=== PATIENT | female | born 1950 | race Caucasian/White ===

== ENCOUNTER → 2016-04-30 | Outpatient (CLI) | payer BC, OTHER ==
[~2016-04-30] MED LIST: AMBI5TAB PO; ASPI1TAB PO; ATOR40TA PO; FISH5CAP PO; K-TA1TAB PO; LISI20TA3 PO; MAGN1TAB25 PO; MULT1TAB9 PO; VITA-121 PO; VITA100072 PO; VOLT1GEL24 TD
[2016-04-30 13:10] LABS: BASO % 0.4 % (0.0-1.0); EOS # 0.2 K/mm3 (0.0-0.50); EOS % 3.1 % (0.0-3.0); LYMPH # 1.7 K/mm3 (1.5-4.5); LYMPH % 24.5 % (24.0-44.0); MEAN CORPUSCULAR HEMOGLOBIN 32.1 pg (27.0-33.0); MEAN CORPUSCULAR HGB CONC 33.6 g/dl (32.0-36.5); MEAN CORPUSCULAR VOLUME 95.7 fl (80.0-96.0); MONO # 0.4 K/mm3 (0.0-0.8); MONO % 5.8 % (0.0-5.0); NEUTROPHILS # 4.4 K/mm3 (1.8-7.7); RED CELL DISTRIBUTION WIDTH 12.4 % (11.5-14.5); WHITE BLOOD COUNT 6.8 K/mm3 (4.0-10.0)
[2016-04-30 13:27] LABS: ALBUMIN/GLOBULIN RATIO 1.43 (1.00-1.93); ALKALINE PHOSPHATASE 64 U/L (45-117); ALT/SGPT 23 U/L (12-78); ANION GAP 9 MEQ/L (8-16); AST/SGOT 22 U/L (15-37); BILIRUBIN,TOTAL 1.4 MG/DL (0.2-1.0); BLOOD UREA NITROGEN 10 MG/DL (7-18); CALCIUM LEVEL 8.9 MG/DL (8.8-10.2); CARBON DIOXIDE LEVEL 30 MEQ/L (21-32); CHLORIDE LEVEL 102 MEQ/L (98-107); CHOLESTEROL LEVEL 196 MG/DL (<200); CREATININE FOR GFR 0.57 MG/DL (0.55-1.02); FREE T4 0.97 NG/DL (0.76-1.46); GLOMERULAR FILTRATION RATE > 60.0 (>45); GLUCOSE, FASTING 111 MG/DL (80-110); POTASSIUM SERUM 4.1 MEQ/L (3.5-5.1); SODIUM LEVEL 141 MEQ/L (136-145); TOTAL PROTEIN 6.8 GM/DL (6.4-8.2); TRIGLYCERIDES LEVEL 183 MG/DL (<150)
[2016-04-30 14:05] LABS: HIV SCRN NEGATIVE (NEGATIVE); HIV SCRN1 NEGATIVE (NEGATIVE)
[2016-04-30 14:06] LABS: CONTROL LINE INT CTR LINE PRESENT
== END ==
LOC: M WUC 09:23
PROVIDERS: ATTEND Family Medicine
DX: Z00.00 Encounter for general adult medical examination without abnormal findings (principal); E78.5 Hyperlipidemia, unspecified; I10 Essential (primary) hypertension

== ENCOUNTER → 2017-05-29 | Outpatient (CLI) | payer OTHER, BC ==
[2017-05-29 13:28] LABS: APPEARANCE, URINE CLEAR (CLEAR); BACTERIA, URINE AUTO NEGATIVE (NEGATIVE); BILIRUBIN, URINE AUTO NEGATIVE (NEGATIVE); BLOOD, URINE BLOOD 1+ (NEGATIVE); COLOR, URINE YELLOW (YELLOW); GLUCOSE, URINE (UA) AUTO NEGATIVE (NEGATIVE); KETONE, URINE AUTO NEGATIVE (NEGATIVE); LEUKOCYTE ESTERASE, URINE AUTO NEGATIVE (NEGATIVE); MUCUS, URINE SMALL (NEGATIVE); NITRITE, URINE AUTO NEGATIVE (NEGATIVE); PROTEIN, URINE AUTO NEGATIVE (NEGATIVE); RBC, URINE AUTO 2 /HPF (0-3); SPECIFIC GRAVITY URINE AUTO 1.018 (1.002-1.035); SQUAMOUS EPITHELIAL CELL UR AU 0 /HPF (0-6); UROBILINOGEN, URINE AUTO 0.2 mg/dL (0.0-2.0); WBC, URINE AUTO 1 /HPF (0-3)
[2017-05-29 13:29] LABS: BASO % 0.6 % (0.0-1.0); EOS # 0.1 10^3/uL (0.0-0.50); EOS % 1.6 % (0.0-3.0); HEMATOCRIT 38.5 % (36.0-47.0); IMMATURE GRANULOCYTE % 0.3 % (0-3.0); LYMPH # 1.7 10^3/uL (1.5-4.5); LYMPH % 24.1 % (24.0-44.0); MEAN CORPUSCULAR HGB CONC 33.8 g/dl (32.0-36.5); MEAN CORPUSCULAR VOLUME 94.8 fl (80.0-96.0); MONO # 0.6 10^3/uL (0.0-0.8); MONO % 8.6 % (0.0-5.0); NEUTROPHILS # 4.5 10^3/uL (1.8-7.7); NEUTROPHILS % 64.8 % (36.0-66.0); PLATELET COUNT, AUTOMATED 226 10^3/uL (150-450); RED BLOOD COUNT 4.06 10^6/uL (4.00-5.40); RED CELL DISTRIBUTION WIDTH 13.2 % (11.5-14.5)
[2017-05-29 13:44] LABS: ALBUMIN/GLOBULIN RATIO 1.29 (1.00-1.93); ALKALINE PHOSPHATASE 73 U/L (45-117); ALT/SGPT 40 U/L (12-78); ANION GAP 6 MEQ/L (8-16); AST/SGOT 35 U/L (7-37); BILIRUBIN,TOTAL 1.3 MG/DL (0.2-1.0); BLOOD UREA NITROGEN 13 MG/DL (7-18); CALCIUM LEVEL 8.6 MG/DL (8.8-10.2); CARBON DIOXIDE LEVEL 33 MEQ/L (21-32); CHLORIDE LEVEL 101 MEQ/L (98-107); CHOLESTEROL LEVEL 174 MG/DL (<200); CHOLESTEROL RISK RATIO 2.175 (<5); CREATININE FOR GFR 0.49 MG/DL (0.55-1.30); GLOMERULAR FILTRATION RATE > 60.0 (>45); GLUCOSE, FASTING 93 MG/DL (70-100); HDL CHOLESTEROL 80 MG/DL (>40); LDL CHOLESTEROL 66.2 MG/DL (<100); NON-HDL-C 94 MG/DL; POTASSIUM SERUM 3.5 MEQ/L (3.5-5.1); SODIUM LEVEL 140 MEQ/L (136-145); TOTAL PROTEIN 7.1 GM/DL (6.4-8.2); TRIGLYCERIDES LEVEL 139 MG/DL (<150); URIC ACID 5.1 MG/DL (2.6-6.0)
[2017-05-29 14:16] LABS: TOTAL 25(OH) VITAMIN D 24.6 NG/ML (30.0-100.0)
[2017-05-29 14:17] LABS: ESTIMATED AVERAGE GLUCOSE 120 MG/DL (60-110); HEMOGLOBIN A1c 5.8 %
[2017-05-30 14:16] LABS: ANTINUCLEAR ANTIBODIES DIRECT Negative (Negative)
== END ==
LOC: M WUC 10:00
DX: I10 Essential (primary) hypertension (principal); M79.671 Pain in right foot; E78.5 Hyperlipidemia, unspecified; E55.9 Vitamin D deficiency, unspecified
CPT/HCPCS: 84550

== ENCOUNTER → 2017-11-25 | Outpatient (CLI) | payer MEDICARE, OTHER | LOC: M RAD 11:54 | DX: I73.9 Peripheral vascular disease, unspecified (principal); S13.160A Subluxation of C5/C6 cervical vertebrae, initial encounter; S13.150A Subluxation of C4/C5 cervical vertebrae, initial encounter; M50.322 Other cervical disc degeneration at C5-C6 level; M25.78 Osteophyte, vertebrae; X58.XXXA Exposure to other specified factors, initial encounter; Y92.9 Unspecified place or not applicable; R51 Headache | CPT/HCPCS: 70450 ==

== ENCOUNTER → 2017-11-25 | Outpatient (CLI) | payer MEDICARE, OTHER, BC ==
[2017-11-25 16:28] LABS: BASO # 0.1 10^3/uL (0.0-0.2); BASO % 0.8 % (0.0-1.0); EOS # 0.1 10^3/uL (0.0-0.50); HEMATOCRIT 40.3 % (36.0-47.0); HEMOGLOBIN 13.7 g/dl (12.0-15.5); IMMATURE GRANULOCYTE % 0.5 % (0-3.0); LYMPH # 2.1 10^3/uL (1.5-4.5); LYMPH % 31.5 % (24.0-44.0); MEAN CORPUSCULAR HEMOGLOBIN 32.9 pg (27.0-33.0); MEAN CORPUSCULAR VOLUME 96.9 fl (80.0-96.0); MONO # 0.6 10^3/uL (0.0-0.8); MONO % 8.9 % (0.0-5.0); NEUTROPHILS # 3.7 10^3/uL (1.8-7.7); NEUTROPHILS % 56.3 % (36.0-66.0); PLATELET COUNT, AUTOMATED 281 10^3/uL (150-450); RED BLOOD COUNT 4.16 10^6/uL (4.00-5.40); WHITE BLOOD COUNT 6.6 10^3/uL (4.0-10.0)
[2017-11-25 16:54] LABS: ERYTHROCYTE SEDIMENTATION RATE 4 mm/hr (0-30)
[2017-11-25 17:16] LABS: ALBUMIN 4.2 GM/DL (3.2-5.2); ALKALINE PHOSPHATASE 61 U/L (45-117); ALT/SGPT 28 U/L (12-78); ANION GAP 13 MEQ/L (8-16); AST/SGOT 40 U/L (7-37); BILIRUBIN,TOTAL 1.5 MG/DL (0.2-1.0); BLOOD UREA NITROGEN 14 MG/DL (7-18); CARBON DIOXIDE LEVEL 29 MEQ/L (21-32); CHLORIDE LEVEL 100 MEQ/L (98-107); CREATININE FOR GFR 0.58 MG/DL (0.55-1.30); GLOMERULAR FILTRATION RATE > 60.0 (>45); GLUCOSE, FASTING 106 MG/DL (70-100); POTASSIUM SERUM 4.2 MEQ/L (3.5-5.1); SODIUM LEVEL 142 MEQ/L (136-145); TOTAL PROTEIN 7.2 GM/DL (6.4-8.2)
== END ==
LOC: M WUC 10:37
DX: S13.160A Subluxation of C5/C6 cervical vertebrae, initial encounter (principal); S13.150A Subluxation of C4/C5 cervical vertebrae, initial encounter; M50.322 Other cervical disc degeneration at C5-C6 level; M25.78 Osteophyte, vertebrae; X58.XXXA Exposure to other specified factors, initial encounter; Y92.9 Unspecified place or not applicable; R51 Headache

== ENCOUNTER → 2017-12-02 | Outpatient (CLI) | payer MEDICARE, OTHER ==
[2017-12-02 12:23] LABS: APPEARANCE, URINE CLEAR (CLEAR); BACTERIA, URINE AUTO NEGATIVE (NEGATIVE); BILIRUBIN, URINE AUTO NEGATIVE (NEGATIVE); BLOOD, URINE BLOOD NEGATIVE (NEGATIVE); COLOR, URINE YELLOW (YELLOW); GLUCOSE, URINE (UA) AUTO NEGATIVE (NEGATIVE); KETONE, URINE AUTO NEGATIVE (NEGATIVE); LEUKOCYTE ESTERASE, URINE AUTO NEGATIVE (NEGATIVE); MUCUS, URINE SMALL (NEGATIVE); NITRITE, URINE AUTO NEGATIVE (NEGATIVE); PROTEIN, URINE AUTO NEGATIVE (NEGATIVE); RBC, URINE AUTO 5 /HPF (0-3); SPECIFIC GRAVITY URINE AUTO 1.015 (1.002-1.035); SQUAMOUS EPITHELIAL CELL UR AU 1 /HPF (0-6); UROBILINOGEN, URINE AUTO 0.2 mg/dL (0.0-2.0); WBC, URINE AUTO 2 /HPF (0-3)
[2017-12-02 12:34] LABS: BASO # 0.1 10^3/uL (0.0-0.2); EOS # 0.1 10^3/uL (0.0-0.50); EOS % 1.6 % (0.0-3.0); HEMATOCRIT 40.5 % (36.0-47.0); HEMOGLOBIN 13.7 g/dl (12.0-15.5); IMMATURE GRANULOCYTE % 0.6 % (0-3.0); LYMPH # 1.8 10^3/uL (1.5-4.5); LYMPH % 29.3 % (24.0-44.0); MEAN CORPUSCULAR HEMOGLOBIN 32.4 pg (27.0-33.0); MEAN CORPUSCULAR HGB CONC 33.8 g/dl (32.0-36.5); MEAN CORPUSCULAR VOLUME 95.7 fl (80.0-96.0); MONO # 0.6 10^3/uL (0.0-0.8); MONO % 9.4 % (0.0-5.0); NEUTROPHILS # 3.7 10^3/uL (1.8-7.7); NEUTROPHILS % 58.1 % (36.0-66.0); PLATELET COUNT, AUTOMATED 326 10^3/uL (150-450); RED BLOOD COUNT 4.23 10^6/uL (4.00-5.40); RED CELL DISTRIBUTION WIDTH 12.8 % (11.5-14.5); WHITE BLOOD COUNT 6.3 10^3/uL (4.0-10.0)
[2017-12-02 12:43] LABS: ALBUMIN/GLOBULIN RATIO 1.25 (1.00-1.93); ALKALINE PHOSPHATASE 73 U/L (45-117); ALT/SGPT 31 U/L (12-78); ANION GAP 8 MEQ/L (8-16); AST/SGOT 42 U/L (7-37); BLOOD UREA NITROGEN 11 MG/DL (7-18); CALCIUM LEVEL 8.6 MG/DL (8.8-10.2); CARBON DIOXIDE LEVEL 33 MEQ/L (21-32); CHLORIDE LEVEL 101 MEQ/L (98-107); CHOLESTEROL LEVEL 197 MG/DL (<200); CHOLESTEROL RISK RATIO 2.164 (<5); CREATININE FOR GFR 0.53 MG/DL (0.55-1.30); FREE T4 0.88 NG/DL (0.76-1.46); GLOMERULAR FILTRATION RATE > 60.0 (>45); GLUCOSE, FASTING 91 MG/DL (70-100); HDL CHOLESTEROL 91 MG/DL (>40); LDL CHOLESTEROL 67 MG/DL (<100); NON-HDL-C 106 MG/DL; POTASSIUM SERUM 3.5 MEQ/L (3.5-5.1); SODIUM LEVEL 142 MEQ/L (136-145); TOTAL PROTEIN 7.2 GM/DL (6.4-8.2); TRIGLYCERIDES LEVEL 197 MG/DL (<150); URIC ACID 6.3 MG/DL (2.6-6.0)
[2017-12-02 12:47] LABS: TOTAL 25(OH) VITAMIN D 40.6 NG/ML (30.0-100.0)
== END ==
LOC: M WUC 09:43
DX: I10 Essential (primary) hypertension (principal); M79.671 Pain in right foot; E78.5 Hyperlipidemia, unspecified
CPT/HCPCS: 84443

== ENCOUNTER → 2018-03-06 | Outpatient (REF) | payer MEDICARE, OTHER ==
[~2018-03-06] MED LIST changes: -ATOR40TA PO; +ATOR40TA75 PO; +VOLT1GEL15 TD; -VOLT1GEL24 TD
== END ==
LOC: M SFHCWAGY 09:07
PROVIDERS: ATTEND Nurse Practitioner Family
DX: Z12.4 Encounter for screening for malignant neoplasm of cervix (principal); R87.5 Abnormal microbiological findings in specimens from female genital organs

== ENCOUNTER → 2018-03-06 | Outpatient (CLI) | payer MEDICARE, BC ==
--- NOTE | 2018-03-06 09:49 | REPMRS ---
Patient History The patient states she had a clinical breast exam in 03/21 Family history of breast cancer under age 50 in maternal aunt. Took progesterone for 1 year. Digital Woman Screen Mammo: March 06, 2018 - Exam #: [id number] Bilateral CC and MLO view(s) were taken. Technologist: Kailyn Tian, Technologist Prior study comparison: March 15, 2016, bilateral digital woman screen mammo, performed at [facility]. July 28, 2015, digital woman screen mammo performed at [facility]. June 17, 2014, digital woman screen mammo performed at [facility]. FINDINGS: There are scattered fibroglandular densities. There has been no change in the appearance of the mammogram from the prior studies. There is a mild amount of scattered fibroglandular density which is fairly symmetric. There is no interval development of dominant mass, architectural distortion, or clustered microcalcification suggestive of malignancy. 3-D tomosynthesis shows no additional findings. Assessment: BI-RADS/ACR category 1 mammogram. Negative. Recommendation Routine screening mammogram of both breasts in 1 year (for women over age 40). This patient's Lifetime Breast Cancer RIsk is estimated at 4.7 %. This mammogram was interpreted with the aid of an FDA-approved computer-aided dectection system. Electronically Signed By: Yogi Stringer MD 03/06/18 0949
== END ==
LOC: M WHC 08:48
PROVIDERS: ATTEND Nurse Practitioner Family
DX: Z01.419 Encounter for gynecological examination (general) (routine) without abnormal findings (principal); Z12.31 Encounter for screening mammogram for malignant neoplasm of breast; Z92.29 Personal history of other drug therapy; Z12.12 Encounter for screening for malignant neoplasm of rectum
CPT/HCPCS: 77063; 77067; 82270; G0101; G0123

== ENCOUNTER → 2018-05-26 | Outpatient (CLI) | payer MEDICARE, OTHER ==
[2018-05-26 12:58] LABS: BASO # 0.1 10^3/uL (0.0-0.2); BASO % 0.6 % (0.0-1.0); EOS # 0.1 10^3/uL (0.0-0.50); EOS % 1.8 % (0.0-3.0); HEMATOCRIT 39.3 % (36.0-47.0); HEMOGLOBIN 13.4 g/dl (12.0-15.5); LYMPH % 25.9 % (24.0-44.0); MEAN CORPUSCULAR HEMOGLOBIN 31.9 pg (27.0-33.0); MEAN CORPUSCULAR HGB CONC 34.1 g/dl (32.0-36.5); MEAN CORPUSCULAR VOLUME 93.6 fl (80.0-96.0); MONO # 0.6 10^3/uL (0.0-0.8); MONO % 7.7 % (0.0-5.0); NEUTROPHILS % 63.6 % (36.0-66.0); PLATELET COUNT, AUTOMATED 252 10^3/uL (150-450); WHITE BLOOD COUNT 7.8 10^3/uL (4.0-10.0)
[2018-05-26 13:28] LABS: ALBUMIN 4.4 GM/DL (3.2-5.2); ALT/SGPT 31 U/L (12-78); BILIRUBIN,TOTAL 2.5 MG/DL (0.2-1.0); BLOOD UREA NITROGEN 15 MG/DL (7-18); CALCIUM LEVEL 8.9 MG/DL (8.8-10.2); CARBON DIOXIDE LEVEL 30 MEQ/L (21-32); CHLORIDE LEVEL 99 MEQ/L (98-107); CHOLESTEROL LEVEL 182 MG/DL (<200); CHOLESTEROL RISK RATIO 2.459 (<5); CREATININE FOR GFR 0.59 MG/DL (0.55-1.30); FREE T4 0.96 NG/DL (0.76-1.46); GLOMERULAR FILTRATION RATE > 60.0 (>45); GLUCOSE, FASTING 103 MG/DL (70-100); HDL CHOLESTEROL 74 MG/DL (>40); LDL CHOLESTEROL 72 MG/DL (<100); NON-HDL-C 108 MG/DL; POTASSIUM SERUM 3.7 MEQ/L (3.5-5.1); SODIUM LEVEL 137 MEQ/L (136-145); TOTAL 25(OH) VITAMIN D 79.6 NG/ML (30.0-100.0); TOTAL PROTEIN 7.3 GM/DL (6.4-8.2); TRIGLYCERIDES LEVEL 180 MG/DL (<150); URIC ACID 4.6 MG/DL (2.6-6.0)
[2018-05-26 13:50] LABS: ERYTHROCYTE SEDIMENTATION RATE 6 mm/hr (0-30)
[2018-05-26 19:44] LABS: APPEARANCE, URINE HAZY (CLEAR); BACTERIA, URINE AUTO NEGATIVE (NEGATIVE); BILIRUBIN, URINE AUTO NEGATIVE (NEGATIVE); BLOOD, URINE BLOOD NEGATIVE (NEGATIVE); CALCIUM OXALATE CRYSTALS SMALL; COLOR, URINE AMBER (YELLOW); GLUCOSE, URINE (UA) AUTO NEGATIVE (NEGATIVE); KETONE, URINE AUTO NEGATIVE (NEGATIVE); LEUKOCYTE ESTERASE, URINE AUTO NEGATIVE (NEGATIVE); MUCUS, URINE SMALL (NEGATIVE); NITRITE, URINE AUTO NEGATIVE (NEGATIVE); PROTEIN, URINE AUTO NEGATIVE (NEGATIVE); RBC, URINE AUTO 3 /HPF (0-3); SPECIFIC GRAVITY URINE AUTO 1.021 (1.002-1.035); SQUAMOUS EPITHELIAL CELL UR AU 2 /HPF (0-6); UROBILINOGEN, URINE AUTO 0.2 mg/dL (0.0-2.0); WBC, URINE AUTO 2 /HPF (0-3)
== END ==
LOC: M WUC 10:56
PROVIDERS: ATTEND Family Medicine
DX: I10 Essential (primary) hypertension (principal); M79.671 Pain in right foot; E78.5 Hyperlipidemia, unspecified; E55.9 Vitamin D deficiency, unspecified; G47.33 Obstructive sleep apnea (adult) (pediatric); M10.9 Gout, unspecified; Z79.82 Long term (current) use of aspirin

== ENCOUNTER → 2018-06-26 | Outpatient (CLI) | payer MEDICARE, OTHER ==
[~2018-06-26] MED LIST changes: -ASPI1TAB PO; +ASPI81TA26 PO; -MAGN1TAB25 PO; +MAGN1TAB26 PO; +VITA100018 PO; -VITA100072 PO
[2018-06-26 13:04] LABS: BASO % 0.6 % (0.0-1.0); EOS # 0.2 10^3/uL (0.0-0.50); EOS % 2.9 % (0.0-3.0); HEMATOCRIT 37.3 % (36.0-47.0); HEMOGLOBIN 12.2 g/dl (12.0-15.5); LYMPH # 1.6 10^3/uL (1.5-4.5); LYMPH % 23.6 % (24.0-44.0); MEAN CORPUSCULAR HEMOGLOBIN 31.1 pg (27.0-33.0); MEAN CORPUSCULAR HGB CONC 32.7 g/dl (32.0-36.5); MEAN CORPUSCULAR VOLUME 95.2 fl (80.0-96.0); MONO # 0.7 10^3/uL (0.0-0.8); MONO % 10.6 % (0.0-5.0); NEUTROPHILS # 4.2 10^3/uL (1.8-7.7); NEUTROPHILS % 61.9 % (36.0-66.0); PLATELET COUNT, AUTOMATED 230 10^3/uL (150-450); RED BLOOD COUNT 3.92 10^6/uL (4.00-5.40); WHITE BLOOD COUNT 6.9 10^3/uL (4.0-10.0)
[2018-06-26 13:28] LABS: ERYTHROCYTE SEDIMENTATION RATE 9 mm/hr (0-30)
[2018-06-26 13:39] LABS: ALBUMIN 3.9 GM/DL (3.2-5.2); ALT/SGPT 23 U/L (12-78); BILIRUBIN,TOTAL 1.6 MG/DL (0.2-1.0); BLOOD UREA NITROGEN 12 MG/DL (7-18); CALCIUM LEVEL 8.6 MG/DL (8.8-10.2); CARBON DIOXIDE LEVEL 30 MEQ/L (21-32); CHLORIDE LEVEL 101 MEQ/L (98-107); CHOLESTEROL LEVEL 175 MG/DL (<200); CHOLESTEROL RISK RATIO 2.464 (<5); CREATININE FOR GFR 0.49 MG/DL (0.55-1.30); FREE T4 0.89 NG/DL (0.76-1.46); GLOMERULAR FILTRATION RATE > 60.0 (>45); GLUCOSE, FASTING 89 MG/DL (70-100); HDL CHOLESTEROL 71 MG/DL (>40); LDL CHOLESTEROL 76.8 MG/DL (<100); NON-HDL-C 104 MG/DL; POTASSIUM SERUM 3.9 MEQ/L (3.5-5.1); SODIUM LEVEL 138 MEQ/L (136-145); TOTAL PROTEIN 6.8 GM/DL (6.4-8.2); TRIGLYCERIDES LEVEL 136 MG/DL (<150); URIC ACID 4.5 MG/DL (2.6-6.0)
[2018-06-26 13:41] LABS: TOTAL 25(OH) VITAMIN D 88.3 NG/ML (30.0-100.0)
[2018-06-26 13:56] LABS: APPEARANCE, URINE CLEAR (CLEAR); BACTERIA, URINE AUTO NEGATIVE (NEGATIVE); BILIRUBIN, URINE AUTO NEGATIVE (NEGATIVE); BLOOD, URINE BLOOD NEGATIVE (NEGATIVE); COLOR, URINE YELLOW (YELLOW); GLUCOSE, URINE (UA) AUTO NEGATIVE (NEGATIVE); KETONE, URINE AUTO NEGATIVE (NEGATIVE); LEUKOCYTE ESTERASE, URINE AUTO NEGATIVE (NEGATIVE); MUCUS, URINE SMALL (NEGATIVE); NITRITE, URINE AUTO NEGATIVE (NEGATIVE); PROTEIN, URINE AUTO NEGATIVE (NEGATIVE); RBC, URINE AUTO 1 /HPF (0-3); SPECIFIC GRAVITY URINE AUTO 1.019 (1.002-1.035); SQUAMOUS EPITHELIAL CELL UR AU 0 /HPF (0-6); UROBILINOGEN, URINE AUTO 0.2 mg/dL (0.0-2.0); WBC, URINE AUTO 1 /HPF (0-3)
== END ==
LOC: M WUC 10:37
PROVIDERS: ATTEND Family Medicine
DX: I10 Essential (primary) hypertension (principal); M79.671 Pain in right foot; E78.5 Hyperlipidemia, unspecified; E55.9 Vitamin D deficiency, unspecified; G47.33 Obstructive sleep apnea (adult) (pediatric); M10.9 Gout, unspecified

== ENCOUNTER → 2019-02-07 | Outpatient (CLI) | payer MEDICARE, OTHER ==
[~2019-02-07] MED LIST changes: +LISI20TA20 PO; -LISI20TA3 PO
[2019-02-07 19:38] LABS: BASO # 0.1 10^3/uL (0.0-0.2); BASO % 1.1 % (0.0-1.0); EOS # 0.1 10^3/uL (0.0-0.5); HEMATOCRIT 39.2 % (36.0-47.0); HEMOGLOBIN 12.9 g/dl (12.0-15.5); LYMPH # 1.8 10^3/uL (1.5-5.0); LYMPH % 31.8 % (24.0-44.0); MEAN CORPUSCULAR HEMOGLOBIN 33.1 pg (27.0-33.0); MEAN CORPUSCULAR HGB CONC 32.9 g/dl (32.0-36.5); MEAN CORPUSCULAR VOLUME 100.5 fl (80.0-96.0); MONO # 0.6 10^3/uL (0.0-0.8); MONO % 10.5 % (0.0-5.0); NEUTROPHILS # 3.1 10^3/uL (1.5-8.5); NEUTROPHILS % 54.4 % (36.0-66.0); PLATELET COUNT, AUTOMATED 286 10^3/uL (150-450); WHITE BLOOD COUNT 5.6 10^3/uL (4.0-10.0)
[2019-02-07 19:45] LABS: APPEARANCE, URINE CLEAR (CLEAR); BACTERIA, URINE AUTO NEGATIVE (NEGATIVE); BILIRUBIN, URINE AUTO NEGATIVE (NEGATIVE); BLOOD, URINE BLOOD NEGATIVE (NEGATIVE); COLOR, URINE YELLOW (YELLOW); GLUCOSE, URINE (UA) AUTO NEGATIVE (NEGATIVE); KETONE, URINE AUTO NEGATIVE (NEGATIVE); LEUKOCYTE ESTERASE, URINE AUTO NEGATIVE (NEGATIVE); MUCUS, URINE SMALL (NEGATIVE); NITRITE, URINE AUTO NEGATIVE (NEGATIVE); PROTEIN, URINE AUTO NEGATIVE (NEGATIVE); RBC, URINE AUTO 1 /HPF (0-3); SPECIFIC GRAVITY URINE AUTO 1.024 (1.002-1.035); SQUAMOUS EPITHELIAL CELL UR AU 1 /HPF (0-6); UROBILINOGEN, URINE AUTO 0.2 mg/dL (0.0-2.0); WBC, URINE AUTO 1 /HPF (0-3)
[2019-02-07 20:02] LABS: ERYTHROCYTE SEDIMENTATION RATE 5 mm/hr (0-30)
[2019-02-07 20:15] LABS: ALBUMIN 4.1 GM/DL (3.2-5.2); ALT/SGPT 27 U/L (12-78); BILIRUBIN,TOTAL 0.7 MG/DL (0.2-1.0); BLOOD UREA NITROGEN 15 MG/DL (7-18); CALCIUM LEVEL 8.9 MG/DL (8.8-10.2); CARBON DIOXIDE LEVEL 33 MEQ/L (21-32); CHLORIDE LEVEL 100 MEQ/L (98-107); CHOLESTEROL LEVEL 184 MG/DL (<200); CREATININE FOR GFR 0.59 MG/DL (0.55-1.30); FREE T4 0.86 NG/DL (0.76-1.46); GLOMERULAR FILTRATION RATE > 60.0 (>45); GLUCOSE, FASTING 86 MG/DL (70-100); HDL CHOLESTEROL 73 MG/DL (>40); LDL CHOLESTEROL 69 MG/DL (<100); NON-HDL-C 111 MG/DL; SODIUM LEVEL 139 MEQ/L (136-145); TOTAL PROTEIN 6.9 GM/DL (6.4-8.2); TRIGLYCERIDES LEVEL 210 MG/DL (<150); URIC ACID 4.8 MG/DL (2.6-6.0)
[2019-02-08 12:58] LABS: TOTAL 25(OH) VITAMIN D 71.4 NG/ML (30.0-100.0)
== END ==
LOC: M WUC 10:23
PROVIDERS: ATTEND Family Medicine
DX: G47.33 Obstructive sleep apnea (adult) (pediatric) (principal); M10.9 Gout, unspecified; I10 Essential (primary) hypertension; E55.9 Vitamin D deficiency, unspecified; E78.5 Hyperlipidemia, unspecified; M79.671 Pain in right foot

== ENCOUNTER → 2019-04-08 | Outpatient (CLI) | payer MEDICARE, BC ==
--- NOTE | 2019-04-08 13:47 | REP ---
FOCUSED LEFT BREAST SONOGRAPHY: HISTORY: Left breast lump at 2-o'clock position, 7 cm from the nipple with associated tenderness in this region on clinician breast exam. Comparison mammography is from March 06, 2018 SONOGRAPHIC FINDINGS: Scanning in the area of the palpable lump at 2-o'clock position in the left breast demonstrates a hypoechoic area measuring 10 x 10 x 3 mm. This has its long axis parallel to the skin. Its anterior margin is somewhat angular and irregular. There is some acoustic shadowing. Apparently, there is tenderness to scanning over this lesion. IMPRESSION: BIRADS category 0, incomplete breast imaging. Recommend diagnostic mammography on the left and screening mammography on the right. The lesion however is sonographically suspicious. Ultrasound-guided needle biopsy and marker clip placement may be warranted.
== END ==
LOC: M WHC 10:44
PROVIDERS: ATTEND Surgery
DX: R92.2 Inconclusive mammogram (principal)

== ENCOUNTER → 2019-04-14 | Outpatient (CLI) | payer MEDICARE, BC ==
--- NOTE | 2019-04-14 10:26 | ROOPDOC ---
[facility] Report Of Operation Report of Operation DATE OF PROCEDURE: 04/14/19 PREPROCEDURE DIAGNOSES: right breast palpable mass and left breast mass with sonographic suspicious correlate POSTPROCEDURE DIAGNOSES: Right breast palpable mass, unable to find left breast sonographic correlate PROCEDURE: Right breast ultrasound guided biopsy with clip placement SURGEON: King Aguero SAP PPM CONSULTANT: ANESTHESIA: local, 8 cc ESTIMATED BLOOD LOSS: Approximately 1 mL. COMPLICATIONS: none REMARKS: right breast post bx clip was found posteriorly on MLO view. We were unable to find clear sonographic target lesion today in the left breast DESCRIPTION OF PROCEDURE: Lidocaine 1% LOT [id number] Expiration July 2022 Sodium Bicarbonate 8.4% LOT [id number] Expiration November 2020 Hydromark clip LOT [id number] Expiration August 2021 REF [id number] titanium shaped 4 (close coil) Bx device: BARD [id number] x10 cm LOT HUD [id number] Expiration December 2021 REF [id number] Informed consent was obtained in the preop area. The most common risk and possible complications including bleeding, hematoma, bruising, infection, injury to surrounding structures were explained to the patient and she expressed understanding. Patient was taken to the procedure room and placed on the bed in the supine position Our attention was turned first to the right which is the site of palpable right breast mass. Patients right upper extremity placed above the head. Appropriate time out was done stating patients name, date of , and the procedure to be performed. Patient confirmed location of the palpable right breast mass before the procedure and the area was marked appropriately. The right breast was prepped and draped in the usual fashion. The ultrasound was used to monitor the area of the palpable mass. No sonographic correlate was seen. Palpation was used to identify the mass and ultrasound probe was placed on top of it. Plain Lidocaine 1% and 8.4% sodium bicarbonate 10:1 mix was used to numb the s kin, the biopsy site and tissues along the anticipated biopsy tract. Small skin incision was made with blade number 11. BARD Marquee 14G cannula with introducer ([id number]) was inserted through the incision and advanced under the ultrasound guidance to position immediately adjacent to the lesion. Next, the introducer was removed and BARD Marquee 14G biopsy device was places in the c annula. Pre-biopsy imaging, and post-biopsy imaging were captured. Five good core biopsies were taken at various levels of the lesion. Next, the biopsy device was withdrawn and a clip introducer was inserted into the biopsy site via the cannula. The Hydromark clip was deployed under direct vision. Post-clip placement image was captured. Manual pressure over the biopsy cavity and tract was held after the clip introducer was withdrawn. No bleeding was noted upon removal of the pressure. Next, our attention was turned toward the left side where are of breast tenderness with sonographic correlate was previously identified at 2:00 7CFN. Despite thorough and tedious scanning we could not clearly re-identify the lesion seen on formal ultrasound. The left breast biopsy was aborted at this time since no clear target lesion was identified today. I explained to the patient that I will ask our radiology team to do the left breast biopsy once they hopefully identify the sonographic correlate. Patient expressed understa nding. Post-biopsy mammogram of the right breast only was obtained and showed clip in expected position. Postprocedural dressing was placed. Patient tolerated procedure well and was taken to the recovery unit in stable condition. Discharge instructions were discussed with the patient and she expressed understanding. KING AGUERO DO Apr 14, 2019 10:26
--- NOTE | 2019-04-14 10:41 | REP ---
DIGITAL DIAGNOSTIC UNILATERAL RIGHT BREAST MAMMOGRAPHY WITH CAD: Two views. HISTORY: Post biopsy marker clip views. The patient status post ultrasound-guided needle biopsy right breast. Comparison mammography March 06, 2018 and, more recently from [facility] dated March 17, 2019 . FINDINGS: The MLO view demonstrates a needle biopsy marker clip at the biopsy site near the axillary region of the right breast superiorly. There is no evidence of hematoma. There was no mammographic abnormality. IMPRESSION: Marker clip visible near the axilla.
--- NOTE | 2019-04-15 08:16 | REP ---
ULTRASOUND GUIDANCE: HISTORY: Breast ultrasound guidance for needle biopsy procedure. FINDINGS: Sonographic guidance is provided Dr. Currie who performed ultrasound-guided breast biopsy procedure.
== END ==
LOC: M WHCPRO 07:29
PROVIDERS: ATTEND Surgery
DX: N63.11 Unspecified lump in the right breast, upper outer quadrant (principal); N64.1 Fat necrosis of breast; N64.59 Other signs and symptoms in breast

== ENCOUNTER → 2019-06-07 | Outpatient (CLI) | payer MEDICARE, BC, OTHER ==
[~2019-06-07] MED LIST changes: +LIDOCAINE 1% MDV 20ML VIAL As Ordered ONE; +SODIUM BICARBONATE 8.4% INJ 50MEQ 50 ML VIAL As Ordered ONE
--- NOTE | 2019-06-07 12:13 | REP ---
ULTRASOUND LEFT BREAST: Real-time sonographic evaluation of the left breast performed and compared to prior studies. The ultrasound of 04/08/2019 showed a hypoechoic area at 2-o'clock position 10 x 10 x 3 mm for which biopsy was recommended. Ultrasound of the left breast between 1-o'clock and 3-o'clock position failed to reveal the previously noted hypoechoic area. No discrete cystic or solid nodule is seen in this region. IMPRESSION: ACR 2 benign. Previously noted nodular hypoechoic area at the 2 -o'clock position in the left breast on the 04/08/2019 exam is not seen on today's study. Also, it could not be seen on the exam of 04/14/2019. Therefore, the scheduled biopsy is cancelled. Electronically Signed by Steven Ramesh MD 06/07/2019 03:12 P
== END ==
LOC: M IRPRO 10:18
PROVIDERS: ATTEND Surgery
DX: N63.21 Unspecified lump in the left breast, upper outer quadrant (principal)

== ENCOUNTER → 2019-11-16 | Outpatient (CLI) | payer MEDICARE, BC, OTHER ==
[~2019-11-16] MED LIST changes: +ALLO100T PO; +AMLO1TAB24 PO; +BUSP10TA PO; +CLIN300C5 PO; +D31000TA2 PO; +DICL1GEL3; +ESCI20TA; +HYDR50TAB; -LIDOCAINE 1% MDV 20ML VIAL As Ordered ONE; +METO1TAB87 PO; +NAPR-885; +NIAC500T93 PO; +OXYC-517 PO; -SODIUM BICARBONATE 8.4% INJ 50MEQ 50 ML VIAL As Ordered ONE; +VALA1TAB5; +VITA50005
[2019-11-16 17:07] LABS: APPEARANCE, URINE CLEAR (CLEAR); BACTERIA, URINE AUTO NEGATIVE (NEGATIVE); BASO # 0.1 10^3/uL (0.0-0.2); BASO % 0.9 % (0.0-1.0); BILIRUBIN, URINE AUTO NEGATIVE (NEGATIVE); BLOOD, URINE BLOOD NEGATIVE (NEGATIVE); COLOR, URINE YELLOW (YELLOW); EOS # 0.1 10^3/uL (0.0-0.5); EOS % 0.7 % (0.0-3.0); GLUCOSE, URINE (UA) AUTO NEGATIVE (NEGATIVE); HEMATOCRIT 40.9 % (36.0-47.0); HEMOGLOBIN 13.7 g/dl (12.0-15.5); KETONE, URINE AUTO NEGATIVE (NEGATIVE); LEUKOCYTE ESTERASE, URINE AUTO NEGATIVE (NEGATIVE); LYMPH # 1.7 10^3/uL (1.5-5.0); LYMPH % 20.8 % (24.0-44.0); MEAN CORPUSCULAR HEMOGLOBIN 33.7 pg (27.0-33.0); MEAN CORPUSCULAR HGB CONC 33.5 g/dl (32.0-36.5); MEAN CORPUSCULAR VOLUME 100.5 fl (80.0-96.0); MONO # 0.5 10^3/uL (0.0-0.8); MONO % 6.4 % (0.0-5.0); MUCUS, URINE SMALL (NEGATIVE); NEUTROPHILS # 5.8 10^3/uL (1.5-8.5); NEUTROPHILS % 70.8 % (36.0-66.0); NITRITE, URINE AUTO NEGATIVE (NEGATIVE); PLATELET COUNT, AUTOMATED 355 10^3/uL (150-450); PROTEIN, URINE AUTO NEGATIVE (NEGATIVE); RBC, URINE AUTO 4 /HPF (0-3); RED BLOOD COUNT 4.07 10^6/uL (4.00-5.40); SPECIFIC GRAVITY URINE AUTO 1.017 (1.002-1.035); SQUAMOUS EPITHELIAL CELL UR AU 1 /HPF (0-6); UROBILINOGEN, URINE AUTO 0.2 mg/dL (0.0-2.0); WBC, URINE AUTO 2 /HPF (0-3); WHITE BLOOD COUNT 8.1 10^3/uL (4.0-10.0)
[2019-11-16 17:18] LABS: ALBUMIN 4.1 GM/DL (3.2-5.2); ALT/SGPT 49 U/L (12-78); BILIRUBIN,TOTAL 0.8 MG/DL (0.2-1.0); BLOOD UREA NITROGEN 10 MG/DL (7-18); CALCIUM LEVEL 8.8 MG/DL (8.8-10.2); CARBON DIOXIDE LEVEL 32 MEQ/L (21-32); CHLORIDE LEVEL 100 MEQ/L (98-107); CHOLESTEROL LEVEL 191 MG/DL (<200); CHOLESTEROL RISK RATIO 2.301 (<5); CREATININE FOR GFR 0.66 MG/DL (0.55-1.30); FREE T4 0.76 NG/DL (0.76-1.46); GLOMERULAR FILTRATION RATE > 60.0 (>45); GLUCOSE, FASTING 102 MG/DL (70-100); HDL CHOLESTEROL 83 MG/DL (>40); LDL CHOLESTEROL 62 MG/DL (<100); NON-HDL-C 108 MG/DL; POTASSIUM SERUM 3.3 MEQ/L (3.5-5.1); SODIUM LEVEL 140 MEQ/L (136-145); TOTAL PROTEIN 7.3 GM/DL (6.4-8.2); TRIGLYCERIDES LEVEL 228 MG/DL (<150); URIC ACID 4.9 MG/DL (2.6-6.0)
[2019-11-17 09:12] LABS: TOTAL 25(OH) VITAMIN D 56.5 NG/ML (30.0-100.0); VITAMIN B12 LEVEL 348 PG/ML (247-911)
== END ==
LOC: M WUC 10:55
PROVIDERS: ATTEND Family Medicine
DX: M79.671 Pain in right foot (principal); E78.5 Hyperlipidemia, unspecified; E55.9 Vitamin D deficiency, unspecified; G47.33 Obstructive sleep apnea (adult) (pediatric); I10 Essential (primary) hypertension; Z79.899 Other long term (current) drug therapy

== ENCOUNTER → 2019-12-02 | Outpatient (CLI) | payer MEDICARE, BC ==
--- NOTE | 2019-12-07 12:55 | REP ---
ULTRASOUND RIGHT BREAST HISTORY: Negative ultrasound-guided biopsy right breast 11 o'clock 04/14/2019. Follow-up exam. TECHNIQUE: Real-time sonographic evaluation of the right breast is performed in the region of 11 o'clock at the site of the prior negative ultrasound-guided biopsy. FINDINGS: The biopsy clip is visualized at the site of the biopsy surrounded by a tiny amount of fluid. No cystic or solid nodule is seen. IMPRESSION: BI-RADS 2 benign ultrasound right breast at 11 o'clock. At the site of the prior benign biopsy a biopsy clip is present surrounded by a tiny amount of fluid. No cystic or solid nodule is seen sonographically. MTDD
== END ==
LOC: M WHC 10:01
PROVIDERS: ATTEND Surgery
DX: Z85.3 Personal history of malignant neoplasm of breast (principal)

== ENCOUNTER → 2019-12-11 | Outpatient (CLI) | payer MEDICARE | LOC: M LABSMTC 09:50 | PROVIDERS: ATTEND Anesthesiology | DX: Z01.812 Encounter for preprocedural laboratory examination (principal); Z20.828 Contact with and (suspected) exposure to other viral communicable diseases | CPT/HCPCS: C9803; U0003 ==

== ENCOUNTER 2019-12-16 13:04 | Day surgery (SDC) | payer BC, MEDICARE, OTHER ==
[~2019-12-16] VITALS: Ht 165.1 cm; Wt 73.5 kg
[~2019-12-16 13:04] MED LIST changes: -CLIN300C5 PO; +CLINDAMYCIN 900 MG in IV 1 EA IV ONE; +LR 1,000 ML IV ONE; -OXYC-517 PO
[2019-12-16] MEDS ORDERED: MIDAZOLAM INJ 2MG/2ML VIAL (J2250 PER 1MG) As Ordered ONE ×2 (14:37→15:00)
[2019-12-16] MEDS ORDERED: fentaNYL 100 MCG/2 ML INJECTION (J3010) As Ordered ONE ×3 (14:37→17:11)
[2019-12-16] MEDS ORDERED: ONDANSETRON 4MG/2ML VIAL As Ordered ONE (14:37)
[2019-12-16] MEDS ORDERED: propofoL 200 MG/20 ML VIAL As Ordered ONE (14:38)
[2019-12-16] MEDS ORDERED: dexameTHASONE 4 MG/ML 1ML VIAL (J1100 PER 1MG) As Ordered ONE (14:38)
[2019-12-16] MEDS ORDERED: LIDOCAINE 2% 100MG/5ML SDV (FOR ANES.) As Ordered ONE (14:38)
[2019-12-16] MEDS: MIDAZOLAM INJ 2MG/2ML VIAL (J2250 PER 1MG) IV PRN ×2 (15:19→15:23)
[2019-12-16] MEDS: fentaNYL 100 MCG/2 ML INJECTION (J3010) IV PRN ×2 (15:19→15:23)
[2019-12-16] MEDS ORDERED: ROCURONIUM BROMIDE 50 MG/5 ML VIAL As Ordered ONE ×2 (15:44→19:17)
[2019-12-16] MEDS ORDERED: ACETAMINOPHEN 1000MG 100ML IV BTL (OFIRMEV) (J0131 PER 10MG) As Ordered ONE (17:05)
[2019-12-16] MEDS ORDERED: SUGAMMADEX SODIUM 500 MG/5 ML VIAL (BRIDION) As Ordered ONE (17:06)
[2019-12-16] MEDS ORDERED: ONDANSETRON 4MG/2ML VIAL IV PRN ×2 (20:15)
[2019-12-16] MEDS ORDERED: LR 1,000 ML IV SCH ×2 (20:15)
[2019-12-16] MEDS ORDERED: fentaNYL 100 MCG/2 ML INJECTION (J3010) IV PRN (20:15)
[2019-12-16] MEDS ORDERED: oxyCODONE 5MG TAB PO PRN ×2 (20:15→20:30)
[2019-12-16 20:30] VITALS: BP 109/69
[2019-12-16] MEDS ORDERED: MORPHINE 2 MG/ML 1ML VIAL (J2270) IV PRN (20:30)
[2019-12-16 21:00] VITALS: BP 110/68
[2019-12-16 21:30] VITALS: BP 111/84
[2019-12-16 22:30] VITALS: BP 113/83
[2019-12-16 23:30] VITALS: BP 122/71
[2019-12-16] MEDS: ACETAMINOPHEN 500 MG TAB PO SCH (23:31)
[2019-12-17] MEDS: CLINDAMYCIN 900 MG in IV 1 EA IV SCH ×2 (00:10→09:00)
[2019-12-17 00:30] VITALS: BP 116/69
[2019-12-17 02:00] VITALS: BP 115/70
[2019-12-17 06:00] VITALS: BP 118/71
[2019-12-17] MEDS: ACETAMINOPHEN 500 MG TAB PO SCH (06:00)
[2019-12-17] MEDS: oxyCODONE 5MG TAB PO PRN ×2 (06:14→10:56)
[2019-12-17] MEDS ORDERED: OXYC-517 PO (06:28)
--- NOTE | 2019-12-17 08:14 | REP ---
INDICATION: RIGHT TIBIALIS ANTERIOR TENDON RUPTURE COMPARISON: None. TECHNIQUE: Intraoperative fluoroscopic imaging using portable C-arm technique FINDINGS: Two images of the right midfoot demonstrate linear metallic hardware overlying the base of the 2nd metatarsal bone and adjacent tarsal bone. Total fluoroscopic time 60 seconds. IMPRESSION: Status post fixation. <Electronically signed by Munir Hsieh > 12/17/19 2031
[2019-12-17] MEDS ORDERED: ASPIRIN 81 MG CHEW TABLET PO SCH (09:00)
--- NOTE | 2019-12-17 10:33 | RO ---
DATE OF OPERATION: 12/16/2019 PREOPERATIVE DIAGNOSIS: Right tibialis anterior tendon rupture in the setting of tendinosis. POSTOPERATIVE DIAGNOSIS: Right tibialis anterior tendon rupture in the setting of tendinosis. PROCEDURES: 1. Right anterior tibial tendon excision of torn tendinotic segment with debridement. 2. Posterior tibial tendon transfer to the middle cuneiform. SURGEON: Patricia Scott MD VICE PRESIDENT FINANCIAL: IMANI Escalante PA-C ANESTHESIA: ESTIMATED BLOOD LOSS: 25 mL. COMPLICATIONS: None. CONDITION: Stable to the recovery room. INDICATIONS: Rosemarie Baird is a 69-year-old female who has pain and limited function due to a tibialis anterior tendon rupture. She has elected for a posterior tibial tendon transfer. Risks and benefits of surgery were discussed with the patient in detail and include, but were not limited to, infection, damage to nerves and blood vessels, continued pain and stiffness, need for further surgical procedures. Informed consent was obtained. DESCRIPTION OF PROCEDURE: The patient was met in the preoperative holding area, where the right lower extremity was marked as the correct operative site. She was taken to the operating room where the right lower extremity was prepped and draped in the normal sterile fashion. An official timeout was held where the correct patient, operative site and operative procedure were verified. Leg was exsanguinated and tourniquet was inflated to 250 mmHg. Incision was made medially over the posterior tibial tendon. It was identified and excised off the navicular and medial cuneiform taking a cuff of periosteum with it. There was moderate tendinosis at the insertion and this was debrided. The tendon was tubularized and measured 7 mm. An incision was then made proximal to the medial malleolus and the posterior tibial tendon was brought to this incision. Next, an incision was made just off the tibial crest laterally. The anterior tibial tendon remnant and the rest of the bundle were retracted laterally. The posterior tibial tendon was passed from posterior through anterior through the inner osseous membrane using a Nupur. Next, the cuneiforms were identified on C-arm. Incision was made over the middle and lateral cuneiform. The middle cuneiform was isolated. A tendon length was inserted in the middle cuneiform instead of the lateral cuneiform. K-wire was used to find the center of the bone and confirmed on a mini C-arm. I then switched this with a Beath pin and reamed with a 7 mm reamer. Clinically, it did not violate any cortex. The screw was then inserted. There was satisfactory bite but great bite into the middle cuneiform. The tendon was tensioned at neutral and held without any issue. Finally, copious irrigation was performed. All wounds were closed with 3-0 Vicryl and 3-0 nylon. A well-padded dressing was applied. Patient was placed into a well-padded splint. YUKO
[2019-12-17] MEDS ORDERED: CLIN300C5 PO (10:38)
[2019-12-17] MEDS ORDERED: CLINDAMYCIN 150MG CAPSULE PO ONE (11:00)
--- NOTE | 2019-12-20 06:52 | HPE ---
DATE OF ADMISSION: 12/16/2019 CHIEF COMPLAINT: Tibialis anterior tendon rupture. HISTORY OF PRESENT ILLNESS: Rosemarie Baird is a 68-year-old female who presents for elective tibialis anterior tendon rupture. She has failed conservative measures. MEDICAL HISTORY: 1. Hypertension. 2. Hyperlipidemia. 3. Conjunctivitis. 4. Anxiety. 5. Headache. 6. Insomnia. 7. Obstructive sleep apnea (TRENT). HOME MEDICATIONS: Buspirone, escitalopram, vitamin D, allopurinol, amlodipine, diclofenac, hydrochlorothiazide, fish oil, niacin, magnesium, Lipitor, metoprolol, potassium, naproxen, and valacyclovir. PHYSICAL EXAMINATION: GENERAL: Well appearing, alert and oriented in no acute distress. CARDIOVASCULAR: Regular rate and rhythm. ABDOMEN: Soft and nontender. MUSCULOSKELETAL: There is a lack of dorsiflexion and lump over the tibialis anterior tendon. She is otherwise neurovascularly intact. 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 PLAN: Patient has been medically cleared. We will proceed with tibialis anterior tendon debridement and likely posterior tibial tendon transfer. She will be nonweightbearing afterward and will be admitted to the hospital for postoperative care. YUKO
== END 2019-12-17 13:35 | disposition home or self-care (01) ==
LOC: M SDC 13:04 → M MS5PR 20:45 → M SDC 12-17 13:35
PROVIDERS: ATTEND Orthopaedic Surgery
DX: M76.811 Anterior tibial syndrome, right leg (principal); M66.271 Spontaneous rupture of extensor tendons, right ankle and foot; I10 Essential (primary) hypertension; E78.5 Hyperlipidemia, unspecified; G47.33 Obstructive sleep apnea (adult) (pediatric); F41.9 Anxiety disorder, unspecified; R51.9 Headache, unspecified; Z79.899 Other long term (current) drug therapy; Z88.0 Allergy status to penicillin; M10.9 Gout, unspecified; F32.9 Major depressive disorder, single episode, unspecified
CPT/HCPCS: 27664; 27691; 76000; 88304; 97161; 97530; C1713; J0131; J1100; J2250; J2405; J3010

== ENCOUNTER 2020-04-06 22:13 | Observation (INO) | payer MEDICARE, BC, OTHER ==
[~2020-04-06] VITALS: Ht 165.1 cm; Wt 73.2 kg
[~2020-04-06 22:13] MED LIST changes: +CLIN300C6 PO; -CLINDAMYCIN 900 MG in IV 1 EA IV ONE; -ESCI20TA; +ESCI20TA16 PO; -HYDR50TAB; +HYDR50TAB PO; -LR 1,000 ML IV ONE; -NAPR-885; +NAPR-885 PO; +OXYC-517 PO
--- OUTSIDE RECORDS SUMMARY | 2020-04-06 22:19 | CCD | Continuity of Care Document ---
Author Author Rosemarie SANTOS PA-C Organization Unknown Address [address] [place] [id number] Phone [phone] Care Team Providers Care Dermatology Sales Representative Name Role Phone Ranjan Estes MD AUTM [phone] Problems Active Problems Provider Date Obstructive sleep apnea syndrome Ranjan Estes MD Onset: 12/12/2016 Pain in limb Ranjan Estes MD Onset: 12/12/2016 Chronic allergic conjunctivitis Ranjan Estes MD Onset: 0 06/25/2016 Insomnia Ranjan Estes MD Onset: 06/20/2016 Headache Ranjan Estes MD Onset: 06/13/2016 Anxiety state Ranjan Estes MD Onset: 05/07/2016 Conjunctivitis Ranjan Estes MD Onset: 04/23/2016 Hyperlipidemia Ranjan Estes MD Onset: 04/23/2016 Essential hypertension Ranjan Estes MD Onset: 04/23/2016 Pure hypercholesterolemia Patricia Scott MD Onset: 04/2019 Social History Type Date Description Comments Sex Unknown ETOH Use Occasionally consumes alcohol Tobacco Use Start: Unknown Patient has never smoked Allergies, Adverse Reactions, Alerts Active Allergies Reaction Severity Comments Date Penicillin 12/20/2015 Medications Active Medications SIG Qnty Indications Ordering Provide r Date Tramadol HCL 50mg Tablets 1 every 4-6 hours as needed pain,surg date 2019,mdd 4 20tabs Z47.89 Anthony Gonzalez MD 01/03/2020 Oxycodone HCL 5mg Tablets 1 tablet by mouth every 8 hours as needed / post surgical pain 20tabs Z47.89 Patricia Scott MD 12/30/2019 Naproxen 500mg Tablets 1 by mouth twice a day with food or milk 60tabs Manas Blevins MD 2017 Metoprolol Succinate ER 25mg Tablets ER 24HR 1 tab by mouth every day 90tabs I10 Ranjan Estes M D 11/14/2016 Lexapro 10mg Tablets 1 by mouth every day 90tabs F41.9 Ranjan Estes MD 04/23/2016 Niacin ER 1000mg Tablets ER 1 tab po daily E78.5 Unknown 09/08/2015 Fluzone Quadrivalent 0.5ml Nancy Pharmacist Administered Immunization Administered AT Time Of Dispensing Unknown Amlodipine Besylate 5mg Tablets Ranjan Estes MD Escitalopram Oxalate 20mg Tablets Take 1 Tablet By Mouth Once Daily Unknown Allopurinol 100mg Tablets Take 1 Tablet By Mouth Once Daily Unknown Diclofenac Sodium 1% Gel Ranjan Estes MD Potassium Chloride ER 10Meq Tablets ER Ranjan Estes MD Metoprolol Tartrate 25mg Tablets Take 1 Tablet By Mouth Twice Daily Unknown Magnesium Oxide 400mg Tablets Take 1 Tablet By Mouth Once Daily Unknown Vitamin D (Ergocalciferol) 1.25mg (45620 Ut) Capsules Take 1 Capsule By Mouth Every Other Week Unknown Valacyclovir HCL 1gm Tablets Ranjan Estes MD Atorvastatin Calcium 40mg Tablets Take 1 Tablet By Mouth AT Bedtime Unknown Hydrochlorothiazide 50mg Tablets Take 1 Tablet By Mouth Once Daily Unknown Buspirone HCL 10mg Tablets Ranjan Estes MD Hydrochlorothiazide 12.5mg Capsules Unknown Vitamin B Complex Tablets 1 by mouth every day Unknown History Medications Oxycodone-Acetaminophen 5-325mg Ta blets Take 1-2 Tablets Every 8 Hours as Needed For Pain, MDD 4,Surg Date 2019 16tabs Z47.89 Patricia Scott MD 12/24/2019 - 01/01 Oxycodone HCL 5mg Tablets 1-2 tabs by mouth every 4 hours as needed / post surgical pain, surg date 2019 30tabs Anthony Gonzalez MD 2019 - 12/23/2019 Oxycodone HCL 5mg Tablets 1-2 tabs po q4- 6h prn / post surgical pain 30tabs Patricia Scott MD 12/06/2019 - 12/22/2019 Immunizations Description No Information Available Vital Signs Date Vital Result Comment 01/20/2020 8:40am Body Temperature 96.7 F 08/02/2019 2:59pm Body Temperature 99.0 F Height 64.5 inches 5'4.50" Weight 163.31 lb BMI (Body Mass Index) 27.6 kg/m2 Results Test Acquired Date Facility Test Result H/L Range Note Laboratory test finding 2019 [facility] [address] [place] [address] [phone] Pathology Request For Service (SEE NOTE) 1 1 FINAL DIAGNOSIS Tendon, right anterior tibialis, repair: Fibrous tissue with chronic inflammation and calcifications, consistent with tendon. 12/21/2019 - 18 CLINICAL DIAGNOSIS Right tibialis anterior tendon rupture 12/17/2019 - 1413 GROSS DIAGNOSIS Received in formalin labeled "right tibialis anterior tendon" and consists of one piece of fibrous tissue measuring 5.5 x 1.5 x 1.3 cm. Sectioning of the specimen reveals fibrous connective tissue with hemorrhagic areas. Magazine Journalist section in one block. -SV 12/17/2019 - 141 Signed MARCUS FRANKLIN MD 12/21/2019 0847 Procedures Date Code Description Status 01/20/2020 88352 Apply Cast Short Leg Completed 01/06/2020 15158 Apply Cast Short Leg Completed 12/30/2019 58297 Apply Cast Short Leg Completed 12/23/2019 42856 Apply Cast Short Leg Completed 2019 88149 Transfer Tendon Ant/Post Tibial Deep Completed 2019 50359 Transfer Tendon Ant/Post Tibial Deep Completed Medical Devices Description No Information Available Encounters Type Date Location Provider Dx Diagnosis Office Visit 03/24/2020 11:00a Bella Santos PA-C Z47.89 Encounter for other orthopedic aftercare Office Visit 12/30/2019 8:15a Bella Scott MD Z47. 89 Encounter for other orthopedic aftercare Assessments Date Code Description Provider 03/27/2020 Z47.89 Encounter for other orthopedic a ftercare Patricia Scott MD 03/24/2020 Z47.89 Encounter for other orthopedic a ftercare Юлия Lynn JENNY SantosC 02/01/2020 Z47.89 Encounter for other orthopedic a ftercare Юлия SohanJENNY ShankarC 02/01/2020 Z47.89 Encounter for other orthopedic a ftercare JENNY AvalosC 01/20/2020 Z47.89 Encounter for other orthopedic a ftrodneyare Patricia Scott MD 01/13/2020 Z47.89 Encounter for other orthopedic a ftrodneyare Patricia Scott MD 01/06/2020 Z47.89 Encounter for other orthopedic a ftrodneyare Patricia Scott MD 12/30/2019 Z47.89 Encounter for other orthopedic a ftrodneyare Patricia Scott MD 12/23/2019 Z47.89 Encounter for other orthopedic a ftjennifer Scott MD 2019 M66.271 Spontaneous rupture of extensor tendons, right ankle and foot Sherin Still PA-C 2019 M66.271 Spontaneous rupture of extensor tendons, right ankle and foot Patricia Scott MD 2019 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, right leg Sherin Still PA-C 2019 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, right leg Patricia Scott MD 11/16/2019 S86.211D Strain of muscle(s) and tendon(s) of anterior muscle group at lower leg level, right leg, subsequent encounter Patricia Scott MD 11/12/2019 S86.211D Strain of muscle(s) and tendon(s) of anterior muscle group at lower leg level, right leg, subsequent encounter Patricia Scott MD 10/12/2019 S86.211D Strain of muscle(s) and tendon(s) of anterior muscle group at lower leg level, right leg, subsequent encounter Patricia Scott MD Plan of Treatment No Information Available Functional Status Description No Information Available Mental Status Description No Information Available Referrals Refer to Dr Reason for Referral Status Appt Date Patricia Scott MD SURGERY NO AUTH REQUIRED FOR RT TENDON REPAIR ([id number], [id number], AND [id number]) TO SURGERY NT Created [address] [facility] [id number] [place] [id number] [phone]
--- OUTSIDE RECORDS SUMMARY | 2020-04-06 22:19 | CCD | Continuity of Care Document ---
Author Author Rosemarie ESTES M.D. Organization Unknown Address [address] [place], [place] [address] Phone [phone] Care Team Providers Care Mobile Heavy Equipment Operator Name Role Phone Ranjan Estes M.D. AUTM [phone] Neil Hernandez Unavailable Problems Active Problems Provider Date Essential hypertension Ranjan Estes MD Onset: 04/23/2016 Hyperlipidemia Ranjan Estes MD Onset: 04/23/2016 Conjunctivitis Ranjan Estes MD Onset: 04/23/2016 Anxiety state Ranjan Estes MD Onset: 05/07/2016 Headache Ranjan Estes MD Onset: 06/13/2016 Insomnia Ranjan Estes MD Onset: 06/20/2016 Chronic allergic conjunctivitis Ranjan Estes MD Onset: 0 06/25/2016 Pain in limb Ranjan Estes MD Onset: 12/12/2016 Obstructive sleep apnea syndrome Ranjan Estes MD Onset: 12/12/2016 Repeat prescription monitoring Ranjan Estes MD Onset: Social History Type Date Description Comments Sex Unknown ETOH Use Occasionally consumes alcohol G IN OCCASIONAL ON WEEKEND Tobacco Use Start: Unknown Patient has never smoked Allergies, Adverse Reactions, Alerts Active Allergies Reaction Severity Comments Date Penicillin 12/20/2015 NKFA 12/20/2015 Hay fever 12/20/2015 Medications Active Medications SIG Qnty Indications Ordering Provide r Date Atorvastatin Calcium 40mg Tablets Take 1 Tablet By Mouth AT Bedtime 90tabs E78.5 Ranjan Estes MD 1 03/31/2019 Buspirone HCL 10mg Tablets 1 tab by mouth two times a day 60tabs F41.9 Ranjan Estes MD 11/11/2019 Escitalopram Oxalate 20mg Tablets Take 1 tablet by mouth once daily 90tabs F41.9 Ranjan Estes MD 0 05/29/2019 Vitamin D (Ergocalciferol) 1.25mg (37452 Ut) Capsules Take 1 Capsule By Mouth every other Week 6caps E55.9 Ranjan Estes MD 02/09/2019 Allopurinol 100mg Tablets Take 1 tablet by mouth once daily 90tabs M10.9 Ranjan Estes MD 2017 Amlodipine Besylate 5mg Tablets take 1 tablet by mouth once daily 90tabs Ranjan Estes MD 0 09/11/2017 Diclofenac Sodium 1% Gel apply a thin layer to leg at bedtime as needed (max dose of 4 grams) 300units Ranjan Estes MD 11/20/2016 Hydrochlorothiazide 50mg Tablets Take 1 tablet by mouth once daily 90tabs I10 Ranjan Estes MD 0 07/24/2016 Niacin ER 1000mg Tablets ER 1 tab po daily E78.5 Unknown 09/08/2015 Magnesium Oxide 400mg Tablets Take 1 tablet by mouth once daily 90tabs Ranjan Estes MD 0 08/08/2015 Metoprolol Tartrate 25mg Tablets take 1 tablet by mouth twice daily 180tabs Ranjan Estes MD Potassium Chloride ER 10Meq Tablet s ER take 1 tablet by mouth twice a day 180tabs Ranjan mccabe MD Naproxen 500mg Tablets 2 tabs by mouth daily 180tabs Ranjan Estes MD Valacyclovir HCL 1gm Tablets Take 1 tablet by mouth twice daily as needed 60tabs Ranjan Estes MD Align Prebiotic-Probiotic 5-1.25mg-GM Chewtabs Unknown History Medications Cipro 250mg Tablets 1 tab by mouth twice a day 6tabs Ranjan Estes MD 02/16/2020 - 03/15/2020 Medications Administered in Office Medication SIG Qnty Indications Ordering Provider Date Ketorolac (Toradol) Inj 30MG/ML Injection Ranjan Estes MD 06/14/19 17 Immunizations CPT Code Status Date Vaccine Lot # [id number] Given 02/09/2019 [id number] (Pneumovax 23 ) Vaccine [id number] Given 2017 Influenza (>= 6 Months) P.F. Vaccine [id number] Given 01/22/2017 Influenza (>35 months) P.F. Vaccine [id number] Vital Signs Date Vital Result Comment 03/15/2020 10:41am BP Systolic 102 mmHg BP Diastolic 58 mmHg Heart Rate 71 /min Body Temperature 97.7 F Respiratory Rate 20 /min O2 % BldC Oximetry 98 % Weight 166.00 lb Weight 75.298 kg Height 65 inches 5'5" BMI (Body Mass Index) 27.6 kg/m2 BSA (Body Surface Area) 1.83 m2 12/09/2019 2:20pm BP Systolic 122 mmHg BP Diastolic 70 mmHg Heart Rate 66 /min Body Temperature 97.4 F Respiratory Rate 16 /min O2 % BldC Oximetry 97 % Weight 164.25 lb Weight 74.504 kg Height 65 inches 5'5" BMI (Body Mass Index) 27.3 kg/m2 BSA (Body Surface Area) 1.82 m2 Results Test Acquired Date Facility Test Result H/L Range Note Urinalysis 04/04/2020 [facility] Urinalysis (SEE NOTE) 1, 2 Source R Color comfort Normal: Yellow Clarity hazy Normal: Clear Spec [place] 1.020 1.001 - 1.030 pH 5 5 - 9 Glucose NORM Normal: Negative Bilirubin 1 Normal: Negative Ketone 5 Abnormal Normal: Negative Protein 30 Normal: Negative Nitrite NEG Normal: Negative Blood 25 Abnormal Normal: Negative Leuk Est 25 Normal: Negative Urobilinogen 1 less than 1.0 mg/dL Microscopic See Below WBC 1 - 3 Normal: None Seen RBC 1 - 3 Normal: None Seen Epithelial MANY Abnormal Normal: None Seen Bacteria Trace Normal: None Seen Casts See Below Hyaline Cast 1-3 Abnormal Normal: None Seen Coarse Gran 1-3 Abnormal Normal: None Seen WBC Cast 1-3 Abnormal Normal: None Seen Drug Screen Urine 04/04/2020 [facility] Drug Screen Urine (SEE NOTE) 3 Amphetamines NEGATIVE Normal: Negative Barbiturates NEGATIVE Normal: Negative Benzo NEGATIVE Normal: Negative Cocaine NEGATIVE Normal: Negative THC NEGATIVE Normal: Negative Opiates NEGATIVE Normal: Negative PCP NEGATIVE Normal: Negative 4 CBC W/Automated Diff 04/04/2020 [facility] CBC W/Automated Diff (SEE NOTE) 5 WBC 7.0 10^3/uL 4.2 - 11.0 RBC 4.33 10^6/uL 4.20 - 5.40 Hemoglobin 13.6 g/dL 12.0 - 16.0 Hematocrit 38.9 % 37.0 - 47.0 MCV 89.8 fL 81.0 - 101 MCH 31.4 pg 27.0 - 34.0 MCHC 35.0 g/dL 31.0 - 36.0 RDW 13.9 % 11.5 - 14.5 Platelets 246 10^3/uL 150 - 450 MPV 10.1 fL 7.4 - 10.4 Neut 68.8 % 37.0 - 80.0 Lymph 22.0 % Low 25.0 - 40.0 [place] 7.8 % 3.0 - 8.0 Eos 0.7 % 0.0 - 7.0 Baso 0.4 % 0.0 - 2.5 %Ig 0.3 % High 0.0 - 0.0 %NRBC 0.0 % 0.0 - 0.0 #Neut 4.82 10^3/uL 2.00 - 6.90 #Lymph 1.54 10^3/uL 0.60 - 3.40 #Larimer 0.55 10^3/uL 0.00 - 0.90 #Eos 0.05 10^3/uL 0.00 - 0.70 #Baso 0.03 10^3/uL 0.00 - 0.20 #Ig 0.02 10^3/uL 0.00 - 0.10 #NRBC 0.00 10^3/uL 0.00 - 0.00 Manual Diff NOT INDICATED RBC Morph NOT INDICATED Laboratory test finding 04/04/2020 [facility] l CRP (High Sensitivity) 0.85 mg/L Low 1.00 - 3.00 6 Comprehensive Metabolic Panel 04/04/2020 [facility] ospital Comprehensive Metabo (SEE NOTE) 7 Sodium 137 mEq/L 134 - 153 Potassium 3.1 mEq/L Low 3.6 - 5.0 Chloride 96 mEq/L Low 98 - 107 Co2 25 mEq/L 22 - 30 Glucose 111 mg/dL High 70 - 99 BUN 10 mg/dL 7 - 21 Creatinine 0.5 mg/dL Low 0.7 - 1.5 BUN/Creat 20 8 - 27 Total Protein 6.7 g/dL 6.3 - 8.2 Albumin 4.5 g/dL 3.9 - 5.0 Globulin 2.2 GM/DL Low 2.4 - 3.2 A/G Ratio 2.0 0.8 - 2.0 Calcium 9.4 mg/dL 8.4 - 10.2 Total Bili 2.4 mg/dL High 0.2 - 1.3 Alkaline Phos 76 U/L 38 - 126 Sgot/Ast 40 U/L 5 - 40 SGPT/Alt 32 U/L 7 - 56 Anion Gap 16.0 mmol/L 8.0 - 16.0 Age 69 yrs Non-Aa GFR >60 mL/min Afr Amer GFR >60 8 Sedimentation Rate 04/04/2020 [facility] Sed Rate 2 mm/hr 0 - 30 Sed Rate Reenter 2 Laboratory test finding 04/04/2020 [facility] l Lactic Acid (Lactate) 1.6 mmol/L 0.2 - 2.2 Alcohol Ethyl Blood 04/04/2020 [facility] Alcohol <10.0 mg/dL Alcohol % 0.01 % 0.00 - 0.01 9 Laboratory test finding 04/04/2020 [facility] l LDH 264 U/L High 135 - 214 Troponin T <0.01 NG/ML 0.00 - 0.10 10 Cuture Urine 03/15/2020 [facility] Culture Urine (SEE NOTE) 11, 12 Urinalysis 03/15/2020 [facility] Urinalysis (SEE NOTE) 13 Source Random Void Color comfort Normal: Yellow Clarity clear Normal: Clear Spec [place] 1.015 1.001 - 1.030 pH 6 5 - 9 Glucose NORM Normal: Negative Bilirubin NEG Normal: Negative Ketone 5 Abnormal Normal: Negative Protein 15 Normal: Negative Nitrite NEG Normal: Negative Blood NEG Normal: Negative Leuk Est 25 Normal: Negative Urobilinogen 1 less than 1.0 mg/dL Microscopic See Below WBC 1 - 3 Normal: None Seen RBC 0 - 1 Normal: None Seen Epithelial FEW Normal: None Seen Bacteria Trace Normal: None Seen Culture Urine 03/15/2020 In Office Culture Urine Routine <pending> Inhouse Ua 03/15/2020 In Office Ua Color dark comfort Ua Appearance clear Spec [place] 1.020 Ua PH Test Strip 5 Leukocytes tr Ua Nitrate neg Ua Protein tr Inhouse Glucose neg Ua Ketones +1 Urobilinogen +1 Ua Bilirubin +1 Blood neg Laboratory test finding 02/15/2020 [facility] Vitamin D (25-Hydroxy) 42 NG/ML 14, 1 5 T4 - Free 0.93 ng/dL 0.93 - 1.70 TSH Highly Sensitive 1.87 uIU/mL 0.47 - 5.01 Comprehensive Metabolic Panel 02/15/2020 [facility] ospital Comprehensive Metabo (SEE NOTE) 16 Sodium 141 mEq/L 134 - 153 Potassium 3.9 mEq/L 3.6 - 5.0 Chloride 102 mEq/L 98 - 107 Co2 30 mEq/L 22 - 30 Glucose 106 mg/dL 65 - 110 BUN 12 mg/dL 7 - 21 Creatinine 0.6 mg/dL Low 0.7 - 1.5 BUN/Creat 20 8 - 27 Total Protein 7.3 g/dL 6.3 - 8.2 Albumin 4.8 g/dL 3.9 - 5.0 Globulin 2.5 GM/DL 2.4 - 3.2 A/G Ratio 1.9 0.8 - 2.0 Calcium 9.5 mg/dL 8.4 - 10.2 Total Bili 1.0 mg/dL 0.2 - 1.3 Alkaline Phos 72 U/L 38 - 126 Sgot/Ast 22 U/L 5 - 40 SGPT/Alt 16 U/L 7 - 56 Anion Gap 9.0 mmol/L 8.0 - 16.0 Age 69 yrs Non-Aa GFR >60 mL/min Afr Amer GFR >60 17 Laboratory test finding 02/15/2020 [facility] Uric Acid 6.6 mg/dL 2.5 - 8.5 Cve Panel 02/15/2020 [facility] Cve Panel (SEE NOTE) 18 Cholesterol 203 mg/dL High 131 - 200 Triglycerides 137 mg/dL 35 - 160 HDL 75 mg/dL 29 - 86 LDL 113 mg/dL 65 - 175 Risk Factor 2.7 Low 3.2 - 4.4 LDL/HDL 1.51 1.47 - 3.22 19 Sedimentation Rate 02/15/2020 [facility] Sed Rate 4 mm/hr 0 - 30 Sed Rate Reenter 4 CBC W/Automated Diff 02/15/2020 [facility] CBC W/Automated Diff (SEE NOTE) 20 WBC 9.1 10^3/uL 4.2 - 11.0 RBC 4.43 10^6/uL 4.20 - 5.40 Hemoglobin 13.9 g/dL 12.0 - 16.0 Hematocrit 41.8 % 37.0 - 47.0 MCV 94.4 fL 81.0 - 101 MCH 31.4 pg 27.0 - 34.0 MCHC 33.3 g/dL 31.0 - 36.0 RDW 12.7 % 11.5 - 14.5 Platelets 365 10^3/uL 150 - 450 MPV 10.6 fL High 7.4 - 10.4 Neut 60.3 % 37.0 - 80.0 Lymph 29.9 % 25.0 - 40.0 [place] 6.8 % 3.0 - 8.0 Eos 2.1 % 0.0 - 7.0 Baso 0.7 % 0.0 - 2.5 %Ig 0.2 % High 0.0 - 0.0 %NRBC 0.0 % 0.0 - 0.0 #Neut 5.46 10^3/uL 2.00 - 6.90 #Lymph 2.71 10^3/uL 0.60 - 3.40 #Larimer 0.62 10^3/uL 0.00 - 0.90 #Eos 0.19 10^3/uL 0.00 - 0.70 #Baso 0.06 10^3/uL 0.00 - 0.20 #Ig 0.02 10^3/uL 0.00 - 0.10 #NRBC 0.00 10^3/uL 0.00 - 0.00 Manual Diff NOT INDICATED RBC Morph NOT INDICATED Culture Urine 02/15/2020 [facility] Culture Urine (SEE NOTE) 21 Ua 02/15/2020 [facility] Urinalysis (SEE NOTE) 22 Source R Color comfort Normal: Yellow Clarity cloudy Normal: Clear Spec [place] 1.025 1.001 - 1.030 pH 5 5 - 9 Glucose NORM Normal: Negative Bilirubin 1 Normal: Negative Ketone 15 Abnormal Normal: Negative Protein 30 Normal: Negative Nitrite POS Normal: Negative Blood 10 Abnormal Normal: Negative Leuk Est 25 Normal: Negative Urobilinogen 1 less than 1.0 mg/dL Microscopic See Below Epithelial FEW Normal: None Seen Bacteria 3+ LARGE Abnormal Normal: None Seen Amorph Sed 3+ Normal: None Seen Laboratory test finding 02/15/2020 [facility] Vitamin D (25-Hydroxy) <pending> Erythrocyte Sedimentation Rate <pending> T4 - Free <pending> TSH Highly Sensitive <pending> Laboratory test finding 02/15/2020 [facility] Uric Acid <pending> Laboratory test finding 12/27/2019 [facility] Potassium 3.7 mEq/L 3.6 - 5.0 Laboratory test finding 12/14/2019 [facility] Potassium 3.6 mEq/L 3.6 - 5.0 Order 12/09/2019 In Office Inhouse EKG results to pcp Protime 12/09/2019 [facility] Protime 13.4 seconds 11.0 - 15.5 23 Inr 1.01 0.93 - 1.23 24 Comprehensive Metabolic Panel 12/09/2019 [facility] ospital Comprehensive Metabo (SEE NOTE) 25 Sodium 139 mEq/L 134 - 153 Potassium 3.1 mEq/L Low 3.6 - 5.0 Chloride 98 mEq/L 98 - 107 Co2 29 mEq/L 22 - 30 Glucose 101 mg/dL 65 - 110 BUN 12 mg/dL 7 - 21 Creatinine 0.5 mg/dL Low 0.7 - 1.5 BUN/Creat 24 8 - 27 Total Protein 7.0 g/dL 6.3 - 8.2 Albumin 4.5 g/dL 3.9 - 5.0 Globulin 2.5 GM/DL 2.4 - 3.2 A/G Ratio 1.8 0.8 - 2.0 Calcium 9.3 mg/dL 8.4 - 10.2 Total Bili 1.7 mg/dL High 0.2 - 1.3 Alkaline Phos 78 U/L 38 - 126 Sgot/Ast 28 U/L 5 - 40 SGPT/Alt 18 U/L 7 - 56 Anion Gap 12.0 mmol/L 8.0 - 16.0 Age 68 yrs Non-Aa GFR >60 mL/min Afr Amer GFR >60 26 CBC W/Automated Diff 11/16/2019 [facility] White Blood Count 8.1 10 Normal 4.0-10.0 Red Blood Count 4.07 10 Normal 4.00-5.40 Hemoglobin 13.7 g/dL Normal 12.0-15.5 Hematocrit 40.9 % Normal 36.0-47.0 Mean Corpuscular Volume 100.5 fl High 80.0-96.0 Mean Corpuscular Hemoglobin 33.7 pg High 27.0-33.0 Mean Corpuscular HGB Conc 33.5 g/dL Normal 32.0-36.5 Red Cell Distribution Width 13.2 % Normal 11.5-14.5 Platelet Count, Automated 355 10 Normal 150-450 Neutrophils % 70.8 % High 36.0-66.0 Lymph % 20.8 % Low 24.0-44.0 [place] % 6.4 % High 0.0-5.0 Eos % 0.7 % Normal 0.0-3.0 Baso % 0.9 % Normal 0.0-1.0 Immature Granulocyte % 0.4 % Normal 0-3.0 Nucleated Red Blood Cell % 0.0 % Normal 0-0 Neutrophils # 5.8 10 Normal 1.5-8.5 Lymph # 1.7 10 Normal 1.5-5.0 [place]imer # 0.5 10 Normal 0.0-0.8 Eos # 0.1 10 Normal 0.0-0.5 Baso # 0.1 10 Normal 0.0-0.2 Laboratory test finding 11/16/2019 [facility] Uric Acid 4.9 mg/dL Normal 2.6-6.0 Cve Panel 11/16/2019 [facility] Triglycerides Level 228 mg/dL High <150 Cholesterol Level 191 mg/dL Normal <200 HDL Cholesterol 83 mg/dL Normal >40 LDL Cholesterol 62 mg/dL Normal <100 Non-HDL-C 108 mg/dL Normal Cholesterol Risk Ratio 2.301 Normal <5 Laboratory test finding 11/16/2019 [facility] Total 25(Oh) Vitamin D 56.5 NG/ML Normal 30.0-100.0 Urinalysis 11/16/2019 [facility] Appearance, Urine CLEAR Normal Clear Color, Urine YELLOW Normal Yellow PH,Urine 6.0 units Normal 5.0-9.0 Specific [place] Urine Auto 1.017 Normal 1.002-1.035 Protein, Urine Auto NEGATIVE mg/dL Normal Negative Glucose, Urine (Ua) Auto NEGATIVE mg/dL Normal Negative Ketone, Urine Auto NEGATIVE mg/dL Normal Negative Urobilinogen, Urine Auto 0.2 mg/dL Normal 0.0-2.0 Bilirubin, Urine Auto NEGATIVE Normal Negative Nitrite, Urine Auto NEGATIVE Normal Negative Leukocyte Esterase, Urine Auto NEGATIVE Normal Negative Blood, Urine Blood NEGATIVE Normal Negative WBC, Urine Auto 2 /HPF Normal 0-3 RBC, Urine Auto 4 /HPF High 0-3 Bacteria, Urine Auto NEGATIVE Normal Negative Squamous Epithelial Cell Ur AU 1 /HPF Normal 0-6 Mucus, Urine SMALL Normal Negative Hyaline Cast, Urine Auto 11 /LPF Normal 0-1 Laboratory test finding 11/16/2019 [facility] Free T4 0.76 ng/dL Normal 0.76-1.46 Laboratory test finding 11/16/2019 [facility] Thyroid Stimulating Hormone 1.530 uIU/ML Normal 0.358-3.740 Vitamin B12 Level 348 pg/mL Normal 247-911 27 Comprehensive Metabolic Profil 11/16/2019 [facility] Glucose, Fasting 102 mg/dL High 70-100 Blood Urea Nitrogen 10 mg/dL Normal 7-18 Creatinine For GFR 0.66 mg/dL Normal 0.55-1.30 Glomerular Filtration Rate > 60.0 Normal >45 2 8 Sodium Level 140 mEq/L Normal 136-145 Potassium Serum 3.3 mEq/L Low 3.5-5.1 Chloride Level 100 mEq/L Normal 98-107 Carbon Dioxide Level 32 mEq/L Normal 21-32 Anion Gap 8 mEq/L Normal 8-16 Calcium Level 8.8 mg/dL Normal 8.8-10.2 Ast/Sgot 79 U/L High 7-37 Alt/SGPT 49 U/L Normal 12-78 Alkaline Phosphatase 75 U/L Normal 45-117 Bilirubin,Total 0.8 mg/dL Normal 0.2-1.0 Total Protein 7.3 GM/DL Normal 6.4-8.2 Albumin 4.1 GM/DL Normal 3.2-5.2 Albumin/Globulin Ratio 1.3 Normal 1.2-2.2 1 SOURCE: Clean Catch 2 URINALYSIS 3 URINE DRUG SCREEN 4 \\BLDo\\URINE DRUG SCREEN INTE RPRETATION\\BLDx\\ THE CUTOFFF LEVELS FOR DETECTION ARE FOLLOWS: AMPHETAMINES 1000 ng/ml BARBITUARATES 200 ng/ml BENZODIAZEPINES 100 ng/ml THC 50 ng/ml PHENCYCLIDINE 25 ng/ml OPIATES 300 ng/ml COCAINE 300 ng/ml ALL POSITIVES ARE CONSIDERED PRESUMPTIVE POSITIVE CONFIRMATION WILL BE PERFORMED AT PHYSICIAN REQUEST. 5 COMPLETE BLOOD COUNT 6 [facility] [place] HS-CRP CUT-OFF: RELATIVE RISK: <1.0 mg/L Low 1.0 - 3.0 mg/L A verage >3.0 mg/L High Optimally, the average of HS-CRP results repeated two weeks apart should be used for risk assessment. 7 COMPREHENSIVE METABOLIC PANE L 8 Male GFR Interprentation 20-49 yrs >60 mL/min Normal 50-59 yrs >56 mL/min Normal 60-69 yrs >49 mL/min Normal 70-79yrs >42 mL/min Normal 80 and above >35 mL/min Normal Female GFR Interpretation 20-39 yrs >60 mL/min Normal 40-49 yrs >58 mL/min Normal 50-59 yrs >51 mL/min Normal 60-69 yrs >45 mL/min Normal 70-79 yrs >39 mL/min Normal 80 and above >32 mL/min Normal 9 *FOR MEDICAL PURPOSES ONLY* 10 TROPONIN T 0.1 ng/ml Recommended as the clinical th reshold value for Troponin T. 11 {SOURCE: Random Void~NURSE COLLECTED? N 12 _CULTURE URINE_ ^$[id number] ^^[id number] $$619913 ^^228485 $$573594 $$490687 $$476253 $$706526 $$712730 $$077608 $$227232 $$354594 $$409154 $$048511 $$328155 $$484172 $$958926 $$757288 $$371495 $$343713 $$135752 $$444341 $$619344 $$077655 $$699258 $$115455 $$604684 ^^881115 $$988361 $$351038 $$216463 -- Continued on next page -- Patient: DAKOTAH Schmidt Order: [id number] Page 2 Culture: CULTURE URINE Status: Final -- Continued on next page -- Patient: DAKOTAH Schmidt Order: [id number] Page 2 Culture: CULTURE URINE Status: Prelim $$[id number] $$[id number] REPORTED DATE/TIME: 03/19/2020 11:05 Culture: CULTURE URINE Status: Final Urine Culture,Comprehensive: P1 Mixed urogenital simeon 10,000-25,000 colony forming units per m L Previous result entered on 03/18/2020 02:54 ET Specimen has been received and testing has been initiated. P1 Test performed by: [facility] #: [id number] [address] [place] [phone] [facility] [address] Mass Spectrometry Specialist : Maykel Marquez MD NPI #: Internal Communications Manager : 03/18/20.1633.XMT.SENT REF 03/20/20.0759.XMT.SENT REF 13 URINALYSIS 14 {SOURCE: Random Void~NURSE COLLECTED? N {SPECIMEN TYPE: RANDOM 15 VITAMIN-D(25HYDROXY) Deficiency: <=20 ng/ml Insufficiency: 21-29 ng/ml Preferred level: => 30 ng/ml 16 COMPREHENSIVE METABOLIC PANE L 17 Male GFR Interprentation 20-49 yrs >60 mL/min Normal 50-59 yrs >56 mL/min Normal 60-69 yrs >49 mL/min Normal 70-79yrs >42 mL/min Normal 80 and above >35 mL/min Normal Female GFR Interpretation 20-39 yrs >60 mL/min Normal 40-49 yrs >58 mL/min Normal 50-59 yrs >51 mL/min Normal 60-69 yrs >45 mL/min Normal 70-79 yrs >39 mL/min Normal 80 and above >32 mL/min Normal 18 LIPID PANEL 19 CVE RISK CHOL/HDL LDL/HDL MEN: 1/2 AVERAGE 3.43 1.00 AVERAGE 4.97 3.55 2X AVERAGE 9.55 6.25 3X AVERAGE 23.99 7.99 WOMEN: 1/2 AVERAGE 3.27 1.47 AVERAGE 4.44 3.22 2X AVERAGE 7.05 5.03 3X AVERAGE 11.04 6.14 20 COMPLETE BLOOD COUNT 21 _CULTURE URINE_ ^$681798 ^^336852 $$767554 ^^174005 $$814909 $$576476 $$802030 $$776215 $$714627 $$912753 $$048689 $$019411 $$288803 $$815127 $$563919 $$141953 $$616356 $$246315 $$407582 $$335144 $$224745 $$994506 $$027253 $$298842 $$751754 $$988712 $$028749 ^^956165 $$816765 $$453194 $$048947 -- Continued on next page -- Patient: DAKOTAH Schmidt Order: [id number] Page 2 Culture: CULTURE URINE Status: Final -- Continued on next page -- Patient: DAKOTAH Schmidt Order: [id number] Page 2 Culture: CULTURE URINE Status: Prelim $$[id number] $$[id number] REPORTED DATE/TIME: 02/20/2020 13:05 Culture: CULTURE URINE Status: Final Isolate 1 Enterococcus faecalis Flag: A . . . . . . .7 10,000-25,000 colony forming units per m L Previous result entered on 02/19/2020 05:44 ET Microbiological testing to rule out the presence of possible pathogens is in progress. Urine Culture,Comprehensive: P1 Enterococcus faecalis Flag: A Isolate 2 Lactobacillus species Flag: . . . . . . .4 25,000-50,000 colony forming units per m L Susceptibility not normally performed on this organism. Lactobacillus species Patient: DAKOTAH Schmidt Order: [id number] Page 3 Culture: CULTURE URINE Status: Final ISOLATE 1 Enterococcus faecalis Isolate 1 Antibiotic [place] Int Units ug/mL Ciprofloxacin S S . . . . . .185-9 Levofloxacin S S . . . . . .15457-8 Nitrofurantoin S S . . . . . .363-2 Penicillin S S . . . . . .6932-8 Tetracycline S S . . . . . .496-0 Vancomycin S S . . . . . .524-9 P1 Test performed by: [facility] #: [id number] [address] [place] [id number] [facility] [address] Mass Spectrometry Specialist : Maykel Marquez MD NPI #: Internal Communications Manager : 02/19/20.0837.XMT.SENT REF 02/20/20.1411.XMT.SENT REF 22 URINALYSIS 23 Is patient fasting? N 24 \\BLDo\\INR INTERPRETATION\\BLD x\\ Therapeutic range for Coumadin and related oral anticoagulants. -International Normalized Ratio (INR): 2 .0 - 3.0 for Venous Thrombosis, Pulmonary Embolus, Tissue heart valves, Acute ND, Atrial Fibrillation, Valvular heart disease and recurrent Systemic Embolism. -International Normalized Ratio (INR): 2 .5 - 3.5 for Mechanical Prosthetic valve. 25 COMPREHENSIVE METABOLIC PANE L 26 Male GFR Interprentation 20-49 yrs >60 mL/min Normal 50-59 yrs >56 mL/min Normal 60-69 yrs >49 mL/min Normal 70-79yrs >42 mL/min Normal 80 and above >35 mL/min Normal Female GFR Interpretation 20-39 yrs >60 mL/min Normal 40-49 yrs >58 mL/min Normal 50-59 yrs >51 mL/min Normal 60-69 yrs >45 mL/min Normal 70-79 yrs >39 mL/min Normal 80 and above >32 mL/min Normal 27 VITAMIN B12 NORMAL RANGE NORMAL 247 - 911 PG/ML INDETERMINATE 211 - 246 PG/ML DEFICIENT LESS THAN 211 PG/ML 28 Units are mL/min/1.73 m2 Chronic Kidney Disease Staging per NKF: Stage I & II GFR >=60 Normal to Mildly Decreased Stage III GFR 30-59 Moderately Decreased Stage IV GFR 15-29 Severely Decreased Stage V GFR <15 Very Little GFR Left ESRD GFR <15 on [employer] Procedures Date Code Description Status 12/09/2019 69015 Electrocardiogram Complete Compl eted 11/11/2019 99908 Admin Patient Focused Health Ris k Assessment Instrument Completed 11/11/2019 84905 Brief Emotional/Beha v Assessment W/ Scoring Doc Per Standard Inst Completed Medical Devices Description No Information Available Encounters Description No Information Available Assessments Date Code Description Provider 03/15/2020 I10 Essential (primary) hypertension Ranjan Estes MD 03/15/2020 E78.5 Hyperlipidemia, unspecified Cornelius Estes MD 03/15/2020 E55.9 Vitamin D deficiency, unspecifie d Ranjan Estes MD 03/15/2020 M10.9 Gout, unspecified Ranjan schmidt MD 03/15/2020 G47.33 Obstructive sleep apnea (adult) (pediatric) Ranjan Estes MD 03/15/2020 F41.9 Anxiety disorder, unspecified [place] juma Estes MD 03/15/2020 Z76.0 Encounter for issue of repeat pr escription Ranjan Estes MD 03/15/2020 N39.0 Urinary tract infection, site no t specified Ranjan Estes MD 02/15/2020 I10 Essential (primary) hypertension [facility] 02/15/2020 M79.671 Pain in right foot [facility] 02/15/2020 E78.5 Hyperlipidemia, unspecified [facility] 02/15/2020 E55.9 Vitamin D deficiency, unspecifie d [facility] 02/15/2020 M10.9 Gout, unspecified [facility] 02/15/2020 G47.33 Obstructive sleep apnea (adult) (pediatric) [facility] 12/14/2019 E87.6 Hypokalemia VIANCA Pena 12/09/2019 Z01.818 Encounter for other preprocedura l examination Gemma Lamas PA-C 12/09/2019 G47.33 Obstructive sleep apnea (adult) (pediatric) Gemma Lamas PA-C 12/09/2019 I10 Essential (primary) hypertension Gemma Lamas PA-C 11/11/2019 I10 Essential (primary) hypertension Ranjan Estes MD 11/11/2019 F41.9 Anxiety disorder, unspecified [place] juma Estes MD Plan of Treatment Future Appointment(s):* 09/12/2020 9:00 am - Ranjan Estes MD at [facility] 03/15/2020 - Ranjan Estes MD* I10 Essential (primary) hypertension* Comments:* Blood pressure today is 102/58 mmHg. She was advised to continue with her current line of therapies. Advised her to regularly monitor her blood pressure. She will benefit from maintaining a low-sodium diet. We will continue to monitor. * E78.5 Hyperlipidemia, unspecified* Comments:* Labs reviewed with the patient in detail. She will continue with her current regimen. She was encouraged to maintain a low-cholesterol diet. Include more whole grains, fruits and vegetables in diet. Avoid red meat and include lean meat in diet. Advised the patient about the importance of regular exercise regimen to help control her cholesterol. She is aware of the cardiac risks associated with elevated cholesterol. We will continue to monitor. * Follow up:* 6 months. * E55.9 Vitamin D deficiency, unspecified* Comments:* She is on vitamin D 50,000 units once weekly. Continue to monitor with periodic blood work. * M10.9 Gout, unspecified* Comments:* Stable. No changes today. * G47.33 Obstructive sleep apnea (adult) (pediatric)* Comments:* Patient was advised to continue to wear his CPAP mask at night and uses CPAP machine at night. Cardiovascular risks if not being compliant with obstructive sleep apnea discussed in detail. * F41.9 Anxiety disorder, unspecified* Comments:* Continue current medications. She is advised to go to the nearest ER or to seek help if she has any increase in symptoms, she verbalized her understanding. * Z76.0 Encounter for issue of repeat prescription* Comments:* Patient and I had long discussions regarding possible side effects, adverse effects and all the risks that are associated with all the medications that are being prescribed through this office. We had a long discussion regarding the drug-drug interactions. An alternative therapies were discussed in detail as well. Af ter reviewing all of potential benefits and risks of her prescribed medications from this office, pt has chosen to continue with current therapy. * N39.0 Urinary tract infection, site not specified* Comments:* Urine sample obtained and sent for culture. We will call her with the result. Functional Status Description No Information Available Mental Status Description No Information Available Referrals Description No Information Available
--- OUTSIDE RECORDS SUMMARY | 2020-04-06 22:19 | CCD | Continuity of Care Document ---
Author Author Rosemarie ESTES M.D. Organization Unknown Address [address] [place], [place] [address] Phone [phone] Care Team Providers Care Laundry Helper Name Role Phone Ranjan Estes M.D. AUTM [phone] Neil Hernandez Unavailable Problems Active Problems Provider [...] MD 0 05/29/2019 Vitamin D (Ergocalciferol) 1.25mg (69233 Ut) Capsules Take 1 Capsule By Mouth [...] CPT Code Status Date Vaccine Lot # [id number] Given 02/09/2019 [id number] (Pneumovax 23 ) Vaccine [id number] Given 2017 Influenza (>= 6 Months) P.F. Vaccine [id number] Given 01/22/2017 Influenza (>35 months) P.F. Vaccine [...] Test Result H/L Range Note Urinalysis 04/04/2020 [facility] Urinalysis (SEE NOTE) 1, 2 Source R Color comfort Normal: Yellow Clarity hazy Normal: Clear Spec [place] 1.020 1.001 - 1.030 pH 5 5 [...] Normal: None Seen Drug Screen Urine 04/04/2020 [facility] Drug Screen Urine (SEE NOTE) 3 Amphetamines NEGATIVE Normal: Negative Barbiturates NEGATIVE Normal: Negative Benzo NEGATIVE Normal: Negative Cocaine NEGATIVE Normal: Negative THC NEGATIVE Normal: Negative Opiates NEGATIVE Normal: Negative PCP NEGATIVE Normal: Negative 4 CBC W/Automated Diff 04/04/2020 [facility] CBC W/Automated Diff (SEE NOTE) 5 [...] Lymph 22.0 % Low 25.0 - 40.0 Saline 7.8 % 3.0 - 8.0 Eos 0.7 % 0.0 - 7.0 Baso 0.4 % 0.0 - 2.5 %Ig 0.3 % High 0.0 - 0.0 %NRBC 0.0 % 0.0 - 0.0 #Neut 4.82 10^3/uL 2.00 - 6.90 #Lymph 1.54 10^3/uL 0.60 - 3.40 #Saline 0.55 10^3/uL 0.00 - 0.90 #Eos 0.05 10^3/uL 0.00 - 0.70 #Baso 0.03 10^3/uL 0.00 - 0.20 #Ig 0.02 10^3/uL 0.00 - 0.10 #NRBC 0.00 10^3/uL 0.00 - 0.00 Manual Diff NOT INDICATED RBC Morph NOT INDICATED Laboratory test finding 04/04/2020 [facility] l CRP (High Sensitivity) 0.85 mg/L Low 1.00 - 3.00 6 Comprehensive Metabolic Panel 04/04/2020 [facility] Comprehensive Metabo (SEE NOTE) 7 Sodium [...] Amer GFR >60 8 Sedimentation Rate 04/04/2020 [facility] Sed Rate 2 mm/hr 0 - 30 Sed Rate Reenter 2 Laboratory test finding 04/04/2020 [facility] l Lactic Acid (Lactate) 1.6 mmol/L 0.2 - 2.2 Alcohol Ethyl Blood 04/04/2020 [facility] Alcohol <10.0 mg/dL Alcohol % 0.01 % 0.00 - 0.01 9 Laboratory test finding 04/04/2020 [facility] l LDH 264 U/L High 135 - 214 Troponin T <0.01 NG/ML 0.00 - 0.10 10 Cuture Urine 03/15/2020 [facility] Culture Urine (SEE NOTE) 11, 12 Urinalysis 03/15/2020 [facility] Urinalysis (SEE NOTE) 13 Source Random Void Color comfort Normal: Yellow Clarity clear Normal: Clear Spec [place] 1.015 1.001 - 1.030 pH 6 5 [...] Color dark comfort Ua Appearance clear Spec [place] 1.020 Ua PH Test Strip 5 Leukocytes tr Ua Nitrate neg Ua Protein tr Inhouse Glucose neg Ua Ketones +1 Urobilinogen +1 Ua Bilirubin +1 Blood neg Laboratory test finding 02/15/2020 [facility] Vitamin D (25-Hydroxy) 42 NG/ML 14, 1 5 T4 - Free 0.93 ng/dL 0.93 - 1.70 TSH Highly Sensitive 1.87 uIU/mL 0.47 - 5.01 Comprehensive Metabolic Panel 02/15/2020 [facility] Comprehensive Metabo (SEE NOTE) 16 Sodium [...] GFR >60 17 Laboratory test finding 02/15/2020 [facility] Uric Acid 6.6 mg/dL 2.5 - 8.5 Cve Panel 02/15/2020 [facility] Cve Panel (SEE NOTE) 18 Cholesterol 203 mg/dL High 131 - 200 Triglycerides 137 mg/dL 35 - 160 HDL 75 mg/dL 29 - 86 LDL 113 mg/dL 65 - 175 Risk Factor 2.7 Low 3.2 - 4.4 LDL/HDL 1.51 1.47 - 3.22 19 Sedimentation Rate 02/15/2020 [facility] Sed Rate 4 mm/hr 0 - 30 Sed Rate Reenter 4 CBC W/Automated Diff 02/15/2020 [facility] CBC W/Automated Diff (SEE NOTE) 20 [...] 80.0 Lymph 29.9 % 25.0 - 40.0 Saline 6.8 % 3.0 - 8.0 Eos 2.1 % 0.0 - 7.0 Baso 0.7 % 0.0 - 2.5 %Ig 0.2 % High 0.0 - 0.0 %NRBC 0.0 % 0.0 - 0.0 #Neut 5.46 10^3/uL 2.00 - 6.90 #Lymph 2.71 10^3/uL 0.60 - 3.40 #Saline 0.62 10^3/uL 0.00 - 0.90 #Eos 0.19 10^3/uL 0.00 - 0.70 #Baso 0.06 10^3/uL 0.00 - 0.20 #Ig 0.02 10^3/uL 0.00 - 0.10 #NRBC 0.00 10^3/uL 0.00 - 0.00 Manual Diff NOT INDICATED RBC Morph NOT INDICATED Culture Urine 02/15/2020 [facility] Culture Urine (SEE NOTE) 21 Ua 02/15/2020 [facility] Urinalysis (SEE NOTE) 22 Source R Color comfort Normal: Yellow Clarity cloudy Normal: Clear Spec [place] 1.025 1.001 - 1.030 pH 5 5 [...] Normal: None Seen Laboratory test finding 02/15/2020 [facility] Vitamin D (25-Hydroxy) <pending> Erythrocyte Sedimentation Rate <pending> T4 - Free <pending> TSH Highly Sensitive <pending> Laboratory test finding 02/15/2020 [facility] Uric Acid <pending> Laboratory test finding 12/27/2019 [facility] Potassium 3.7 mEq/L 3.6 - 5.0 Laboratory test finding 12/14/2019 [facility] Potassium 3.6 mEq/L 3.6 - 5.0 Order 12/09/2019 In Office Inhouse EKG results to pcp Protime 12/09/2019 [facility] Protime 13.4 seconds 11.0 - 15.5 23 Inr 1.01 0.93 - 1.23 24 Comprehensive Metabolic Panel 12/09/2019 [facility] Comprehensive Metabo (SEE NOTE) 25 Sodium [...] GFR >60 26 CBC W/Automated Diff 11/16/2019 [facility] White Blood Count 8.1 10 Normal [...] 36.0-66.0 Lymph % 20.8 % Low 24.0-44.0 Saline % 6.4 % High 0.0-5.0 Eos % 0.7 % Normal 0.0-3.0 Baso % 0.9 % Normal 0.0-1.0 Immature Granulocyte % 0.4 % Normal 0-3.0 Nucleated Red Blood Cell % 0.0 % Normal 0-0 Neutrophils # 5.8 10 Normal 1.5-8.5 Lymph # 1.7 10 Normal 1.5-5.0 Saline # 0.5 10 Normal 0.0-0.8 Eos # 0.1 10 Normal 0.0-0.5 Baso # 0.1 10 Normal 0.0-0.2 Laboratory test finding 11/16/2019 [facility] Uric Acid 4.9 mg/dL Normal 2.6-6.0 Cve Panel 11/16/2019 [facility] Triglycerides Level 228 mg/dL High <150 Cholesterol Level 191 mg/dL Normal <200 HDL Cholesterol 83 mg/dL Normal >40 LDL Cholesterol 62 mg/dL Normal <100 Non-HDL-C 108 mg/dL Normal Cholesterol Risk Ratio 2.301 Normal <5 Laboratory test finding 11/16/2019 [facility] Total 25(Oh) Vitamin D 56.5 NG/ML Normal 30.0-100.0 Urinalysis 11/16/2019 [facility] Appearance, Urine CLEAR Normal Clear Color, Urine YELLOW Normal Yellow PH,Urine 6.0 units Normal 5.0-9.0 Specific [place] Urine Auto 1.017 Normal 1.002-1.035 Protein, Urine [...] /LPF Normal 0-1 Laboratory test finding 11/16/2019 [facility] Free T4 0.76 ng/dL Normal 0.76-1.46 Laboratory test finding 11/16/2019 [facility] Thyroid Stimulating Hormone 1.530 uIU/ML Normal 0.358-3.740 Vitamin B12 Level 348 pg/mL Normal 247-911 27 Comprehensive Metabolic Profil 11/16/2019 [facility] Glucose, Fasting 102 mg/dL High 70-100 [...] PHYSICIAN REQUEST. 5 COMPLETE BLOOD COUNT [address] [facility] HS-CRP CUT-OFF: RELATIVE RISK: <1.0 mg/L Low [...] Random Void~NURSE COLLECTED? N 12 _CULTURE URINE_ ^$203764 ^^[id number] $$432335 ^^787633 $$353960 $$339779 $$694594 $$727329 $$714546 $$933088 $$825253 $$390208 $$379797 $$103828 $$082238 $$336798 $$138228 $$486693 $$326514 $$509818 $$900494 $$269004 $$711356 $$722489 $$090510 $$296587 $$982436 ^^009639 $$382100 $$659473 $$117186 -- Continued on next page -- Patient: DAKOTAH Schmidt Order: [id number] Page 2 Culture: CULTURE URINE Status: Final -- Continued on next page -- Patient: DAKOTAH Schmidt Order: [id number] Page 2 Culture: CULTURE URINE Status: Prelim $$[id number] $$[id number] REPORTED DATE/TIME: 03/19/2020 11:05 Culture: CULTURE URINE Status: Final Urine Culture,Comprehensive: P1 Mixed urogenital simeon 10,000-25,000 colony forming units per m L Previous result entered on 03/18/2020 02:54 ET Specimen has been received and testing has been initiated. P1 Test performed by: [facility] #: [id number] [address] [place] [address] [id number] [facility] [id number] Weighbridge Operator : Maykel Marquez MD NPI #: Orthotist/Prosthetist : 03/18/20.1633.XMT.SENT REF 03/20/20.0759.XMT.SENT REF 13 URINALYSIS [...] 20 COMPLETE BLOOD COUNT 21 _CULTURE URINE_ ^$153391 ^^288758 $$843114 ^^788510 $$109963 $$120209 $$178079 $$435843 $$719241 $$165072 $$415883 $$710205 $$386245 $$197237 $$461865 $$466315 $$417870 $$161467 $$740058 $$842122 $$216874 $$233538 $$535725 $$482513 $$682930 $$443993 $$236443 ^^698774 $$861578 $$987330 $$080483 -- Continued on next page -- Patient: DAKOTAH Schmidt Order: [id number] Page 2 Culture: CULTURE URINE Status: Final -- Continued on next page -- Patient: DAKOTAH Schmidt Order: [id number] Page 2 Culture: CULTURE URINE Status: Prelim $$[id number] $$[id number] REPORTED DATE/TIME: 02/20/2020 13:05 Culture: CULTURE URINE [...] organism. Lactobacillus species Patient: DAKOTAH Schmidt Order: [id number] Page 3 Culture: CULTURE URINE Status: Final ISOLATE 1 Enterococcus faecalis Isolate 1 Antibiotic [place] Int Units ug/mL Ciprofloxacin S S . . . . . .185-9 Levofloxacin S S . . . . . .10605-3 Nitrofurantoin S S . . . . . .363-2 Penicillin S S . . . . . .6932-8 Tetracycline S S . . . . . .496-0 Vancomycin S S . . . . . .524-9 P1 Test performed by: [facility] #: [id number] [address] [place] [address] [id number] [facility] [address] Weighbridge Operator : Maykel Marquez MD NPI #: Orthotist/Prosthetist : 02/19/20.0837.XMT.SENT REF 02/20/20.1411.XMT.SENT REF 22 URINALYSIS 23 Is patient fasting? N 24 \\BLDo\\INR INTERPRETATION\\BLD x\\ Therapeutic range for Coumadin and related oral anticoagulants. -International Normalized Ratio (INR): 2 .0 - 3.0 for Venous Thrombosis, Pulmonary Embolus, Tissue heart valves, Acute [place], Atrial Fibrillation, Valvular heart disease and recurrent [...] Little GFR Left ESRD GFR <15 on FRENCH LECTURER Procedures Date Code Description Status 12/09/2019 47750 Electrocardiogram Complete Compl eted 11/11/2019 18679 Admin Patient Focused Health Ris k Assessment Instrument Completed 11/11/2019 84273 Brief Emotional/Beha v Assessment W/ Scoring Doc [...] Estes MD 03/15/2020 F41.9 Anxiety disorder, unspecified [place] juma Estes MD 03/15/2020 Z76.0 Encounter for issue of repeat pr escription Ranjan Estes MD 03/15/2020 N39.0 Urinary tract infection, site no t specified Ranjan Estes MD 02/15/2020 I10 Essential (primary) hypertension [facility] 02/15/2020 M79.671 Pain in right foot [facility] 02/15/2020 E78.5 Hyperlipidemia, unspecified [facility] 02/15/2020 E55.9 Vitamin D deficiency, unspecifie d [facility] 02/15/2020 M10.9 Gout, unspecified [facility] 02/15/2020 G47.33 Obstructive sleep apnea (adult) (pediatric) [facility] 12/14/2019 E87.6 Hypokalemia VIANCA Pena 12/09/2019 Z01.818 [...] 9:00 am - Ranjan Estes MD at [facility] 03/15/2020 - Ranjan Estes MD* I10 [...]
--- OUTSIDE RECORDS SUMMARY | 2020-04-06 22:20 | CCD | Continuity of Care Document ---
Author Author Rosemarie ESTES M.D. Organization Unknown Address [address] [place], [place] [address] Phone [phone] Care Team Providers Care Plate Furnace Operator Name Role Phone Ranjan Estes M.D. AUTM [phone] Neil Hernandez Unavailable Problems Active Problems Provider [...] MD 0 05/29/2019 Vitamin D (Ergocalciferol) 1.25mg (45611 Ut) Capsules Take 1 Capsule By Mouth [...] 1 tablet by mouth twice daily 180tabs Rajnan Estes MD Potassium Chloride ER 10Meq Tablet [...] CPT Code Status Date Vaccine Lot # [id number] Given 02/09/2019 [id number] (Pneumovax 23 ) Vaccine [id number] Given 2017 Influenza (>= 6 Months) P.F. Vaccine [id number] Given 01/22/2017 Influenza (>35 months) P.F. Vaccine [...] Date Facility Test Result H/L Range Note Inhouse Ua 03/15/2020 In Office Ua Color dark comfort Ua Appearance clear Spec [place] 1.020 Ua PH Test Strip 5 Leukocytes tr Ua Nitrate neg Ua Protein tr Inhouse Glucose neg Ua Ketones +1 Urobilinogen +1 Ua Bilirubin +1 Blood neg Culture Urine 03/15/2020 In Office Culture Urine Routine <pending> Laboratory test finding 02/15/2020 [facility] Vitamin D (25-Hydroxy) 42 NG/ML 1, 2 T4 - Free 0.93 ng/dL 0.93 - 1.70 TSH Highly Sensitive 1.87 uIU/mL 0.47 - 5.01 Comprehensive Metabolic Panel 02/15/2020 [facility] Comprehensive Metabo (SEE NOTE) 3 Sodium 141 mEq/L 134 - 153 Potassium [...] GFR >60 mL/min Afr Amer GFR >60 4 Laboratory test finding 02/15/2020 [facility] l Uric Acid 6.6 mg/dL 2.5 - 8.5 Cve Panel 02/15/2020 [facility] Cve Panel (SEE NOTE) 5 Cholesterol 203 mg/dL High 131 - 200 Triglycerides 137 mg/dL 35 - 160 HDL 75 mg/dL 29 - 86 LDL 113 mg/dL 65 - 175 Risk Factor 2.7 Low 3.2 - 4.4 LDL/HDL 1.51 1.47 - 3.22 6 Sedimentation Rate 02/15/2020 [facility] Sed Rate 4 mm/hr 0 - 30 Sed Rate Reenter 4 CBC W/Automated Diff 02/15/2020 [facility] CBC W/Automated Diff (SEE NOTE) 7 WBC 9.1 10^3/uL 4.2 - 11.0 RBC [...] 80.0 Lymph 29.9 % 25.0 - 40.0 [place] 6.8 % 3.0 - 8.0 Eos 2.1 % 0.0 - 7.0 Baso 0.7 % 0.0 - 2.5 %Ig 0.2 % High 0.0 - 0.0 %NRBC 0.0 % 0.0 - 0.0 #Neut 5.46 10^3/uL 2.00 - 6.90 #Lymph 2.71 10^3/uL 0.60 - 3.40 #[place] 0.62 10^3/uL 0.00 - 0.90 #Eos 0.19 10^3/uL 0.00 - 0.70 #Baso 0.06 10^3/uL 0.00 - 0.20 #Ig 0.02 10^3/uL 0.00 - 0.10 #NRBC 0.00 10^3/uL 0.00 - 0.00 Manual Diff NOT INDICATED RBC Morph NOT INDICATED Culture Urine 02/15/2020 [facility] Culture Urine (SEE NOTE) 8 Ua 02/15/2020 [facility] Urinalysis (SEE NOTE) 9 Source R Color comfort Normal: Yellow Clarity cloudy Normal: Clear Spec [place] 1.025 1.001 - 1.030 pH 5 5 [...] Normal: None Seen Laboratory test finding 02/15/2020 [facility] Vitamin D (25-Hydroxy) <pending> Erythrocyte Sedimentation Rate <pending> T4 - Free <pending> TSH Highly Sensitive <pending> Laboratory test finding 02/15/2020 [facility] l Uric Acid <pending> Laboratory test finding 12/27/2019 [facility] l Potassium 3.7 mEq/L 3.6 - 5.0 Laboratory test finding 12/14/2019 [facility] l Potassium 3.6 mEq/L 3.6 - 5.0 Order 12/09/2019 In Office Inhouse EKG results to pcp Protime 12/09/2019 [facility] Protime 13.4 seconds 11.0 - 15.5 10 Inr 1.01 0.93 - 1.23 11 Comprehensive Metabolic Panel 12/09/2019 [facility] Comprehensive Metabo (SEE NOTE) 12 Sodium 139 mEq/L 134 - 153 Potassium [...] GFR >60 mL/min Afr Amer GFR >60 13 CBC W/Automated Diff 11/16/2019 [facility] White Blood Count 8.1 10 Normal [...] 36.0-66.0 Lymph % 20.8 % Low 24.0-44.0 [place] % 6.4 % High 0.0-5.0 Eos % 0.7 % Normal 0.0-3.0 Baso % 0.9 % Normal 0.0-1.0 Immature Granulocyte % 0.4 % Normal 0-3.0 Nucleated Red Blood Cell % 0.0 % Normal 0-0 Neutrophils # 5.8 10 Normal 1.5-8.5 Lymph # 1.7 10 Normal 1.5-5.0 [place] # 0.5 10 Normal 0.0-0.8 Eos # 0.1 10 Normal 0.0-0.5 Baso # 0.1 10 Normal 0.0-0.2 Laboratory test finding 11/16/2019 [facility] Uric Acid 4.9 mg/dL Normal 2.6-6.0 Cve Panel 11/16/2019 [facility] Triglycerides Level 228 mg/dL High <150 Cholesterol Level 191 mg/dL Normal <200 HDL Cholesterol 83 mg/dL Normal >40 LDL Cholesterol 62 mg/dL Normal <100 Non-HDL-C 108 mg/dL Normal Cholesterol Risk Ratio 2.301 Normal <5 Laboratory test finding 11/16/2019 [facility] Total 25(Oh) Vitamin D 56.5 NG/ML Normal 30.0-100.0 Urinalysis 11/16/2019 [facility] Appearance, Urine CLEAR Normal Clear Color, Urine YELLOW Normal Yellow PH,Urine 6.0 units Normal 5.0-9.0 Specific [place] Urine Auto 1.017 Normal 1.002-1.035 Protein, Urine [...] /LPF Normal 0-1 Laboratory test finding 11/16/2019 [facility] Free T4 0.76 ng/dL Normal 0.76-1.46 Laboratory test finding 11/16/2019 [facility] Thyroid Stimulating Hormone 1.530 uIU/ML Normal 0.358-3.740 Vitamin B12 Level 348 pg/mL Normal 247-911 14 Comprehensive Metabolic Profil 11/16/2019 [facility] Glucose, Fasting 102 mg/dL High 70-100 Blood Urea Nitrogen 10 mg/dL Normal 7-18 Creatinine For GFR 0.66 mg/dL Normal 0.55-1.30 Glomerular Filtration Rate > 60.0 Normal >45 1 5 Sodium Level 140 mEq/L Normal 136-145 Potassium [...] 3.2-5.2 Albumin/Globulin Ratio 1.3 Normal 1.2-2.2 1 {SOURCE: Random Void~NURSE COLLECTED? N {SPECIMEN TYPE: RANDOM 2 VITAMIN-D(25HYDROXY) Deficiency: <=20 ng/ml Insufficiency: 21-29 ng/ml Preferred level: => 30 ng/ml 3 COMPREHENSIVE METABOLIC PANE L 4 Male GFR Interprentation 20-49 yrs >60 mL/min Normal 50-59 yrs >56 mL/min Normal 60-69 yrs >49 mL/min Normal 70-79yrs >42 mL/min Normal 80 and above >35 mL/min Normal Female GFR Interpretation 20-39 yrs >60 mL/min Normal 40-49 yrs >58 mL/min Normal 50-59 yrs >51 mL/min Normal 60-69 yrs >45 mL/min Normal 70-79 yrs >39 mL/min Normal 80 and above >32 mL/min Normal 5 LIPID PANEL 6 CVE RISK CHOL/HDL LDL/HDL MEN: 1/2 AVERAGE 3.43 1.00 AVERAGE 4.97 3.55 2X AVERAGE 9.55 6.25 3X AVERAGE 23.99 7.99 WOMEN: 1/2 AVERAGE 3.27 1.47 AVERAGE 4.44 3.22 2X AVERAGE 7.05 5.03 3X AVERAGE 11.04 6.14 7 COMPLETE BLOOD COUNT 8 _CULTURE URINE_ ^$175368 ^^743419 $$576364 ^^921808 $$057597 $$596574 $$296768 $$055098 $$256074 $$057198 $$986855 $$902196 $$412786 $$750371 $$925345 $$187227 $$394262 $$932644 $$550598 $$707532 $$191673 $$805142 $$464812 $$379315 $$828983 $$286899 $$439815 ^^287210 $$496634 $$460946 $$429471 -- Continued on next page -- Patient: DAKOTAH Schmidt Order: [id number] Page 2 Culture: CULTURE URINE Status: Final -- Continued on next page -- Patient: DAKOTAH Schmidt Order: [id number] Page 2 Culture: CULTURE URINE Status: Prelim $$[id number] $$[id number] REPORTED DATE/TIME: 02/20/2020 13:05 Culture: CULTURE URINE [...] organism. Lactobacillus species Patient: DAKOTAH Schmidt Order: [id number] Page 3 Culture: CULTURE URINE Status: Final ISOLATE 1 Enterococcus faecalis Isolate 1 Antibiotic [place] Int Units ug/mL Ciprofloxacin S S . . . . . .185-9 Levofloxacin S S . . . . . .13132-7 Nitrofurantoin S S . . . . . .363-2 Penicillin S S . . . . . .6932-8 Tetracycline S S . . . . . .496-0 Vancomycin S S . . . . . .524-9 P1 Test performed by: [facility] #: [id number] [address] [place] [address] [id number] [facility] [address] Clinical Applications Specialist : Maykel Marquez MD NPI #: Plastic Panel Installer : 02/19/20.0837.XMT.SENT REF 02/20/20.1411.XMT.SENT REF 9 URINALYSIS 10 Is patient fasting? N 11 \\BLDo\\INR INTERPRETATION\\BLD x\\ Therapeutic range for Coumadin and related oral anticoagulants. -International Normalized Ratio (INR): 2 .0 - 3.0 for Venous Thrombosis, Pulmonary Embolus, Tissue heart valves, Acute [place], Atrial Fibrillation, Valvular heart disease and recurrent Systemic Embolism. -International Normalized Ratio (INR): 2 .5 - 3.5 for Mechanical Prosthetic valve. 12 COMPREHENSIVE METABOLIC PANE L 13 Male GFR Interprentation 20-49 yrs >60 mL/min Normal 50-59 yrs >56 mL/min Normal 60-69 yrs >49 mL/min Normal 70-79yrs >42 mL/min Normal 80 and above >35 mL/min Normal Female GFR Interpretation 20-39 yrs >60 mL/min Normal 40-49 yrs >58 mL/min Normal 50-59 yrs >51 mL/min Normal 60-69 yrs >45 mL/min Normal 70-79 yrs >39 mL/min Normal 80 and above >32 mL/min Normal 14 VITAMIN B12 NORMAL RANGE NORMAL 247 - 911 PG/ML INDETERMINATE 211 - 246 PG/ML DEFICIENT LESS THAN 211 PG/ML 15 Units are mL/min/1.73 m2 Chronic Kidney Disease Staging per NKF: Stage I & II GFR >=60 Normal to Mildly Decreased Stage III GFR 30-59 Moderately Decreased Stage IV GFR 15-29 Severely Decreased Stage V GFR <15 Very Little GFR Left ESRD GFR <15 on DESIGN QUALITY ENGINEER Procedures Date Code Description Status 12/09/2019 48335 Electrocardiogram Complete Compl eted 11/11/2019 53711 Admin Patient Focused Health Ris k Assessment Instrument Completed 11/11/2019 32347 Brief Emotional/Beha v Assessment W/ Scoring Doc [...] Estes MD 02/15/2020 I10 Essential (primary) hypertension [facility] 02/15/2020 M79.671 Pain in right foot [facility] 02/15/2020 E78.5 Hyperlipidemia, unspecified [facility] 02/15/2020 E55.9 Vitamin D deficiency, unspecifie d [facility] 02/15/2020 M10.9 Gout, unspecified [facility] 02/15/2020 G47.33 Obstructive sleep apnea (adult) (pediatric) [facility] 12/14/2019 E87.6 Hypokalemia VIANCA Pena 12/09/2019 Z01.818 [...] 9:00 am - Ranjan Estes MD at [facility] 03/15/2020 - Ranjan Estes MD* I10 Essential (primary) hypertension * E78.5 Hyperlipidemia, unspecified* Follow up:* 6 months. * E55.9 Vitamin D deficiency, unspecified * M10.9 Gout, unspecified * G47.33 Obstructive sleep apnea (adult) (pediatric) * F41.9 Anxiety disorder, unspecified * Z76.0 Encounter for issue of repeat prescription * N39.0 Urinary tract infection, site not specified Functional Status Description No Information Available Mental Status Description No Information Available Referrals Description No Information Available
--- OUTSIDE RECORDS SUMMARY | 2020-04-06 22:20 | CCD ---
Continuity of Care Document (CCD) Created on: 03/27/2020 Rosemarie Baird External Reference #: [id number] : [id number] Sex: Female Author Author Rosemarie BURTON MD Organization Unknown Address [address] [place] [address] Phone [phone] Care Team Providers Care Index Editor Name Role Phone Ranjan Estes MD AUTM [phone] Problems Active Problems Provider Date Obstructive sleep [...] Estes MD Onset: 04/23/2016 Pure hypercholesterolemia Patricia Burton MD Onset: 04/2019 Social History Type Date [...] / post surgical pain 20tabs Z47.89 Patricia Burton MD 12/30/2019 Naproxen 500mg Tablets 1 by [...] Once Daily Unknown Vitamin D (Ergocalciferol) 1.25mg (76104 Ut) Capsules Take 1 Capsule By Mouth [...] MDD 4,Surg Date 2019 16tabs Z47.89 Patricia Burton MD 12/24/2019 - 01/01 Oxycodone HCL 5mg Tablets 1-2 tabs by mouth every 4 hours as needed / post surgical pain, surg date 2019 30tabs Anthony Gonzalez MD 2019 - 12/23/2019 Oxycodone HCL 5mg Tablets 1-2 tabs po q4- 6h prn / post surgical pain 30tabs Patricia Burton MD 12/06/2019 - 12/22/2019 Immunizations Description No Information Available Vital Signs Date Vital Result Comment 01/20/2020 8:40am Body Temperature 96.7 F 08/02/2019 2:59pm Body Temperature 99.0 F Height 64.5 inches 5'4.50" Weight 163.31 lb BMI (Body Mass Index) 27.6 kg/m2 Results Test Acquired Date Facility Test Result H/L Range Note [facility] [address] [place] [address] [phone] Pathology Request For Service (SEE [...] reveals fibrous connective tissue with hemorrhagic areas. Mechanical Manager section in one block. -SV 12/17/2019 - 1413 Signed MARCUS FRANKLIN MD 12/21/2019 0847 Procedures Date Code Description Status 01/20/2020 95304 Apply Cast Short Leg Completed 01/06/2020 34891 Apply Cast Short Leg Completed 12/30/2019 21711 Apply Cast Short Leg Completed 12/23/2019 15263 Apply Cast Short Leg Completed 2019 47691 Transfer Tendon Ant/Post Tibial Deep Completed 2019 42727 Transfer Tendon Ant/Post Tibial Deep Completed Medical Devices Description No Information Available Encounters Type Date Location Provider Dx Diagnosis Office Visit 03/24/2020 11:00a Bella Montoya PA-C Z47.89 Encounter for other orthopedic aftercare Assessments Date Code Description Provider 03/27/2020 Z47.89 Encounter for other orthopedic a ftercare Patricia Burton MD 03/24/2020 Z47.89 Encounter for other orthopedic a ftercare Юлия L. Fish, PA-C 02/01/2020 Z47.89 Encounter for other orthopedic a reny Montoya PA-C 02/01/2020 Z47.89 Encounter for other orthopedic a reny Montoya PA-C 01/20/2020 Z47.89 Encounter for other orthopedic a reny Burton MD 01/13/2020 Z47.89 Encounter for other orthopedic a ftjennifer Burton MD 01/06/2020 Z47.89 Encounter for other orthopedic a ftjennifer Burton MD 12/30/2019 Z47.89 Encounter for other orthopedic a reny Burton MD 12/23/2019 Z47.89 Encounter for other orthopedic a reny Burton MD 2019 M66.271 Spontaneous rupture of extensor tendons, right ankle and foot Sherin Still PA-C 2019 M66.271 Spontaneous rupture of extensor tendons, right ankle and foot Patricia Burton MD 2019 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, right leg Sherin Still PA-C 2019 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, right leg Patricia Butron MD 11/16/2019 S86.211D Strain of muscle(s) and tendon(s) of anterior muscle group at lower leg level, right leg, subsequent encounter Patricia Burton MD 11/12/2019 S86.211D Strain of muscle(s) and tendon(s) of anterior muscle group at lower leg level, right leg, subsequent encounter Patricia Burton MD 10/12/2019 S86.211D Strain of muscle(s) and tendon(s) of anterior muscle group at lower leg level, right leg, subsequent encounter Patricia Burton MD Plan of Treatment 03/24/2020 - Юлия Monotya PA-C* Z47.89 Encounter for other orthopedic aftercare* Follow up:* sched appt with NMN next week per NMN. Wants to see patient before she leaves. Functional Status Description No Information Available Mental Status Description No Information Available Referrals Refer to Reason for Referral Status Appt Date Patricia Burton MD SURGERY NO AUTH REQUIRED FOR RT TENDON REPAIR ([id number], [id number], AND [id number]) TO SURGERY NT Created [facility] [address] [place] [address] [phone]
--- OUTSIDE RECORDS SUMMARY | 2020-04-06 22:20 | CCD | Continuity of Care Document ---
Author Author Rosemarie ESTES M.D. Organization Unknown Address [address] [place], [place] [address] Phone [phone] Care Team Providers Care Roll Builder Name Role Phone Ranjan Estes M.D. AUTM [phone] Neil Hernandez Unavailable Problems Active Problems Provider [...] MD 0 05/29/2019 Vitamin D (Ergocalciferol) 1.25mg (88131 Ut) Capsules Take 1 Capsule By Mouth [...] CPT Code Status Date Vaccine Lot # [id number] Given 02/09/2019 [id number] (Pneumovax 23 ) Vaccine [id number] 92545 Given 2017 Influenza (>= 6 Months) P.F. Vaccine [id number] Given 01/22/2017 Influenza (>35 months) P.F. Vaccine [...] Color dark comfort Ua Appearance clear Spec [place] 1.020 Ua PH Test Strip 5 Leukocytes tr Ua Nitrate neg Ua Protein tr Inhouse Glucose neg Ua Ketones +1 Urobilinogen +1 Ua Bilirubin +1 Blood neg Culture Urine 03/15/2020 In Office Culture Urine Routine <pending> Urinalysis 03/15/2020 [facility] Urinalysis (SEE NOTE) 1, 2 Source Random Void Color comfort Normal: Yellow Clarity clear Normal: Clear Spec [place] 1.015 1.001 - 1.030 pH 6 5 [...] None Seen Bacteria Trace Normal: None Seen Cuture Urine 03/15/2020 [facility] Culture Urine (SEE NOTE) 3 Laboratory test finding 02/15/2020 [facility] Vitamin D (25-Hydroxy) 42 NG/ML 4, 5 T4 - Free 0.93 ng/dL 0.93 - 1.70 TSH Highly Sensitive 1.87 uIU/mL 0.47 - 5.01 Comprehensive Metabolic Panel 02/15/2020 [facility] Metabo (SEE NOTE) 6 Sodium 141 mEq/L 134 - 153 Potassium [...] GFR >60 mL/min Afr Amer GFR >60 7 Laboratory test finding 02/15/2020 [facility] Uric Acid 6.6 mg/dL 2.5 - 8.5 Cve Panel 02/15/2020 [facility] Cve Panel (SEE NOTE) 8 Cholesterol 203 mg/dL High 131 - 200 Triglycerides 137 mg/dL 35 - 160 HDL 75 mg/dL 29 - 86 LDL 113 mg/dL 65 - 175 Risk Factor 2.7 Low 3.2 - 4.4 LDL/HDL 1.51 1.47 - 3.22 9 Sedimentation Rate 02/15/2020 [facility] Sed Rate 4 mm/hr 0 - 30 Sed Rate Reenter 4 CBC W/Automated Diff 02/15/2020 [facility] CBC W/Automated Diff (SEE NOTE) 10 WBC 9.1 10^3/uL 4.2 - 11.0 RBC [...] 80.0 Lymph 29.9 % 25.0 - 40.0 Elk 6.8 % 3.0 - 8.0 Eos 2.1 % 0.0 - 7.0 Baso 0.7 % 0.0 - 2.5 %Ig 0.2 % High 0.0 - 0.0 %NRBC 0.0 % 0.0 - 0.0 #Neut 5.46 10^3/uL 2.00 - 6.90 #Lymph 2.71 10^3/uL 0.60 - 3.40 #Elk 0.62 10^3/uL 0.00 - 0.90 #Eos 0.19 10^3/uL 0.00 - 0.70 #Baso 0.06 10^3/uL 0.00 - 0.20 #Ig 0.02 10^3/uL 0.00 - 0.10 #NRBC 0.00 10^3/uL 0.00 - 0.00 Manual Diff NOT INDICATED RBC Morph NOT INDICATED Culture Urine 02/15/2020 [facility] Culture Urine (SEE NOTE) 11 Ua 02/15/2020 [facility] Urinalysis (SEE NOTE) 12 Source R Color comfort Normal: Yellow Clarity cloudy Normal: Clear Spec [place] 1.025 1.001 - 1.030 pH 5 5 [...] Normal: None Seen Laboratory test finding 02/15/2020 [facility] Vitamin D (25-Hydroxy) <pending> Erythrocyte Sedimentation Rate <pending> T4 - Free <pending> TSH Highly Sensitive <pending> Laboratory test finding 02/15/2020 [facility] Uric Acid <pending> Laboratory test finding 12/27/2019 [facility] Potassium 3.7 mEq/L 3.6 - 5.0 Laboratory test finding 12/14/2019 [facility] Potassium 3.6 mEq/L 3.6 - 5.0 Order 12/09/2019 In Office Inhouse EKG results to pcp Protime 12/09/2019 [facility] Protime 13.4 seconds 11.0 - 15.5 13 Inr 1.01 0.93 - 1.23 14 Comprehensive Metabolic Panel 12/09/2019 [facility] Comprehensive Metabo (SEE NOTE) 15 Sodium 139 mEq/L 134 - 153 Potassium [...] GFR >60 mL/min Afr Amer GFR >60 16 CBC W/Automated Diff 11/16/2019 [facility] White Blood Count 8.1 10 Normal 4.0-10.0 [...] 36.0-66.0 Lymph % 20.8 % Low 24.0-44.0 Elk % 6.4 % High 0.0-5.0 Eos % 0.7 % Normal 0.0-3.0 Baso % 0.9 % Normal 0.0-1.0 Immature Granulocyte % 0.4 % Normal 0-3.0 Nucleated Red Blood Cell % 0.0 % Normal 0-0 Neutrophils # 5.8 10 Normal 1.5-8.5 Lymph # 1.7 10 Normal 1.5-5.0 Elk # 0.5 10 Normal 0.0-0.8 Eos # 0.1 10 Normal 0.0-0.5 Baso # 0.1 10 Normal 0.0-0.2 Laboratory test finding 11/16/2019 [facility] Uric Acid 4.9 mg/dL Normal 2.6-6.0 Cve Panel 11/16/2019 [facility] Triglycerides Level 228 mg/dL High <150 Cholesterol Level 191 mg/dL Normal <200 HDL Cholesterol 83 mg/dL Normal >40 LDL Cholesterol 62 mg/dL Normal <100 Non-HDL-C 108 mg/dL Normal Cholesterol Risk Ratio 2.301 Normal <5 Laboratory test finding 11/16/2019 [facility] Total 25(Oh) Vitamin D 56.5 NG/ML Normal 30.0-100.0 Urinalysis 11/16/2019 [facility] Appearance, Urine CLEAR Normal Clear Color, Urine YELLOW Normal Yellow PH,Urine 6.0 units Normal 5.0-9.0 Specific [place] Urine Auto 1.017 Normal 1.002-1.035 Protein, Urine [...] /LPF Normal 0-1 Laboratory test finding 11/16/2019 [facility] Free T4 0.76 ng/dL Normal 0.76-1.46 Laboratory test finding 11/16/2019 [facility] Thyroid Stimulating Hormone 1.530 uIU/ML Normal 0.358-3.740 Vitamin B12 Level 348 pg/mL Normal 247-911 17 Comprehensive Metabolic Profil 11/16/2019 [facility] Glucose, Fasting 102 mg/dL High 70-100 Blood Urea Nitrogen 10 mg/dL Normal 7-18 Creatinine For GFR 0.66 mg/dL Normal 0.55-1.30 Glomerular Filtration Rate > 60.0 Normal >45 1 8 Sodium Level 140 mEq/L Normal 136-145 [...] 1.2-2.2 1 {SOURCE: Random Void~NURSE COLLECTED? N 2 URINALYSIS 3 _CULTURE URINE_ ^$291980 ^^907932 $$165541 ^^474098 $$967579 $$883863 $$545007 $$303168 $$445309 $$528991 $$472467 $$987295 $$150351 $$990864 $$822030 $$866251 $$068580 $$816007 $$529365 $$453863 $$685541 $$081451 $$275356 $$938641 $$271820 $$086163 $$854251 ^^356819 $$136927 $$644622 $$920303 -- Continued on next page -- Patient: DAKOTAH Schmidt Order: Page 2 Culture: CULTURE URINE Status: Final -- Continued on next page -- Patient: DAKOTAH Schmidt Order: [id number] Page 2 Culture: CULTURE URINE Status: Prelim $$[id number] $$[id number] REPORTED DATE/TIME: 03/19/2020 11:05 Culture: CULTURE URINE Status: Final Urine Culture,Comprehensive: P1 Mixed urogenital simeon 10,000-25,000 colony forming units per m L Previous result entered on 03/18/2020 02:54 ET Specimen has been received and testing has been initiated. P1 Test performed by: [facility] #: [id number] [address] [place] [id number] [facility] [id number] Corporate Travel Coordinator : Maykel Marquez MD NPI #: Label Tacker : 03/18/[id number].XMT.SENT REF 03/20/20.0759.XMT.SENT REF 4 {SOURCE: Random Void~NURSE COLLECTED? N {SPECIMEN TYPE: RANDOM 5 VITAMIN-D(25HYDROXY) Deficiency: <=20 ng/ml Insufficiency: 21-29 ng/ml Preferred level: => 30 ng/ml 6 COMPREHENSIVE METABOLIC PANE L 7 Male GFR Interprentation 20-49 yrs >60 mL/min Normal 50-59 yrs >56 mL/min Normal 60-69 yrs >49 mL/min Normal 70-79yrs >42 mL/min Normal 80 and above >35 mL/min Normal Female GFR Interpretation 20-39 yrs >60 mL/min Normal 40-49 yrs >58 mL/min Normal 50-59 yrs >51 mL/min Normal 60-69 yrs >45 mL/min Normal 70-79 yrs >39 mL/min Normal 80 and above >32 mL/min Normal 8 LIPID PANEL 9 CVE RISK CHOL/HDL LDL/HDL MEN: 1/2 AVERAGE 3.43 1.00 AVERAGE 4.97 3.55 2X AVERAGE 9.55 6.25 3X AVERAGE 23.99 7.99 WOMEN: 1/2 AVERAGE 3.27 1.47 AVERAGE 4.44 3.22 2X AVERAGE 7.05 5.03 3X AVERAGE 11.04 6.14 10 COMPLETE BLOOD COUNT 11 _CULTURE URINE_ ^$395722 ^^396055 $$662163 ^^429475 $$201845 $$792131 $$277095 $$439934 $$887036 $$426568 $$018743 $$875482 $$002683 $$843124 $$469225 $$566973 $$468389 $$278986 $$062185 $$738431 $$401157 $$975587 $$632866 $$693573 $$981971 $$714966 $$289388 ^^082009 $$517991 $$424333 $$703700 -- Continued on next page -- Patient: DAKOTAH HELM L Order: [id number] Page 2 Culture: CULTURE URINE Status: Final -- Continued on next page -- Patient: DAKOTAH HELM L Order: [id number] Page 2 Culture: CULTURE URINE Status: Prelim $$[id number] $$[id number] REPORTED DATE/TIME: 02/20/2020 13:05 Culture: CULTURE URINE [...] organism. Lactobacillus species Patient: DAKOTAH Schmidt Order: [id number] Page 3 Culture: CULTURE URINE Status: Final ISOLATE 1 Enterococcus faecalis Isolate 1 Antibiotic MILTON Int Units ug/mL Ciprofloxacin S S . . . . . .185-9 Levofloxacin S S . . . . . .26463-4 Nitrofurantoin S S . . . . . .363-2 Penicillin S S . . . . . .6932-8 Tetracycline S S . . . . . .496-0 Vancomycin S S . . . . . .524-9 P1 [facility] #: [id number] [address] [place] [phone] [facility] [id number] Corporate Travel Coordinator : Maykel Marquez MD NPI #: Label Tacker : 02/19/20.0837.XMT.SENT REF 02/20/20.1411.XMT.SENT REF 12 URINALYSIS 13 Is patient fasting? N 14 \\BLDo\\INR INTERPRETATION\\BLD x\\ Therapeutic range for Coumadin and related oral anticoagulants. -International Normalized Ratio (INR): 2 .0 - 3.0 for Venous Thrombosis, Pulmonary Embolus, Tissue heart valves, Acute WI, Atrial Fibrillation, Valvular heart disease and recurrent Systemic Embolism. -International Normalized Ratio (INR): 2 .5 - 3.5 for Mechanical Prosthetic valve. 15 COMPREHENSIVE METABOLIC PANE L 16 Male GFR Interprentation 20-49 yrs >60 mL/min Normal 50-59 yrs >56 mL/min Normal 60-69 yrs >49 mL/min Normal 70-79yrs >42 mL/min Normal 80 and above >35 mL/min Normal Female GFR Interpretation 20-39 yrs >60 mL/min Normal 40-49 yrs >58 mL/min Normal 50-59 yrs >51 mL/min Normal 60-69 yrs >45 mL/min Normal 70-79 yrs >39 mL/min Normal 80 and above >32 mL/min Normal 17 VITAMIN B12 NORMAL RANGE NORMAL 247 - 911 PG/ML INDETERMINATE 211 - 246 PG/ML DEFICIENT LESS THAN 211 PG/ML 18 Units are mL/min/1.73 m2 Chronic Kidney Disease Staging per NKF: Stage I & II GFR >=60 Normal to Mildly Decreased Stage III GFR 30-59 Moderately Decreased Stage IV GFR 15-29 Severely Decreased Stage V GFR <15 Very Little GFR Left ESRD GFR <15 on RETAIL PERFORMANCE SPECIALIST Procedures Date Code Description Status 12/09/2019 71182 Electrocardiogram Complete Compl eted 11/11/2019 40347 Admin Patient Focused Health Ris k Assessment Instrument Completed 11/11/2019 01031 Brief Emotional/Beha v Assessment W/ Scoring Doc [...] for issue of repeat pr escription Ranjan sEtes MD 03/15/2020 N39.0 Urinary tract infection, site no t specified Ranjan Estes MD 02/15/2020 I10 Essential (primary) hypertension [facility] 02/15/2020 M79.671 Pain in right foot [facility] 02/15/2020 E78.5 Hyperlipidemia, unspecified [facility] 02/15/2020 E55.9 Vitamin D deficiency, unspecifie d [facility] 02/15/2020 M10.9 Gout, unspecified [facility] 02/15/2020 G47.33 Obstructive sleep apnea (adult) (pediatric) [facility] 12/14/2019 E87.6 Hypokalemia VIANCA Pena 12/09/2019 [...] 9:00 am - Ranjan Estes MD at [facility] 03/15/2020 - Ranjan Estes MD* I10 [...]
--- OUTSIDE RECORDS SUMMARY | 2020-04-06 22:20 | CCD | Continuity of Care Document ---
Author Author Rosemarie SANTOS PA-C Organization Unknown Address [address] [place] [address] Phone [phone] Care Team Providers Care Traffic Manager Name Role Phone Ranjan Estes MD AUTM [phone] Problems Active Problems Provider Date Obstructive sleep [...] Once Daily Unknown Vitamin D (Ergocalciferol) 1.25mg (26012 Ut) Capsules Take 1 Capsule By Mouth [...] H/L Range Note [facility] [address] [place] [address] [phone] Pathology Request For Service (SEE NOTE) 1 1 FINAL DIAGNOSIS Tendon, right anterior tibialis, repair: Fibrous tissue with chronic inflammation and calcifications, consistent with tendon. 12/21/2019 - 0718 CLINICAL DIAGNOSIS Right tibialis anterior tendon rupture 12/17/2019 - 1413 GROSS DIAGNOSIS Received in formalin labeled "right tibialis anterior tendon" and consists of one piece of fibrous tissue measuring 5.5 x 1.5 x 1.3 cm. Sectioning of the specimen reveals fibrous connective tissue with hemorrhagic areas. Guest Services Officer section in one block. -SV 12/17/2019 - 141 Signed MARCUS FRANKLIN MD 12/21/2019 0847 Procedures Date Code Description Status 01/20/2020 44438 Apply Cast Short Leg Completed 01/06/2020 85112 Apply Cast Short Leg Completed 12/30/2019 34405 Apply Cast Short Leg Completed 12/23/2019 42575 Apply Cast Short Leg Completed 2019 81075 Transfer Tendon Ant/Post Tibial Deep Completed 2019 72592 Transfer Tendon Ant/Post Tibial Deep Completed Medical Devices Description No Information Available Encounters Type Date Location Provider Dx Diagnosis Office Visit 12/30/2019 8:15a Bella Scott MD Z47. 89 Encounter for other orthopedic aftercare Assessments Date Code Description Provider 03/24/2020 Z47.89 Encounter for other orthopedic a reny Santos PA-C 02/01/2020 Z47.89 Encounter for other orthopedic a ftrodneyare Юлия Santos PA-C 02/01/2020 Z47.89 Encounter for other orthopedic a reny Santos PA-C 01/20/2020 Z47.89 Encounter for other orthopedic a reny Scott MD 01/13/2020 Z47.89 Encounter for other orthopedic a reny Scott MD 01/06/2020 Z47.89 Encounter for other orthopedic a ftrodneyare Patricia Scott MD 12/30/2019 Z47.89 Encounter for other orthopedic a ftjennifer Scott MD 12/23/2019 Z47.89 Encounter for other orthopedic a reny Scott MD 2019 M66.271 Spontaneous rupture of [...] encounter Patricia Scott MD Plan of Treatment 03/24/2020 - Юлия Santos PA-C* Z47.89 Encounter for other orthopedic aftercare* Follow up:* sched appt with NMN next week per NMN. Wants to see patient before she leaves. Functional Status Description No Information Available Mental Status Description No Information Available Referrals Refer to Dr Reason for Referral Status Appt Date Patricia Scott MD SURGERY NO AUTH REQUIRED FOR RT TENDON REPAIR (19910, [id number], AND 33543) TO SURGERY NT Created [address] [facility] [address] [place] [address] [phone]
--- OUTSIDE RECORDS SUMMARY | 2020-04-06 22:21 | CCD | Continuity of Care Document ---
Author Author Rosemarie SANTOS PAJoannaC Organization Unknown Address [address] [place] [address] Phone [phone] Care Team Providers Care Fountain Vending Mechanic Name Role Phone Ranjan Estes MD AUTM [phone] Problems Active Problems Provider Date Obstructive sleep [...] Of Dispensing Unknown Amlodipine Besylate 5mg Tablets Ranjna Estes MD Escitalopram Oxalate 20mg Tablets Take [...] Once Daily Unknown Vitamin D (Ergocalciferol) 1.25mg (54714 Ut) Capsules Take 1 Capsule By Mouth [...] H/L Range Note [facility] [address] [place] [address] [phone] Pathology Request For Service (SEE [...] reveals fibrous connective tissue with hemorrhagic areas. Vault Service Mechanic section in one block. -SV 12/17/2019 - 141 Signed MARCUS FRANKLIN MD 12/21/2019 0847 Procedures Date Code Description Status 01/20/2020 81799 Apply Cast Short Leg Completed 01/06/2020 53561 Apply Cast Short Leg Completed 12/30/2019 76504 Apply Cast Short Leg Completed 12/23/2019 30724 Apply Cast Short Leg Completed 2019 84407 Transfer Tendon Ant/Post Tibial Deep Completed 2019 82207 Transfer Tendon Ant/Post Tibial Deep Completed Medical Devices Description No Information Available Encounters Type Date Location Provider Dx Diagnosis Office Visit 12/30/2019 8:15a Bella Scott MD Z47. 89 Encounter for other orthopedic aftercare Office Visit 08/30/2019 8:30a Bella Scott MD S86. 211A Strain musc/tend ant grp at low leg level, right leg, init Assessments Date Code Description Provider 02/01/2020 Z47.89 Encounter for other orthopedic a ftjennifer Santos PA-C 02/01/2020 Z47.89 Encounter for other orthopedic a reny Santos PA-C 01/20/2020 Z47.89 Encounter for other orthopedic a ftjennifer Scott MD 01/13/2020 Z47.89 Encounter for other orthopedic a reny Scott MD 01/06/2020 Z47.89 Encounter for other orthopedic a ftjennifer Scott MD 12/30/2019 Z47.89 Encounter for other orthopedic a reny Scott MD 12/23/2019 Z47.89 Encounter for other [...] right leg, subsequent encounter Patricia Scott MD 09/17/2019 S86.211D Strain of muscle(s) and tendon(s) of anterior muscle group at lower leg level, right leg, subsequent encounter Patricia Scott MD 08/30/2019 S86.211A Strain of muscle(s) and tendon(s) of anterior muscle group at lower leg level, right leg, initial encounter Patricia Scott MD 08/30/2019 S86.211A Strain of muscle(s) and tendon(s) of anterior muscle group at lower leg level, right leg, initial encounter Patricia Scott MD Plan of Treatment Future Appointment(s):* 02/28/2020 9:15 am - Юлия Santos PA-C at [facility] 12/30/2019 - Patricia Scott MD* Z47.89 Encounter for other orthopedic aftercare* New Medication:* Oxycodone HCL 5 mg - 1 tablet by mouth every 8 hours as needed / post surgical pain * Follow up:* f/u in 1 week right ankle cast off Functional Status Description No Information Available Mental Status Description No Information Available Referrals Refer to Dr Reason for Referral Status Appt Date Patricia Scott MD SURGERY NO AUTH REQUIRED FOR RT TENDON REPAIR (21173, 57674, AND 62481) TO SURGERY NT Created [facility] [address] [place] [id number] [phone]
--- OUTSIDE RECORDS SUMMARY | 2020-04-06 22:21 | CCD ---
Continuity of Care Document (CCD) Created on: 02/22/2020 DakotahRosemarie Sohan External Reference #: [id number] : [id number] Sex: Female Author Author Rosemarie ESTES M.D. Organization Unknown Address [address] [place], [place] [address] Phone [phone] Care Team Providers Care Sap Technical Architect Name Role Phone Ranjan Estes M.D. AUTM [phone] Neil Hernandez Unavailable Problems Active Problems Provider [...] SIG Qnty Indications Ordering Provide r Date Cipro 250mg Tablets 1 tab by mouth twice a day 6tabs Ranjan Estes MD 02/16/2020 Atorvastatin Calcium 40mg Tablets Take 1 Tablet By Mouth AT Bedtime 90tabs E78.5 Ranjan Estes MD 1 03/31/2019 Buspirone HCL 10mg Tablets 1 tab by mouth two times a day 60tabs F41.9 Ranjan Estes MD 11/11/2019 Escitalopram Oxalate 20mg Tablets Take 1 tablet by mouth once daily 90tabs F41.9 Ranjan Estes MD 0 05/29/2019 Vitamin D (Ergocalciferol) 1.25mg (14349 Ut) Capsules Take 1 Capsule By Mouth [...] 90tabs I10 Ranjan Estes MD 0 07/24/2016 [facility]-3 1000mg Capsules 3 tab po once a day. E78.5 Ranjan Estes MD 05/23/2016 Niacin ER 1000mg Tablets ER 1 tab [...] daily as needed 60tabs Ranjan Estes MD Medications Administered in Office Medication SIG Qnty Indications Ordering Provider Date Ketorolac (Toradol) Inj 30MG/ML Injection Ranjan Estes MD 06/14/19 17 Immunizations CPT Code Status Date Vaccine Lot # [id number] Given 02/09/2019 [id number] (Pneumovax 23 ) Vaccine [id number] Given 2017 Influenza (>= 6 Months) P.F. Vaccine [id number] Given 01/22/2017 Influenza (>35 months) P.F. Vaccine [id number] Vital Signs Date Vital Result Comment 12/09/2019 2:20pm BP Systolic 122 mmHg BP Diastolic 70 mmHg Heart Rate 66 /min Body Temperature 97.4 F Respiratory Rate 16 /min O2 % BldC Oximetry 97 % Weight 164.25 lb Weight 74.504 kg Height 65 inches 5'5" BMI (Body Mass Index) 27.3 kg/m2 BSA (Body Surface Area) 1.82 m2 11/11/2019 1:35pm BP Systolic 138 mmHg BP Diastolic 74 mmHg Heart Rate 82 /min Body Temperature 97.5 F Respiratory Rate 16 /min O2 % BldC Oximetry 97 % Weight 162.00 lb Weight 73.483 kg Height 65 inches 5'5" BMI (Body Mass Index) 27.0 kg/m2 BSA (Body Surface Area) 1.81 m2 Results Test Acquired Date Facility Test Result H/L Range Note Laboratory test finding 02/15/2020 [facility] l Uric Acid <pending> Laboratory test finding 02/15/2020 [facility] l Vitamin D (25-Hydroxy) <pending> Erythrocyte Sedimentation Rate <pending> T4 - Free <pending> TSH Highly Sensitive <pending> Ua 02/15/2020 [facility] Urinalysis (SEE NOTE) 1, 2 Source R Color comfort Normal: Yellow Clarity cloudy Normal: Clear Spec [place] 1.025 1.001 - 1.030 pH 5 5 [...] Seen Amorph Sed 3+ Normal: None Seen Culture Urine 02/15/2020 [facility] Culture Urine (SEE NOTE) 3 CBC W/Automated Diff 02/15/2020 [facility] CBC W/Automated Diff (SEE NOTE) 4 WBC 9.1 10^3/uL 4.2 - 11.0 RBC [...] 80.0 Lymph 29.9 % 25.0 - 40.0 Wilson 6.8 % 3.0 - 8.0 Eos 2.1 % 0.0 - 7.0 Baso 0.7 % 0.0 - 2.5 %Ig 0.2 % High 0.0 - 0.0 %NRBC 0.0 % 0.0 - 0.0 #Neut 5.46 10^3/uL 2.00 - 6.90 #Lymph 2.71 10^3/uL 0.60 - 3.40 #Wilson 0.62 10^3/uL 0.00 - 0.90 #Eos 0.19 10^3/uL 0.00 - 0.70 #Baso 0.06 10^3/uL 0.00 - 0.20 #Ig 0.02 10^3/uL 0.00 - 0.10 #NRBC 0.00 10^3/uL 0.00 - 0.00 Manual Diff NOT INDICATED RBC Morph NOT INDICATED Sedimentation Rate 02/15/2020 [facility] Sed Rate 4 mm/hr 0 - 30 Sed Rate Reenter 4 Cve Panel 02/15/2020 [facility] Cve Panel (SEE NOTE) 5 Cholesterol 203 mg/dL High 131 - 200 Triglycerides 137 mg/dL 35 - 160 HDL 75 mg/dL 29 - 86 LDL 113 mg/dL 65 - 175 Risk Factor 2.7 Low 3.2 - 4.4 LDL/HDL 1.51 1.47 - 3.22 6 Laboratory test finding 02/15/2020 [facility] Uric Acid 6.6 mg/dL 2.5 - 8.5 Comprehensive Metabolic Panel 02/15/2020 [facility] Comprehensive Metabo (SEE NOTE) 7 Sodium 141 mEq/L 134 - 153 Potassium [...] >60 mL/min Afr Amer GFR >60 8 Laboratory test finding 02/15/2020 [facility] l Vitamin D (25-Hydroxy) 42 NG/ML 9 T4 - Free 0.93 ng/dL 0.93 - 1.70 TSH Highly Sensitive 1.87 uIU/mL 0.47 - 5.01 Laboratory test finding 12/27/2019 [facility] Potassium 3.7 mEq/L 3.6 - 5.0 Laboratory test finding 12/14/2019 [facility] Potassium 3.6 mEq/L 3.6 - 5.0 Comprehensive Metabolic Panel 12/09/2019 [facility] Comprehensive Metabo (SEE NOTE) 10, 11 Sodium 139 mEq/L 134 - 153 Potassium [...] GFR >60 mL/min Afr Amer GFR >60 12 Protime 12/09/2019 [facility] Protime 13.4 seconds 11.0 - 15.5 Inr 1.01 0.93 - 1.23 13 Order 12/09/2019 In Office Inhouse EKG results to pcp CBC W/Automated Diff 11/16/2019 [facility] White Blood Count 8.1 10 [...] 36.0-66.0 Lymph % 20.8 % Low 24.0-44.0 Wilson % 6.4 % High 0.0-5.0 Eos % 0.7 % Normal 0.0-3.0 Baso % 0.9 % Normal 0.0-1.0 Immature Granulocyte % 0.4 % Normal 0-3.0 Nucleated Red Blood Cell % 0.0 % Normal 0-0 Neutrophils # 5.8 10 Normal 1.5-8.5 Lymph # 1.7 10 Normal 1.5-5.0 Wilson # 0.5 10 Normal 0.0-0.8 Eos # 0.1 10 Normal 0.0-0.5 Baso # 0.1 10 Normal 0.0-0.2 Laboratory test finding 11/16/2019 [facility] Uric Acid 4.9 mg/dL Normal 2.6-6.0 Cve Panel 11/16/2019 [facility] Triglycerides Level 228 mg/dL High <150 Cholesterol Level 191 mg/dL Normal <200 HDL Cholesterol 83 mg/dL Normal >40 LDL Cholesterol 62 mg/dL Normal <100 Non-HDL-C 108 mg/dL Normal Cholesterol Risk Ratio 2.301 Normal <5 Laboratory test finding 11/16/2019 [facility] Total 25(Oh) Vitamin D 56.5 NG/ML Normal 30.0-100.0 Urinalysis 11/16/2019 [facility] Appearance, Urine CLEAR Normal Clear Color, Urine YELLOW Normal Yellow PH,Urine 6.0 units Normal 5.0-9.0 Specific [place] Urine Auto 1.017 Normal 1.002-1.035 Protein, Urine [...] /LPF Normal 0-1 Laboratory test finding 11/16/2019 [facility] Free T4 0.76 ng/dL Normal 0.76-1.46 Laboratory test finding 11/16/2019 [facility] Thyroid Stimulating Hormone 1.530 uIU/ML Normal 0.358-3.740 Vitamin B12 Level 348 pg/mL Normal 247-911 14 Comprehensive Metabolic Profil 11/16/2019 [facility] Glucose, Fasting 102 mg/dL High [...] Void~NURSE COLLECTED? N {SPECIMEN TYPE: RANDOM 2 URINALYSIS 3 _CULTURE URINE_ ^$[id number] ^^089323 $$328755 ^^[id number] $$906382 $$084841 $$663220 $$139414 $$938755 $$472935 $$135922 $$378692 $$117484 $$952343 $$048251 $$328265 $$124983 $$209715 $$461165 $$328000 $$524595 $$823238 $$195247 $$436586 $$145448 $$778928 $$771290 ^^999320 $$865802 $$487579 $$502205 -- Continued on next page -- Patient: DAKOTAH Parry Order: [id number] Page 2 Culture: CULTURE URINE Status: Final -- Continued on next page -- Patient: DAKOTAH HELM L Order: [id number] Page 2 Culture: CULTURE URINE Status: Prelim $$[id number] $$[id number] REPORTED DATE/TIME: 02/20/2020 13:05 Culture: CULTURE URINE [...] on this organism. Lactobacillus species Patient: DAKOTAH Parry Order: [id number] Page 3 Culture: CULTURE URINE Status: Final ISOLATE 1 Enterococcus faecalis Isolate 1 Antibiotic MILTON Int Units ug/mL Ciprofloxacin S S . . . . . .185-9 Levofloxacin S S . . . . . .34881-8 Nitrofurantoin S S . . . . . .363-2 Penicillin S S . . . . . .6932-8 Tetracycline S S . . . . . .496-0 Vancomycin S S . . . . . .524-9 P1 [facility] JAYLA #: [id number] [address] [place] [address] [id number] [facility] [address] Merchandise Associate : Maykel Marquez MD NPI #: Interviewing Clerk : 02/19/20.0837.XMT.SENT REF 02/20/20.1411.XMT.SENT REF 4 COMPLETE BLOOD COUNT 5 LIPID PANEL 6 CVE RISK CHOL/HDL LDL/HDL MEN: 1/2 AVERAGE 3.43 1.00 AVERAGE 4.97 3.55 2X AVERAGE 9.55 6.25 3X AVERAGE 23.99 7.99 WOMEN: 1/2 AVERAGE 3.27 1.47 AVERAGE 4.44 3.22 2X AVERAGE 7.05 5.03 3X AVERAGE 11.04 6.14 7 COMPREHENSIVE METABOLIC PANE L 8 Male [...] 80 and above >32 mL/min Normal 9 VITAMIN-D(25HYDROXY) Deficiency: <=20 ng/ml Insufficiency: 21-29 ng/ml Preferred level: => 30 ng/ml 10 Is patient fasting? N 11 COMPREHENSIVE METABOLIC PANE L 12 Male GFR Interprentation 20-49 yrs >60 mL/min Normal 50-59 yrs >56 mL/min Normal 60-69 yrs >49 mL/min Normal 70-79yrs >42 mL/min Normal 80 and above >35 mL/min Normal Female GFR Interpretation 20-39 yrs >60 mL/min Normal 40-49 yrs >58 mL/min Normal 50-59 yrs >51 mL/min Normal 60-69 yrs >45 mL/min Normal 70-79 yrs >39 mL/min Normal 80 and above >32 mL/min Normal 13 \\BLDo\\INR INTERPRETATION\\BLD x\\ Therapeutic range for Coumadin and related oral anticoagulants. -International Normalized Ratio (INR): 2 .0 - 3.0 for Venous Thrombosis, Pulmonary Embolus, Tissue heart valves, Acute ND, Atrial Fibrillation, Valvular heart disease and recurrent Systemic Embolism. -International Normalized Ratio (INR): 2 .5 - 3.5 for Mechanical Prosthetic valve. 14 VITAMIN B12 NORMAL RANGE NORMAL 247 [...] Little GFR Left ESRD GFR <15 on MOTOR MECHANIC Procedures Date Code Description Status 12/09/2019 45915 Electrocardiogram Complete Compl eted 11/11/2019 83771 Admin Patient Focused Health Ris k Assessment Instrument Completed 11/11/2019 25413 Brief Emotional/Beha v Assessment W/ Scoring Doc Per Standard Inst Completed Medical Devices Description No Information Available Encounters Description No Information Available Assessments Date Code Description Provider 02/15/2020 I10 Essential (primary) hypertension [facility] 02/15/2020 M79.671 Pain in right foot [facility] 02/15/2020 E78.5 Hyperlipidemia, unspecified [facility]/2020 E55.9 Vitamin D deficiency, unspecifie d [facility] 02/15/2020 M10.9 Gout, unspecified [facility] 02/15/2020 G47.33 Obstructive sleep apnea (adult) (pediatric) [facility] 12/14/2019 E87.6 Hypokalemia VIANCA Pena 12/09/2019 Z01.818 Encounter for other preprocedura l examination Gemma Lamas PA-C 12/09/2019 G47.33 Obstructive sleep apnea (adult) (pediatric) Gemma Lamas PA-C 12/09/2019 I10 Essential (primary) hypertension Gemma Lamas PA-C 11/11/2019 I10 Essential (primary) hypertension Ranjan Estes MD 11/11/2019 F41.9 Anxiety disorder, unspecified [place] juma Estes MD Plan of Treatment Future Appointment(s):* 03/15/2020 10:20 am - Ranjan Estes MD at [facility] 12/09/2019 - Gemma Lamas PA-C* Z01.818 Encounter for other preprocedural examination* Comments:* VSS and nontoxic appearing. EKG was performed today that showed normal sinus rhythm, 58 BPM, no ST elevation or T-wave change. She had blood work in November and her potassium was slightly low. Will recheck it and also added PT/INR. CBC done in November without abnormalities. Patient is medically optimized for upcoming right tibialis anterior tendon debridement surgery on 2019. Informed to stop all OTC NSAID and fish oil medications 1 week prior to procedure. She can take Tylenol for pain. * G47.33 Obstructive sleep apnea (adult) (pediatric)* Comments:* Continue with dental appliances. If she has any issues, she should let us know. * I10 Essential (primary) hypertension* Comments:* Today, her BP is 122/70. She brought BP log and I reviewed it. Readings are in 114-130/60-80. Continue with current medication. Will continue to monitor. Functional Status Description No Information Available Mental Status Description No Information Available Referrals Description No Information Available
--- OUTSIDE RECORDS SUMMARY | 2020-04-06 22:21 | CCD | Continuity of Care Document ---
Author Author Rosemarie ESTES M.D. Organization Unknown Address [address] [place], [place] [address] Phone [phone] Care Team Providers Care Film Masker Name Role Phone Ranjan Estes M.D. AUTM [phone] Neil Hernandez Unavailable Problems Active Problems Provider [...] MD 0 05/29/2019 Vitamin D (Ergocalciferol) 1.25mg (10878 Ut) Capsules Take 1 Capsule By Mouth [...] Ranjan Estes MD 0 07/24/2016 Fish Oil [place]-3 1000mg Capsules 3 tab po once a [...] CPT Code Status Date Vaccine Lot # [id number] Given 02/09/2019 [id number] (Pneumovax 23 ) Vaccine [id number] 50038 Given 2017 Influenza (>= 6 Months) P.F. Vaccine [id number] Given 01/22/2017 Influenza (>35 months) P.F. Vaccine [...] H/L Range Note Laboratory test finding 02/15/2020 [facility] l Uric Acid <pending> Laboratory test finding 02/15/2020 [facility] l Vitamin D (25-Hydroxy) <pending> Erythrocyte Sedimentation Rate <pending> T4 - Free <pending> TSH Highly Sensitive <pending> Ua 02/15/2020 [facility] Urinalysis (SEE NOTE) 1, 2 Source R Color comfort Normal: Yellow Clarity cloudy Normal: Clear Spec [place] 1.025 1.001 - 1.030 pH 5 5 [...] Seen Amorph Sed 3+ Normal: None Seen CBC W/Automated Diff 02/15/2020 [facility] CBC W/Automated Diff (SEE NOTE) 3 WBC 9.1 10^3/uL 4.2 - 11.0 RBC [...] 80.0 Lymph 29.9 % 25.0 - 40.0 [place] 6.8 % 3.0 - 8.0 Eos 2.1 % 0.0 - 7.0 Baso 0.7 % 0.0 - 2.5 %Ig 0.2 % High 0.0 - 0.0 %NRBC 0.0 % 0.0 - 0.0 #Neut 5.46 10^3/uL 2.00 - 6.90 #Lymph 2.71 10^3/uL 0.60 - 3.40 #[place] 0.62 10^3/uL 0.00 - 0.90 #Eos 0.19 10^3/uL 0.00 - 0.70 #Baso 0.06 10^3/uL 0.00 - 0.20 #Ig 0.02 10^3/uL 0.00 - 0.10 #NRBC 0.00 10^3/uL 0.00 - 0.00 Manual Diff NOT INDICATED RBC Morph NOT INDICATED Sedimentation Rate 02/15/2020 [facility] Sed Rate 4 mm/hr 0 - 30 Sed Rate Reenter 4 Cve Panel 02/15/2020 [facility] Cve Panel (SEE NOTE) 4 Cholesterol 203 mg/dL High 131 - 200 Triglycerides 137 mg/dL 35 - 160 HDL 75 mg/dL 29 - 86 LDL 113 mg/dL 65 - 175 Risk Factor 2.7 Low 3.2 - 4.4 LDL/HDL 1.51 1.47 - 3.22 5 Laboratory test finding 02/15/2020 [facility] l Uric Acid 6.6 mg/dL 2.5 - 8.5 Comprehensive Metabolic Panel 02/15/2020 [facility] Comprehensive Metabo (SEE NOTE) 6 Sodium 141 [...] GFR >60 7 Laboratory test finding 02/15/2020 [facility] Vitamin D (25-Hydroxy) 42 NG/ML 8 T4 - Free 0.93 ng/dL 0.93 - 1.70 TSH Highly Sensitive 1.87 uIU/mL 0.47 - 5.01 Laboratory test finding 12/27/2019 [facility] Potassium 3.7 mEq/L 3.6 - 5.0 Laboratory test finding 12/14/2019 [facility] Potassium 3.6 mEq/L 3.6 - 5.0 Comprehensive Metabolic Panel 12/09/2019 [facility] Comprehensive Metabo (SEE NOTE) 9, 10 Sodium 139 mEq/L 134 - 153 Potassium [...] GFR >60 mL/min Afr Amer GFR >60 11 Protime 12/09/2019 [facility] Protime 13.4 seconds 11.0 - 15.5 Inr 1.01 0.93 - 1.23 12 Order 12/09/2019 In Office Inhouse EKG results to pcp CBC W/Automated Diff 11/16/2019 [facility] White Blood Count 8.1 10 Normal [...] 36.0-66.0 Lymph % 20.8 % Low 24.0-44.0 [place] % 6.4 % High 0.0-5.0 Eos % 0.7 % Normal 0.0-3.0 Baso % 0.9 % Normal 0.0-1.0 Immature Granulocyte % 0.4 % Normal 0-3.0 Nucleated Red Blood Cell % 0.0 % Normal 0-0 Neutrophils # 5.8 10 Normal 1.5-8.5 Lymph # 1.7 10 Normal 1.5-5.0 [place] # 0.5 10 Normal 0.0-0.8 Eos # 0.1 10 Normal 0.0-0.5 Baso # 0.1 10 Normal 0.0-0.2 Laboratory test finding 11/16/2019 [facility] Uric Acid 4.9 mg/dL Normal 2.6-6.0 Cve Panel 11/16/2019 [facility] Triglycerides Level 228 mg/dL High <150 Cholesterol Level 191 mg/dL Normal <200 HDL Cholesterol 83 mg/dL Normal >40 LDL Cholesterol 62 mg/dL Normal <100 Non-HDL-C 108 mg/dL Normal Cholesterol Risk Ratio 2.301 Normal <5 Laboratory test finding 11/16/2019 [facility] Total 25(Oh) Vitamin D 56.5 NG/ML Normal 30.0-100.0 Urinalysis 11/16/2019 [facility] Appearance, Urine CLEAR Normal Clear Color, Urine YELLOW Normal Yellow PH,Urine 6.0 units Normal 5.0-9.0 Specific [place] Urine Auto 1.017 Normal 1.002-1.035 Protein, Urine [...] /LPF Normal 0-1 Laboratory test finding 11/16/2019 [facility] Free T4 0.76 ng/dL Normal 0.76-1.46 Laboratory test finding 11/16/2019 [facility] Thyroid Stimulating Hormone 1.530 uIU/ML Normal 0.358-3.740 Vitamin B12 Level 348 pg/mL Normal 247-911 13 Comprehensive Metabolic Profil 11/16/2019 [facility] Glucose, Fasting 102 mg/dL High 70-100 Blood Urea Nitrogen 10 mg/dL Normal 7-18 Creatinine For GFR 0.66 mg/dL Normal 0.55-1.30 Glomerular Filtration Rate > 60.0 Normal >45 1 4 Sodium Level 140 mEq/L Normal 136-145 Potassium [...] Random Void~NURSE COLLECTED? N 2 URINALYSIS 3 COMPLETE BLOOD COUNT 4 LIPID PANEL 5 CVE RISK CHOL/HDL LDL/HDL MEN: 1/2 AVERAGE 3.43 1.00 AVERAGE 4.97 3.55 2X AVERAGE 9.55 6.25 3X AVERAGE 23.99 7.99 WOMEN: 1/2 AVERAGE 3.27 1.47 AVERAGE 4.44 3.22 2X AVERAGE 7.05 5.03 3X AVERAGE 11.04 6.14 6 COMPREHENSIVE METABOLIC PANE L 7 Male [...] 80 and above >32 mL/min Normal 8 VITAMIN-D(25HYDROXY) Deficiency: <=20 ng/ml Insufficiency: 21-29 ng/ml Preferred level: => 30 ng/ml 9 Is patient fasting? N 10 COMPREHENSIVE METABOLIC PANE L 11 Male GFR Interprentation 20-49 yrs >60 mL/min Normal 50-59 yrs >56 mL/min Normal 60-69 yrs >49 mL/min Normal 70-79yrs >42 mL/min Normal 80 and above >35 mL/min Normal Female GFR Interpretation 20-39 yrs >60 mL/min Normal 40-49 yrs >58 mL/min Normal 50-59 yrs >51 mL/min Normal 60-69 yrs >45 mL/min Normal 70-79 yrs >39 mL/min Normal 80 and above >32 mL/min Normal 12 \\BLDo\\INR INTERPRETATION\\BLD x\\ Therapeutic range for Coumadin and related oral anticoagulants. -International Normalized Ratio (INR): 2 .0 - 3.0 for Venous Thrombosis, Pulmonary Embolus, Tissue heart valves, Acute [place], Atrial Fibrillation, Valvular heart disease and recurrent Systemic Embolism. -International Normalized Ratio (INR): 2 .5 - 3.5 for Mechanical Prosthetic valve. 13 VITAMIN B12 NORMAL RANGE NORMAL 247 - 911 PG/ML INDETERMINATE 211 - 246 PG/ML DEFICIENT LESS THAN 211 PG/ML 14 Units are mL/min/1.73 m2 Chronic Kidney Disease Staging per NKF: Stage I & II GFR >=60 Normal to Mildly Decreased Stage III GFR 30-59 Moderately Decreased Stage IV GFR 15-29 Severely Decreased Stage V GFR <15 Very Little GFR Left ESRD GFR <15 on RECORD PRESS SUPERVISOR Procedures Date Code Description Status 12/09/2019 67398 Electrocardiogram Complete Compl eted 11/11/2019 62030 Admin Patient Focused Health Ris k Assessment Instrument Completed 11/11/2019 56424 Brief Emotional/Beha v Assessment W/ Scoring Doc Per Standard Inst Completed Medical Devices Description No Information Available Encounters Description No Information Available Assessments Date Code Description Provider 02/15/2020 I10 Essential (primary) hypertension [facility] 02/15/2020 M79.671 Pain in right foot [facility] 02/15/2020 E78.5 Hyperlipidemia, unspecified [facility] 02/15/2020 E55.9 Vitamin D deficiency, unspecifie d [facility] 02/15/2020 M10.9 Gout, unspecified [facility] 02/15/2020 G47.33 Obstructive sleep apnea (adult) (pediatric) [facility] 12/14/2019 E87.6 Hypokalemia VIANCA Pena 12/09/2019 Z01.818 Encounter for other preprocedura l examination Gemma Lamas PA-C 12/09/2019 G47.33 Obstructive sleep apnea (adult) (pediatric) Gemma Lamas PA-C 12/09/2019 I10 Essential (primary) hypertension Gemma Lamas PA-C 11/11/2019 I10 Essential (primary) hypertension Ranjan Estes MD 11/11/2019 F41.9 Anxiety disorder, unspecified [place] juma Estes MD Plan of Treatment Future Appointment(s):* 02/22/2020 10:00 am - Ranjan Estes MD at [facility] 12/09/2019 - Gemma Lamas PA-C* Z01.818 Encounter [...]
--- OUTSIDE RECORDS SUMMARY | 2020-04-06 22:21 | CCD ---
Continuity of Care Document (CCD) Created on: 02/01/2020 Oli Rosemarie L External Reference #: [id number] : [id number] Sex: Female Author Author Rosemarie SANTOS PAJoannaC Organization Unknown Address [address] [place] [address] Phone [phone] Care Team Providers Care Application Tester Name Role Phone Ranjan Estes MD AUTM [phone] Problems Active Problems Provider Date Obstructive sleep [...] Once Daily Unknown Vitamin D (Ergocalciferol) 1.25mg (09212 Ut) Capsules Take 1 Capsule By Mouth [...] prn / post surgical pain 30tabs Patricia Sctot MD 12/06/2019 - 12/22/2019 Immunizations Description No Information Available Vital Signs Date Vital Result Comment 01/20/2020 8:40am Body Temperature 96.7 F 08/02/2019 2:59pm Body Temperature 99.0 F Height 64.5 inches 5'4.50" Weight 163.31 lb BMI (Body Mass Index) 27.6 kg/m2 Results Test Acquired Date Facility Test Result H/L Range Note [facility] [address] [place] [address] [phone] Pathology Request For Service (SEE [...] reveals fibrous connective tissue with hemorrhagic areas. 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 -SV 12/17/2019 - 141 Signed MARCUS FRANKLIN MD 12/21/2019 0847 Procedures Date Code Description Status 01/20/2020 77368 Apply Cast Short Leg Completed 01/06/2020 24927 Apply Cast Short Leg Completed 12/30/2019 92783 Apply Cast Short Leg Completed 12/23/2019 23921 Apply Cast Short Leg Completed 2019 32188 Transfer Tendon Ant/Post Tibial Deep Completed 2019 32752 Transfer Tendon Ant/Post Tibial Deep Completed Medical Devices Description No Information Available Encounters Type Date Location Provider Dx Diagnosis Office Visit 12/30/2019 8:15a Belal Scott MD Z47. 89 Encounter for other orthopedic aftercare Office Visit 08/30/2019 8:30a Bella Scott MD S86. 211A Strain musc/tend ant grp at low leg level, right leg, init Assessments Date Code Description Provider 02/01/2020 Z47.89 Encounter for other orthopedic a ftercare Юлия Santos PA-C 01/20/2020 Z47.89 Encounter for other [...] 9:15 am - Юлия Santos PA-C at [facility] 02/01/2020 - Юлия Santos PA-C* Z47.89 Encounter for other orthopedic aftercare* Follow up:* in 4 weeks with NMN for rt foot recheck Functional Status Description No Information Available Mental Status Description No Information Available Referrals Refer to Dr Reason for Referral Status Appt Date Patricia Scott MD SURGERY NO AUTH REQUIRED FOR RT TENDON REPAIR ([id number], [id number], AND [id number]) TO SURGERY NT Created [address] [facility] [address] [place] [address] [phone]
--- OUTSIDE RECORDS SUMMARY | 2020-04-06 22:21 | CCD | Continuity of Care Document ---
Author Author [facility], [facility] Organization Unknown Address [address] [place] [address] Phone [phone] Care Team Providers Care Tax Manager Public Name Role Phone Ranjan Estes M.D. AUTM [phone] Neil Hernandez Unavailable Problems Active Problems Provider [...] MD 0 05/29/2019 Vitamin D (Ergocalciferol) 1.25mg (52668 Ut) Capsules Take 1 Capsule By Mouth [...] Ranjan Estes MD 0 07/24/2016 Fish Oil [place]-3 1000mg Capsules 3 tab po once a [...] CPT Code Status Date Vaccine Lot # [id number] Given 02/09/2019 [id number] (Pneumovax 23 ) Vaccine [id number] Given 2017 Influenza (>= 6 Months) P.F. Vaccine [id number] Given 01/22/2017 Influenza (>35 months) P.F. Vaccine [...] H/L Range Note Laboratory test finding 02/15/2020 [facility] Uric Acid <pending> Laboratory test finding 02/15/2020 [facility] l Vitamin D (25-Hydroxy) <pending> Erythrocyte Sedimentation Rate <pending> T4 - Free <pending> TSH Highly Sensitive <pending> Ua 02/15/2020 [facility] Urine Specific [place] <pending> Ua PH Test Strip <pending> Ua Color <pending> Ua Appearance <pending> Ua WBC <pending> Ua Protein <pending> Urine Glucose QL <pending> Ua Ketones <pending> Ua Bilirubin <pending> Urine Urobilinogen QN TS <pending> Urine Nitrite QL TS <pending> Ua Occult Blood <pending> Laboratory test finding 12/27/2019 [facility] Potassium 3.7 mEq/L 3.6 - 5.0 Laboratory test finding [facility] Potassium 3.6 mEq/L 3.6 - 5.0 Order 12/09/2019 In Office Inhouse EKG results to pcp Protime 12/09/2019 [facility] Protime 13.4 seconds 11.0 - 15.5 1 Inr 1.01 0.93 - 1.23 2 Comprehensive Metabolic Panel 12/09/2019 [facility] Comprehensive Metabo (SEE NOTE) 3 Sodium 139 mEq/L 134 - 153 Potassium [...] >60 mL/min Afr Amer GFR >60 4 CBC W/Automated Diff 11/16/2019 [facility] White Blood Count 8.1 10 [...] 36.0-66.0 Lymph % 20.8 % Low 24.0-44.0 Callaway % 6.4 % High 0.0-5.0 Eos % 0.7 % Normal 0.0-3.0 Baso % 0.9 % Normal 0.0-1.0 Immature Granulocyte % 0.4 % Normal 0-3.0 Nucleated Red Blood Cell % 0.0 % Normal 0-0 Neutrophils # 5.8 10 Normal 1.5-8.5 Lymph # 1.7 10 Normal 1.5-5.0 Callaway # 0.5 10 Normal 0.0-0.8 Eos # 0.1 10 Normal 0.0-0.5 Baso # 0.1 10 Normal 0.0-0.2 Laboratory test finding 11/16/2019 [facility] Uric Acid 4.9 mg/dL Normal 2.6-6.0 Cve Panel 11/16/2019 [facility] Triglycerides Level 228 mg/dL High <150 Cholesterol Level 191 mg/dL Normal <200 HDL Cholesterol 83 mg/dL Normal >40 LDL Cholesterol 62 mg/dL Normal <100 Non-HDL-C 108 mg/dL Normal Cholesterol Risk Ratio 2.301 Normal <5 Laboratory test finding 11/16/2019 [facility] Total 25(Oh) Vitamin D 56.5 NG/ML Normal 30.0-100.0 Urinalysis 11/16/2019 [facility] Appearance, Urine CLEAR Normal Clear Color, Urine YELLOW Normal Yellow PH,Urine 6.0 units Normal 5.0-9.0 Specific [place] Urine Auto 1.017 Normal 1.002-1.035 Protein, Urine [...] Normal 0-1 Laboratory test finding 11/16/2019 [facility] Free T4 0.76 ng/dL Normal 0.76-1.46 Laboratory test finding 11/16/2019 [facility] Thyroid Stimulating Hormone 1.530 uIU/ML Normal 0.358-3.740 Vitamin B12 Level 348 pg/mL Normal 247-911 5 Comprehensive Metabolic Profil 11/16/2019 [facility] Glucose, Fasting 102 mg/dL High 70-100 Blood Urea Nitrogen 10 mg/dL Normal 7-18 Creatinine For GFR 0.66 mg/dL Normal 0.55-1.30 Glomerular Filtration Rate > 60.0 Normal >45 6 Sodium Level 140 mEq/L Normal 136-145 Potassium [...] 3.2-5.2 Albumin/Globulin Ratio 1.3 Normal 1.2-2.2 1 Is patient fasting? N 2 \\BLDo\\INR INTERPRETATION\\BLD x\\ Therapeutic range for Coumadin and related oral anticoagulants. -International Normalized Ratio (INR): 2 .0 - 3.0 for Venous Thrombosis, Pulmonary Embolus, Tissue heart valves, Acute CA, Atrial Fibrillation, Valvular heart disease and recurrent Systemic Embolism. -International Normalized Ratio (INR): 2 .5 - 3.5 for Mechanical Prosthetic valve. 3 COMPREHENSIVE METABOLIC PANE L 4 Male [...] 80 and above >32 mL/min Normal 5 VITAMIN B12 NORMAL RANGE NORMAL 247 - 911 PG/ML INDETERMINATE 211 - 246 PG/ML DEFICIENT LESS THAN 211 PG/ML 6 Units are mL/min/1.73 m2 Chronic Kidney Disease Staging per NKF: Stage I & II GFR >=60 Normal to Mildly Decreased Stage III GFR 30-59 Moderately Decreased Stage IV GFR 15-29 Severely Decreased Stage V GFR <15 Very Little GFR Left ESRD GFR <15 on ARC AND G[employer] WELDER Procedures Date Code Description Status 12/09/2019 85451 Electrocardiogram Complete Compl eted 11/11/2019 18095 Admin Patient Focused Health Ris k Assessment Instrument Completed 11/11/2019 75175 Brief Emotional/Beha v Assessment W/ Scoring Doc Per Standard Inst Completed Medical Devices Description No Information Available Encounters Description No Information Available Assessments Date Code Description Provider 02/15/2020 I10 Essential (primary) hypertension [facility] 02/15/2020 M79.671 Pain in right foot [facility] 02/15/2020 E78.5 Hyperlipidemia, unspecified [facility] 02/15/2020 E55.9 Vitamin D deficiency, unspecifie d [facility] 02/15/2020 M10.9 Gout, unspecified [facility] 02/15/2020 G47.33 Obstructive sleep apnea (adult) (pediatric) [facility] 12/14/2019 E87.6 Hypokalemia VIANCA Pena 12/09/2019 Z01.818 [...] 10:00 am - Ranjan Estes MD at [facility] 12/09/2019 - Gemma Lamas PA-C* Z01.818 Encounter [...]
--- OUTSIDE RECORDS SUMMARY | 2020-04-06 22:21 | CCD ---
Author Author [facility] Organization [facility] Address Unknown Phone Unavailable Care Team Providers Care [employer] Professional Name Role Phone Naima Currie Unavailable PROBLEMS Type Condition ICD9-CM Code [id number] Code Onset Dates Condition S tatus SNOMED Code Notes Problem Dyspareunia in female N94.1 Active 10744105 Problem Frequency of micturition R35.0 Active 7220414 03 Problem Hematuria, microscopic R31.2 Active 813999671 Problem Urgency of micturition R39.15 Active 97995991 Problem Urinary frequency R35.0 Active 107233483 Problem Perimenopausal atrophic vaginitis N95.2 Active 640675170 ALLERGIES Allergen (clinical drug ingredient) Drug/Non Drug Allergy do cumented on EMR Reaction Allergy Type Onset Date Status Penicillin (For Allergies Use Only) facial swelling Drug A llergy Active ENCOUNTERS from 1950 to 2020-01-25 Encounter Location Date Provider Diagnosis [facility] [address] [place] [address] 08 Dec, 2019 Naima Currie Breast mass, right N63.10 ; History of h ormone replacement therapy Z92.29 and Unspecified lump in the right breast, upper outer quadrant N63.11 IMMUNIZATIONS No Information SOCIAL HISTORY Tobacco Use: Social History Observation Description Date Details (start date - stop date) Never Smoker Sex Assigned At : Social History Observation Description Sex Assigned At Unknown Education: Question Answer Notes Level of Education: High School Rastafari: Question Answer Notes Rastafari 13 Muslim Sexual Hx: Question Answer Notes Had sex in the last 12 months (vaginal, oral, or anal)? Yes LMP: post menopause Have you ever had an STD? No with Men only Alcohol Screening: Question Answer Notes Did you have a drink containing alcohol in the past year? Ye s Points 1 Interpretation Negative How often did you have six or more drinks on one occas ion in the past year? Never (0 points) How many drinks did you have on a typica l day when you were drinking in the past year? 1 or 2 (0 points) How often did you have a drink containing alcohol in t he past year? Monthly or less (1 point) BMI Care Goal Follow-Up Question Answer Notes Above Normal BMI Follow-Up Giving encouragement to exercise Tobacco Use: Question Answer Notes Are you a: never smoker never smoker REASON FOR REFERRAL No Information VITAL SIGNS Weight 164.2 lbs Dec, Height 64.25 in Dec, BMI 27.96 kg/m2 Dec, Heart Rate 72 /min Dec, Respiratory Rate 18 /min Dec, Temperature 97.6 degrees Fahrenheit Dec, Oximetry 94 Dec, Blood pressure systolic 132 mm Hg Dec, Blood pressure diastolic 70 mm Hg Dec, MEDICATIONS Medication SIG (Take, Route, Frequency, Duration) Notes Start Da te End Date Status Lipitor 40 MG 1 tablet Orally Once a day Active Drisdol 1.25 MG (53923 UT) 1 capsule Orally every other week Active Allopurinol 100 MG 1 tablet Orally Once a day Active Fish Oil 1000 MG 1 capsule Orally Once a day for 30 day(s) Not-Taking Atenolol 25 MG 1 tablet Orally Once a day Not-Taking Hydrochlorothiazide 50 MG as directed Orally Daily Active Metoprolol Tartrate 25 MG 1 tablet with food Orally Twice a day Active Niacin 500 MG 1 tablet Orally Once a day for 30 day(s) Active Aspir-81 81 MG 1 tablet Orally Once a day for 30 day(s) Not-Taking Vitamin B-12 1000 MCG 1 tablet Orally Once a day for 30 day(s) Active Lexapro 20 MG 1 tablet Orally Once a day Active Lexapro 5 5 mg oral Not-Taking Osphena 60MG 1 orally daily for 30 N ot-Taking Magnesium 400 MG 1 tablet Orally Once a day Active AmLODIPine Besylate 5 MG 1 tablet Orally Once a day Active Klor-Con 10 10 MEQ 1 tablet with food Orally Twice a day Active Calcium 600 + D 600-400 MG-UNIT 1 tablet Orally twice a day for 30 da y(s) Active PROCEDURES No Information RESULTS No Results REASON FOR VISIT f/u 6 month - kylee lumps MEDICAL (GENERAL) HISTORY Type Description Date Medical History hyperlipidemia Medical History hypertension Medical History headache Medical History stress urinary incontinence Surgical History D&C 1978,80 Surgical History tubal ligation/ tubal reversed 1988 1980 Surgical History C section 1980,89 Surgical History tubal 1987 Surgical History colonoscopy 2013 Surgical History eye surgery kylee.(lids lifted) 04/14 Surgical History left foot surgery 02/12 Goals Section No Information Health Concerns No Information MEDICAL EQUIPMENT No Information MENTAL STATUS No Information FUNCTIONAL STATUS No Information ASSESSMENTS Encounter Date Diagnosis Assessment Notes Treatment Notes Treatm ent Clinical Notes Dec, Breast mass, right (ICD-10 - N63.10) I discussed with the patient results of her right breast ultrasounds which was done 6 months after right breast biopsy. Hydromark is visible at the site of biopsy. There is no suspicious lesion in the area. No intervention is warranted at this time. I encourage patient to continue her annual screening mammography which can be ordered by her primary care team or her supervisor tubing. She is due for mammogram in March 2020. I also encouraged her to continue self breast examination. I asked her to let me know if there are any changes in her breast. She may follow up with me on an as-needed basis from now on. All questions were answered. Patient agrees with the plan. Dec, History of hormone replacement therapy (ICD-10 - Z92.29) Patient was on hormone replacement therapy for about 25 years starting her late 30s Dec, Unspecified lump in the righ t breast, upper outer quadrant (ICD-10 - N63.11) Dec, Other Patient particip ated in cancer IQ previously and she is not a candidate for genetic testing or for high-risk screening for breast cancer with annual MRIs. PLAN OF TREATMENT Treatment Notes Assessment Notes Clinical Notes Breast mass, right I discussed with the patient results of her right breast ultrasounds which was done 6 months after right breast biopsy. Hydromark is visible at the site of biopsy. There is no suspicious lesion in the area. No intervention is warranted at this time.I encourage patient to continue her annual screening mammography which can be ordered by her primary care team or her supervisor tubing. She is due for mammogram in March 2020. I also encouraged her to continue self breast examination.I asked her to let me know if there are any changes in her breast.She may follow up with me on an as-needed basis from now on.All questions were answered. Patient agrees with the plan. History of hormone replacement therapy Patient was on hormone replacement therapy for about 25 years starting her late 30s Insurance Providers Payer Name Payer Address Payer Phone Insured Name Patient Relati onship to Insured Coverage Start Date Coverage End Date [facility] [address] [facility] [id number] VOLODY[employer]YR CLAIRE MEDICARE Part A and B [address] [facility] [address] [phone] VOLODYMYR CLAIRE self
--- OUTSIDE RECORDS SUMMARY | 2020-04-06 22:21 | CCD | Continuity of Care Document ---
Author Author Rosemarie SANTOS PAJoannaC Organization Unknown Address [address] [place] [address] Phone [phone] Care Team Providers Care Histologic Technician Name Role Phone Ranjan Estes MD AUTM [phone] Problems Active Problems Provider Date Obstructive sleep [...] Ranjan Estes MD Onset: 04/23/2016 Essential hypertension Ranjna Estes MD Onset: 04/23/2016 Pure hypercholesterolemia Patricia [...] Once Daily Unknown Vitamin D (Ergocalciferol) 1.25mg (38345 Ut) Capsules Take 1 Capsule By Mouth [...] test finding [facility] [address] [place] [address] [phone] Pathology Request For Service (SEE [...] reveals fibrous connective tissue with hemorrhagic areas. Radio Installer Automobile section in one block. -SV 12/17/2019 - 141 Signed MARCUS FRANKLIN MD 12/21/2019 0847 Procedures Date Code Description Status 01/20/2020 59530 Apply Cast Short Leg Completed 01/06/2020 48045 Apply Cast Short Leg Completed 12/30/2019 61448 Apply Cast Short Leg Completed 12/23/2019 30382 Apply Cast Short Leg Completed 2019 09602 Transfer Tendon Ant/Post Tibial Deep Completed 2019 26921 Transfer Tendon Ant/Post Tibial Deep Completed Medical [...] 9:15 am - Юлия Santos PA-C at [place] 12/30/2019 - Patricia Scott MD* Z47.89 Encounter [...] NO AUTH REQUIRED FOR RT TENDON REPAIR ([id number], [id number], AND [id number]) TO SURGERY NT Created [facility] [address] [place] [id number] [phone]
--- OUTSIDE RECORDS SUMMARY | 2020-04-06 22:21 | CCD | Continuity of Care Document ---
Author Author Rosemarie BURTON MD Organization Unknown Address [address] [place] [address] Phone [phone] Care Team Providers Care Exercise Instructor Name Role Phone Ranjan Estes MD AUTM [phone] Problems Active Problems Provider Date Obstructive sleep [...] Once Daily Unknown Vitamin D (Ergocalciferol) 1.25mg (57555 Ut) Capsules Take 1 Capsule By Mouth [...] 30tabs Patricia Burton MD 12/06/2019 - 12/22/2019 Meloxicam 15mg Tablets 1 by mouth every day with food or milk. Do not combine with other NSAIDs. 30tabs M25 .571 Patricia Burton MD 08/02/2019 - 08/03/2019 Immunizations Description No Information Available Vital Signs Date Vital Result Comment 01/20/2020 8:40am Body Temperature 96.7 F 08/02/2019 2:59pm Body Temperature 99.0 F Height 64.5 inches 5'4.50" Weight 163.31 lb BMI (Body Mass Index) 27.6 kg/m2 Results Test Acquired Date Facility Test Result H/L Range Note Laboratory test finding [address] [facility] [address] [place] [address] [phone] Pathology Request For Service (SEE [...] reveals fibrous connective tissue with hemorrhagic areas. 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 -SV 12/17/2019 - 1413 Signed MARCUS FRANKLIN MD 12/21/2019 0847 Procedures Date Code Description Status 01/20/2020 66579 Apply Cast Short Leg Completed 01/06/2020 41485 Apply Cast Short Leg Completed 12/30/2019 88003 Apply Cast Short Leg Completed 12/23/2019 49456 Apply Cast Short Leg Completed 2019 18398 Transfer Tendon Ant/Post Tibial Deep Completed 2019 56629 Transfer Tendon Ant/Post Tibial Deep Completed 08/02/2019 32956 X-Ray Foot Complete Completed Medical Devices Description No Information Available Encounters Type Date Location Provider Dx Diagnosis Office Visit 12/30/2019 8:15a Bella Burton MD Z47. 89 Encounter for other orthopedic aftercare Office Visit 08/30/2019 8:30a Bella Burton MD S86. 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, right leg Patricia Burton MD 11/16/2019 S86.211D Strain of muscle(s) and [...] right leg, subsequent encounter Patricia Burton MD 09/17/2019 S86.211D Strain of muscle(s) and tendon(s) of anterior muscle group at lower leg level, right leg, subsequent encounter Patricia Burton MD 08/30/2019 S86.211A Strain of muscle(s) and tendon(s) of anterior muscle group at lower leg level, right leg, initial encounter Patricia Burton MD 08/30/2019 S86.211A Strain of muscle(s) and tendon(s) of anterior muscle group at lower leg level, right leg, initial encounter Patricia Burton MD 08/02/2019 M25.571 Pain in right ankle and joints o f right foot Patricia Burton MD 08/02/2019 M25.571 Pain in right ankle and joints o f right foot Patricia Burton MD 08/02/2019 M19.071 Primary osteoarthritis, right an kle and foot Patricia Burton MD 08/02/2019 M19.071 Primary osteoarthritis, right an kle and foot Patricia Burton MD Plan of Treatment Future Appointment(s):* 02/01/2020 1:45 pm - Юлия Montoya PA-C at [place] 12/30/2019 - Patricia Burton MD* Z47.89 Encounter for other orthopedic aftercare* [...] NO AUTH REQUIRED FOR RT TENDON REPAIR ([id number], [id number], AND 91136) TO SURGERY NT Created [address] [facility] [address] [place] [address] [phone]
--- OUTSIDE RECORDS SUMMARY | 2020-04-06 22:22 | CCD | Continuity of Care Document ---
Author Author Rosemarie BURTON MD Organization Unknown Address [address] [place] [address] Phone [phone] Care Team Providers Care Manufacturing Engineer Chief Name Role Phone Ranjan Estes MD AUTM [phone] Problems Active Problems Provider Date Obstructive sleep [...] Tablets 1 every 4-6 hours as needed pain,Surg Date 2019,MDD 4 20tabs Z47.89 Alex Montoya MD 01/03/2020 Oxycodone HCL 5mg Tablets 1-2 tabs by mouth every 8 hours as needed / post surgical pain 20tabs Z47.89 Patricia Burton MD 12/30/2019 Oxycodone-Acetaminophen 5-325mg Ta blets Take 1-2 Tablets Every 8 Hours as Needed For Pain, MDD 4,Surg Date 2019 16tabs Z47.89 Patricia Burton MD 12/24/2019 Naproxen 500mg Tablets 1 by mouth twice [...] Once Daily Unknown Vitamin D (Ergocalciferol) 1.25mg (31438 Ut) Capsules Take 1 Capsule By Mouth [...] by mouth every day Unknown History Medications Oxycodone HCL 5mg Tablets 1-2 tabs by [...] Available Vital Signs Date Vital Result Comment 08/02/2019 2:59pm Body Temperature 99.0 F Height 64.5 inches 5'4.50" Weight 163.31 lb BMI (Body Mass Index) 27.6 kg/m2 12/11/2017 10:59am Body Temperature 98.0 F Height 65 inches 5'5" Weight 171.12 lb BMI (Body Mass Index) 28.5 kg/m2 Results Test Acquired Date Facility Test Result H/L Range Note Laboratory test finding 2019 [facility] [address] [place] [address] [phone] - Pathology Request For Service (SEE NOTE) 1 1 FINAL DIAGNOSIS Tendon, right anterior tibialis, repair: Fibrous tissue with chronic inflammation and calcifications, consistent with tendon. 12/21/2019 - 717 CLINICAL DIAGNOSIS Right tibialis anterior tendon rupture 12/17/2019 - 1413 GROSS DIAGNOSIS Received in formalin labeled "right tibialis anterior tendon" and consists of one piece of fibrous tissue measuring 5.5 x 1.5 x 1.3 cm. Sectioning of the specimen reveals fibrous connective tissue with hemorrhagic areas. Manufacturing Specialist section in one block. -SV 12/17/2019 - 141 Signed MARCUS FRANKLIN MD 12/21/2019 0847 Procedures Date Code Description Status 01/06/2020 69541 Apply Cast Short Leg Completed 12/30/2019 15619 Apply Cast Short Leg Completed 12/23/2019 20497 Apply Cast Short Leg Completed 2019 67519 Transfer Tendon Ant/Post Tibial Deep Completed 2019 76164 Transfer Tendon Ant/Post Tibial Deep Completed 08/02/2019 47489 X-Ray Foot Complete Completed Medical Devices Description No Information Available Encounters Type Date Location Provider Dx Diagnosis Office Visit 12/30/2019 8:15a Bella Burton MD Z47. 89 Encounter for other orthopedic aftercare Office Visit 08/30/2019 8:30a Bella Burton MD S86. 211A Strain musc/tend ant grp at low leg level, right leg, init Assessments Date Code Description Provider 01/06/2020 Z47.89 Encounter for other orthopedic a ftjennifer Burton MD 12/30/2019 Z47.89 Encounter for other orthopedic a ftjennifer Burton MD 12/23/2019 Z47.89 Encounter for other orthopedic a reny Burton MD 2019 M66.271 Spontaneous rupture of extensor tendons, right ankle and foot Sherni Still PA-C 2019 M66.271 Spontaneous rupture of [...] Burton MD Plan of Treatment Future Appointment(s):* 01/13/2020 9:45 am - Patricia Burton MD at [place] 01/06/2020 - Patricia Burton MD* Z47.89 Encounter for other orthopedic aftercare* Follow up:* 1 week right ankle keyshawn with nmn oop Functional Status Description No Information Available Mental Status Description No Information Available Referrals Refer to Dr Reason for Referral Status Appt Date Patricia Burton MD SURGERY NO AUTH REQUIRED FOR RT TENDON REPAIR ([id number], 69927, AND 24614) TO SURGERY NT Created [address] [facility] [address] [place] [address] [phone]
--- OUTSIDE RECORDS SUMMARY | 2020-04-06 22:22 | CCD | Continuity of Care Document ---
Author Author Rosemarie BURTON MD Organization Unknown Address [address] [place] [address] Phone [phone] Care Team Providers Care Nuclear Process Engineer Name Role Phone Ranjan Estes MD AUTM [phone] Problems Active Problems Provider Date Obstructive sleep [...] Montoya MD 01/03/2020 Oxycodone HCL 5mg Tablets 1 tablet by mouth every 8 hours as needed / post surgical pain 15tabs Z47.89 Patricia Burton MD 12/30/2019 Naproxen 500mg [...] Once Daily Unknown Vitamin D (Ergocalciferol) 1.25mg (52601 Ut) Capsules Take 1 Capsule By Mouth [...] H/L Range Note Laboratory test finding 2019 [facility] [address] [place] [address] [phone] Pathology Request For Service (SEE [...] reveals fibrous connective tissue with hemorrhagic areas. Parts Counter Sales Person section in one block. -SV 12/17/2019 - 1414 Signed MARCUS FRANKLIN MD 12/21/2019 0847 Procedures Date Code Description Status 01/06/2020 16862 Apply Cast Short Leg Completed 12/30/2019 00198 Apply Cast Short Leg Completed 12/23/2019 56701 Apply Cast Short Leg Completed 2019 64909 Transfer Tendon Ant/Post Tibial Deep Completed 2019 68876 Transfer Tendon Ant/Post Tibial Deep Completed 08/02/2019 99217 X-Ray Foot Complete Completed Medical Devices Description No Information Available Encounters Type Date Location Provider Dx Diagnosis Office Visit 12/30/2019 8:15a Bella Burton MD Z47. 89 Encounter for other orthopedic aftercare Office Visit 08/30/2019 8:30a Bella Burton MD S86. 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 Functional Status Description No Information Available Mental Status Description No Information Available Referrals Refer to Dr Reason for Referral Status Appt Date Patricia Burton MD SURGERY NO AUTH REQUIRED FOR RT TENDON REPAIR ([id number], [id number], AND [id number]) TO SURGERY NT Created [facility] [id number] [place] [id number] [phone]
--- OUTSIDE RECORDS SUMMARY | 2020-04-06 22:22 | CCD | Continuity of Care Document ---
Author Author Rosemarie BURTON MD Organization Unknown Address [address] [place] [address] Phone [phone] Care Team Providers Care Chemical Manager Name Role Phone Ranjan Estes MD AUTM [phone] Problems Active Problems Provider Date Obstructive sleep [...] by mouth every day 90tabs I10 Ranjan Etses M D 11/14/2016 Lexapro 10mg Tablets 1 [...] Once Daily Unknown Vitamin D (Ergocalciferol) 1.25mg (34664 Ut) Capsules Take 1 Capsule By Mouth [...] H/L Range Note Laboratory test finding 2019 [facility] [address] [place] [address] [phone] Pathology Request For Service (SEE [...] reveals fibrous connective tissue with hemorrhagic areas. Can Intake Worker section in one block. -SV 12/17/2019 - 1413 Signed MARCUS FRANKLIN MD 12/21/2019 0847 Procedures Date Code Description Status 01/06/2020 40800 Apply Cast Short Leg Completed 12/30/2019 07410 Apply Cast Short Leg Completed 12/23/2019 72209 Apply Cast Short Leg Completed 2019 31234 Transfer Tendon Ant/Post Tibial Deep Completed 2019 47872 Transfer Tendon Ant/Post Tibial Deep Completed 08/02/2019 40776 X-Ray Foot Complete Completed Medical Devices Description No Information Available Encounters Type Date Location Provider Dx Diagnosis Office Visit 12/30/2019 8:15a [place] Patricia Burton MD Z47. 89 Encounter for other orthopedic aftercare Office Visit 08/30/2019 8:30a [place] Patricia Burton MD S86. 211A Strain musc/tend ant [...] 1:45 pm - Patricia Burton MD at [place] 01/20/2020 - Patricia Burton MD* Z47.89 Encounter for other orthopedic aftercare* Follow up:* 02/01/20 per nmn rt ankle keyshawn with p.a per nmn cancel 02/07/20 appt per nmn Functional Status Description No Information Available Mental Status Description No Information Available Referrals Refer to Dr Reason for Referral Status Appt Date Patricia Burton MD SURGERY NO AUTH REQUIRED FOR RT TENDON REPAIR ([id number], [id number], AND [id number]) TO SURGERY NT Created [address] [facility] [address] [place], [place] [id number] [phone]
--- OUTSIDE RECORDS SUMMARY | 2020-04-06 22:24 | CCD ---
Author Author [facility] Organization [facility] Address Unknown Phone Unavailable Care Team Providers Care Exerciser Horse Name Role Phone Jorge LOMAX Unavailable Unavailable Froilan, Chapis CLAY STRUCTURE BUILDER AND SERVICER Unavailable Unavailable Froilan, Chapis CLAY STRUCTURE BUILDER AND SERVICER Unavailable Unavailable Froilan, Chapis CLAY STRUCTURE BUILDER AND SERVICER Unavailable Unavailable Froilan, Chapis CLAY STRUCTURE BUILDER AND SERVICER Unavailable Unavailable Froilan, Chapis CLAY STRUCTURE BUILDER AND SERVICER Unavailable Unavailable Froilan, Chapis CLAY STRUCTURE BUILDER AND SERVICER Unavailable Unavailable Froilan, Chapis CLAY STRUCTURE BUILDER AND SERVICER Unavailable Unavailable Froilan, Chapis CLAY STRUCTURE BUILDER AND SERVICER Unavailable Unavailable Froilan, Chapis CLAY STRUCTURE BUILDER AND SERVICER Unavailable Unavailable Froilan, Chapis CLAY STRUCTURE BUILDER AND SERVICER Unavailable Unavailable Froilan, Chapis CLAY STRUCTURE BUILDER AND SERVICER Unavailable Unavailable Froilan, Chapis CLAY STRUCTURE BUILDER AND SERVICER Unavailable Unavailable Froilan, Chapis CLAY STRUCTURE BUILDER AND SERVICER Unavailable Unavailable Froilan, Chapis CLAY STRUCTURE BUILDER AND SERVICER Unavailable Unavailable Froilan, Chapis CLAY STRUCTURE BUILDER AND SERVICER Unavailable Unavailable Froilan, Chapis CLAY STRUCTURE BUILDER AND SERVICER Unavailable Unavailable Froilan, Chapis CLAY STRUCTURE BUILDER AND SERVICER Unavailable Unavailable Froilan, Chapis CLAY STRUCTURE BUILDER AND SERVICER Unavailable Unavailable Froilan, Chapis CLAY STRUCTURE BUILDER AND SERVICER Unavailable Unavailable Froilan, Chapis CLAY STRUCTURE BUILDER AND SERVICER Unavailable Unavailable Froilan, Chapis CLAY STRUCTURE BUILDER AND SERVICER Unavailable Unavailable Froilan, Chapis CLAY STRUCTURE BUILDER AND SERVICER Unavailable Unavailable Froilan, Chapis CLAY STRUCTURE BUILDER AND SERVICER Unavailable Unavailable Froilan, Chapis CLAY STRUCTURE BUILDER AND SERVICER Unavailable Unavailable Froilan, Chapis CLAY STRUCTURE BUILDER AND SERVICER Unavailable Unavailable Froilan, Chapis CLAY STRUCTURE BUILDER AND SERVICER Unavailable Unavailable Froilan, Chapis CLAY STRUCTURE BUILDER AND SERVICER Unavailable Unavailable Froilan, Chapis CLAY STRUCTURE BUILDER AND SERVICER Unavailable Unavailable Froilan, Chapis CLAY STRUCTURE BUILDER AND SERVICER Unavailable Unavailable Froilan, Chapis CLAY STRUCTURE BUILDER AND SERVICER Unavailable Unavailable Froilan, Chapis CLAY STRUCTURE BUILDER AND SERVICER Unavailable Unavailable Froilan, Chapis CLAY STRUCTURE BUILDER AND SERVICER Unavailable Unavailable Froilan, Chapis CLAY STRUCTURE BUILDER AND SERVICER Unavailable Unavailable Froilan, Chapis CLAY STRUCTURE BUILDER AND SERVICER Unavailable Unavailable Froilan, Chapis CLAY STRUCTURE BUILDER AND SERVICER Unavailable Unavailable Froilan, Chapis CLAY STRUCTURE BUILDER AND SERVICER Unavailable Unavailable Froilan, Chapis CLAY STRUCTURE BUILDER AND SERVICER Unavailable Unavailable Froilan, Chapis CLAY STRUCTURE BUILDER AND SERVICER Unavailable Unavailable Froilan, Chapis CLAY STRUCTURE BUILDER AND SERVICER Unavailable Unavailable Froilan, Chapis CLAY STRUCTURE BUILDER AND SERVICER Unavailable Unavailable Gavin Falanga, A Janneth COLLECTION OFFICER Unavailable Unavailable [place] Falanga, A Janneth COLLECTION OFFICER Unavailable Unavailable [place] Falanga, A Janneth COLLECTION OFFICER Unavailable Unavailable Gavin Falanga, A Janneth COLLECTION OFFICER Unavailable Unavailable Gavin Falanga, A Janneth COLLECTION OFFICER Unavailable Unavailable Gavin Falanga, A Janneth COLLECTION OFFICER Unavailable Unavailable [place] Falanga, A Janneth COLLECTION OFFICER Unavailable Unavailable Gavin Falanga, A Janneth COLLECTION OFFICER Unavailable Unavailable Gavin Falanga, A Janneth COLLECTION OFFICER Unavailable Unavailable Gavin Falanga, A Janneth COLLECTION OFFICER Unavailable Unavailable [place] Falanga, A Janneth COLLECTION OFFICER Unavailable Unavailable Gavin Falanga, A Janneth COLLECTION OFFICER Unavailable Unavailable Gavin Falanga, A Janneth COLLECTION OFFICER Unavailable Unavailable [place] Falanga, A Janneth COLLECTION OFFICER Unavailable Unavailable Gavin Falanga, A Janneth COLLECTION OFFICER Unavailable Unavailable Gavin Falanga, A Janneth COLLECTION OFFICER Unavailable Unavailable Gavin Falanga, A Janneth COLLECTION OFFICER Unavailable Unavailable [place] Falanga, A Janneth COLLECTION OFFICER Unavailable Unavailable Gavin Falanga, A Janneth COLLECTION OFFICER Unavailable Unavailable [place] Falanga, A Janneth COLLECTION OFFICER Unavailable Unavailable [place] Falanga, A Janneth COLLECTION OFFICER Unavailable Unavailable Gavin Falanga, A Janneth COLLECTION OFFICER Unavailable Unavailable [place] Falanga, A Janneth COLLECTION OFFICER Unavailable Unavailable [place] Falanga, A Janneth COLLECTION OFFICER Unavailable Unavailable Gavin Falanga, A Janneth COLLECTION OFFICER Unavailable Unavailable [place] Falanga, A Janneth COLLECTION OFFICER Unavailable Unavailable [place] Falanga, A Janneth COLLECTION OFFICER Unavailable Unavailable Gavin Falanga, A Janneth COLLECTION OFFICER Unavailable Unavailable [place] Falanga, A Janneth COLLECTION OFFICER Unavailable Unavailable [place] Falanga, A Janneth COLLECTION OFFICER Unavailable Unavailable Joyce Arevalo ANP-BC Unavailable Unavailable Mickey, Joyce Tammy ANP-BC Unavailable Unavailable Mickey, Joyce Tammy ANP-BC Unavailable Unavailable Mickey, Joyce Tammy ANP-BC Unavailable Unavailable Mickey, Joyce Tammy ANP-BC Unavailable Unavailable Mickey, Joyce Tammy ANP-BC Unavailable Unavailable Mickey, Joyce Tammy ANP-BC Unavailable Unavailable Mickey, Joyce Tammy ANP-BC Unavailable Unavailable Mickey, Joyce Tammy ANP-BC Unavailable Unavailable Mickey, Joyce Tammy ANP-BC Unavailable Unavailable Mickey, Joyce Tammy ANP-BC Unavailable Unavailable Mickey, Joyce Tammy ANP-BC Unavailable Unavailable Mickey, Joyce Tammy ANP-BC Unavailable Unavailable Mickey, Joyce Tammy ANP-BC Unavailable Unavailable Mickey, Joyce Tammy ANP-BC Unavailable Unavailable Mickey, Joyce Tammy ANP-BC Unavailable Unavailable Mickey, Joyce Tammy ANP-BC Unavailable Unavailable Mickey, Joyce Tammy ANP-BC Unavailable Unavailable Mickey, Joyce Tammy ANP-BC Unavailable Unavailable Mickey, Joyce Tammy ANP-BC Unavailable Unavailable Mickey, Joyce Tammy ANP-BC Unavailable Unavailable Mickey, Joyce Tammy ANP-BC Unavailable Unavailable Mickey, Joyce Tammy ANP-BC Unavailable Unavailable Mickey, Joyce Tammy ANP-BC Unavailable Unavailable Mickey, Joyce Tammy ANP-BC Unavailable Unavailable Mickey, Joyce Tammy ANP-BC Unavailable Unavailable Mickey, Joyce Tammy ANP-BC Unavailable Unavailable Mickey, Joyce Tammy ANP-BC Unavailable Unavailable Mickey, Joyce Tammy ANP-BC Unavailable Unavailable Mickey, Joyce Tammy ANP-BC Unavailable Unavailable Mickey, Joyce Tammy ANP-BC Unavailable Unavailable Mickey, Joyce Tammy ANP-BC Unavailable Unavailable Mickye, Joyce Tammy ANP-BC Unavailable Unavailable Mickey, Joyce Tammy ANP-BC Unavailable Unavailable Mickey, Joyce Tammy ANP-BC Unavailable Unavailable Mickey, Joyce Tammy ANP-BC Unavailable Unavailable Mickey, Joyce Tammy ANP-BC Unavailable Unavailable Mickey, Joyce Tammy ANP-BC Unavailable Unavailable Mickey, Joyce Tammy ANP-BC Unavailable Unavailable Mickey, Joyce Tammy ANP-BC Unavailable Unavailable Mickey, Joyce Tammy ANP-BC Unavailable Unavailable Mickey, Joyce Tammy ANP-BC Unavailable Unavailable Mickey, Joyce Tammy ANP-BC Unavailable Unavailable Mickey, Joyce Tammy ANP-BC Unavailable Unavailable Mickey, Joyce Tammy ANP-BC Unavailable Unavailable Mickey, Joyce Tammy ANP-BC Unavailable Unavailable Mickey, Joyce Tammy ANP-BC Unavailable Unavailable Mickey, Joyce Tammy ANP-BC Unavailable Unavailable Mickey, Joyce Tammy ANP-BC Unavailable Unavailable Mickey, Joyce Tammy ANP-BC Unavailable Unavailable Mickey, Joyce Tammy ANP-BC Unavailable Unavailable Mickey, Joyce Tammy ANP-BC Unavailable Unavailable Mickey, Joyce Tammy ANP-BC Unavailable Unavailable Mickey, Joyce Tammy ANP-BC Unavailable Unavailable Mickey, Joyce Tammy ANP-BC Unavailable Unavailable Mickey, Joyce Tammy ANP-BC Unavailable Unavailable Mickey, Joyce Tammy ANP-BC Unavailable Unavailable Mickey, Joyce Tammy ANP-BC Unavailable Unavailable Mickey, Joyce Tammy ANP-BC Unavailable Unavailable Mickey, Joyce Tammy ANP-BC Unavailable Unavailable Mickey, Joyce Tammy ANP-BC Unavailable Unavailable Mickey, Joyce Tammy ANP-BC Unavailable Unavailable Mickey, Joyce Tammy ANP-BC Unavailable Unavailable Mickey, Joyce Tammy ANP-BC Unavailable Unavailable Medina Ryan, Jacquie Smith MD, FACS Unavailable Unavailable Medina Ryan, Jacquie Smith MD, FACS Unavailable Unavailable Medina Ryan, Jacquie Smith MD, FACS Unavailable Unavailable Medina Ryan, Jacquie Smith MD, FACS Unavailable Unavailable Medina Ryan, Jacquie Smith MD, FACS Unavailable Unavailable Medina Ryan, Jacquie Smith MD, FACS Unavailable Unavailable Medina Ryan, Jacquie Smith MD, FACS Unavailable Unavailable Medina Ryan, Jacquie Smith MD, FACS Unavailable Unavailable Medina Ryan, Jacquie Smith MD, FACS Unavailable Unavailable Medina Ryan, Jacquie Smith MD, FACS Unavailable Unavailable Medina Ryan, Jacquie Smith MD, FACS Unavailable Unavailable Medina Ryan, Jacquie Smith MD, FACS Unavailable Unavailable Medina Ryan, Jacquie Smith MD, FACS Unavailable Unavailable Medina Ryan, Jacquie Smith MD, FACS Unavailable Unavailable Medina Ryan, Jacquie Smith MD, FACS Unavailable Unavailable Medina Ryan, Jacquie Smith MD, FACS Unavailable Unavailable Medina Ryan, Jacquie Smith MD, FACS Unavailable Unavailable Medina Ryan, Jacquie Smith MD, FACS Unavailable Unavailable Medina Ryan, Jacquie Smith MD, FACS Unavailable Unavailable Medina Ryan, Jacquie Smith MD, FACS Unavailable Unavailable Medina Ryan, Jacquie Smith MD, FACS Unavailable Unavailable Medina Ryan, Jacquie Smith MD, FACS Unavailable Unavailable Medina Ryan, Jacquie Smith MD, FACS Unavailable Unavailable Medina Ryan, Jacquie Smith MD, FACS Unavailable Unavailable Medina Ryan, Jacquie Simth MD, FACS Unavailable Unavailable Medina Ryan, Jacquie Smith MD, FACS Unavailable Unavailable Adam Ryan, Jacquie Smith MD, FACS Unavailable Unavailable Adam Ryan, Jacquie Smith MD, FACS Unavailable Unavailable Adam Ryan, Jacquie Smith MD, FACS Unavailable Unavailable Adam Ryan, Jacquie Smith MD, FACS Unavailable Unavailable Adam Ryan, Jacquie Smith MD, FACS Unavailable Unavailable Adam Ryan, Jacquie Smith MD, FACS Unavailable Unavailable Adam Ryan, Jacquie Smith MD, FACS Unavailable Unavailable Adam Ryan, Jacquie Smith MD, FACS Unavailable Unavailable BURTONNELLI JOHNSTON MD Unavailable Unavailable BURTON, NELLI MCBRIDE Unavailable Unavailable BURTONNELLI MD Unavailable Unavailable BURTON, NELLI MD Unavailable Unavailable BURTON, NELLI MD Unavailable Unavailable BURTON, NELLI MD Unavailable Unavailable BURTON, NELLI MD Unavailable Unavailable BURTON, ENLLI MD Unavailable Unavailable BURTON, NELLI MD Unavailable Unavailable BURTON, NELLI MD Unavailable Unavailable BURTON, NELLI MD Unavailable Unavailable BURTON, NELLI MD Unavailable Unavailable BURTONNELLI MD Unavailable Unavailable BURTONNELLI MD Unavailable Unavailable BURTONNELLI MD Unavailable Unavailable BURTONNELLI MD Unavailable Unavailable BURTONNELLI MD Unavailable Unavailable BURTONNELLI MD Unavailable Unavailable BURTONNELLI MD Unavailable Unavailable BURTONNELLI MD Unavailable Unavailable BURTONNELLI MD Unavailable Unavailable BURTON, NELLI MD Unavailable Unavailable BURTON, NELLI MD Unavailable Unavailable BURTON, NELLI MD Unavailable Unavailable BURTON, NELLI MD Unavailable Unavailable BURTON, NELLI MD Unavailable Unavailable BURTON, NELLI MD Unavailable Unavailable BURTONNELLI MD Unavailable Unavailable BURTONNELLI MD Unavailable Unavailable BURTONNELLI MD Unavailable Unavailable Jumalon, M Leslye COLLECTION OFFICER Unavailable Unavailable Jumalon, M Leslye COLLECTION OFFICER Unavailable Unavailable Jumalon, M Leslye COLLECTION OFFICER Unavailable Unavailable Jumalon, M Leslye COLLECTION OFFICER Unavailable Unavailable Jumalon, M Leslye COLLECTION OFFICER Unavailable Unavailable Jumalon, M Leslye COLLECTION OFFICER Unavailable Unavailable Jumalon, M Leslye COLLECTION OFFICER Unavailable Unavailable Jumalon, M Leslye COLLECTION OFFICER Unavailable Unavailable Jumalon, M Leslye COLLECTION OFFICER Unavailable Unavailable Jumalon, M Leslye COLLECTION OFFICER Unavailable Unavailable Jumalon, M Leslye COLLECTION OFFICER Unavailable Unavailable Jumalon, M Leslye COLLECTION OFFICER Unavailable Unavailable Jumalon, M Leslye COLLECTION OFFICER Unavailable Unavailable Jumalon, M Leslye COLLECTION OFFICER Unavailable Unavailable Jumalon, M Leslye COLLECTION OFFICER Unavailable Unavailable Tania, M Leslye COLLECTION OFFICER Unavailable Unavailable Jumalon, M Leslye COLLECTION OFFICER Unavailable Unavailable Jumalon, M Leslye COLLECTION OFFICER Unavailable Unavailable Claudettemalon, M Leslye COLLECTION OFFICER Unavailable Unavailable Jumalxin, M Leslye COLLECTION OFFICER Unavailable Unavailable Claudettemalxin, M Leslye COLLECTION OFFICER Unavailable Unavailable Claudettemalxin, M Leslye COLLECTION OFFICER Unavailable Unavailable Jumalon, M Leslye COLLECTION OFFICER Unavailable Unavailable Claudettemalon, M Leslye COLLECTION OFFICER Unavailable Unavailable Jumalon, M Leslye COLLECTION OFFICER Unavailable Unavailable Tania, M Leslye COLLECTION OFFICER Unavailable Unavailable Tania, M Leslye COLLECTION OFFICER Unavailable Unavailable Tania, M Leslye COLLECTION OFFICER Unavailable Unavailable Fish, [facility], PA-C Unavailable Unavailabl e Fish, [facility], PA-C Unavailable Unavailabl e Fish, [facility], PA-C Unavailable Unavailabl e Fish, [facility], PA-C Unavailable Unavailabl e Fish, [facility], PA-C Unavailable Unavailabl e Fish, [facility], PA-C Unavailable Unavailabl e Fish, [facility], PA-C Unavailable Unavailabl e Fish, [facility], PA-C Unavailable Unavailabl e Fish, [facility], PA-C Unavailable Unavailabl e Fish, [facility], PA-C Unavailable Unavailabl e Fish, [facility], PA-C Unavailable Unavailabl e Fish, [facility], PA-C Unavailable Unavailabl e Fish, [facility], PA-C Unavailable Unavailabl e Fish, [facility], PA-C Unavailable Unavailabl e Fish, [facility], PA-C Unavailable Unavailabl e Fish, [facility], PA-C Unavailable Unavailabl e Fish, [facility], PA-C Unavailable Unavailabl e Fish, [facility], PA-C Unavailable Unavailabl e Fish, [facility], PA-C Unavailable Unavailabl e Fish, [facility], PA-C Unavailable Unavailabl e Fish, Rupal Юлия [facility]AS, PA-C Unavailable Unavailabl e Fish, Rupal Redman [facility], PA-C Unavailable Unavailabl e Fish, [facility] Unavailable Unavailabl e Fish, [facility], PA-C Unavailable Unavailabl e Fish, [facility], PA-C Unavailable Unavailabl e Fish, [facility]upal [facility], PA-C Unavailable Unavailabl e Fish, [facility], PA-C Unavailable Unavailabl e Fish, [facility]upal [facility], PA-C Unavailable Unavailabl e Fish, [facility], PA-C Unavailable Unavailabl e Fish, Rupal Redman [facility], PA-C Unavailable Unavailabl e Fish, Rupal Redman [facility], PA-C Unavailable Unavailabl e Fish, Rupal Redman [facility], PA-C Unavailable Unavailabl e Fish, Rupal Redman [facility], PA-C Unavailable Unavailabl NELLI Still MD Unavailable Unavailable NELLI BURTON MD Unavailable Unavailable NELLI BURTON MD Unavailable Unavailable NELLI BURTON MD Unavailable Unavailable NELLI BURTON MD Unavailable Unavailable NELLI BURTON MD Unavailable Unavailable NELLI BURTON MD Unavailable Unavailable NELLI BURTON MD Unavailable Unavailable NELLI BURTON MD Unavailable Unavailable NELLI BURTON MD Unavailable Unavailable NELLI BURTON MD Unavailable Unavailable NELLI BURTON MD Unavailable Unavailable NELLI BURTON MD Unavailable Unavailable NELLI BURTON MD Unavailable Unavailable NELLI BURTON MD Unavailable Unavailable NELLI BURTON MD Unavailable Unavailable NELLI BURTON MD Unavailable Unavailable NELLI BURTON MD Unavailable Unavailable NELLI BURTON MD Unavailable Unavailable NELLI BURTON MD Unavailable Unavailable NELLI BURTON MD Unavailable Unavailable NELLI BURTON MD Unavailable Unavailable NELLI BURTON MD Unavailable Unavailable NELLI BURTON MD Unavailable Unavailable NELLI BURTON MD Unavailable Unavailable NELLI BURTON MD Unavailable Unavailable NELLI BURTON MD Unavailable Unavailable NELLI BURTON MD Unavailable Unavailable NELLI BURTON MD Unavailable Unavailable NELLI BURTON MD Unavailable Unavailable Jazzmine Lamas PA-C Unavailable Unavailable Jazzmine Lamas PA-C Unavailable Unavailable Jazzmine Lamas PA-C Unavailable Unavailable Jazzmine Lamas PA-C Unavailable Unavailable Jazzmine Lamas PA-C Unavailable Unavailable Lamas, M Gemma PA-C Unavailable Unavailable Lamas, M Gemma PA-C Unavailable Unavailable Lamas, M Gemma PA-C Unavailable Unavailable Lamas, M Gemma PA-C Unavailable Unavailable Lamas, M Gemma PA-C Unavailable Unavailable Lamas, M Gemma PA-C Unavailable Unavailable Lamas, M Gemma PA-C Unavailable Unavailable Lamas, M Gemma PA-C Unavailable Unavailable Lamas, M Gemma PA-C Unavailable Unavailable Lamas, M Gemma PA-C Unavailable Unavailable Lamas, M Gemma PA-C Unavailable Unavailable Lamas, M Gemma PA-C Unavailable Unavailable Lamas, M Gemma PA-C Unavailable Unavailable Lamas, M Gemma PA-C Unavailable Unavailable Lamas, M Gemma PA-C Unavailable Unavailable Lamas, M Gemma PA-C Unavailable Unavailable Lamas, M Gemma PA-C Unavailable Unavailable Lamas, M Gemma PA-C Unavailable Unavailable Lamas, M Gemma PA-C Unavailable Unavailable Lamsa, M Gemma PA-C Unavailable Unavailable Lamas, M Gemma PA-C Unavailable Unavailable Lamas, M Gemma PA-C Unavailable Unavailable Lamas, M Gemma PA-C Unavailable Unavailable Lamas, M Gemma PA-C Unavailable Unavailable Lamas, M Gemma PA-C Unavailable Unavailable Lamas, M Gemma PA-C Unavailable Unavailable Lamas, M Gemma PA-C Unavailable Unavailable Jumalon, M Leslye COLLECTION OFFICER Unavailable Unavailable Jumalon, M Leslye COLLECTION OFFICER Unavailable Unavailable Jumalon, M Leslye COLLECTION OFFICER Unavailable Unavailable Jumalon, M Leslye COLLECTION OFFICER Unavailable Unavailable Jumalon, M Leslye COLLECTION OFFICER Unavailable Unavailable Jumalon, M Leslye COLLECTION OFFICER Unavailable Unavailable Jumalon, M Leslye COLLECTION OFFICER Unavailable Unavailable Jumalon, M Leslye COLLECTION OFFICER Unavailable Unavailable Jumalon, M Leslye COLLECTION OFFICER Unavailable Unavailable Jumalon, M Leslye COLLECTION OFFICER Unavailable Unavailable Jumalon, M Leslye COLLECTION OFFICER Unavailable Unavailable Jumalon, M Leslye COLLECTION OFFICER Unavailable Unavailable Jumalon, M Leslye COLLECTION OFFICER Unavailable Unavailable Jumalon, M Leslye COLLECTION OFFICER Unavailable Unavailable Jumalon, M Leslye COLLECTION OFFICER Unavailable Unavailable Jumalon, M Leslye COLLECTION OFFICER Unavailable Unavailable Jumalon, M Leslye COLLECTION OFFICER Unavailable Unavailable Jumalon, M Leslye COLLECTION OFFICER Unavailable Unavailable Jumalon, M Leslye COLLECTION OFFICER Unavailable Unavailable Jumalon, M Leslye COLLECTION OFFICER Unavailable Unavailable Jumalon, M Leslye COLLECTION OFFICER Unavailable Unavailable Jumalon, M Leslye COLLECTION OFFICER Unavailable Unavailable Jumalon, M Leslye COLLECTION OFFICER Unavailable Unavailable Jumalon, M Leslye COLLECTION OFFICER Unavailable Unavailable Jumalon, M Leslye COLLECTION OFFICER Unavailable Unavailable Jumalon, M Leslye COLLECTION OFFICER Unavailable Unavailable Jumalon, M Leslye COLLECTION OFFICER Unavailable Unavailable VENTURA, MORRO MD Unavailable Unavailable VENTURA, MORRO MD Unavailable Unavailable VENTURA, MORRO MD Unavailable Unavailable VENTURA, MORRO MD Unavailable Unavailable VENTURA, MORRO MD Unavailable Unavailable VENTURA MORRO MD Unavailable Unavailable VENTURAMORRO MD Unavailable Unavailable VENTURAMORRO MD Unavailable Unavailable VENTURAMORRO MD Unavailable Unavailable VENTURAMORRO MD Unavailable Unavailable VENTURAMORRO MD Unavailable Unavailable VENTURAMORRO MD Unavailable Unavailable VENTURAMORRO MD Unavailable Unavailable VENTURAMORRO MD Unavailable Unavailable VENTURA MORRO MD Unavailable Unavailable VENTURAMORRO MD Unavailable Unavailable VENTURA MORRO MD Unavailable Unavailable VENTURA MORRO MD Unavailable Unavailable VENTURA MORRO MD Unavailable Unavailable VENTURA MORRO MD Unavailable Unavailable VENTURA MORRO MD Unavailable Unavailable VENTURA MORRO MD Unavailable Unavailable VENTURA MORRO MD Unavailable Unavailable VENTURAMORRO MD Unavailable Unavailable VENTURA MORRO MD Unavailable Unavailable VENTURA MORRO MD Unavailable Unavailable VENTURA MORRO MD Unavailable Unavailable VENTURA MORRO MD Unavailable Unavailable VENTURA MORRO MD Unavailable Unavailable VENTURA MORRO MD Unavailable Unavailable VENTURA MORRO MD Unavailable Unavailable VENTURA MORRO MD Unavailable Unavailable VENTURA, MORRO MD Unavailable Unavailable VENTURA MORRO MD Unavailable Unavailable VENTURA MORRO MD Unavailable Unavailable VENTURA MORRO MD Unavailable Unavailable VENTURA MORRO MD Unavailable Unavailable VENTURA MORRO MD Unavailable Unavailable VENTURA, MORRO MD Unavailable Unavailable VENTURA, MORRO MD Unavailable Unavailable VENTURA, MORRO MD Unavailable Unavailable VENTURA, MORRO MD Unavailable Unavailable VENTURA, MORRO MD Unavailable Unavailable VENTURA, MORRO MD Unavailable Unavailable VENTURA, MORRO MD Unavailable Unavailable VENTURA, MORRO MD Unavailable Unavailable VENTURA, MORRO MD Unavailable Unavailable VENTURA, MORRO MD Unavailable Unavailable VENTURA, MORRO MD Unavailable Unavailable VENTURA, MORRO MD Unavailable Unavailable VENTURA, MORRO MD Unavailable Unavailable VENTURA, MORRO MD Unavailable Unavailable VENTURA, MORRO MD Unavailable Unavailable VENTURA, MORRO MD Unavailable Unavailable VENTURA, MORRO MD Unavailable Unavailable VENTURA, MORRO MD Unavailable Unavailable VENTURA, MORRO MD Unavailable Unavailable VENTURA, MORRO MD Unavailable Unavailable VENTURA, MORRO MD Unavailable Unavailable VENTURA, MORRO MD Unavailable Unavailable VENTURA, MORRO MD Unavailable Unavailable VENTURA, MORRO MD Unavailable Unavailable VENTURA, MORRO MD Unavailable Unavailable VENTURA, MORRO MD Unavailable Unavailable VENTURA, MORRO MD Unavailable Unavailable VENTURA, MORRO MD Unavailable Unavailable VENTURA, MORRO MD Unavailable Unavailable VENTURA, MORRO MD Unavailable Unavailable VENTURA, MORRO MD Unavailable Unavailable Lamas, M Gemma PA-C Unavailable Unavailable Lamas, M Gemma PA-C Unavailable Unavailable Lamas, M Gemma PA-C Unavailable Unavailable Lamas, M Gemma PA-C Unavailable Unavailable Lamas, M Gemma PA-C Unavailable Unavailable Lamas, M Gemma PA-C Unavailable Unavailable Lamas, M Gemma PA-C Unavailable Unavailable Lamas, M Gemma PA-C Unavailable Unavailable Lamas, M Gemma PA-C Unavailable Unavailable Lamas, M Gemma PA-C Unavailable Unavailable Lamas, M Gemma PA-C Unavailable Unavailable Lamas, M Gemma PA-C Unavailable Unavailable Lamas, M Gemma PA-C Unavailable Unavailable Lamas, M Gemma PA-C Unavailable Unavailable Lamas, M Gemma PA-C Unavailable Unavailable Lamas, M Gemma PA-C Unavailable Unavailable Lamas, M Gemma PA-C Unavailable Unavailable Lamas, M Gemma PA-C Unavailable Unavailable Lamas, M Gemma PA-C Unavailable Unavailable Lamas, M Gemma PA-C Unavailable Unavailable Lamas, M Gemma PA-C Unavailable Unavailable Lamas, M Gemma PA-C Unavailable Unavailable Lamas, M Gemma PA-C Unavailable Unavailable Lamas, M Gemma PA-C Unavailable Unavailable Lamas, M Gemma PA-C Unavailable Unavailable Lamas, M Gemma PA-C Unavailable Unavailable Lamas, M Gemma PA-C Unavailable Unavailable Lamas, M Gemma PA-C Unavailable Unavailable Lamas, M Gemma PA-C Unavailable Unavailable Lamas, M Gemma PA-C Unavailable Unavailable Lamas, M Gemma PA-C Unavailable Unavailable Jazzmine Lamas PA-C Unavailable Unavailable SYSTEM IN, NOT IN PROVIDER Unavailable Unavailable BURTON, NELLI MD Unavailable Unavailable BURTON, NELLI MD Unavailable Unavailable BURTON, NELLI MD Unavailable Unavailable BURTON, NELLI MD Unavailable Unavailable BURTON, NELLI MD Unavailable Unavailable BURTON, NELLI MD Unavailable Unavailable BURTON, NELLI MD Unavailable Unavailable BURTON, NELLI MD Unavailable Unavailable BURTON, NELLI MD Unavailable Unavailable BURTON, NELLI MD Unavailable Unavailable BURTON, NELLI MD Unavailable Unavailable BURTON, NELLI MD Unavailable Unavailable BURTON, NELLI MD Unavailable Unavailable BURTON, NELLI MD Unavailable Unavailable BURTON, NELLI MD Unavailable Unavailable BURTON, NELLI MD Unavailable Unavailable BURTON, NELLI MD Unavailable Unavailable BURTON, NELLI MD Unavailable Unavailable BURTON, NELLI MD Unavailable Unavailable BURTON, NELLI MD Unavailable Unavailable BURTON, NELLI MD Unavailable Unavailable BURTON, NELLI MD Unavailable Unavailable BURTON, NELLI MD Unavailable Unavailable BURTON, NELLI MD Unavailable Unavailable BURTON, NELLI MD Unavailable Unavailable BURTON, NELLI MD Unavailable Unavailable BURTON, NELLI MD Unavailable Unavailable BURTON, NELLI MD Unavailable Unavailable BURTON, NELLI MD Unavailable Unavailable BURTON, NELLI MD Unavailable Unavailable Re-disclosure Warning The records that you are about to access may contain information from federally-assisted alcohol or drug abuse programs. If such information is present, then the following federally mandated warning applies: This information has been disclosed to you from records protected by federal confidentiality rules (42 CFR part 2). The federal rules prohibit you from making any further disclosure of this information unless further disclosure is expressly permitted by the written consent of the person to whom it pertains or as otherwise permitted by 42 CFR part 2. A general authorization for the release of medical or other information is NOT sufficient for this purpose. The Federal rules restrict any use of the information to criminally investigate or prosecute any alcohol or drug abuse patient.The records that you are about to access may contain highly sensitive health information, the redisclosure of which is protected by Article 27-F of the [facility] Public Health law. If you continue you may have access to information: Regarding HIV / AIDS; Provided by facilities licensed or operated by the [facility] Office of Mental Health; or Provided by the [facility] Office for People With Developmental Disabilities. If such information is present, then the following [facility] mandated warning applies: This information has been disclosed to you from confidential records which are protected by state law. State law prohibits you from making any further disclosure of this information without the specific written consent of the person to whom it pertains, or as otherwise permitted by law. Any unauthorized further disclosure in violation of state law may result in a fine or chcf sentence or both. A general authorization for the release of medical or other information is NOT sufficient authorization for further disc losure. Allergies and Adverse Reactions Type Description Substance Reaction Status Data Source(s ) CLASS PENICILLINS (CLASS) PENICILLINS (CLASS) SWELLING [facility] Drug allergy Penicillin (For Allergies Use Only) Drug allergy facia l swelling Active eCW1 ([facility]) Family History Family Member Name Family Member Gender Family Member Status Date o f Status Description Data Source(s) Unknown Male Problem MEDENT ([facility]) Unknown Female Problem MEDENT ([facility]) Unknown Female Problem MEDENT ([facility]) Unknown Female Problem MEDENT ([facility]) Unknown Female Problem MEDENT ([facility]) Unknown Female Problem MEDENT ([facility]) Encounters Encounter Providers Location Date Indications Data Source(s ) Outpatient Referrer: PROVIDER SYSTEM [place] 04/05/2020 1 0:18:00 AM EST visual and auditory hallucinations, r/o dementia [facility] visual and auditory hallucinations, r/o dementia Inpatient Attender: Janneth amos FNPAttender: SOSA RIOSCOConsultant: MORRO VENTURA MD 04/04/2020 11:00 :00 AM EST - 04/06/2020 09:40:00 PM EST [facility] Patient discharged. OFFICE OUTPATIENT VISIT 15 MINUTES Attender: Юлия DIALLO PA-C Physical Therapy 03/24/2020 10:00:00 AM EST MEDENT ([facility]) Outpatient Attender: MORRO VENTURA MD 2020 10:16:00 AM EST - 03/15/2020 10:16:00 AM [facility] Outpatient Att[facility]: [facility] Tammy Arevalo ANP-BCConsultant: MORRO VENTURA MD 02/15/2020 10:35:00 AM EST - 02/15/2020 10:35:00 AM [facility] Outpatient Attender: NELLI BURTON MDConsultant: MORRO SANTIAGO MD 02/14/2020 11:13:39 AM [facility] Office Visit Attender: NELLI BURTON MD Physical Therapy 08:15:00 AM EDT MEDENT ([facility] ) Outpatient Attender: Gemma OLVERA eferrer: Gemma ALVARADOCConsultant: MORRO VENTURA MD 12/27/2019 01:17:00 PM EDT - 12/27/2019 01:27:00 PM EDT [facility] Outpatient Attender: Gemma FERRAROonsultant: MORRO NUNN MD 12/14/2019 09:00:00 AM EDT - 12/14/2019 09:00:00 AM EDT [facility] Outpatient Attender: Gemma Lamas PA-C Family Practice 10/2019 02:20:00 PM EDT [facility] ([facility]) Outpatient Attender: Gemma FERRAROonsultant: MORRO NUNN MD 12/09/2019 02:08:00 PM EDT - 12/09/2019 02:08:00 PM EDT [facility] Outpatient [address] [facility] [address] 12/09/2019 12:00:00 AM EDT eCW1 ([facility]) Outpatient Attender: MORRO VENTURA MD Family Practice 11/11/2019 0 1:20:00 PM EDT MEDENT ([facility]) Outpatient Attender: MORRO VENTURA MDConsultant: MORRO Parry MD 11/11/2019 01:19:00 PM EDT - 11/11/2019 01:19:00 PM EDT [facility] Outpatient Attender: NELLI BURTON MDConsultant: MORRO SANTIAGO MD 09/23/2019 09:50:00 AM EDT [facility] Outpatient Attender: NELLI BURTON MD Physical Therapy 08:30:00 AM EDT MEDENT ([facility]) Outpatient Referrer: NELLI BURTON MD 08/25/2019 12:08:0 0 PM EDT [facility] Outpatient Referrer: NELLI BURTON MD 08/19/2019 08:27:0 0 AM EDT [facility] Outpatient Referrer: NELLI BURTON MD 08/16/2019 08:35:0 0 AM EDT [facility] Outpatient Referrer: NELLI BURTON MD 08/10/2019 04:53:0 0 PM EDT [facility] Outpatient Referrer: Chapis Mcgovern NP 08/10/2019 04:51:00 PM EDT [facility] Outpatient Referrer: Chapis Mcgovern NP 08/10/2019 02:18:00 PM EDT [facility] Outpatient Attender: MORRO VENTURA MDConsultant: MORRO Parry MD 07/19/2019 10:36:00 AM EDT - 07/19/2019 10:36:00 AM EDT [facility] Outpatient Attender: MORRO VENTURA MDConsultant: MORRO Parry MD 07/14/2019 11:00:00 AM EDT - 07/14/2019 11:00:00 AM EDT [facility] Outpatient Attender: MORRO VENTURA MDConsultant: MORRO Parry MD 07/06/2019 10:31:00 AM EDT - 07/06/2019 10:31:00 AM T [facility] Outpatient Attender: MORRO VENTURA MD 2019 03:22:00 PM EDT - 06/16/2019 03:22:00 PM EDT [facility] [address] [place] [phone] 06/10/2019 12:00:00 AM EDT eCW1 ([facility]) Outpatient Referrer: Chapis Mcgovern NP 04/27/2019 07:34:00 AM EST [facility] Breast Care [address] [place] [phone] 04/16/2019 12:00:00 AM EST eCW1 ([facility]) Outpatient Referrer: Chapis Mcgovern NP 04/15/2019 12:35:00 PM EST [facility] Breast Care [address] [place] [address] 04/14/2019 12:00:00 AM EST eCW1 ([facility]) [facility] Breast Care [address] [place] [phone] 04/13/2019 12:00:00 AM EST eCW1 ([facility]) [facility] Breast Care [address] [place] [phone] 04/08/2019 12:00:00 AM EST eCW1 ([facility]) [facility] Breast Care [address] [place] [phone] 03/26/2019 12:00:00 AM EST eCW1 ([facility]) Outpatient Referrer: Chapis Mcgovern NP 03/17/2019 10:06:00 AM EST [facility] Outpatient Referrer: Chapis Mcgovern NP 03/17/2019 09:56:00 AM EST [facility] Outpatient Referrer: Chapis Mcgovern NP 03/17/2019 09:50:00 AM EST [facility] Outpatient Referrer: Chapis Mcgovern NP 03/16/2019 10:21:00 AM EST [facility] Outpatient Referrer: Leslye Marin COLLECTION OFFICER 03/16/2019 10:17:0 0 AM EST [facility] Outpatient Referrer: Leslye Marin COLLECTION OFFICER 03/16/2019 10:16:0 0 AM EST [facility] Radiology Imaging [facility] [address] [place] [address] 03/16/2019 12:00:00 AM EST eCW1 ([facility]) [facility] Breast Care [address] [place] [phone] 03/16/2019 12:00:00 AM EST eCW1 ([facility]) Leslye Marin, CLAY STRUCTURE BUILDER AND SERVICER: [address], [place] [address], Ph. Attender: Leslye Marin [facility] - Main Office 03/16/2019 12:00:00 AM EST ATHE NA ([facility]) Outpatient<td ID="encounterTypeDescripti onID0">1 Year Follow-Up</td><td>Luis Menezes MD, FACS</td><td>Luis Menezes MD [facility]</td><td>03/08/2019</td><td> <content ID="encounterDiagnosisID0-0">Cataract Senile Nuclear</content>, <content ID="encounterDiagnosisID0-1">Conjunctivitis Chronic Allergic</content>, <content ID="encounterDiagnosisID0-2">Dry Eye Syndrome Both Eyes</content>, <content ID="encounterDiagnosisID0-3">Refractive Error - Hypermetropia</content></td> Attender: Luis Ryan MD, FACS Luis Ryan MD [facility] 03/08/2019 08:55:00 AM EST - 03/08/2019 09:36:00 AM ES T Refractive Error - HypermetropiaCataract Senile NuclearDry Eye Syndrome Both EyesConjunctivitis Chronic Allergic NICOLE (Luis Ryan MD [facility]) 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 Dry Eye Syndrome Both Eyes Conjunctivitis Chronic Allergic Outpatient Attender: MORRO VENTURA MDConsultant: MORRO Parry MD 02/09/2019 12:50:00 PM EST - 02/09/2019 12:50:00 PM EST [facility] Outpatient Attender: MORRO VENTURA MD Family Practice 02/09/2019 1 2:00:00 PM EST MEDENT ([facility]) Immunizations Vaccine Date Status Description Data Source(s) pneumococcal polysaccharide PPV23 02/09/2019 12:47:00 PM EST comple yan MEDENT ([facility]) Medications Medication Brand Name Start Date Product Form Dose Route Admi nistrative Instructions Pharmacy Instructions Status Indications Reaction Description Data Source(s) Ciprofloxacin 250 MG Oral Tablet [Cipro] Cipro 02/16/2020 12:00: 00 AM EST ORAL completed MEDENT ([facility]) atorvastatin 40 MG Oral Tablet Atorvastatin Calcium 01/30/2020 1 2:00:00 AM EST active MEDENT ( [facility]) tramadol hydrochloride 50 MG Oral Tablet Tramadol HCL 01/03/2020 12:00:00 AM EST active [facility] ([facility]) Oxycodone Hydrochloride 5 MG Oral Tablet Oxycodone HCL 12/30/2019 12:00:00 AM EDT ORAL active MEDENT ([facility]) Acetaminophen 325 MG / Oxycodone Hydrochloride 5 MG Or al Tablet Oxycodone-Acetaminophen 12/24/2019 12:00:00 AM EDT completed MEDENT ([facility]) Oxycodone Hydrochloride 5 MG Oral Tablet Oxycodone HCL 2019 12:00:00 AM EDT ORAL completed MEDENT ([facility]) Oxycodone Hydrochloride 5 MG Oral Tablet Oxycodone HCL 12/06/2019 12:00:00 AM EDT ORAL completed MEDENT ([facility]) buspirone hydrochloride 10 MG Oral Tablet Buspirone HCL 11/11/2019 12:00:00 AM EDT ORAL active MEDENT ([facility]) meloxicam 15 MG Oral Tablet Meloxicam 08/02/2019 12:00:00 AM EDT ORAL completed MEDENT ([facility]) Zithromax Z-Fady Zithromax Z-Fady 06/16/2019 12:00:00 AM EDT ORAL completed MEDENT ([facility]) Escitalopram 20 MG Oral Tablet Escitalopram Oxalate 05/29/2019 1 2:00:00 AM EDT ORAL active MEDENT ( [facility]) Ergocalciferol 56879 UNT Oral Capsule Vitamin D (Ergocalcife rol) 02/09/2019 12:00:00 AM EST active M EDENT ([facility]) Escitalopram 10 MG Oral Tablet Escitalopram Oxalate 12/31/2018 1 2:00:00 AM EDT completed MEDENT ([facility]) Escitalopram 10 MG Oral Tablet escitalopram 10 mg tabl et escitalopram 10 mg tablet completed Escitalopram 10 MG Oral Tablet MAKAYLA ([facility]) Insurance Providers Payer name Policy type / Coverage type Policy ID Covered green party ID Covered green party's relationship to dias Policy Dias Plan Information [facility] [id number] SP [id number] MEDICARE [id number] SP [id number] [facility] [id number] SP [id number] MEDICARE PART A -I/P [id number] 18 [id number] EMPIRE BLUE CROSS BLUE SHIELD -I/P [id number] 18 [id number] MEDICARE PART A -O/P [id number] 18 [id number] EMPIRE BLUE CROSS BLUE SHIELD -O/P [id number] 18 [id number] [facility] U [id number] Self [id number] MEDICARE PART A [facility] [id number] 18 [id number] [facility] EMPIRE PLAN [id number] 18 [id number] MANAGED PHYSICAL NETWORK -R [id number] 18 [id number] BLUE CROSS BLUE SHIELD -RECURRING [id number] 18 [id number] MEDICARE PART A -RECURRING [id number] 18 [id number] EMPIRE BLUE CROSS BLUE SHIELD -RECURRING [id number] 18 [id number] MEDICARE -RECURRING [id number] 18 [id number] MANAGED PHYSICAL NETWORK -RCR [id number] 18 [id number] BCBS EMPIRE JEY DIV [id number] MEDICARE C [id number] S [id number] EMPIRE (STATE EMP) O [id number] S [id number] EMPIRE BLUE CROSS BLUE SHIELD -RECURRING [id number] 18 [id number] MEDICARE -RECURRING [id number] 18 [id number] UNITED HEALTHCARE O [id number] S [id number] EMPIRE BLUE CROSS BLUE SHIELD -O/P [id number] 18 [id number] BCBS EMPIRE JEY DIV [id number] SP [id number] MEDICARE [id number] SP [id number] [facility] [id number] SP [id number] UNITED HEALTHCARE O [id number] S [id number] EMPIRE ([facility]) O [id number] S [id number] [facility] Employees (Parks) - [facility] Other 0 Self 0 Medicare Part B [facility] Other 0 Se lf 0 MEDICARE PART A -O/P [id number] 18 [id number] [facility] Parks Plan Medigap Part B [id number] Self [id number] Medicare Part [place] Primary [id number] Self [id number] BS EMPIRE JEY DIV [id number] SP [id number] MEDICARE [id number] SP [id number] ANSI-Medicare Part B [id number] ANSI-Commercial [id number] BS EMPIRE JEY DIV [id number] SP [id number] Parks United Healthcare Medigap Part B [id number] Self [id number] Medicare Dme Supplies Medigap Part B [id number] Self [id number] [place] [id number] Self [id number] Parks United Healthcare Medigap Part B [id number] Self [id number] Medicare Dme Supplies Medigap Part B [id number] Self [id number] [place] Primary [id number] Self [id number] MEDICARE [id number] SP [id number] MEDICARE PART A [facility] [id number] 18 [id number] [facility] Parks Plan Medigap Part B [id number] Self [id number] Medicare Part [place] Primary [id number] Self [id number] MEDICARE [id number] SP [id number] United [employer] Parks Commercial [id number] Self [id number] [facility](MCAID) O [id number] S [id number] MEDICARE C [id number] S [id number] MEDICARE [id number] SP [id number] A [facility] Parks Plan Medigap Part B [id number] Self [id number] Medicare Part A [place] Primary [id number] Self [id number] UNHC COMMUNITY PLAN XIX [id number] 18 [id number] Uhc Parks Plan Medigap Part B [id number] Self [id number] Medicare Part A [place] Primary [id number] Self [id number] [facility] Parks Plan Medigap Part B [id number] Self [id number] Medicare Part A [place] Primary [id number] Self [id number] [facility] Parks Plan Medigap Part B [id number] Self [id number] Medicare Part A [place] Primary [id number] Self [id number] [facility] Parks Plan Medigap Part B [id number] Self [id number] Medicare Part A [place] Medicare Primary [id number] Self [id number] Parks United [employer] Medigap Part B [id number] Self [id number] Medicare Dme Supplies Medigap Part B [id number] Self [id number] Medicare [facility] Medicare Primary [id number] Self [id number] Parks United Healthcare Medigap Part B [id number] Self [id number] Medicare Dme Supplies Medigap Part B [id number] Self [id number] Medicare [facility] Medicare Primary [id number] Self [id number] UNITED HEALTHCARE O [id number] S [id number] MEDICARE C [id number] S [id number] [facility] Parks Plan Medigap Part B [id number] Self [id number] Medicare Part A [place] Medicare Primary [id number] Self [id number] Parks United Healthcare Medigap Part B [id number] Self [id number] Medicare Dme Supplies Medigap Part B [id number] Self [id number] Medicare [facility] Medicare Primary [id number] Self [id number] Parks United Healthcare Medigap Part B [id number] Self [id number] Medicare Dme Supplies Medigap Part B [id number] Self [id number] [place] Primary [id number] Self [id number] [facility] [id number] 18 [id number] [facility] Parks Plan Medigap Part B [id number] Self [id number] Medicare Part A [place] Medicare Primary [id number] Self [id number] Parks [employer] Healthcare Medigap Part B [id number] Self [id number] Medicare Dme Supplies Medigap Part B [id number] Self [id number] [place] Primary [id number] Self [id number] [facility] Medigap Part B [id number] Self [id number] Medicare Part A [place] Primary [id number] Self [id number] [facility] Medigap Part B [id number] Self [id number] Medicare Part [place] Primary [id number] Self [id number] [facility] Health Maintenance Organization (HMO) [id number] Self [id number] [facility] Health Maintenance Organization (HMO) [id number] Self [id number] [facility] Health Maintenance Organization (HMO) [id number] Self [id number] [facility] Medicaid [id number] Self [id number] [facility] COMMUNITY PLAN [id number] 18 [id number] [facility] Medicaid [id number] Self [id number] [facility] Medicaid [id number] Self [id number] [facility] Medicaid [id number] Self [id number] [facility] Medicaid [id number] Self [id number] [facility] AMERICHOICE HMO [id number] 18 [id number] [facility] Medicaid [id number] Self [id number] [facility] Medicaid [id number] Self [id number] [facility] Commercial Self BCBS EMPIRE BC [id number] S [id number] [facility] Medicaid Self [facility] [id number] 18 [id number] EMPIRE UNITEDHEALTHCARE-O/P [id number] 18 [id number] UNITED HEALTHCARE-O/P [id number] 18 [id number] Problems, Conditions, and Diagnoses Code Display Name Description Problem Type Effective Dates Data Source(s) 989546266 Pure hypercholesterolemia Pure hypercholesterolemia Pr oblem 08/03/2019 12:00:00 AM EDT MEDENT ([facility]) 367.0 Refractive Error - Hypermetropia Refractive Error - Hy permetropia Problem 03/08/2019 12:00:00 AM EST [place] (Luis Ryan MD [facility]) visual and auditory hallucinations, r/o dementia visual and auditory hallucinations, r/o dementia Diagnosis 04/05/2020 10:18:00 AM [facility] N390 Urinary tract infection, site not specif ied Urinary tract infection, site not specified Diagnosis 03/15/2020 10:16:00 AM [facility] F419 Anxiety disorder, unspecified Anxiety disorder, unspec ified Diagnosis 03/15/2020 10:16:00 AM [facility] G4733 Obstructive sleep apnea (adult) (pediatr ic) Obstructive sleep apnea (adult) (pediatric) Diagnosis 03/15/2020 10:16:00 AM [facility] M109 Gout, unspecified Gout, unspecified Diagnosis 03/15/2020 10:16:00 AM [facility] E559 Vitamin D deficiency, unspecified Vitamin D defi ciency, unspecified Diagnosis 03/15/2020 10:16:00 AM [facility] E785 Hyperlipidemia, unspecified Hyperlipidemia, unspecifie d Diagnosis 03/15/2020 10:16:00 AM [facility] I10 Essential (primary) hypertension Essential (primary) h ypertension Diagnosis 03/15/2020 10:16:00 AM [facility] E782 Mixed hyperlipidemia Mixed hyperlipidemia Diagnosis 02/15/2020 10:35:00 AM [facility] Z4789 Encounter for other orthopedic aftercare Encounter for other orthopedic aftercare Diagnosis 02/15/2020 09:41:00 AM [facility] E876 Hypokalemia Hypokalemia Diagnosis 12/27/2019 01:17:00 PM T [facility] [id number] Encounter for other preprocedural examin ation Encounter for other preprocedural examination Diagnosis 12/09/2019 02:08:00 PM [facility] [id number] Strain of muscle(s) and tend on(s) of anterior muscle group at lower leg level, right leg, subsequent encounter Strain of muscle(s) and tendon(s) of anterior muscle group at lower leg level, right leg, subsequent encounter Diagnosis 09/23/2019 09:50:00 AM [facility] V16664 Pain in right foot Pain in right foot Diagnosis 07/2019 10:31:00 AM EDT [facility] J029 Acute pharyngitis, unspecified Acute pharyngitis, unsp ecified Diagnosis 06/16/2019 03:22:00 PM EDT [facility] Surgeries/Procedures Procedure Description Date Indications Data Source(s) APPLICATION SHORT LEG CAST BELOW KNEE-TOE 01/20/2020 1 2:00:00 AM EST MEDENT ([facility] ) APPLICATION SHORT LEG CAST BELOW KNEE-TOE 01/06/2020 1 2:00:00 AM EST MEDENT ([facility] ) APPLICATION SHORT LEG CAST BELOW KNEE-TOE 12/30/2019 1 2:00:00 AM EDT MEDENT ([facility] ) APPLICATION SHORT LEG CAST BELOW KNEE-TOE 12/23/2019 1 2:00:00 AM EDT MEDENT ([facility] ) Transfer Tendon Ant/Post Tibial Deep 2019 12:00: 00 AM EDT MEDENT ([facility] ) Transfer Tendon Ant/Post Tibial Deep 2019 12:00: 00 AM EDT MEDENT ([facility] ) Electrocardiogram Complete 12/09/2019 12:00:00 AM EDT MEDENT ([facility]) Brief Emotional/Behav Assessment W/ Scoring Doc Per Standard Inst 11/11/2019 12:00:00 AM EDT MEDENT ([facility]) Admin Patient Focused Health Risk Assessment Instrument 11/11/2019 12:00:00 AM EDT MEDENT ([facility]) RADEX FOOT COMPLETE MINIMUM 3 VIEWS 08/02/2019 12:00:0 0 AM EDT MEDENT ([facility] ) NO CHARGE VISIT 06/10/2019 12:00:00 AM EDT eCW1 ([facility]) Cervical or vaginal cancer screening; pelvic and clinical br east examination 03/16/2019 12:00:00 AM EST [email or web address] ([facility]) Comprehensive eye exam established patient (25) Compre hensive eye exam established patient (25) 03/08/2019 12:00:00 AM EST NICOLE (Luis Ryan MD [facility]) Refraction (GA) Refraction (GA) 03/08/2019 12:00:00 AM EST NICOLE (Luis Ryan MD [facility]) Results ID Date Data Source [id number] 04/06/2020 11:45:00 AM [facility] NOT DETECTEDNOT DETECTED{ PROC EDURAL CONTROL VALID KIT LOT # _[id number] 04/06/20.1145.CM . KIT EXP DATE _05/19/20 04/06/20.1145.CM . NORMAL RANGE IS NOT DETECTEDNEGATIVE RESULTS SHOULD BE TREATED PRESUMPTIVE AND, IF INCONSISTENT WITHCLINICAL SIGNS AND SYMPTOMS OR NECESSARY FOR PATIENT MANAGEMENT, SHOULD BETESTED WITH DIFFERENT AUTHORIZED OR CLEARED MOLECULAR TESTS. NEGATIVE RESULTSDO NOT PRECLUDE SARS-CoV-2 INFECTION AND SHOULD NOT BE USED THE SOLE BASISFOR PATIENT MANAGEMENT DECISIONS. Name Value Range Interpretation Code Description Data Cynthia rce(s) Supporting Document(s) ID Date Data Source [id number] 04/06/2020 07:32:00 AM [facility] Name Value Range Interpretation Code Description Data [facility] rce(s) Supporting Document(s) BASIC METABOLIC PANEL [facility] BASIC METABOLIC PANEL Sodium [Moles/volume] in Serum or Plasma 139 mEq/L 134 - 153 [facility] Potassium [Moles/volume] in Serum or Plasma 3.1 mEq/L 3.6 - 5.0 L [facility] Chloride [Moles/volume] in Serum or Plasma 103 mEq/L 98 - 107 [facility] Carbon dioxide, total [Moles/volume] in Serum or Plasma 28 MEQ/L 22 - 30 [facility] Glucose [Mass/volume] in Serum or Plasma 92 MG/DL 70 - 99 [facility] BUN 9 MG/DL 7 - 21 [facility] Creatinine [Mass/volume] in Serum or Plasma 0.4 MG/DL 0.7 - 1.5 L [facility] BUN/CREAT 23 8 - 27 [facility] Calcium [Mass/volume] in Serum or Plasma 8.9 MG/DL 8.4 - 10.2 [facility] Anion gap 3 in Serum or Plasma 8.0 mmol/L 8.0 - 16.0 [facility] AGE 69 yrs [facility] AFR AMER GFR >60 [facility] NON-AA GFR >60 mL/min [facility] Male GFR Inter prentation 20-49 yrs >60 mL/min Normal 50-59 yrs >56 mL/min Normal 60-69 yrs >49 mL/min Normal 70-79yrs >42 mL/min Normal 80 and above >35 mL/min Normal Female GFR Interpretation 20-39 yrs >60 mL/min Normal 40-49 yrs >58 mL/min Normal 50-59 yrs >51 mL/min Normal 60-69 yrs >45 mL/min Normal 70-79 yrs >39 mL/min Normal 80 and above >32 mL/min Normal ID Date Data Source [id number] 04/06/2020 06:47:00 AM EST [facility] Name Value Range Interpretation Code Description Data Cynthia rce(s) Supporting Document(s) CBC W/AUTOMATED DIFF [facility] COMPLETE BLOOD COUNT Leukocytes [#/volume] in Blood by Automated count 5.6 10^3/uL 4.2 - 1 1.0 [facility] Erythrocytes [#/volume] in Blood by Automated count 3.83 10^6/uL 4. 20 - 5.40 L [facility] Hemoglobin [Mass/volume] in Blood 11.9 g/dL 12.0 - 16.0 L [facility] Hematocrit [Volume Fraction] of Blood by Automated count 35.3 % 3 7.0 - 47.0 L [facility] Erythrocyte mean corpuscular volume [Entitic volume] by Auto mated count 92.2 fL 81.0 - 101 [facility] Erythrocyte mean corpuscular hemoglobin [Entitic mass] by Automated count 31.1 pg 27.0 - 34.0 [facility] Erythrocyte mean corpuscular hemoglobin concentration [Mass/volume] by Automated count 33.7 g/dL 31.0 - 36.0 [facility] Erythrocyte distribution width [Ratio] by Automated count 14.4 % 11.5 - 14.5 [facility] Platelets [#/volume] in Blood by Automated count 181 10^3/uL 150 - 45 0 [facility] Platelet mean volume [Entitic volume] in Blood by Automated count 10.3 fL 7.4 - 10.4 [facility] Neutrophils/100 leukocytes in Blood by Automated count 48.9 % 37. 0 - 80.0 [facility] Lymphocytes/100 leukocytes in Blood by Manual count 37.2 % 25.0 - 40.0 [facility] Monocytes/100 leukocytes in Blood by Automated count 10.3 % 3.0 - 8.0 H [facility] Eosinophils/100 leukocytes in Blood by Automated count 2.7 % 0.0 - 7.0 [facility] Basophils/100 leukocytes in Blood by Automated count 0.5 % 0.0 - 2.5 [facility] %IG 0.4 % 0.0 - 0.0 H [facility] %NRBC 0.0 % 0.0 - 0.0 [facility] Neutrophils [#/volume] in Blood by Automated count 2.75 10^3/uL 2.00 - 6.90 [facility] Lymphocytes [#/volume] in Blood by Automated count 2.09 10^3/uL 0.60 - 3.40 [facility] Monocytes [#/volume] in Blood by Automated count 0.58 10^3/uL 0.00 - 0.90 [facility] Eosinophils [#/volume] in Blood by Automated count 0.15 10^3/uL 0.00 - 0.70 [facility] Basophils [#/volume] in Blood by Automated count 0.03 10^3/uL 0.00 - 0.20 [facility] #IG 0.02 10^3/uL 0.00 - 0.10 [facility] ospital #NRBC 0.00 10^3/uL 0.00 - 0.00 [facility] MANUAL DIFF NOT INDICATED [facility] RBC MORPH NOT INDICATED [facility] ID Date Data Source [id number] 04/05/2020 09:15:00 AM EST [facility] [address] [place] [address] PHONE: [phone] FAX: [phone] Name .................. : DAKOTAH Parry Acct Number.................. : [id number] ROOM. ................. : 105-1 MR Number ................... : [id number] Stay type ............. : O/P Discharge Date......... ... : Admit Date ......... : 04/04/20 Admit Phys .................... : GAVIN-FALAN Date of ....... : 1950 Family Phys ................... : dianboom HARD Phone .................. : [phone] Age ................................ : 69 Film# .................. .:[id number] Sex ................................. : F Unsigned transcriptions are preliminary reports and do not represent a medical or legal document CHEST 1 VIEW [id number] COMPLETE:04/04/20 12:51 3495 Reason(s): altered mental status CHEST X-RAY: SINGLE VIEW FINDINGS: The cardiac and mediastinal silhouettes appear normal and the lungs are clear. The bones and soft tissues are normal. The upper abdomen is unremarkable. IMPRESSION: No acute disease identifiable. Electronically Reviewed and Signed By Alonso Nath MD , 04/05/20 09:15, TDS Transcribe Initials: SHAAN , Transcribe Date: 04/04/20 19:28, Dictation Date: Copy for: EMERGENCY DEPT via mode Copy for: [facility] REC Page 1 of 1 Name Value Range Interpretation Code Description Data Cynthia rce(s) Supporting Document(s) ID Date Data Source [id number] 04/05/2020 09:11:00 AM EST [facility] [address] [place] [address] PHONE: [phone] FAX: [phone] Name .................. : DAKOTAH Parry Acct Number.................. : [id number] ROOM. ................. : TR-08 MR Number ................... : [id number] Stay type ............. : E/R Discharge Date......... ... : Admit Date ......... : 04/04/20 [facility] Date of ....... : 1950 Family Phys ................... : VENTURA HARD Phone .................. : [phone] Age ................................ : 69 Film# .................. .:[id number] Sex ................................. : F Unsigned transcriptions are preliminary reports and do not represent a medical or legal document CT HEAD W/O CONTRAST [id number] COMPLETE:04/04/20 11:08 3479 Reason(s): headache, alterd mental status CT HEAD WITHOUT CONTRAST, 04/04/20: Comparison is made to 04/11/15. FINDINGS: There is no prominence of the ventricles and foci from atrophy. Mild to moderate low attenuation is present within the periventricular white matter from chronic periventricular white matter ischemia. The visualized portions of the orbits are unremarkable along with the visualized paranasal sinuses. No suspicious osseous lesion or acute fracture is identified. IMPRESSION: Mild atrophy. 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 No acute disease. While performing the above CT examination, radiation dose reduction was accomplished utilizing automated exposure control, adjusting of the mA and kV based on the patient's body size and/or the use of imperative reconstructive techniques. CT dose 817.7 mGycm. Electronically Reviewed and Signed By Alonso Nath MD , 04/05/20 09:11, TDS Transcribe Initials: ALBIN, Transcribe Date: 04/04/20 13:15, Dictation Date: Copy for: EMERGENCY DEPT via mode Copy for: 710 [facility] REC Page 1 of 1 Name Value Range Interpretation Code Description Data Cynthia rce(s) Supporting Document(s) ID Date Data Source [id number] 04/05/2020 09:34:00 AM [facility] Name Value Range Interpretation Code Description Data Cynthia rce(s) Supporting Document(s) pH of Arterial blood 7.49 7.34 - 7.44 H [facility] Carbon dioxide [Partial pressure] in Blood 29.0 mm/HG 32.0 - 42.0 L [facility] Oxygen [Partial pressure] in Blood 99.9 mm/HG 75.0 - 100 [facility] Bicarbonate [Moles/volume] in Blood 21.4 meq/L 20.0 - 24.0 [facility] TCO2 22.3 meq/L 21.0 - 25.0 [facility] Base excess in Blood by calculation -1.0 -2.0 - 2.0 [facility] O2 SAT 98.2 % 95.0 - 98.0 H [facility] ID Date Data Source [id number] 04/05/2020 09:45:00 AM [facility] Name Value Range Interpretation Code Description Data Cynthia rce(s) Supporting Document(s) Ammonia [Mass/volume] in Plasma 42.0 UG/DL 18.7 - 86.9 [facility] ID Date Data Source [id number] 04/05/2020 08:40:00 AM EST [facility] [address] [place] [address] PHONE: [phone] FAX: [phone] Name .................. : DAKOTAH Parry Acct Number.................. : [id number] ROOM. ................. : 105-1 MR Number ................... : [id number] Stay type ............. : O/P Discharge Date......... ... : Admit Date ......... : 04/04/20 Admit Phys .................... : GAVIN-ARTI Date of ....... : 1950 Family Phys ................... : VENTURA HARD Phone .................. : [phone] Age ................................ : 69 Film# .................. .:[id number] Sex ................................. : F Unsigned transcriptions are preliminary reports and do not represent a medical or legal document CAROTID [id number] COMPLETE:04/04/20 17:30 ADB 3511 (REASON FOR PROCEDURE :ALTERED MENTAL STATUS CHO TID DUPLEX ULTRASOUND: CLINICAL HISTORY: Altered mental status change. FINDINGS: No hemodynamically significant obstructing lesions are seen. No vascular occlusions are present. Normal antegrade flow in both vertebrae arteries is present. There is minimal plaque- like atheromatous disease at the right carotid bulb. IMPRESSION: Minimal plaque-like atheromatous disease at the right carotid bulb, otherwise normal examination. Electronically Reviewed and Signed By Nestor Koehler MD , 04/05/20 08:40, MRA Transcribe Initials: DZ , Transcribe Date: 04/04/20 23:06, Dictation Date: Copy for: PAUL Dhillon via fax Copy for: EMERGENCY DEPT via modem Copy for: 710 MED REC Page 1 of 1 Name Value Range Interpretation Code Description Data Cynthia rce(s) Supporting Document(s) ID Date Data Source [id number] 04/05/2020 08:40:00 AM EST [facility] [address] [place] [address] PHONE: [phone] FAX: [phone] Name .................. : DAKOTAH Parry Acct Number.................. : [id number] ROOM. ................. : 105-1 MR Number ................... : [id number] Stay type ............. : O/P Discharge Date......... ... : Admit Date ......... : 04/04/20 Admit Phys .................... : TANIA Date of ....... : 1950 Family Phys ................... : VENTURA HARD Phone .................. : [phone] Age ................................ : 69 Film# .................. .:[id number] Sex ................................. : F Unsigned transcriptions are preliminary reports and do not represent a medical or legal document MRA HEAD W/O CONTRAST [id number] COMPLETE:04/04/20 15:29 [facility] 3512 (REASON FOR PROCEDURE :ALTERED MENTAL STATUS MRA OF THE HEAD WITHOUT CONTRAST: CLINICAL HISTORY: Altered mental status. FINDINGS: No hemodynamically significant obstructing lesions are noted. No vascular occlusions are present. No aneurysms are identified. The anterior communicating artery and the right posterior communicating arteries are patent. IMPRESSION: Normal examination. Electronically Reviewed and Signed By Nestor Koehler MD , 04/05/20 08:40, MRA Transcribe Initials: DZ , Transcribe Date: 04/04/20 23:05, Dictation Date: Copy for: PAUL Dhillon via fax Copy for: EMERGENCY DEPT via modem Copy for: [address] [place] [address] REC Page 1 of 1 Name Value Range Interpretation Code Description Data Cynthia rce(s) Supporting Document(s) ID Date Data Source [id number] 04/05/2020 08:39:00 [place] [address] PHONE: [phone] FAX: [phone] Name .................. : DAKOTAH Parry Acct Number.................. : [id number] ROOM. ................. : 105-1 MR Number ................... : [id number] Stay type ............. : O/P Discharge Date......... ... : Admit Date ......... : 04/04/20 Admit Phys .................... : TANIA Date of ....... : 1950 Family Phys ................... : VENTURA HARD Phone .................. : [phone] Age ................................ : 69 Film# .................. .:[id number] Sex ................................. : F Unsigned transcriptions are preliminary reports and do not represent a medical or legal document MRI BRAIN W/O CONTRAST [id number] COMPLETE:04/04/20 15:49 [facility] 3515 (REASON FOR PROCEDURE :ALTERED MENTAL STATUS MRI OF THE BRAIN WITHOUT CONTRAST: CLINICAL HISTORY: Altered mental status. FINDINGS: There are extensive foci of abnormal signal in the periventricular white matter suggesting small vessel ischemic change. No bleeding is present. No masses are seen. Midline symmetry is preserved. The ventricles are normal in size. Normal patel white matter differentiation is noted. The meninges and skull are intact. There is no evidence for an acute or chronic cerebral infarction. IMPRESSION: Small vessel ischemic change. Electronically Reviewed and Signed By Nestor Koehler MD , 04/05/20 08:39, MRA Transcribe Initials: SHAAN , Transcribe Date: 04/04/20 23:02, Dictation Date: Copy for: PAUL Dhillon via fax Copy for: EMERGENCY DEPT via modem Copy for: 710 [facility] REC Page 1 of 1 Name Value Range Interpretation Code Description Data Cynthia rce(s) Supporting Document(s) ID Date Data Source [id number] 04/05/2020 01:12:00 PM EST [facility] Name Value Range Interpretation Code Description Data [facility] rce(s) Supporting Document(s) C[facility]EL [facility] LIPID PANEL Cholesterol [Mass/volume] in Serum or Plasma 170 MG/DL 131 - 200 [facility] Deprecated Triglyceride [Mass/volume] in Serum or Plasma 169 MG/DL 3 5 - 160 H [facility] HDL 78 MG/DL 29 - 86 [facility] Cholesterol in LDL [Mass/volume] in Serum or Plasma by Direc t assay 71 mg/dL 65 - 175 [facility] Cholesterol.total/Cholesterol in HDL [Mass Ratio] in Serum o r Plasma 2.2 3.2 - 4.4 L [facility] LDL/HDL 0.91 1.47 - 3.22 L [facility] ital CVE RISK CHOL/HDL LDL/HDLMEN: 1/2 AVERAGE 3.43 1.00 AVERAGE 4.97 3.55 2X AVERAGE 9.55 6.25 3X AVERAGE 23.99 7.99WOMEN: 1/2 AVERAGE 3.27 1.47 AVERAGE 4.44 3.22 2X AVERAGE 7.05 5.03 3X AVERAGE 11.04 6.14 ID Date Data Source [id number] 04/05/2020 07:14:00 AM EST [facility] Name Value Range Interpretation Code Description Data [facility]) CBC W/AUTOMATED DIFF [facility] COMPLETE BLOOD COUNT Leukocytes [#/volume] in Blood by Automated count 8.9 10^3/uL 4.2 - 1 1.0 [facility] Erythrocytes [#/volume] in Blood by Automated count 4.23 10^6/uL 4. 20 - 5.40 [facility] Hemoglobin [Mass/volume] in Blood 13.2 g/dL 12.0 - 16.0 [facility] Hematocrit [Volume Fraction] of Blood by Automated count 38.6 % 3 7.0 - 47.0 [facility] Erythrocyte mean corpuscular volume [Entitic volume] by Auto mated count 91.3 fL 81.0 - 101 [facility] Erythrocyte mean corpuscular hemoglobin [Entitic mass] by Automated count 31.2 pg 27.0 - 34.0 [facility] Erythrocyte mean corpuscular hemoglobin concentration [Mass/volume] by Automated count 34.2 g/dL 31.0 - 36.0 [facility] Erythrocyte distribution width [Ratio] by Automated count 14.0 % 11.5 - 14.5 [facility] Platelets [#/volume] in Blood by Automated count 231 10^3/uL 150 - 45 0 [facility] Platelet mean volume [Entitic volume] in Blood by Automated count 10.3 fL 7.4 - 10.4 [facility] Neutrophils/100 leukocytes in Blood by Automated count 62.4 % 37. 0 - 80.0 [facility] Lymphocytes/100 leukocytes in Blood by Manual count 27.6 % 25.0 - 40.0 [facility] Monocytes/100 leukocytes in Blood by Automated count 7.8 % 3.0 - 8.0 [facility] Eosinophils/100 leukocytes in Blood by Automated count 1.4 % 0.0 - 7.0 [facility] Basophils/100 leukocytes in Blood by Automated count 0.3 % 0.0 - 2.5 [facility] %IG 0.5 % 0.0 - 0.0 [facility] %NRBC 0.0 % 0.0 - 0.0 [facility] al Neutrophils [#/volume] in Blood by Automated count 5.53 10^3/uL 2.00 - 6.90 [facility] Lymphocytes [#/volume] in Blood by Automated count 2.44 10^3/uL 0.60 - 3.40 [facility] Monocytes [#/volume] in Blood by Automated count 0.69 10^3/uL 0.00 - 0.90 [facility] Eosinophils [#/volume] in Blood by Automated count 0.12 10^3/uL 0.00 - 0.70 [facility] Basophils [#/volume] in Blood by Automated count 0.03 10^3/uL 0.00 - 0.20 [facility] #IG 0.04 10^3/uL 0.00 - 0.10 [facility] ospital #NRBC 0.00 10^3/uL 0.00 - 0.00 [facility]ital MANUAL DIFF NOT INDICATED [facility] RBC MORPH NOT INDICATED [facility] ID Date Data Source [id number] 04/05/2020 07:04:00 AM EST [facility] Name Value Range Interpretation Code Description Data Cynthia rce(s) Supporting Document(s) COMPREHENSIVE METABOLIC PANEL [facility] COMPREHENSIVE METABOLIC PANEL Sodium [Moles/volume] in Serum or Plasma 139 mEq/L 134 - 153 [facility] Potassium [Moles/volume] in Serum or Plasma 3.4 mEq/L 3.6 - 5.0 L [facility] Chloride [Moles/volume] in Serum or Plasma 102 mEq/L 98 - 107 [facility] Carbon dioxide, total [Moles/volume] in Serum or Plasma 24 MEQ/L 22 - 30 [facility] Glucose [Mass/volume] in Serum or Plasma 126 MG/DL 70 - 99 H [facility] BUN 8 MG/DL 7 - 21 [facility] Creatinine [Mass/volume] in Serum or Plasma 0.5 MG/DL 0.7 - 1.5 L [facility] BUN/CREAT 16 8 - 27 [facility] Protein [Mass/volume] in Serum or Plasma 6.8 G/DL 6.3 - 8.2 [facility] Albumin [Mass/volume] in Serum or Plasma 4.6 G/DL 3.9 - 5.0 [facility] Globulin [Mass/volume] in Serum by calculation 2.2 GM/DL 2.4 - 3.2 L [facility] A/G RATIO 2.1 0.8 - 2.0 H [facility] Calcium [Mass/volume] in Serum or Plasma 9.2 MG/DL 8.4 - 10.2 [facility] Bilirubin.total [Mass/volume] in Serum or Plasma 1.7 MG/DL 0.2 - 1.3 H [facility] Alkaline phosphatase [Enzymatic activity/volume] in Serum or Plasma 79 U/L 38 - 126 [facility] Aspartate aminotransferase [Enzymatic activity/volume] in Serum or Plasma 31 U/L 5 - 40 [facility] Alanine aminotransferase [Enzymatic activity/volume] in Seru m or Plasma 28 U/L 7 - 56 [facility] Anion gap 3 in Serum or Plasma 13.0 mmol/L 8.0 - 16.0 [facility] AGE 69 yrs [facility] NON-AA GFR >60 mL/min [facility] AFR AMER GFR >60 [facility] Male GFR In terprentation 20-49 yrs >60 mL/min Normal 50-59 yrs >56 mL/min Normal 60-69 yrs >49 mL/min Normal 70-79yrs >42 mL/min Normal 80 and above >35 mL/min Normal Female GFR Interpretation 20-39 yrs >60 mL/min Normal 40-49 yrs >58 mL/min Normal 50-59 yrs >51 mL/min Normal 60-69 yrs >45 mL/min Normal 70-79 yrs >39 mL/min Normal 80 and above >32 mL/min Normal ID Date Data Source [id number] 04/05/2020 07:04:00 AM [facility] Name Value Range Interpretation Code Description Data Cynthia rce(s) Supporting Document(s) Magnesium [Mass/volume] in Serum or Plasma 1.5 MG/DL 1.7 - 2.2 L [facility] ID Date Data Source [id number] 04/04/2020 11:00:00 AM [facility] 1 OrderSheet [facility] Emergency Department [address] [place] [address] Phone #: [phone] 04/04/2020 10:49 Patient: VOLODYMYR CLAIRE Sex: F : 1950 Age: 69yWEIGHT:73.0 kg (S) HEIGHT:65 inches (S) BMI:26.8ALLERGIES: PenicillinsCHIEF COMPLAINT: headacheDIAGNOSIS: Disorder of brain, HeadacheLAB ORDERSOrder Description Priority Entered Acknowledged InitialedC w Diff STAT 11:05 04/04/2020 11:26 Sosa Salamanca RN ;Sed. Rate STAT 11:04/04/2020 11:26 Sosa Salamanca RN ;CRP STAT 11:04/04/2020 11:26 Sosa Salamanca RN ;CMP STAT 11:08 04/04/2020 11:26 Sosa Salamanca RN ;Urinalysis (Clean STAT 11:04/04/2020 11:53 Guilherme,Catch) Sosa Lomax RN ;Culture, Urine STAT 11:08 04/04/2020 11:53 Guilherme,(Urine, Clean Sosa Lomax RNCatch) ;Lactic Acid STAT 11:04/04/2020 11:26 Sosa Salamanca RN ;Urine Drug Screen STAT 12:51 04/04/2020 Sosa Lomax ;ETOH STAT 12:51 04/04/2020 12:54 Sosa Salamanca RN ;COVID-19 CAH (Not STAT 12:51 04/04/2020 12:54 TerrySymptomatic as Sosa Lomax RNDefined by CDC) ;(04/03/2020) (First 2 OrderSheet [facility] Emergency Department [address] [place] [address] Phone #: [phone]- [phone] 04/04/2020 10:49 Patient: VOLODYMYR CLAIRE Sex: F : 1950 Age: 69yTest) (NotHospitalized) (Not) (NotResident inCongregate CareSetting) (NotEmployed inHealthcare Setting)LDH STAT 12:51 04/04/2020 12:54 Sosa Salamanca RN ;Lactic Acid STAT 12:51 04/04/2020 Initialed: 12:54 Sosa Curiel RN Cancelled: Duplicate Order 12:58 ; Sosa LomaxTraissatounin-T STAT 12:51 04/04/2020 12:54 Sosa Salamanca RN ;DIAGNOSTIC STUDY ORDERSOrder Description Priority Entered Acknowledged InitialedCT Head W/O Cont STAT 11:08 04/04/2020 11:26 Clayton(Oxygen?(No)) Sosa Lomax RN ; Reason for Study: headache, alterd mental statusChest 1 View STAT 12:51 04/04/2020 12:54 Clayton(Oxygen?(No)) Sosa Lomax RN ; Reason for Study: altered mental staatusMEDICATION/IV/DRIP/FLUID ORDERSOrder Description Priority Entered Acknowledged InitialedPotassium Chloride 12:46 04/04/2020 13:13 TerryLiquid PO 40 meq Sosa Lomax RN(NOW) ;GENERAL ORDERSOrder Description Priority Entered Acknowledged InitialedSaline Lock 11:08 04/04/2020 11:26 Sosa Salamanca RN ;EKG 12:51 04/04/2020 12:54 Sosa Salamanca RN ; 3 OrderSheet [facility] Emergency Department [address] [place] [address] Phone #: [phone]- [phone] 04/04/2020 10:49 Patient: VOLODYMYR CLAIRE Sex: F : 1950 Age: 69yConsult - 13:01 04/04/2020 13:13 ClaytonHospitalist Sosa Lomax RN ;[Electronically signed by Clayton Mercado RN (16:20 04/04/2020)][Electronically signed by Sosa Lomax (21:36 04/04/2020)][Electronically locked by Clayton Mercado RN (16:20 04/04/2020)] Name Value Range Interpretation Code Description Data Cynthia rce(s) Supporting Document(s) ID Date Data Source [id number] 04/04/2020 11:00:00 AM EST [facility] 1 Medication Reconciliation Report [facility] Emergency Department [address] [place] [address] Phone #: [phone]- [phone] 04/04/2020 10:49 Patient: VOLODYMYR CLAIRE Sex: F : 1950 Age: 69yWeight: 73.0 kgHeight/Length: 65 in.BMI: 26.8ALLERGIES: PenicillinsThe patient's Home Medications are listed below:THE FOLLOWING MEDICATIONS NEED TO BE RECONCILED: Align Prebiotic-Probiotic Oral (5-1.25 mg- gm) 1 tablet, daily amLODIPine Besylate Oral 5 mg, daily Atorvastatin Calciu m Oral (40 mg) 1 tablet, daily, last dose: 04/11/15 0700 busPIRone HCl Oral 10 mg, 2x a day Cipro Oral (250 mg) 1 tablet, 2x a day Diclofenac Sodium External (1 %) to legs, daily, at bedtime Escitalopram Oxalate Oral 20 mg, daily Fish Oil Oral (1000 mg) 3 tab, daily hydroCHLOROthiazide Oral 50 mg, daily Magnesium Oral (400 mg) 1 tablet, daily Metoprolol Tartrate Oral 25 mg, daily Naproxen Oral (500 mg) 2 tablets, daily Niacin ER (Antihyperlipidemic) Oral (1000 mg) 1 tablet, daily Potassium Chloride ER Oral (10 meq) 1 tablet, daily valACYclovir HCl Oral (1 gm) 1 tablet, 2x a day, prn 2 Medication Reconciliation Report [facility] Emergency Department [address] [place] [address] Phone #: ext- [phone] 04/04/2020 10:49 [id number] Sex: F : 1950 Age: 69y Vitamin D Oral (125 MCG (5000 UT)) 1 capsule, once a weekThe source(s) of the original Home Medication information:Not obtained.The following Medications were given to the patient in the Emergency Department:POTASSIUM CHLORIDE LIQUID PO PO 40 meq, administered: 13:00 04/04/2020The following Medications were prescribed to the patient:None. Name Value Range Interpretation Code Description Data Cynthia rce(s) Supporting Document(s) ID Date Data Source [id number] 04/04/2020 11:00:00 AM [place] [address] Medication Administration Record [facility] Emergency Department [address] [place] [address] Phone #: ext- [phone] 04/04/2020 10:49 Patient: VOLODYMYR CLAIRE Sex: F : 1950 Age: 69yWeight: 73.0 kgHeight/Length: 65 inBMI: 26.8ALLERGIES: Penicillins Date/Time Medication Administered Medication OrderedGiven POTASSIUM CHLORIDE LIQUID PO Potassium Chloride Liquid PO 4013:00 04/04/2020 Dose: 40 meq Syrup/Liquid PO meq (NOW)Clayton Mercado RN Name Value Range Interpretation Code Description Data Cynthia rce(s) Supporting Document(s) ID Date Data Source [id number] 04/04/2020 11:00:00 AM [facility] 1 General Instructions [facility] Emergency Department [address] [place] [address] Phone #: ext- [phone] 04/04/2020 10:49 Patient: VOLODYMYR CLAIRE Sex: F : 1950 Age: 69yChronic tension headache. No poorly controlled headache or migraine headache.Metabolic encephalopathy.(Electronically signed by Sosa Lomax 04/04/2020 21:36) Name Value Range Interpretation Code Description Data Cynthia rce(s) Supporting Document(s) ID Date Data Source [id number] 04/04/2020 11:00:00 AM EST [facility] 1 Clinical Report - Nurses [facility] Emergency Department [address] [place] [address] Phone #: [phone]- [phone] 04/04/2020 10:49 Patient: VOLODYMYR CLAIRE Sex: F : 1950 Age: 69yTRIAGE Arrived by private vehicle. Historian: patient. ( pt c/o frontal headaches radiating down right ear x 4 months, pt stating having vivid dreams waking up howling x 1 year, recently pt having problems judging distance). Triage time: 10:55 04/04/2020. Acuity: LEVEL 3. Chief Complaint: HALLUCINATIONS. 11:13 04/04/20. Onset. (1 years ago). She has had sleeping difficulties. Admits to having hallucinations. No anxiety. Denies feelings of depression. Has not been confused. Has not been feeling agitated. 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 SEPSIS SCREEN: SIRS SCREEN NEGATIVE. SEPSIS SCREEN NEGATIVE. No suspected or confirmed signs of infection present. (11:12 04/04/2020). --11:13 04/04/20 Clayton Mercado RN 11:05 04/04/20. BP: 135/85 (regular adult cuff) taken on the right arm, via an automated monitor, while lying. MAP: 101. HR: 79. RR: 16. O2 saturation: 96% on room air. Temp: 98.5 F (oral). Pain level now: 04/12. Additional comments: headache. --11:13 04/04/20 Clayton Mercado RN. Weight: 73 kg stated. Height/Length: 65 inches Per Patient. BMI: 26.8. --11:05 04/04/20 Clayton Mercado RN. Medications Atorvastatin Calcium Oral (Tablet 40 mg) 1 tablet, daily, last dose 04/11/15 0700. Fish Oil Oral (Capsule 1000 mg) 3 tab, daily. --11:41 04/04/20 Clayton Mercado RN busPIRone HCl Oral 10 mg, 2x a day. --11:42 04/04/20 Clayton Mercado RN Escitalopram Oxalate Oral 20 mg, daily. --11:42 04/04/20 Clayton Mercado RN Vitamin D Oral (Capsule 125 MCG (5000 UT)) 1 capsule, once a week. --11:43 04/04/20 Clayton Mercado RN amLODIPine Besylate Oral 5 mg, daily. --11:44 04/04/20 Clayton Mercado RN Diclofenac Sodium External (Cream 1 %) to legs, daily at bedtime. --11:44 04/04/20 Clayton Mercado RN hydr oCHLOROthiazide Oral 50 mg, daily. --11:45 04/04/20 Clayton Mercado RN Niacin ER (Antihyperlipidemic) Oral (Tablet Extended Release 1000 mg) 1 tablet, daily. --11:45 04/04/20 Clayton Mercado RN Magnesium Oral (Tablet 400 mg) 1 tablet, daily. --11:46 04/04/20 Clayton Mercado RN Metoprolol Tartrate Oral 25 mg, daily. --11:46 04/04/20 Clayton Mercado RN Potassium Chloride ER Oral (Tablet Extended Release 10 meq) 1 tablet, daily. --11:46 04/04/20 Clayton Mercado RN 2 Clinical Report - Nurses [facility] Emergency Department [address] [place] [address] Phone #: ext- [phone] 04/04/2020 10:49 Patient[id number] Sex: F : 1950 Age: 69yNaproxen Oral (Tablet 500 mg) 2 tablets, daily. --11:47 04/04/20 Clayton Mercado RNvalACYclovir HCl Oral (Tablet 1 gm) 1 tablet, 2x a day as needed. --11:47 04/04/20 PERNELL Mustafalikiara Prebiotic-Probiotic Oral (Tablet Chewable 5-1.25 mg-gm) 1 tablet, daily. --11:48 04/04/20 ANNE-MAREI MedinaCipro Oral (Tablet 250 mg) 1 tablet, 2x a day. --11:48 04/04/20 Clayton Mercado RN.AllergiesPenicillins. Definite Severe(angioedema) --11:09 04/04/20 Clayton Mercado RN.ADDITIONAL SURGERIES:Bilateral eye lid lift. --11:10 04/04/20 Clayton Mercado RNRight foot. --11:10 04/04/20 Clayton Mercado RN.Grejjjf59:13 04/04/20.PAST MEDICAL HX: Hypertension. No history of diabetes mellitus. No history of anxiety or psychiatricillness. The patient is post-menopausal.SOCIAL HX: Never smoker. Alcohol use. (social). No drug use. She was offered HIV testi butdeclined and hepatitis C testing but declined. She has not traveled outside the [place]Infectious disease exposure: No infectious disease exposure.SELF HARM ASSESSMENT: Self harm assessment was performed. The patient answered "no" to thequestion(s) "Have you recently felt down, depressed, or hopeless?", "Do you have thoughts of harming orkilling yourself?", "Do you have a plan for harming or killing yourself?", "Have you recently had thoughtsabout harming or killing others?", "Do you have any dangerous items in your possession?", "Have younoticed less interest or pleasure in doing things?", "Are you here because you tried to hurt yourself?" and"Have you ever tried to hurt yourself before today?".ABUSE ASSESSMENT: Abuse history: reports abuse. (no). Abuse assessment. No suspicion of abuse.NUTRITIONAL RISK ASSESSMENT: The nutritional risk assessment revealed no deficiencies.FUNCTIONAL ASSESSMENT: Functional assessment: no impairments noted.LEARNING NEEDS ASSESSMENT: The learning needs assessment revealed no barriers.FALL RISK ASSESSMENT: Fall risk assessment completed. No risk factors identified.SKIN INTEGRITY ASSESSMENT: Skin integrity risk assessment completed. No skin integrity riskidentified. --11:13 04/04/20 Clayton Mercado RN.Frkacjgewedwg56:13 04/04/20. Identification and allergy band on patient. To room. --11:04/04/20 Clayton Mercado RN. 3 Clinical Report - Nurses [facility] Emergency Department [address] [place] [address] Phone #: ext- [phone] 04/04/2020 10:49 Patient: VOLODYMYR CLAIRE Sex: F : 1950 Age: 69yPHYSICAL ASSESSMENT 11:13 04/04/20. Ambulatory to room. GENERAL / NEURO / PSYCH: Alert. Oriented X 4. Speech within normal limits. Affect appears normal. Good eye contact. Patient appears well-nourished and neat and clean. RESPIRATORY: Respirations not labored. Breath sounds within normal limits. GI / : Abdomen soft and nontender. Bowel sounds within normal limits. SKIN: Skin is warm and dry. --11:04/04/20 Clayton Mercado RN.NURSING PROGRESS NOTES 11:14 04/04/20. Patient gowned. Head of bed elevated 60 degrees. Two patient identifiers checked. Call light placed in reach. Bed placed in lowest position. Brakes of bed on. Patient ready for evaluation- ED physician notified. --11:14 04/04/20 Clayton Mercado RN Checked patient name and birthdate: patient confirmed. Blood samples drawn from the left antecubital space peripheral IV site by nurse per protocol ; labeled in presence of the patient and sent to lab: rainbow set. Initial blood discarded. Line flushed with 10 mL normal saline post blood draw (1120). --11:27 04/04/20 Clayton Mercado RN 11:20 04/04/2020 Site #1 started via IV in the left antecubital space with an 20g angiocath; one attempt. Blood drawn: rainbow set. Labeled in the presence of the patient and sent to the lab. Saline lock flushed with 10 mL saline. --11:27 04/04/20 Clayton Mercado RN 11:22 04/04/2020 Site #1 started via IV in the left antecubital space with an 20g angiocath; one attempt. Blood drawn: rainbow set. Labeled in the presence of the patient and sent to the lab. Saline lock flushed with 10 mL saline. --11:27 04/04/20 Clayton Mercado RN Correction. --11:27 04/04/20 Clayton neil RN Patient transported to CT by wheelchair with mask and medical transcription radiology. (1120). --11:34 04/04/20 Clayton Mercado RN Patient returned from CT by wheelchair with mask and medical transcription radiology. (1150). --11:52 04/04/20 Clayton Mercado RN 11:58 04/04/20. BP: 121/82. MAP: 95. HR: 72. RR: 16. O2 saturation: 100%. --11:58 04/04/20 Mackenzie wood sash and frame carpenter, Gen[employer], ER Tech1 Portable chest x-ray ordered and shown to the ED physician (8656). --12:54 04/04/20 Clayton Mercado RN Droplet isolation precautions initiated. Mask, gowns and gloves in use. --12:55 04/04/20 Clayton Mercado RN 13:06 04/04/20. BP: 113/99. MAP: 103. HR: 70. RR: 16. O2 saturation: 100%. --13:06 04/04/20 [facility] Tech1 13:00 04/04/2020 POTASSIUM CHLORIDE LIQUID PO PO Syrup/Liquid 40 meq given. Allergies verified 4 Clinical Report - Nurses [facility] Emergency Department [address] [place] [address] Phone #: ext- [phone] 04/04/2020 10:49 Patient: VOLODYMYR CLAIRE Sex: F : 1950 Age: 69y and confirmed 5 rights. Information reviewed with patient. --13:13 04/04/20 Clayton Mercado RN Patient ID band checked for patient name and birthdate. COVID-19 specimen obtained by RN via nasopharyngeal swab. Labeled in the presence of the patient and sent to lab (1300). --13:14 04/04/20 Clayton Mercado RN 13:58 04/04/20. BP: 121/73. MAP: 89. HR: 76. RR: 16. O2 saturation: 100%. --13:59 04/04/20 [facility] Tech1.DISPOSITION / DISCHARGE 13:58 04/04/20. BP: 121/73. MAP: 89. HR: 76. RR: 16. O2 saturation: 100% on room air. Temp: 98 F (oral). Pain level now: 0/10. --14:19 04/04/20 Clayton Mercado RN 13:56 04/04/2020 Site #[address] upon admission; patent, no pain and no signs of infection or infiltration; flushes easily. --14:21 04/04/20 Clayton Mercado RN 14:10 04/04/20. Departure time: 14:10 04/04/2020. Disposition: observation in the Acute Inpatient Unit, Monitored. Transported via wheelchair by nurse with mask. Report was given to a nurse in person. Report included information regarding patient's treatment and allergies, current vital signs and labs. Report included treatment information regarding medications given or pending; type and amount of IV fluids. All questions were answered. Report was acknowledged. --14:19 04/04/20 Clayton Mercado RN.Locked/Released at 04/04/2020 16:20 by Clayton Mercado RN Name Value Range Interpretation Code Description Data Cynthia rce(s) Supporting Document(s) ID Date Data Source [id number] 04/04/2020 11:00:00 AM EST [facility] 1 Clinical Report - Physicians/Mid Levels [facility] Emergency Department [address] [place] [address] Phone #: ext- [phone] 04/04/2020 10:49 Patient: VOLODYMYR CLAIRE Sex: F : 1950 Age: 69y Time Seen: 10:55 04/04/2020; initial patient contact, initial documentation. Arrived- By private vehicle. Historian- patient and family. Disposition decision: 12:58 04/04/2020.HISTORY OF PRESENT ILLNESS Chief Complaint: HEADACHE. "seeing things that are not there". Is still present. This started patient has been having on and off headaches x 5 months and has been having visual hallucinations x 5 days. It has been intermittent. Onset during light activity. It is described as similar to previous headaches and throbbing. Located in the frontal region. Not located in the facial region. At its maximum, severity described as mild. When seen in the E.D., it was almost gone. Modifying factors: relieved by OTC meds. Not worsened by anything. No preceding symptoms, blurred vision, photophobia, associated nausea or numbness. No weakness or vomiting. (Patient states that she has been having intermittent headache x 5 months which is not exacerbated by anything and relieved by tylenol. no imaging studies done. she states that the main reason she is here in the ER is that she keeps seeing things that are not there. she sees animals at home that are not there. she sees people coming to the house that are not there. also states that she "howls' in her sleep but this has been going on for several months. patient recently treated for UTI with Cipro). No recent travel.REVIEW OF SYSTEMSNo fever, muscle aches, sinus pressure, ear pain or sore throat. No carbon monoxide exposure, tick bite,head injury, chest pain or difficulty breathing. No abdominal pain, diarrhea, pain with urination, skin rashor enlarged lymph nodes. No back pain. All other systems reviewed and are negative.PAST HISTORYSee nurses notes. Problems: Heart Disease. Hypertensive Headache. Hypertension. Additional Surgeries: Bilateral eye lid lift. Dilatation Curettage. Right foot. Tubal Ligation. Allergies: 2 Clinical Report - Physicians/[facility] Emergency Department [address] [place] [address] Phone #: ext- [phone] 04/04/2020 10:49 Patient: VOLODYMYR CLAIRE Sex: F : 1950 Age: 69y Penicillins. Definite Severe(angioedema).SOCIAL HISTORYNever smoker. No alcohol use or drug use.ADDITIONAL NOTESThe nursing notes have been reviewed.PHYSICAL EXAMVital Signs: 04/04/2020 11:05 BP: lying 135/85. MAP: 101. HR: 79. RR: 16. O2 saturation: 96% on roomair. Temp: 98.5 F. Pain level now: 2/10. Oxygen saturation normal.Appearance: Alert. No acute distress. Anxious.Eyes: Pupils equal, round and reactive to light. Eyes normal inspection.ENT: Ears normal. Nose normal. Pharynx normal.Neck: Normal inspection. Neck supple.CVS: Normal heart rhythm and rate. Heart sounds normal. Pulses normal.Respiratory: No respiratory distress. Painless inspiration. Breath sounds normal.Abdomen: Soft and nontender. No organomegaly.Back: Normal inspection. No CVA tenderness.Skin: Skin warm and dry. Normal skin color. No rash. Normal skin turgor.Extremities: Lower extremity edema. Extremities exhibit normal ROM. No lower extremity edema.Neuro: Oriented X 3. No alteration in mental status. Alert. Mood/affect no rmal. Speech normal. Nodysphasia or dysarthria. Cranial nerves normal (as tested). No cerebellar findings. No motor deficit.No sensory deficit. Reflexes normal.LABS, X-RAYS, AND EKGEKG: EKG time: 12:55 04/04/2020. No acute process. No acute ischemia. Normal EKG. Normalsinus rhythm. Rate: 65. Normal P waves. Normal QRS complex. Normal ST and T waves. The EKGappears to be a good tracing. Interpretation time: 13:00 04/04/2020.Chest X-ray: (Portillo christina Terence - 04/04/2020 1:01:10 PM No acute disease). The X-rays were interpreted by the radiologist. Laboratory Tests: ETOH: (STEPHANIE: 04/04/2020 11:20) ( [facility] [place] 13:14[place] Final results Test Result Flag Units (Reference) ALCOHOL <10.0 MG/DL ALCOHOL % 0.01 % (0.00 - 0.01) *FOR MEDICAL PURPOSES ONLY* Lactic Acid: (STEPHANIE: 04/04/2020 12:51) ( [facility] 04/04/[place] 12:58) Canceled CMP: (STEPHANIE: 04/04/2020 11:20) ( [facility] 04/04/2020 12:07) Final results Test Result Flag Units (Reference) COMPREHENSIVE METABOLIC PANEL COMPREHENSIVE METABOLIC PANEL 3 Clinical Report - Physicians/Mid Levels [facility] Emergency Department [address] [place] [address] Phone #: ext- [phone] 04/04/2020 10:49 Patient: VOLODYMYR CLAIRE Sex: F : 1950 Age: 69y SODIUM 137 mEq/L (134 - 153) POTASSIUM 3.1 L mEq/L (3.6 - 5.0) CHLORIDE 96 L mEq/L (98 - 107) CO2 25 MEQ/L (22 - 30) GLUCOSE 111 H MG/DL (70 - 99) BUN 10 MG/DL (7 - 21) CREATININE 0.5 L MG/DL (0.7 - 1.5) BUN/CREAT 20 (8 - 27) TOTAL PROTEIN 6.7 G/DL (6.3 - 8.2) ALBUMIN 4.5 G/DL (3.9 - 5.0) GLOBULIN 2.2 L GM/DL (2.4 - 3.2) A/G RATIO 2.0 (0.8 - 2.0) CALCIUM 9.4 MG/DL (8.4 - 10.2) TOTAL BILI 2.4 H MG/DL (0.2 - 1.3) ALKALINE PHOS 76 U/L (38 - 126) SGOT/AST 40 U/L (5 - 40) SGPT/ALT 32 U/L (7 - 56) ANION GAP 16.0 mmol/L (8.0 - 16.0) AGE 69 yrs NON-AA GFR >60 mL/min AFR AMER GFR >60 Male GFR Interprentation 20-49 yrs >60 mL/min [id number] yrs >56 mL/min Normal 60- 69 yrs >49 mL/min Normal 70-79yrs>42 mL/min Normal 80 and above >35 mL/min Normal Female GFRInterpretation 20-39 yrs >60 mL/min Normal 40-49 yrs >58 mL/minNormal 50-59 yrs >51 mL/min Normal 60-69 yrs >45 mL/min Curzsf91-27 yrs >39 mL/min Normal 80 and above >32 mL/min NormalUrinalysis: (STEPHANIE: 04/04/2020 11:45) ( MsgRcvd 04/04/2020 12:22) Final results Test Result Flag Units (Reference) URINALYSIS URINALYSIS SOURCE R COLOR comfort (NORMAL: Yello CLARITY hazy (NORMAL: Clear SPEC GRAVITY 1.020 (1.001 - 1.030 pH 5 (5 - 9) GLUCOSE NORM (NORMAL: Negat BILIRUBIN 1 (NORMAL: Negat KETONE 5 A (NORMAL: Negat PROTEIN 30 (NORMAL: Negat NITRITE NEG (NORMAL: Negat BLOOD 25 A (NORMAL: Negat LEUK EST 25 (NORMAL: Negat UROBILINOGEN 1 (less than 1.0 MICROSCOPIC See Below WBC 1 - 3 (NORMAL: NONE RBC 1 - 3 (NORMAL: NONE EPITHELIAL MANY A (NORMAL: NONE BACTERIA Trace (NORMAL: NONE CASTS See Below HYALINE CAST 1-3 A (NORMAL: None COARSE GRAN 1-3 A (NORMAL: None WBC CAST 1-3 A (NORMAL: NoneCT Head W/O Cont: (STEPHANIE: 04/04/2020 11:08) ( MsgRcvd 04/04/2020 13:20) In Progress Exam 4 Clinical Report - Physicians/Mid Levels [facility] Emergency Department [address] [place] [address] Phone #: ext- [phone] 04/04/2020 10:49 Patient: VOLODYMYR CLAIRE Sex: F : 1950 Age: 69y CT HEAD W/[place] [address] PHONE: [phone] FAX: [phone] Name .................. : DAKOTAH Parry Acct Number.................. : [id number] ROOM. ................. : TR-08 MR Number ................... : [id number] Stay type ............. : E/R Discharge Date......... ... : Admit Date ......... : 04/04/20 Admit Phys .................... : HAILEE Date of ....... : 1950 Family Phys ................... : VENTURA HARD Phone .................. : [phone] Age ................................ : 69 Film# .................. .:[id number] Sex ................................. : F Unsigned transcriptions are preliminary reports and do not represent a medical or legal document CT HEAD W/O CONTRAST [id number] COMPLETE:04/04/20 11:08 3479 Reason(s): headache, alterd mental status CT HEAD WITHOUT CONTRAST, 04/04/20: Comparison is made to 04/11/15. FINDINGS: There is no prominence of the ventricles and foci from atrophy. Mild to moderate low attenuation is present within the periventricular white matter from chronic periventricular white matter ischemia. The visualized portions of the orbits are unremarkable along with the visualized paranasal sinuses. No suspicious osseous lesion or acute fracture is identified. IMPRESSION: Mild atrophy. 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 No acute disease. While performing the above CT examination, radiation dose reduction was accomplished utilizing automated exposure control, adjusting of the mA and kV based on the patient's body size and/or the use of imperative reconstructive techniques. CT dose 817.7 mGycm. Electronically Reviewed and Signed By DCTNAME , SIGNDATE, TDJose Luis Transcribe Initials: SSR, Transcribe Date: 04/04/20 13:15, Dictation Date: <<REPDIST>> Page 1of 1Lactic Acid: (STEPHANIE: 04/04/2020 11:20) ( MsgRcvd 04/04/2020 12:18) Final results Test Result Flag Units (Reference) LACTIC ACID 1.6 MMOL/L (0.2 - 2.2)CBC w Diff: (STEPHANIE: 04/04/2020 11:20) ( MsgRcvd 04/04/2020 12:01) Final results 5 Clinical Report - Physicians/Mid Levels [facility] Emergency Department [address] [place] [address] Phone #: ext- [phone] 04/04/2020 10:49 Patient: VOLODYMYR CLAIRE Sex: F : 1950 Age: 69y Test Result Flag Units (Reference) CBC W/AUTOMATED DIFF COMPLETE BLOOD COUNT WBC 7.0 10/uL (4.2 - 11.0) RBC 4.33 10/uL (4.20 - 5.40) HEMOGLOBIN 13.6 g/dL (12.0 - 16.0) HEMATOCRIT 38.9 % (37.0 - 47.0) MCV 89.8 fL (81.0 - 101) MCH 31.4 pg (27.0 - 34.0) MCHC 35.0 g/dL (31.0 - 36.0) RDW 13.9 % (11.5 - 14.5) PLATELETS 246 10/uL (150 - 450) MPV 10.1 fL (7.4 - 10.4) NEUT 68.8 % (37.0 - 80.0) LYMPH 22.0 L % (25.0 - 40.0) MONO 7.8 % (3.0 - 8.0) EOS 0.7 % (0.0 - 7.0) BASO 0.4 % (0.0 - 2.5) %IG 0.3 H % (0.0 - 0.0) %NRBC 0.0 % (0.0 - 0.0) #NEUT 4.82 10/uL (2.00 - 6.90) #LYMPH 1.54 10/uL (0.60 - 3.40) #MONO 0.55 10/uL (0.00 - 0.90) #EOS 0.05 10/uL (0.00 - 0.70) #BASO 0.03 10/uL (0.00 - 0.20) #IG 0.02 10/uL (0.00 - 0.10) #NRBC 0.00 10/uL (0.00 - 0.00) MANUAL DIFF NOT INDICATED RBC MORPH NOT INDICATED Sed. Rate: (STEPHANIE: 04/04/2020 11:20) ( [facility] 04/04/2020 12:17) Final results Test Result Flag Units (Reference) SED RATE 2 mm/hr (0 - 30) SED RATE REENTER 2 CRP: (STEPHANIE: 04/04/2020 11:20) ( [facility] 04/04/2020 12:06) Final results Test Result Flag Units (Reference) CRP-HS 0.85 L MG/L (1.00 - 3.00) CDC/AHS HS-CRP CUT-OFF: RELATIVE RISK: <1.0 mg/L Low 1.0 - 3.0 mg/L Average >3.0 mg/L High Optimally, the average of HS-CRP results repeated two weeks apart should be used for risk assessment..PROGRESS AND PROCEDURESCourse of Care: 12:18 04/04/20. Patient comfortable in the ER. headache is minimal. Blood workunremarkable except for low potassium. will given potassium in the ER. awaiting CT of head as well asUrinalysis 12:53 04/04/20. ct scan of the head unremarkable. U/a normal. discussed case with DR ventura who wants the patient admitted for altered mental status 6 Clinical Report - Physicians/Mid Levels [facility] Emergency D epartment [address] [place] [address] Phone #: ext- [phone] 04/04/2020 10:49 Patient: VOLODYMYR CLAIRE Sex: F : 1950 Age: 69y 12:58 04/04/20. spoke with the hospitalist, Janneth Mclean who will admit the patient. 13:39 04/04/20. alcohol level and lactic acid negative.EKG normal CXR no acute disease. Critical care performed (35 minutes) (Spoke with th hospitalist Janneth Mclean who will admit the patient). Time is exclusive of separately billable procedures. Time includes: direct patient care, patient reassessment, coordination of patient care, interpretation of data, review of patient's medical records, medical consultation, family consultation regarding t reatment decisions and documentation of patient care- see progress notes. Patient and spouse counseled in person regarding the patient's stable condition and need for additional testing and admission. Patient and spouse agrees with plan of care. Disposition: Condition: good and stable. Observation decision based on further evaluation and further testing.CLINICAL IMPRESSION Chronic tension headache. No poorly controlled headache or migraine headache. Metabolic encephalopathy.(Electronically signed by Sosa Lomax 04/04/2020 21:36) Name Value Range Interpretation Code Description Data Cynthia rce(s) Supporting Document(s) ID Date Data Source [id number] 04/04/2020 04:08:00 [place] [address] RESPIRATORY CARE REPORT ==== ---------NAME------- NUMBER SEX AGE ADMIT DISC. COLVIN# F/C TYPEDAKOTAH Parry [id number] F 69 04/04/20 [id number] O/P DATE OF : 1950 M/R# [id number] #: [id number] LOCATION: EMERGENCY DEPT EKG [id number] COMPLE TE:04/04/20 15:02 [place] [id number] PHYSICIAN: TANIA LOMAX Name Value Range Interpretation Code Description Data Cynthia rce(s) Supporting Document(s) ID Date Data Source [id number] 04/04/2020 03:47:00 PM EST [facility] Name Value Range Interpretation Code Description Data Cynthia rce(s) Supporting Document(s) Hemoglobin A1c/Hemoglobin.total in Blood 5.6 % 4.4 - 6.1 [facility] {A1]{HB] ID Date Data Source [id number] 04/04/2020 03:39:00 PM EST [facility] Name Value Range Interpretation Code Description Data Cynthia rce(s) Supporting Document(s) Ammonia [Mass/volume] in Plasma 37.0 UG/DL 18.7 - 86.9 [facility] ID Date Data Source [id number] 04/04/2020 01:11:00 PM EST [facility] Name Value Range Interpretation Code Description Data Cynthia rce(s) Supporting Document(s) COVID19 Case rprt NOT DETECTED [facility] This lab was ordered by [facility] and reported by [facility]. ID Date Data Source [id number] 04/04/2020 02:02:00 PM EST [facility] NOT DETECTEDNOT DETECTED{ PROC EDURAL CONTROL VALID KIT LOT # _[id number] 04/04/20.1401.JNL. KIT EXP DATE _12/13/20 04/04/20.1401.JNL. NORMAL RANGE IS NOT DETECTEDNEGATIVE RESULTS SHOULD BE TREATED PRESUMPTIVE AND, IF INCONSISTENT WITHCLINICAL SIGNS AND SYMPTOMS OR NECESSARY FOR PATIENT MANAGEMENT, SHOULD BETESTED WITH DIFFERENT AUTHORIZED OR CLEARED MOLECULAR TESTS. NEGATIVE RESULTSDO NOT PRECLUDE SARS-CoV-2 INFECTION AND SHOULD NOT BE USED THE SOLE BASISFOR PATIENT MANAGEMENT DECISIONS. Name Value Range Interpretation Code Description Data Cynthia rce(s) Supporting Document(s) ID Date Data Source [id number] 04/04/2020 11:45:00 AM EST [facility] ([facility]) Name Value Range Interpretation Code Description Data Cynthia rce(s) Supporting Document(s) Drug Screen Urine Laboratory test result [facility] ([facility]) SOURCE: Clean Catch Barbiturates Laboratory test result [facility] ([facility]) SOURCE: Clean Catch Amphetamines Laboratory test result [facility] ([facility]) SOURCE: Clean Catch Benzo Laboratory test result [facility] ([facility]) SOURCE: Clean Catch Cocaine Laboratory test result [facility] ([facility]) SOURCE: Clean Catch THC Laboratory test result [facility] ([facility]) SOURCE: Clean Catch Opiates Laboratory test result [facility] ([facility]) SOURCE: Clean Catch PCP Laboratory test result [facility] ([facility]) SOURCE: Clean Catch ID Date Data Source [id number] 04/04/2020 11:45:00 AM EST [facility] ([facility]) Name Value Range Interpretation Code Description Data [facility] rce(s) Supporting Document(s) Urinalysis Laboratory test result [facility] ([facility]) SOURCE: Clean Catch Color Laboratory test result [facility] ([facility]) SOURCE: Clean Catch Source Laboratory test result [facility] ([facility]) SOURCE: Clean Catch Spec Luther 1.020 1.001-1.030 [facility] ([facility]) SOURCE: Clean Catch Clarity Laboratory test result [facility] ([facility]) SOURCE: Clean Catch Bilirubin 1 [facility] ([facility]) SOURCE: Clean Catch pH 5 5-9 [facility] ([facility]) SOURCE: Clean Catch Glucose Laboratory test result [facility] ([facility]) SOURCE: Clean Catch Protein 30 [facility] ([facility]) SOURCE: Clean Catch Ketone 5 Abnormal (applies to non-numeric res ults) [facility] ([facility]) SOURCE: Clean Catch Blood 25 Abnormal (applies to non-numeric res ults) [facility] ([facility]) SOURCE: Clean Catch Leuk Est 25 [facility] ([facility]) SOURCE: Clean Catch Nitrite Laboratory test result [facility] ([facility]) SOURCE: Clean Catch Microscopic Laboratory test result [facility] ([facility]) SOURCE: Clean Catch Urobilinogen 1 [facility] ([facility]) SOURCE: Clean Catch WBC Laboratory test result [facility] ([facility]) SOURCE: Clean Catch Epithelial Laboratory test result Abnormal (applies to non -numeric results) [facility] ([facility]) SOURCE: Clean Catch RBC Laboratory test result [facility] ([facility]) SOURCE: Clean Catch Casts Laboratory test result [facility] ([facility]) SOURCE: Clean Catch Bacteria Laboratory test result [facility] ([facility]) SOURCE: Clean Catch Coarse Gran Laboratory test result Abnormal (applies to non-numeric results) [facility] ([facility]) SOURCE: Clean Catch WBC Cast Laboratory test result Abnormal (applies to non -numeric results) [facility] ([facility]) SOURCE: Clean Catch Hyaline Cast Laboratory test result Abnormal (applies to non-numeric results) [facility] SOURCE: Clean Catch ID Date Data Source [id number] 04/04/2020 01:44:00 PM [facility] Name Value Range Interpretation Code Description Data Cynthia rce(s) Supporting Document(s) DRUG SCREEN URINE [facility] URINE DRUG SCREEN Amphetamine [Presence] in Urine by Screen method NEGATIVE NORMAL: N EGATIVE [facility] BARBITURATES NEGATIVE NORMAL: NEGATIVE [facility] BENZO NEGATIVE NORMAL: NEGATIVE [facility] COCAINE NEGATIVE NORMAL: NEGATIVE [facility] Tetrahydrocannabinol [Presence] in Urine NEGATIVE NORMAL: NEGATIVE [facility] OPIATES NEGATIVE NORMAL: NEGATIVE [facility] Phencyclidine [Presence] in Urine by Screen method NEGATIVE NOR MAL: NEGATIVE [facility] \\BLDo\\URINE DRUG SCR EEN INTERPRETATION\\BLDx\\ THE CUTOFFF LEVELS FOR DETECTION ARE FOLLOWS: AMPHETAMINES 1000 ng/ml BARBITUARATES 200 ng/ml BENZODIAZEPINES 100 ng/ml THC 50 ng/ml PHENCYCLIDINE 25 ng/ml OPIATES 300 ng/ml COCAINE 300 ng/ml ALL POSITIVES ARE CONSIDERED PRESUMPTIVE POSITIVE CONFIRMATION WILL BE PERFORMED AT PHYSICIAN REQUEST. ID Date Data Source [id number] 04/04/2020 12:21:00 PM EST [facility] Name Value Range Interpretation Code Description Data Cynthia rce(s) Supporting Document(s) [facility] COLOR comfort NORMAL: Yellow [facility] CLARITY hazy NORMAL: Clear [facility] Specific gravity of Urine by Test strip 1.020 1.001 - 1.030 [facility] pH 5 5 - 9 [facility] al Glucose [Mass/volume] in Urine by Test strip NORM [facility]: [facility] Bilirubin.total [Presence] in Urine by Test strip 1 NORMAL: Negative [facility] Ketones [Presence] in Urine by Test strip 5 NORMAL: Negative [facility] Protein [Mass/volume] in Urine by Test strip 30 [facility] Nitrite [Presence] in Urine by Test strip NEG NORMAL: Negative [facility] BLOOD 25 NORMAL: Negative [facility] Leukocyte esterase [Presence] in Urine by Test strip 25 ALKA L: Negative [facility] Urobilinogen [Mass/volume] in Urine by Test strip 1 less eleuterio n 1.0 mg/dL [facility] MICROSCOPIC See Below [facility] ital WBC 1 - 3 NORMAL: NONE SEEN [facility] Erythrocytes [#/volume] in Urine by Test strip 1 - 3 NORMAL: NON E SEEN [facility] EPITHELIAL MANY NORMAL: NONE SEEN [facility] Bacteria [Presence] in Urine sediment by Light microscopy Tr valeriano NORMAL: NONE SEEN [facility] Casts [#/area] in Urine sediment by Microscopy low power field See Be low [facility] Hyaline casts [#/area] in Urine sediment by Microscopy low p ower field 1-3 NORMAL: None Seen [facility] Coarse Granular Casts [#/area] in Urine sediment by Mi croscopy low power field 1-3 NORMAL: None Seen A [facility] WBC casts [#/area] in Urine sediment by Microscopy low power field 1-3 NORMAL: None Seen A [facility] ID Date Data Source [id number] 04/04/2020 11:20:00 AM EST [facility] ([facility]) Name Value Range Interpretation Code Description Data Cynthia rce(s) Supporting Document(s) Lactate dehydrogenase [Enzymatic activit y/volume] in Serum or Plasma by Lactate to pyruvate reaction 264 U/L 135-214 Above high normal [facility] ([facility]) Troponin T.cardiac [Mass/volume] in Serum or Plasma Laborato ry test result 0.00-0.10 [facility] ([facility]) TROPONIN T 0.1 ng/ml Recommended as the clinical th reshold value for Troponin T. ID Date Data Source [id number] 04/04/2020 11:20:00 AM EST [facility] ([facility]) Name Value Range Interpretation Code Description Data Cynthia rce(s) Supporting Document(s) Alcohol Laboratory test result [facility] ([facility]) Alcohol % 0.01 % 0.00-0.01 [facility] ([facility]) *FOR MEDICAL PURPOSES ONLY* ID Date Data Source [id number] 04/04/2020 11:20:00 AM EST [facility] ([facility]) Name Value Range Interpretation Code Description Data Cynthia rce(s) Supporting Document(s) Lactate [Mass/volume] in Serum or Plasma 1.6 mmol/L 0.2-2.2 [facility] ([facility]) ID Date Data Source [id number] 04/04/2020 11:20:00 AM EST [facility] ([facility]) Name Value Range Interpretation Code Description Data Cynthia rce(s) Supporting Document(s) Sed Rate 2 mm/hr 0-30 [facility] ([facility]) Sed Rate Reenter 2 [facility] ([facility]) ID Date Data Source [id number] 04/04/2020 11:20:00 AM EST [facility] ([facility]) Name Value Range Interpretation Code Description Data Cynthia rce(s) Supporting Document(s) Comprehensive [employer]abo Laboratory test result [facility] ([facility]) COMPREHENSIVE METABOLIC PANEL Sodium 137 meq/L 134-153 [facility] ([facility]) Potassium 3.1 meq/L 3.6-5.0 Below low normal [facility] ( [facility]) Chloride 96 meq/L 98-107 Below low normal [facility] ( [facility]) Co2 25 meq/L 22-30 [facility] ([facility]) Glucose 111 mg/dL 70-99 Above high normal [facility] ([facility]) BUN 10 mg/dL 7-21 [facility] ([facility]) Creatinine 0.5 mg/dL 0.7-1.5 Below low normal [facility] ( [facility]) Albumin 4.5 g/dL 3.9-5.0 [facility] ([facility]) BUN/Creat 20 8-27 [facility] ([facility]) Total Protein 6.7 g/dL 6.3-8.2 [facility] ([facility]) Calcium 9.4 mg/dL 8.4-10.2 [facility] ([facility]) A/G Ratio 2.0 0.8-2.0 [facility] ([facility]) Globulin 2.2 GM/DL 2.4-3.2 Below low normal [facility] ( [facility]) Alkaline Phos 76 U/L 38-126 [facility] ([facility]) Sgot/Ast 40 U/L 5-40 [facility] ([facility]) Total Bili 2.4 mg/dL 0.2-1.3 Above high normal [facility] ([facility]) Age 69 yrs [facility] ([facility]) Anion Gap 16.0 mmol/L 8.0-16.0 [facility] ([facility]) SGPT/Alt 32 U/L 7-56 [facility] ([facility]) Afr Amer GFR Laboratory test result [facility] ([facility]) Male GFR Interprentation 20-49 yrs >60 mL/min Normal 50-59 yrs >56 mL/min Normal 60-69 yrs >49 mL/min Normal 70-79yrs >42 mL/min Normal 80 and above >35 mL/min Normal Female GFR Interpretation 20-39 yrs >60 mL/min Normal 40-49 yrs >58 mL/min Normal 50-59 yrs >51 mL/min Normal 60-69 yrs >45 mL/min Normal 70-79 yrs >39 mL/min Normal 80 and above >32 mL/min Normal Non-Aa GFR Laboratory test result [facility] ([facility]) ID Date Data Source [id number] 04/04/2020 11:20:00 AM EST [facility] Name Value Range Interpretation Code Description Data Cynthia rce(s) Supporting Document(s) C reactive protein [Mass/volume] in Serum or Plasma by High sensitivity method 0.85 mg/L 1.00-3.00 Below low normal [facility] ([facility]) <content>CDC/S HS-CRP CUT-OFF: RELATIVE RISK:</content>
<content><1.0 mg/L Low</content>
<content>1.0 - 3.0 mg/L Average</jarett nt>
<content>>3.0 mg/L High</content>
<content>Optimally, the average of HS-CRP results repeated</content>
<content>two weeks apart should be used for risk assessment.</content>
<content></content> ID Date Data Source [id number] 04/04/2020 11:20:00 AM EST [facility] ([facility]) Name Value Range Interpretation Code Description Data Cynthia rce(s) Supporting Document(s) RBC 4.33 10^6/uL 4.20-5.40 [facility] ([facility]) WBC 7.0 10^3/uL 4.2-11.0 [facility] ([facility]) CBC W/Automated Diff Laboratory test result [facility] ([facility]) COMPLETE BLOOD COUNT Hemoglobin 13.6 g/dL 12.0-16.0 [facility] ([facility]) Hematocrit 38.9 % 37.0-47.0 [facility] ([facility]) MCV 89.8 fL 81.0-101 [facility] ([facility]) RDW 13.9 % 11.5-14.5 [facility] ([facility]) MCHC 35.0 g/dL 31.0-36.0 [facility] ([facility]) MCH 31.4 pg 27.0-34.0 [facility] ([facility]) MPV 10.1 fL 7.4-10.4 [facility] ([facility]) Neut 68.8 % 37.0-80.0 [facility] ([facility]) Platelets 246 10^3/uL 150-450 [facility] ([facility]) Lymph 22.0 % 25.0-40.0 Below low normal [facility] ( [facility]) [place] 7.8 % 3.0-8.0 [facility] ([facility]) Eos 0.7 % 0.0-7.0 [facility] ([facility]) %Ig 0.3 % 0.0-0.0 Above high normal [facility] ([facility]) %NRBC 0.0 % 0.0-0.0 [facility] ([facility]) Baso 0.4 % 0.0-2.5 [facility] ([facility]) #Neut 4.82 10^3/uL 2.00-6.90 [facility] ([facility]) #Lymph 1.54 10^3/uL 0.60-3.40 [facility] ([facility]) #[place] 0.55 10^3/uL 0.00-0.90 [facility] ([facility]) #Baso 0.03 10^3/uL 0.00-0.20 [facility] ([facility]) #Eos 0.05 10^3/uL 0.00-0.70 [facility] ([facility]) #Ig 0.02 10^3/uL 0.00-0.10 [facility] ([facility]) Manual Diff Laboratory test result [facility] ([facility]) #NRBC 0.00 10^3/uL 0.00-0.00 [facility] ([facility]) RBC Morph Laboratory test result [facility] ([facility]) ID Date Data Source [id number] 04/04/2020 07:41:00 PM [facility] Value Range Interpretation Code Description Data Cynthia rce(s) Supporting Document(s) Folate [Mass/volume] in Serum or Plasma >20.0 NG/ML 5.6 - 45.8 [facility] ID Date Data Source [id number] 04/04/2020 04:09:00 PM [facility] Value Range Interpretation Code Description Data Cynthia rce(s) Supporting Document(s) Thyrotropin [Units/volume] in Serum or Plasma by Detec tion limit <= 0.05 mIU/L 1.93 uIU/mL 0.47 - 5.01 [facility] ID Date Data Source [id number] 04/04/2020 04:09:00 PM [facility] Value Range Interpretation Code Description Data Cynthia rce(s) Supporting Document(s) Cobalamin (Vitamin B12) [Mass/volume] in Serum or Plasma 592 PG/ML 232 - 1245 [facility] ID Date Data Source [id number] 04/04/2020 01:48:00 PM [facility] Value Range Interpretation Code Description Data Cynthia rce(s) Supporting Document(s) TROPONIN T <0.01 NG/ML 0.00 - 0.10 [facility] TROPONIN T0.1 ng/ml Recommended as the c linical threshold value forTroponin T. ID Date Data Source [id number] 04/04/2020 01:45:00 PM [facility] Value Range Interpretation Code Description Data Cynthia rce(s) Supporting Document(s) Lactate dehydrogenase [Enzymatic activity/volume] in Serum o r Plasma 264 U/L 135 - 214 H [facility] ID Date Data Source [id number] 04/04/2020 01:14:00 PM [facility] Value Range Interpretation Code Description Data Cynthia rce(s) Supporting Document(s) Ethanol [Moles/volume] in Blood <10.0 MG/DL [facility] ALCOHOL % 0.01 % 0.00 - 0.01 [facility] ital *FOR MEDICAL PURPOSES ONLY * ID Date Data Source [id number] 04/04/2020 12:17:00 PM [facility] Name Value Range Interpretation Code Description Data Cynthia rce(s) Supporting Document(s) Lactate [Moles/volume] in Serum or Plasma 1.6 MMOL/L 0.2 - 2.2 [facility] ID Date Data Source [id number] 04/04/2020 12:17:00 PM EST [facility] Name Value Range Interpretation Code Description Data Cynthia rce(s) Supporting Document(s) Erythrocyte sedimentation rate by Westergren method 2 mm/hr 0 - 30 [facility] SED RATE REENTER 2 [facility] ID Date Data Source [id number] 04/04/2020 12:06:00 PM [facility] Name Value Range Interpretation Code Description Data Cynthia rce(s) Supporting Document(s) COMPREHENSIVE METABOLIC PANEL [facility] COMPREHENSIVE METABOLIC PANEL Sodium [Moles/volume] in Serum or Plasma 137 mEq/L 134 - 153 [facility] Potassium [Moles/volume] in Serum or Plasma 3.1 mEq/L 3.6 - 5.0 L [facility] Chloride [Moles/volume] in Serum or Plasma 96 mEq/L 98 - 107 L [facility] Carbon dioxide, total [Moles/volume] in Serum or Plasma 25 MEQ/L 22 - 30 [facility] Glucose [Mass/volume] in Serum or Plasma 111 MG/DL 70 - 99 H [facility] BUN 10 MG/DL 7 - 21 [facility] al Creatinine [Mass/volume] in Serum or Plasma 0.5 MG/DL 0.7 - 1.5 L [facility] BUN/CREAT 20 8 - 27 [facility] al Protein [Mass/volume] in Serum or Plasma 6.7 G/DL 6.3 - 8.2 [facility] Albumin [Mass/volume] in Serum or Plasma 4.5 G/DL 3.9 - 5.0 [facility] Globulin [Mass/volume] in Serum by calculation 2.2 GM/DL 2.4 - 3.2 L [facility] A/G RATIO 2.0 0.8 - 2.0 [facility] Calcium [Mass/volume] in Serum or Plasma 9.4 MG/DL 8.4 - 10.2 [facility] Bilirubin.total [Mass/volume] in Serum or Plasma 2.4 MG/DL 0.2 - 1.3 H [facility] Alkaline phosphatase [Enzymatic activity/volume] in Serum or Plasma 76 U/L 38 - 126 [facility] Aspartate aminotransferase [Enzymatic activity/volume] in Serum or Plasma 40 U/L 5 - 40 [facility] Alanine aminotransferase [Enzymatic activity/volume] in Seru m or Plasma 32 U/L 7 - 56 [facility] Anion gap 3 in Serum or Plasma 16.0 mmol/L 8.0 - 16.0 [facility]GE 69 yrs [facility] G[facility] >60 mL/min [facility] ital AFR AMER GFR >60 [facility] Male GFR In terprentation 20-49 yrs >60 mL/min Normal 50-59 yrs >56 mL/min Normal 60-69 yrs >49 mL/min Normal 70-79yrs >42 mL/min Normal 80 and above >35 mL/min Normal Female GFR Interpretation 20-39 yrs >60 mL/min Normal 40-49 yrs >58 mL/min Normal 50-59 yrs >51 mL/min Normal 60-69 yrs >45 mL/min Normal 70-79 yrs >39 mL/min Normal 80 and above >32 mL/min Normal ID Date Data Source [id number] 04/04/2020 12:06:00 PM EST [facility] Name Value Range Interpretation Code Description Data Cynthia rce(s) Supporting Document(s) C reactive protein [Mass/volume] in Serum or Plasma by High sensitivity method 0.85 MG/L 1.00 - 3.00 L [facility] CDC/S HS-CRP CUT-OFF: RELATIVE RISK: <1.0 mg/L Low 1.0 - 3.0 mg/L Average >3.0 mg/L High Optimally, the average of HS-CRP results repeated two weeks apart should be used for risk assessment. ID Date Data Source [id number] 04/04/2020 12:01:00 PM EST [facility] Name Value Range Interpretation Code Description Data Cynthia rce(s) Supporting Document(s) CBC W/AUTOMATED DIFF [facility] COMPLETE BLOOD COUNT Leukocytes [#/volume] in Blood by Automated count 7.0 10^3/uL 4.2 - 1 1.0 [facility] Erythrocytes [#/volume] in Blood by Automated count 4.33 10^6/uL 4. 20 - 5.40 [facility] Hemoglobin [Mass/volume] in Blood 13.6 g/dL 12.0 - 16.0 [facility] Hematocrit [Volume Fraction] of Blood by Automated count 38.9 % 3 7.0 - 47.0 [facility] Erythrocyte mean corpuscular volume [Entitic volume] by Auto mated count 89.8 fL 81.0 - 101 [facility] Erythrocyte mean corpuscular hemoglobin [Entitic mass] by Automated count 31.4 pg 27.0 - 34.0 [facility] Erythrocyte mean corpuscular hemoglobin concentration [Mass/volume] by Automated count 35.0 g/dL 31.0 - 36.0 [facility] Erythrocyte distribution width [Ratio] by Automated count 13.9 % 11.5 - 14.5 [facility] Platelets [#/volume] in Blood by Automated count 246 10^3/uL 150 - 45 0 [facility] Platelet mean volume [Entitic volume] in Blood by Automated count 10.1 fL 7.4 - 10.4 [facility] Neutrophils/100 leukocytes in Blood by Automated count 68.8 % 37. 0 - 80.0 [facility] Lymphocytes/100 leukocytes in Blood by Manual count 22.0 % 25.0 - 40.0 L [facility] Monocytes/100 leukocytes in Blood by Automated count 7.8 % 3.0 - 8.0 [facility] Eosinophils/100 leukocytes in Blood by Automated count 0.7 % 0.0 - 7.0 [facility] Basophils/100 leukocytes in Blood by Automated count 0.4 % 0.0 - 2.5 [facility] %IG 0.3 % 0.0 - 0.0 [facility] %NRBC 0.0 % 0.0 - 0.0 [facility] Neutrophils [#/volume] in Blood by Automated count 4.82 10^3/uL 2.00 - 6.90 [facility] Lymphocytes [#/volume] in Blood by Automated count 1.54 10^3/uL 0.60 - 3.40 [facility] Monocytes [#/volume] in Blood by Automated count 0.55 10^3/uL 0.00 - 0.90 [facility] Eosinophils [#/volume] in Blood by Automated count 0.05 10^3/uL 0.00 - 0.70 [facility] Basophils [#/volume] in Blood by Automated count 0.03 10^3/uL 0.00 - 0.20 [facility] #IG 0.02 10^3/uL 0.00 - 0.10 [facility] ospital #NRBC 0.00 10^3/uL 0.00 - 0.00 [facility] MANUAL DIFF NOT INDICATED [facility] RBC MORPH NOT INDICATED [facility] spital ID Date Data Source [id number] 03/15/2020 11:25:00 AM EST [facility] ([facility]) Name Value Range Interpretation Code Description Data Cynthia rce(s) Supporting Document(s) Color of Urine Laboratory test result [facility]) [facility] Spec [place] 1.020 [facility] pH of Urine by Test strip 5 [facility] ([facility]) Leukocytes Laboratory test result [facility] ([facility]) Nitrate [Presence] in Urine [facility] Inhouse Glucose Laboratory test result [facility] ([facility]) Protein [Presence] in Urine by Test strip Laboratory test result [facility] ([facility]) Urobilinogen Laboratory test result [facility] ([facility]) Ketones [Presence] in Urine by Test strip [facility] Blood type and Indirect antibody screen panel - Blood [facility] Bilirubin.total [Presence] in Urine by Test strip Laboratory test res ult [facility] ([facility]) ID Date Data Source [id number] 03/15/2020 11:25:00 AM EST [facility] ([facility]) Name Value Range Interpretation Code Description Data Cynthia rce(s) Supporting Document(s) Bacteria identified in Urine by Culture Laboratory test result [facility] ([facility]) ID Date Data Source [id number] 03/15/2020 11:19:00 AM EST [facility] ([facility]) Name Value Range Interpretation Code Description Data Cynthia rce(s) Supporting Document(s) Urinalysis Laboratory test result [facility] ([facility]) {SOURCE: Random Void~NURSE COLLECTED? N Color Laboratory test result [facility] ([facility]) {SOURCE: Random Void~NURSE COLLECTED? N Source Laboratory test result [facility] ([facility]) {SOURCE: Random Void~NURSE COLLECTED? N Spec Luther 1.015 1.001-1.030 [facility] ([facility]) {SOURCE: Random Void~NURSE COLLECTED? N Clarity Laboratory test result [facility] ([facility]) {SOURCE: Random Void~NURSE COLLECTED? N pH 6 5-9 [facility] ([facility]) {SOURCE: Random Void~NURSE COLLECTED? N Glucose Laboratory test result [facility] ([facility]) {SOURCE: Random Void~NURSE COLLECTED? N Bilirubin Laboratory test result [facility] ([facility]) {SOURCE: Random Void~NURSE COLLECTED? N Protein 15 [facility] ([facility]) {SOURCE: Random Void~NURSE COLLECTED? N Ketone 5 Abnormal (applies to non-numeric res ults) [facility] ([facility]) {SOURCE: Random Void~NURSE COLLECTED? N Blood Laboratory test result [facility] ([facility]) {SOURCE: Random Void~NURSE COLLECTED? N Nitrite Laboratory test result [facility] ([facility]) {SOURCE: Random Void~NURSE COLLECTED? N Leuk Est 25 [facility] ([facility]) {SOURCE: Random Void~NURSE COLLECTED? N Microscopic Laboratory test result [facility] ([facility]) {SOURCE: Random Void~NURSE COLLECTED? N Urobilinogen 1 [facility] ([facility]) {SOURCE: Random Void~NURSE COLLECTED? N WBC Laboratory test result [facility] ([facility]) {SOURCE: Random Void~NURSE COLLECTED? N RBC Laboratory test result [facility] ([facility]) {SOURCE: Random Void~NURSE COLLECTED? N Bacteria Laboratory test result [facility] ([facility]) {SOURCE: Random Void~NURSE COLLECTED? N Epithelial Laboratory test result [facility] ([facility]) {SOURCE: Random Void~NURSE COLLECTED? N ID Date Data Source [id number] 03/15/2020 11:19:00 AM EST [facility] ([facility]) Name Value Range Interpretation Code Description Data Cynthia rce(s) Supporting Document(s) Culture Urine Laboratory test result [facility] ([facility]) {SOURCE: Random Void~NURSE COLLECTED? N ID Date Data Source [id number] 03/20/2020 07:59:00 AM [facility] Name Value Range Interpretation Code Description Data Cynthia rce(s) Supporting Document(s) CULTURE URINE [facility] spital _CULTURE URINE_$$[id number]$$[id number]$$[id number]$$[id number]$$784824$$187690$$386448$$070834$$024086$$ 717789$$686814$$666970$$641203$$030171$$913327$$718132$$468207$$364787$$440433$$ 880379$$485802$$024111$$414332$$288246$$970806$$322930$$088831 -- Continued on next page --Patient: DAKOTAH Parry Order: [id number] Page 2Culture: CULTURE URINE Status: Final ==== -- Continued on next page --Patient: DAKOTAH Parry Order: [id number] Page 2Culture: CULTURE URINE Status: Prelim =====$$[id number]$$[id number] DATE/TIME: 03/19/2020 11:05Culture: CULTURE URINE Status: FinalUrine Culture,Comprehensive: [id number] urogenital flora10,000-25,000 colony forming units per mL Previous result entered on 03/18/2020 02:54 ET Specimen has been received and testing has been initiated.P1 Test performed by: Lucky [facility]aiBellevue HospitalIA #: [id number] [address] [place] [address] [phone] [facility] [id number] Director : Maykel Marquez MD NPI #:Water Plumber : 03/18/[email or web address].SENT REF 03/20/20.0759.XMT.SENT REF ID Date Data Source [id number] 03/15/2020 08:53:00 PM EST [facility] Name Value Range Interpretation Code Description Data Cynthia rce(s) Supporting Document(s) URINALYSIS [facility] mariela URINALYSIS SOURCE Random Void [facility] ital COLOR comfort NORMAL: Yellow [facility] CLARITY clear NORMAL: Clear [facility] Specific gravity of Urine by Test strip 1.015 1.001 - 1.030 [facility] pH 6 5 - 9 [facility] Glucose [Mass/volume] in Urine by Test strip NORM NORMAL: Negat [facility] Bilirubin.total [Presence] in Urine by Test strip NEG NORMAL: Negative [facility] Ketones [Presence] in Urine by Test strip 5 NORMAL: Negative A [facility] Protein [Mass/volume] in Urine by Test strip 15 NORMAL: Negat christiano [facility] Nitrite [Presence] in Urine by Test strip NEG NORMAL: Negative [facility] BLOOD NEG NORMAL: Negative [facility] Leukocyte esterase [Presence] in Urine by Test strip 25 [place] L: Negative [facility] Urobilinogen [Mass/volume] in Urine by Test strip 1 less eleuterio n 1.0 mg/dL [facility] MICROSCOPIC See Below [facility] ital WBC 1 - 3 NORMAL: NONE SEEN [facility] Erythrocytes [#/volume] in Urine by Test strip 0 - 1 NORMAL: NON E SEEN [facility] EPITHELIAL FEW NORMAL: NONE SEEN [facility] Bacteria [Presence] in Urine sediment by Light microscopy Tr valeriano NORMAL: NONE SEEN [facility] ID Date Data Source [id number] 02/20/2020 02:11:00 PM EST [facility] Name Value Range Interpretation Code Description Data Cynthia rce(s) Supporting Document(s) CULTURE URINE [facility] _CULTURE URINE_$$[id number]$$[id number]$$[id number]$$054742$$787648$$710580$$696577$$857411$$049033$$ 348264$$670943$$605909$$102513$$048466$$118788$$898201$$075623$$122484$$240060$$ 424646$$515207$$347440$$519279$$453225$$356809$$933089$$510340 -- Continued on next page --Patient: DAKOTAH HELM L Order: [id number] Page 2Culture: CULTURE URINE Status: Final ==== -- Continued on next page --Patient: DAKOTAH HELM L Order: [id number] Page 2Culture: CULTURE URINE Status: Prelim =====$$[id number]$$[id number] DATE/TIME: 02/20/2020 13:05Culture: CULTURE URINE Status: FinalIsolate 1 Enterococcus faecalis Flag: A . . . . . . .710,000-25,000 colony forming units per mL Previous result entered on 02/19/2020 05:44 ET Microbiological testing to rule out the presence of possible pathogensis in progress.Urine Culture,Comprehensive: [id number] faecalis Flag: AIsolate 2 Lactobacillus species Flag: . . . . . . .425,000-50,000 colony forming units per mLSusceptibility not normally performed on this organism.Lactobacillus speciesPatient: DAKOTAH Parry Order: [id number] Page 3Culture: CULTURE URINE Status: Ebony l ISOLATE 1 Enterococcus faecalis Isolate 1Antibiotic [place] IntUnits ug/mL ----Ciprofloxacin S S . . . . . .185-9Levofloxacin S S . . . . . .18659-0Talprrxzizwqwm S S . . . . . .363-2Penicillin S S . . . . . .6932-8Tetracycline S S . . . . . .496- 0Vancomycin S S . . . . . .524-9P1 Test performed by: Jose De Jesus MATTHEWS #: [id number] [address] [place] [address] [phone] [facility] [id number] Director : Maykel Marquez MD NPI #:Water Plumber : 02/19/20.0837.XMT.SENT REF 02/20/20.1411.XMT.SENT REF ID Date Data Source [id number] 02/15/2020 09:22:00 PM [facility] Name Value Range Interpretation Code Description Data Cynthia rce(s) Supporting Document(s) Thyrotropin [Units/volume] in Serum or Plasma by Detec tion limit <= 0.05 mIU/L 1.87 uIU/mL 0.47 - 5.01 [facility] ID Date Data Source [id number] 02/15/2020 09:22:00 PM [facility] Name Value Range Interpretation Code Description Data Cynthia rce(s) Supporting Document(s) Thyroxine (T4) free index in Serum or Plasma by calculation 0.93 NG/DL 0.93 - 1.70 [facility] ID Date Data Source [id number] 02/15/2020 09:22:00 PM [facility] Name Value Range Interpretation Code Description Data Cynthia rce(s) Supporting Document(s) Calcidiol [Moles/volume] in Serum or Plasma 42 NG/ML [facility] VITAMIN-D(2 5HYDROXY) Deficiency: <=20 ng/ml Insufficiency: 21-29 ng/ml Preferred level: => 30 ng/ml ID Date Data Source [id number] 02/15/2020 08:52:00 PM [facility] Value Range Interpretation Code Description Data Cynthia rce(s) Supporting Document(s) COMPREHENSIVE METABOLIC PANEL [facility] COMPREHENSIVE METABOLIC PANEL Sodium [Moles/volume] in Serum or Plasma 141 mEq/L 134 - 153 [facility] Potassium [Moles/volume] in Serum or Plasma 3.9 mEq/L 3.6 - 5.0 [facility] Chloride [Moles/volume] in Serum or Plasma 102 mEq/L 98 - 107 [facility] Carbon dioxide, total [Moles/volume] in Serum or Plasma 30 MEQ/L 22 - 30 [facility] Glucose [Mass/volume] in Serum or Plasma 106 MG/DL 65 - 110 [facility] BUN 12 MG/DL 7 - 21 [facility] al Creatinine [Mass/volume] in Serum or Plasma 0.6 MG/DL 0.7 - 1.5 L [facility] BUN/CREAT 20 8 - 27 [facility] Protein [Mass/volume] in Serum or Plasma 7.3 G/DL 6.3 - 8.2 [facility] Albumin [Mass/volume] in Serum or Plasma 4.8 G/DL 3.9 - 5.0 [facility] Globulin [Mass/volume] in Serum by calculation 2.5 GM/DL 2.4 - 3.2 [facility] A/G RATIO 1.9 0.8 - 2.0 [facility] Calcium [Mass/volume] in Serum or Plasma 9.5 MG/DL 8.4 - 10.2 [facility] Bilirubin.total [Mass/volume] in Serum or Plasma 1.0 MG/DL 0.2 - 1.3 [facility] Alkaline phosphatase [Enzymatic activity/volume] in Serum or Plasma 72 U/L 38 - 126 [facility] Aspartate aminotransferase [Enzymatic activity/volume] in Serum or Plasma 22 U/L 5 - 40 [facility] Alanine aminotransferase [Enzymatic activity/volume] in Seru m or Plasma 16 U/L 7 - 56 [facility] Anion gap 3 in Serum or Plasma 9.0 mmol/L 8.0 - 16.0 [facility] AGE 69 yrs [facility] NON-AA GFR >60 mL/min [facility] ital AFR AMER GFR >60 [facility] Male GFR In terprentation 20-49 yrs >60 mL/min Normal 50-59 yrs >56 mL/min Normal 60-69 yrs >49 mL/min Normal 70-79yrs >42 mL/min Normal 80 and above >35 mL/min Normal Female GFR Interpretation 20-39 yrs >60 mL/min Normal 40-49 yrs >58 mL/min Normal 50-59 yrs >51 mL/min Normal 60-69 yrs >45 mL/min Normal 70-79 yrs >39 mL/min Normal 80 and above >32 mL/min Normal ID Date Data Source [id number] 02/15/2020 08:52:00 PM EST [facility] Name Value Range Interpretation Code Description Data Cynthia rce(s) Supporting Document(s) CVE PANEL [facility] LIPID PANEL Cholesterol [Mass/volume] in Serum or Plasma 203 MG/DL 131 - 200 H [facility] Deprecated Triglyceride [Mass/volume] in Serum or Plasma 137 MG/DL 3 5 - 160 [facility] HDL 75 MG/DL 29 - 86 [facility] Cholesterol in LDL [Mass/volume] in Serum or Plasma by Direc t assay 113 mg/dL 65 - 175 [facility] Cholesterol.total/Cholesterol in HDL [Mass Ratio] in Serum o r Plasma 2.7 3.2 - 4.4 L [facility] LDL/HDL 1.51 1.47 - 3.22 [facility] ital CVE RISK CHOL/HDL LDL/HDLMEN: 1/2 AVERAGE 3.43 1.00 AVERAGE 4.97 3.55 2X AVERAGE 9.55 6.25 3X AVERAGE 23.99 7.99WOMEN: 1/2 AVERAGE 3.27 1.47 AVERAGE 4.44 3.22 2X AVERAGE 7.05 5.03 3X AVERAGE 11.04 6.14 ID Date Data Source [id number] 02/15/2020 08:52:00 PM [facility] Name Value Range Interpretation Code Description Data Cynthia rce(s) Supporting Document(s) Urate [Mass/volume] in Serum or Plasma 6.6 MG/DL 2.5 - 8.5 [facility] ID Date Data Source [id number] 02/15/2020 08:47:00 PM [facility] Name Value Range Interpretation Code Description Data Cynthia rce(s) Supporting Document(s) Erythrocyte sedimentation rate by Westergren method 4 mm/hr 0 - 30 [facility] SED RATE REENTER 4 [facility] ID Date Data Source [id number] 02/15/2020 08:29:00 PM [facility] Name Value Range Interpretation Code Description Data Cynthia rce(s) Supporting Document(s) CBC W/AUTOMATED DIFF [facility] COMPLETE BLOOD COUNT Leukocytes [#/volume] in Blood by Automated count 9.1 10^3/uL 4.2 - 1 1.0 [facility] Erythrocytes [#/volume] in Blood by Automated count 4.43 10^6/uL 4. 20 - 5.40 [facility] Hemoglobin [Mass/volume] in Blood 13.9 g/dL 12.0 - 16.0 [facility] Hematocrit [Volume Fraction] of Blood by Automated count 41.8 % 3 7.0 - 47.0 [facility] Erythrocyte mean corpuscular volume [Entitic volume] by Auto mated count 94.4 fL 81.0 - 101 [facility] Erythrocyte mean corpuscular hemoglobin [Entitic mass] by Automated count 31.4 pg 27.0 - 34.0 [facility] Erythrocyte mean corpuscular hemoglobin concentration [Mass/volume] by Automated count 33.3 g/dL 31.0 - 36.0 [facility] Erythrocyte distribution width [Ratio] by Automated count 12.7 % 11.5 - 14.5 [facility] Platelets [#/volume] in Blood by Automated count 365 10^3/uL 150 - 45 0 [facility] Platelet mean volume [Entitic volume] in Blood by Automated count 10.6 fL 7.4 - 10.4 H [facility] Neutrophils/100 leukocytes in Blood by Automated count 60.3 % 37. 0 - 80.0 [facility] Lymphocytes/100 leukocytes in Blood by Manual count 29.9 % 25.0 - 40.0 [facility] Monocytes/100 leukocytes in Blood by Automated count 6.8 % 3.0 - 8.0 [facility] Eosinophils/100 leukocytes in Blood by Automated count 2.1 % 0.0 - 7.0 [facility] Basophils/100 leukocytes in Blood by Automated count 0.7 % 0.0 - 2.5 [facility] %IG 0.2 % 0.0 - 0.0 [facility] %[facility]BC 0.0 % 0.0 - 0.0 [facility] Neutrophils [#/volume] in Blood by Automated count 5.46 10^3/uL 2.00 - 6.90 [facility] Lymphocytes [#/volume] in Blood by Automated count 2.71 10^3/uL 0.60 - 3.40 [facility] Monocytes [#/volume] in Blood by Automated count 0.62 10^3/uL 0.00 - 0.90 [facility] Eosinophils [#/volume] in Blood by Automated count 0.19 10^3/uL 0.00 - 0.70 [facility] Basophils [#/volume] in Blood by Automated count 0.06 10^3/uL 0.00 - 0.20 [facility] #IG 0.02 10^3/uL 0.00 - 0.10 [facility] #NRBC 0.00 10^3/uL 0.00 - 0.00 [facility] ospital MANUAL DIFF NOT INDICATED [facility] RBC MORPH NOT INDICATED [facility] ID Date Data Source [id number] 02/15/2020 06:21:00 PM EST [facility] Name Value Range Interpretation Code Description Data Cynthia rce(s) Supporting Document(s) [facility] COLOR comfort NORMAL: Yellow [facility] CLARITY cloudy NORMAL: Clear [facility] Specific gravity of Urine by Test strip 1.025 1.001 - 1.030 [facility] pH 5 5 - 9 [facility] Glucose [Mass/volume] in Urine by Test strip [facility] Bilirubin.total [Presence] in Urine by Test strip 1 NORMAL: Negative [facility] Ketones [Presence] in Urine by Test strip 15 NORMAL: Negative [facility] Protein [Mass/volume] in Urine by Test strip 30 [facility] Nitrite [Presence] in Urine by Test strip POS NORMAL: Negative [facility] BLOOD 10 NORMAL: Negative [facility] Leukocyte esterase [Presence] in Urine by Test strip 25 [place] L: Negative [facility] Urobilinogen [Mass/volume] in Urine by Test strip 1 less eleuterio n 1.0 mg/dL [facility] MICROSCOPIC See Below [facility] ital EPITHELIAL FEW NORMAL: NONE SEEN [facility] Bacteria [Presence] in Urine sediment by Light microscopy 3+ LARGE NORMAL: NONE SEEN A [facility] Amorphous sediment [Presence] in Urine sediment by Light milton roscopy 3+ NORMAL: NONE SEEN [facility] ID Date Data Source [id number] 02/15/2020 10:35:00 AM EST [facility] ([facility]) Name Value Range Interpretation Code Description Data Cynthia rce(s) Supporting Document(s) Urate [Mass/volume] in Serum or Plasma Laboratory test result [facility] ([facility]) ID Date Data Source [id number] 02/15/2020 10:35:00 AM EST [facility] ([facility]) Name Value Range Interpretation Code Description Data Cynthia rce(s) Supporting Document(s) Thyroxine (T4) free [Mass/volume] in Serum or Plasma Laboratory cb t result [facility] ([facility]) Calcidiol [Mass/volume] in Serum or Plasma Laboratory test result [facility] ([facility]) Erythrocyte sedimentation rate by Westergren method Laboratory test result [facility] ([facility]) Thyrotropin [Units/volume] in Serum or Plasma Laboratory test result [facility] ([facility]) ID Date Data Source [id number] 02/15/2020 10:35:00 AM EST [facility] ([facility]) Name Value Range Interpretation Code Description Data Cynthia rce(s) Supporting Document(s) pH of Urine by Test strip Laboratory test result [facility] ([facility]) Specific gravity of Urine Laboratory test result [facility] ([facility]) Leukocytes [#/area] in Urine sediment by Microscopy hi gh power field Laboratory test result [facility] ([facility]) Appearance of Urine Laboratory test result [facility] ([facility]) Color of Urine Laboratory test result [facility] ([facility]) Glucose [Presence] in Urine Laboratory test result [facility] ([facility]) Ketones [Presence] in Urine by Test strip Laboratory test result [facility] ([facility]) Protein [Presence] in Urine by Test strip Laboratory test result [facility] ([facility]) Urobilinogen [Mass/volume] in Urine by Test strip Laboratory test res ult [facility] ([facility]) Bilirubin.total [Presence] in Urine by Test strip Laboratory test res ult [facility] ([facility]) Nitrite [Presence] in Urine by Test strip Laboratory test result [facility] ([facility]) Ua Occult Blood Laboratory test result [facility] ([facility]) Urinalysis Laboratory test result [facility] ([facility]) {SOURCE: Random Void~NURSE COLLECTED? N {SPECIMEN TYPE: RANDOM Source Laboratory test result [facility] ([facility]) {SOURCE: Random Void~NURSE COLLECTED? N {SPECIMEN TYPE: RANDOM Color Laboratory test result [facility] ([facility]) {SOURCE: Random Void~NURSE COLLECTED? N {SPECIMEN TYPE: RANDOM Spec Luther 1.025 1.001-1.030 [facility] ([facility]) {SOURCE: Random Void~NURSE COLLECTED? N {SPECIMEN TYPE: RANDOM Clarity Laboratory test result [facility] ([facility]) {SOURCE: Random Void~NURSE COLLECTED? N {SPECIMEN TYPE: RANDOM Bilirubin 1 [facility] ([facility]) {SOURCE: Random Void~NURSE COLLECTED? N {SPECIMEN TYPE: RANDOM Glucose Laboratory test result [facility] ([facility]) {SOURCE: Random Void~NURSE COLLECTED? N {SPECIMEN TYPE: RANDOM pH 5 5-9 [facility] ([facility]) {SOURCE: Random Void~NURSE COLLECTED? N {SPECIMEN TYPE: RANDOM Nitrite Laboratory test result [facility] ([facility]) {SOURCE: Random Void~NURSE COLLECTED? N {SPECIMEN TYPE: RANDOM Protein 30 [facility] ([facility]) {SOURCE: Random Void~NURSE COLLECTED? N {SPECIMEN TYPE: RANDOM Ketone 15 Abnormal (applies to non-numeric res ults) [facility] ([facility]) {SOURCE: Random Void~NURSE COLLECTED? N {SPECIMEN TYPE: RANDOM Leuk Est 25 [facility] ([facility]) {SOURCE: Random Void~NURSE COLLECTED? N {SPECIMEN TYPE: RANDOM Blood 10 Abnormal (applies to non-numeric res ults) [facility] ([facility]) {SOURCE: Random Void~NURSE COLLECTED? N {SPECIMEN TYPE: RANDOM Epithelial Laboratory test result [facility] ([facility]) {SOURCE: Random Void~NURSE COLLECTED? N {SPECIMEN TYPE: RANDOM Microscopic Laboratory test result [facility] ([facility]) {SOURCE: Random Void~NURSE COLLECTED? N {SPECIMEN TYPE: RANDOM Urobilinogen 1 [facility] {SOURCE: Random Void~NURSE COLLECTED? N {SPECIMEN TYPE: RANDOM Amorph Sed Laboratory test result [facility] ([facility]) {SOURCE: Random Void~NURSE COLLECTED? N {SPECIMEN TYPE: RANDOM Bacteria Laboratory test result Abnormal (applies to non -numeric results) [facility] {SOURCE: Random Void~NURSE COLLECTED? N {SPECIMEN TYPE: RANDOM ID Date Data Source [id number] 02/15/2020 10:35:00 AM EST [facility] Name Value Range Interpretation Code Description Data Cynthia rce(s) Supporting Document(s) Culture Urine Laboratory test result [facility] ([facility]) {SOURCE: Random Void~NURSE COLLECTED? N {SPECIMEN TYPE: RANDOM ID Date Data Source [id number] 02/15/2020 10:35:00 AM EST [facility] ([facility]) Name Value Range Interpretation Code Description Data Cynthia rce(s) Supporting Document(s) WBC 9.1 10^3/uL 4.2-11.0 [facility]) {SOURCE: Random Void~NURSE COLLECTED? N {SPECIMEN TYPE: RANDOM RBC 4.43 10^6/uL 4.20-5.40 [facility] ([facility]) {SOURCE: Random Void~NURSE COLLECTED? N {SPECIMEN TYPE: RANDOM CBC W/Automated Diff Laboratory test result [facility] ([facility]) {SOURCE: Random Void~NURSE COLLECTED? N {SPECIMEN TYPE: RANDOM Hemoglobin 13.9 g/dL 12.0-16.0 [facility] ([facility]) {SOURCE: Random Void~NURSE COLLECTED? N {SPECIMEN TYPE: RANDOM Hematocrit 41.8 % 37.0-47.0 [facility] ([facility]) {SOURCE: Random Void~NURSE COLLECTED? N {SPECIMEN TYPE: RANDOM MCH 31.4 pg 27.0-34.0 [facility] ([facility]) {SOURCE: Random Void~NURSE COLLECTED? N {SPECIMEN TYPE: RANDOM MCHC 33.3 g/dL 31.0-36.0 [facility] ([facility]) {SOURCE: Random Void~NURSE COLLECTED? N {SPECIMEN TYPE: RANDOM MCV 94.4 fL 81.0-101 [facility] ([facility]) {SOURCE: Random Void~NURSE COLLECTED? N {SPECIMEN TYPE: RANDOM RDW 12.7 % 11.5-14.5 [facility] ([facility]) {SOURCE: Random Void~NURSE COLLECTED? N {SPECIMEN TYPE: RANDOM Platelets 365 10^3/uL 150-450 [facility] ([facility]) {SOURCE: Random Void~NURSE COLLECTED? N {SPECIMEN TYPE: RANDOM Lymph 29.9 % 25.0-40.0 [facility] ([facility]) {SOURCE: Random Void~NURSE COLLECTED? N {SPECIMEN TYPE: RANDOM Neut 60.3 % 37.0-80.0 [facility] ([facility]) {SOURCE: Random Void~NURSE COLLECTED? N {SPECIMEN TYPE: RANDOM MPV 10.6 fL 7.4-10.4 Above high normal [facility] ([facility]) {SOURCE: Random Void~NURSE COLLECTED? N {SPECIMEN TYPE: RANDOM Eos 2.1 % 0.0-7.0 [facility] ([facility]) {SOURCE: Random Void~NURSE COLLECTED? N {SPECIMEN TYPE: RANDOM [place] 6.8 % 3.0-8.0 [facility] ([facility]) {SOURCE: Random Void~NURSE COLLECTED? N {SPECIMEN TYPE: RANDOM %NRBC 0.0 % 0.0-0.0 [facility] ([facility]) {SOURCE: Random Void~NURSE COLLECTED? N {SPECIMEN TYPE: RANDOM %Ig 0.2 % 0.0-0.0 Above high normal [facility] ([facility]) {SOURCE: Random Void~NURSE COLLECTED? N {SPECIMEN TYPE: RANDOM Baso 0.7 % 0.0-2.5 [facility] ([facility]) {SOURCE: Random Void~NURSE COLLECTED? N {SPECIMEN TYPE: RANDOM #Lymph 2.71 10^3/uL 0.60-3.40 [facility] ([facility]) {SOURCE: Random Void~NURSE COLLECTED? N {SPECIMEN TYPE: RANDOM #Neut 5.46 10^3/uL 2.00-6.90 [facility] ([facility]) {SOURCE: Random Void~NURSE COLLECTED? N {SPECIMEN TYPE: RANDOM #[place] 0.62 10^3/uL 0.00-0.90 [facility] ([facility]) {SOURCE: Random Void~NURSE COLLECTED? N {SPECIMEN TYPE: RANDOM #Eos 0.19 10^3/uL 0.00-0.70 [facility] ([facility]) {SOURCE: Random Void~NURSE COLLECTED? N {SPECIMEN TYPE: RANDOM #NRBC 0.00 10^3/uL 0.00-0.00 [facility] ([facility]) {SOURCE: Random Void~NURSE COLLECTED? N {SPECIMEN TYPE: RANDOM #Ig 0.02 10^3/uL 0.00-0.10 [facility] ([facility]) {SOURCE: Random Void~NURSE COLLECTED? N {SPECIMEN TYPE: RANDOM #Baso 0.06 10^3/uL 0.00-0.20 [facility] ([facility]) {SOURCE: Random Void~NURSE COLLECTED? N {SPECIMEN TYPE: RANDOM Manual Diff Laboratory test result [facility] ([facility]) {SOURCE: Random Void~NURSE COLLECTED? N {SPECIMEN TYPE: RANDOM RBC Morph Laboratory test result [facility] ([facility]) {SOURCE: Random Void~NURSE COLLECTED? N {SPECIMEN TYPE: RANDOM ID Date Data Source [id number] 02/15/2020 10:35:00 AM EST [facility] ([facility]) Name Value Range Interpretation Code Description Data Cynthia rce(s) Supporting Document(s) Sed Rate 4 mm/hr 0-30 [facility] ([facility]) {SOURCE: Random Void~NURSE COLLECTED? N {SPECIMEN TYPE: RANDOM Sed Rate Reenter 4 [facility] ([facility]) {SOURCE: Random Void~NURSE COLLECTED? N {SPECIMEN TYPE: RANDOM ID Date Data Source [id number] 02/15/2020 10:35:00 AM EST [facility] ([facility]) Name Value Range Interpretation Code Description Data Cynthia rce(s) Supporting Document(s) Cve Panel Laboratory test result [facility] ([facility]) {SOURCE: Random Void~NURSE COLLECTED? N {SPECIMEN TYPE: RANDOM Cholesterol 203 mg/dL 131-200 Above high normal [facility] ([facility]) {SOURCE: Random Void~NURSE COLLECTED? N {SPECIMEN TYPE: RANDOM Triglycerides 137 mg/dL 35-160 [facility] ([facility]) {SOURCE: Random Void~NURSE COLLECTED? N {SPECIMEN TYPE: RANDOM HDL 75 mg/dL 29-86 [facility] ([facility]) {SOURCE: Random Void~NURSE COLLECTED? N {SPECIMEN TYPE: RANDOM Risk Factor 2.7 3.2-4.4 Below low normal [facility] [facility] {SOURCE: Random Void~NURSE COLLECTED? N {SPECIMEN TYPE: RANDOM LDL/HDL 1.51 1.47-3.22 [facility] ([facility]) {SOURCE: Random Void~NURSE COLLECTED? N {SPECIMEN TYPE: RANDOM LDL 113 mg/dL 65-175 [facility] ([facility]) {SOURCE: Random Void~NURSE COLLECTED? N {SPECIMEN TYPE: RANDOM ID Date Data Source [id number] 02/15/2020 10:35:00 AM EST [facility] ([facility]) Name Value Range Interpretation Code Description Data Cynthia rce(s) Supporting Document(s) Urate [Mass/volume] in Serum or Plasma 6.6 mg/dL 2.5-8.5 [facility] ([facility]) {SOURCE: Random Void~NURSE COLLECTED? N {SPECIMEN TYPE: RANDOM ID Date Data Source [id number] 02/15/2020 10:35:00 AM EST [facility] ([facility]) Name Value Range Interpretation Code Description Data Cynthia rce(s) Supporting Document(s) Comprehensive [facility] Laboratory test result [facility] ([facility]) {SOURCE: Random Void~NURSE COLLECTED? N {SPECIMEN TYPE: RANDOM Chloride 102 meq/L 98-107 [facility] ([facility]) {SOURCE: Random Void~NURSE COLLECTED? N {SPECIMEN TYPE: RANDOM Sodium 141 meq/L 134-153 [facility] ([facility]) {SOURCE: Random Void~NURSE COLLECTED? N {SPECIMEN TYPE: RANDOM Potassium 3.9 meq/L 3.6-5.0 [facility] ([facility]) {SOURCE: Random Void~NURSE COLLECTED? N {SPECIMEN TYPE: RANDOM Co2 30 meq/L 22-30 [facility] ([facility]) {SOURCE: Random Void~NURSE COLLECTED? N {SPECIMEN TYPE: RANDOM Glucose 106 mg/dL 65-110 [facility] ([facility]) {SOURCE: Random Void~NURSE COLLECTED? N {SPECIMEN TYPE: RANDOM Creatinine 0.6 mg/dL 0.7-1.5 Below low normal [facility] ( [facility]) {SOURCE: Random Void~NURSE COLLECTED? N {SPECIMEN TYPE: RANDOM BUN/Creat 20 8-27 [facility] ([facility]) {SOURCE: Random Void~NURSE COLLECTED? N {SPECIMEN TYPE: RANDOM BUN 12 mg/dL 7-21 [facility] ([facility]) {SOURCE: Random Void~NURSE COLLECTED? N {SPECIMEN TYPE: RANDOM Total Protein 7.3 g/dL 6.3-8.2 [facility] ([facility]) {SOURCE: Random Void~NURSE COLLECTED? N {SPECIMEN TYPE: RANDOM Albumin 4.8 g/dL 3.9-5.0 [facility] ([facility]) {SOURCE: Random Void~NURSE COLLECTED? N {SPECIMEN TYPE: RANDOM Globulin 2.5 GM/DL 2.4-3.2 [facility] ([facility]) {SOURCE: Random Void~NURSE COLLECTED? N {SPECIMEN TYPE: RANDOM Calcium 9.5 mg/dL 8.4-10.2 [facility] ([facility]) {SOURCE: Random Void~NURSE COLLECTED? N {SPECIMEN TYPE: RANDOM A/G Ratio 1.9 0.8-2.0 [facility] ([facility]) {SOURCE: Random Void~NURSE COLLECTED? N {SPECIMEN TYPE: RANDOM Alkaline Phos 72 U/L 38-126 [facility] ([facility]) {SOURCE: Random Void~NURSE COLLECTED? N {SPECIMEN TYPE: RANDOM Sgot/Ast 22 U/L 5-40 [facility] ([facility]) {SOURCE: Random Void~NURSE COLLECTED? N {SPECIMEN TYPE: RANDOM Total Bili 1.0 mg/dL 0.2-1.3 [facility] ([facility]) {SOURCE: Random Void~NURSE COLLECTED? N {SPECIMEN TYPE: RANDOM SGPT/Alt 16 U/L 7-56 [facility] ([facility]) {SOURCE: Random Void~NURSE COLLECTED? N {SPECIMEN TYPE: RANDOM Anion Gap 9.0 mmol/L 8.0-16.0 [facility] ([facility]) {SOURCE: Random Void~NURSE COLLECTED? N {SPECIMEN TYPE: RANDOM Non-Aa GFR Laboratory test result [facility] ([facility]) {SOURCE: Random Void~NURSE COLLECTED? N {SPECIMEN TYPE: RANDOM Age 69 yrs [facility] ([facility]) {SOURCE: Random Void~NURSE COLLECTED? N {SPECIMEN TYPE: RANDOM Afr Amer GFR Laboratory test result [facility] ([facility]) {SOURCE: Random Void~NURSE COLLECTED? N {SPECIMEN TYPE: RANDOM ID Date Data Source [id number] 02/15/2020 10:35:00 AM EST [facility] ([facility]) Name Value Range Interpretation Code Description Data Cynthia rce(s) Supporting Document(s) Calcidiol [Mass/volume] in Serum or Plasma 42 ng/mL [facility] ([facility]) {SOURCE: Random Void~NURSE COLLECTED? N {SPECIMEN TYPE: RANDOM Thyroxine (T4) free [Mass/volume] in Serum or Plasma 0.93 ng/dL 0.93- 1.70 [facility] {SOURCE: Random Void~NURSE COLLECTED? N {SPECIMEN TYPE: RANDOM Thyrotropin [Units/volume] in Serum or Plasma 1.87 uIU/mL 0.47-5.01 [facility] ([facility]) {SOURCE: Random Void~NURSE COLLECTED? N {SPECIMEN TYPE: RANDOM ID Date Data Source [id number] 01/06/2020 12:00:00 AM EST [facility] Name Value Range Interpretation Code Description Data Cynthia rce(s) Supporting Document(s) 2019-nCoV RNA XXX YUAN+probe-Imp [facility] This lab was ordered by [facility] and reported by [employer] ID Date Data Source [id number] 12/27/2019 03:07:00 PM EDT [facility] Name Value Range Interpretation Code Description Data Cynthia rce(s) Supporting Document(s) Potassium [Moles/volume] in Serum or Plasma 3.7 mEq/L 3.6 - 5.0 [facility] ID Date Data Source [id number] 12/27/2019 11:07:00 AM EDT [facility] ([facility]) Name Value Range Interpretation Code Description Data Cynthia rce(s) Supporting Document(s) Potassium [Moles/volume] in Serum or Plasma 3.7 meq/L 3.6-5.0 [facility] ([facility]) ID Date Data Source [id number] 2019 07:15:00 PM EDT [facility] ([facility]) Name Value Range Interpretation Code Description Data Cynthia rce(s) Supporting Document(s) Surgical pathology study Laboratory test result [facility] ([facility]) FINAL DIAGNOSIS Tendon, right anterior tibialis, repair: Fibrous tissue with chronic inflammation and calcifications, consistent with tendon. 12/21/2019717 CLINICAL DIAGNOSIS Right tibialis anterior tendon rupture 12/17/2019 - 141 GROSS DIAGNOSIS Received in formalin labeled "right tibialis anterior tendon" and consists of one piece of fibrous tissue measuring 5.5 x 1.5 x 1.3 cm. Sectioning of the specimen reveals fibrous connective tissue with hemorrhagic areas. [employer] section in one block. -SV 12/17/2019 - 1414 Signed MARCUS FRANKLIN MD 12/21/2019 0847 ID Date Data Source [id number] 12/14/2019 04:22:00 PM EDT [facility] Name Value Range Interpretation Code Description Data Cynthia rce(s) Supporting Document(s) Potassium [Moles/volume] in Serum or Plasma 3.6 mEq/L 3.6 - 5.0 [facility] ID Date Data Source [id number] 12/14/2019 08:44:00 AM EDT [facility] ([facility]) Name Value Range Interpretation Code Description Data Cynthia rce(s) Supporting Document(s) Potassium [Moles/volume] in Serum or Plasma 3.6 meq/L 3.6-5.0 [facility] ([facility]) ID Date Data Source [id number] 12/11/2019 10:00:00 AM EDT [facility] Name Value Range Interpretation Code Description Data Cynthia rce(s) Supporting Document(s) SARS coronavirus 2 RNA [facility] This lab was ordered by [facility] and reported by [facility]. ID Date Data Source [id number] 12/09/2019 03:19:00 PM EDT [facility] ([facility]) Name Value Range Interpretation Code Description Data Cynthia rce(s) Supporting Document(s) Inhouse EKG Laboratory test result [facility] ([facility]) ID Date Data Source [id number] 12/09/2019 02:54:00 PM EDT [facility] ([facility]) Name Value Range Interpretation Code Description Data Cynthia rce(s) Supporting Document(s) Comprehensive [facility] Laboratory test result [facility] ([facility]) Is patient fasting? N Sodium 139 meq/L 134-153 [facility] ([facility]) Is patient fasting? N Potassium 3.1 meq/L 3.6-5.0 Below low normal [facility] ( [facility]) Is patient fasting? N Glucose 101 mg/dL 65-110 [facility] ([facility]) Is patient fasting? N Chloride 98 meq/L 98-107 [facility] ([facility]) Is patient fasting? N Co2 29 meq/L 22-30 [facility] ([facility]) Is patient fasting? N BUN 12 mg/dL 7-21 [facility] ([facility]) Is patient fasting? N Creatinine 0.5 mg/dL 0.7-1.5 Below low normal [facility] ( [facility]) Is patient fasting? N BUN/Creat 24 8-27 [facility] ([facility]) Is patient fasting? N Globulin 2.5 GM/DL 2.4-3.2 [facility] ([facility]) Is patient fasting? N Albumin 4.5 g/dL 3.9-5.0 [facility] ([facility]) Is patient fasting? N Total Protein 7.0 g/dL 6.3-8.2 [facility] ([facility]) Is patient fasting? N A/G Ratio 1.8 0.8-2.0 [facility] ([facility]) Is patient fasting? N Total Bili 1.7 mg/dL 0.2-1.3 Above high normal [facility] ([facility]) Is patient fasting? N Calcium 9.3 mg/dL 8.4-10.2 [facility] ([facility]) Is patient fasting? N SGPT/Alt 18 U/L 7-56 [facility] ([facility]) Is patient fasting? N Sgot/Ast 28 U/L 5-40 [facility] ([facility]) Is patient fasting? N Alkaline Phos 78 U/L 38-126 [facility] ([facility]) Is patient fasting? N Anion Gap 12.0 mmol/L 8.0-16.0 [facility] ([facility]) Is patient fasting? N Non-Aa GFR Laboratory test result [facility] ([facility]) Is patient fasting? N Age 68 yrs [facility] ([facility]) Is patient fasting? N Afr Amer GFR Laboratory test result [facility] ([facility]) Is patient fasting? N ID Date Data Source [id number] 12/09/2019 02:54:00 PM EDT [facility] ([facility]) Name Value Range Interpretation Code Description Data Cynthia rce(s) Supporting Document(s) Protime 13.4 s 11.0-15.5 [facility] ([facility]) Is patient fasting? N Inr 1.01 0.93-1.23 [facility] ([facility]) Is patient fasting? N ID Date Data Source [id number] 12/09/2019 07:17:00 PM EDT [facility] Name Value Range Interpretation Code Description Data Cynthia rce(s) Supporting Document(s) COMPREHENSIVE METABOLIC PANEL [facility] COMPREHENSIVE METABOLIC PANEL Sodium [Moles/volume] in Serum or Plasma 139 mEq/L 134 - 153 [facility] Potassium [Moles/volume] in Serum or Plasma 3.1 mEq/L 3.6 - 5.0 L [facility] Chloride [Moles/volume] in Serum or Plasma 98 mEq/L 98 - 107 [facility] Carbon dioxide, total [Moles/volume] in Serum or Plasma 29 MEQ/L 22 - 30 [facility] Glucose [Mass/volume] in Serum or Plasma 101 MG/DL 65 - 110 [facility] BUN 12 MG/DL 7 - 21 [facility] al Creatinine [Mass/volume] in Serum or Plasma 0.5 MG/DL 0.7 - 1.5 L [facility] BUN/CREAT 24 8 - 27 [facility] Protein [Mass/volume] in Serum or Plasma 7.0 G/DL 6.3 - 8.2 [facility] Albumin [Mass/volume] in Serum or Plasma 4.5 G/DL 3.9 - 5.0 [facility] Globulin [Mass/volume] in Serum by calculation 2.5 GM/DL 2.4 - 3.2 [facility] A/G RATIO 1.8 0.8 - 2.0 [facility] Calcium [Mass/volume] in Serum or Plasma 9.3 MG/DL 8.4 - 10.2 [facility] Bilirubin.total [Mass/volume] in Serum or Plasma 1.7 MG/DL 0.2 - 1.3 H [facility] Alkaline phosphatase [Enzymatic activity/volume] in Serum or Plasma 78 U/L 38 - 126 [facility] Aspartate aminotransferase [Enzymatic activity/volume] in Serum or Plasma 28 U/L 5 - 40 [facility] Alanine aminotransferase [Enzymatic activity/volume] in Seru m or Plasma 18 U/L 7 - 56 [facility] Anion gap 3 in Serum or Plasma 12.0 mmol/L 8.0 - 16.0 [facility] AGE 68 yrs [facility] al NON-AA GFR >60 mL/min [facility] ital AFR AMER GFR >60 [facility] Male GFR In terprentation 20-49 yrs >60 mL/min Normal 50-59 yrs >56 mL/min Normal 60-69 yrs >49 mL/min Normal 70-79yrs >42 mL/min Normal 80 and above >35 mL/min Normal Female GFR Interpretation 20-39 yrs >60 mL/min Normal 40-49 yrs >58 mL/min Normal 50-59 yrs >51 mL/min Normal 60-69 yrs >45 mL/min Normal 70-79 yrs >39 mL/min Normal 80 and above >32 mL/min Normal ID Date Data Source [id number] 12/09/2019 06:56:00 PM EDT [facility] Name Value Range Interpretation Code Description Data Cynthia rce(s) Supporting Document(s) Prothrombin time (PT) 13.4 SECONDS 11.0 - 15.5 [facility] INR in Platelet poor plasma by Coagulation assay 1.01 0.93 - 1. 23 [facility] \\BLDo\\INR INTERPRETATION\\BLDx\\ Therapeutic range for Coumadin and related oral anticoagulants. - International Normalized Ratio (INR): 2.0 - 3.0 for Venous Thrombosis, Pulmonary Embolus, Tissue heart valves, Acute MD, Atrial Fibrillation, Valvular heart disease and recurrent Systemic Embolism. -International Normalized Ratio (INR): 2.5 - 3.5 for Mechanical Prosthetic valve. ID Date Data Source [id number] 11/16/2019 11:02:00 AM EDT [facility] ([facility]) Name Value Range Interpretation Code Description Data Cynthia e(s) Supporting Document(s) Creatinine For GFR 0.66 mg/dL 0.55-1.30 Normal (applies to non -numeric results) [facility] ([facility]) Glucose, Fasting 102 mg/dL 70-100 Above high normal [facility] Blood Urea Nitrogen 10 mg/dL 7-18 Normal (applies to non-nume keli results) [facility]) Glomerular Filtration Rate Laboratory test result Normal (applies to non- numeric results) [facility]) <content>Units are mL/min/1.73 m2</content>
<content></content>
<content>Chronic Kidney Disease Staging per NKF:</content>
<content></content>
<content>Stage I & II GFR >=60 Normal to Mildly Decreased</content>
<content>Stage III GFR 30-59 Moderately Decreased</content>
<content>Stage IV GFR 15-29 Severely Decreased</content>
<content>Stage V GFR <15 Very Little GFR Left</content>
<content>ESRD GFR <15 on [employer]</content>
<content></content> Sodium Level 140 meq/L 136-145 Normal (applies to non-numeric res ults) [facility] ([facility]) Potassium Serum 3.3 meq/L 3.5-5.1 Below low normal [facility] ([facility]) Chloride Level 100 meq/L 98-107 Normal (applies to non-numeric r esults) [facility] ([facility]) Carbon Dioxide Level 32 meq/L 21-32 Normal (applies to non-num jenni results) [facility]) Calcium Level 8.8 mg/dL 8.8-10.2 Normal (applies to non-numeric re sults) [facility] ([facility]) Anion Gap 8 meq/L 8-16 Normal (applies to non-numeric resul ts) [facility] ([facility]) Ast/Sgot 79 U/L 7-37 [facility] Alt/SGPT 49 U/L 12-78 Normal (applies to non-numeric resul ts) [facility] ([facility]) Total Protein 7.3 GM/DL 6.4-8.2 Normal (applies to non-numeric re sults) [facility] ([facility]) Bilirubin,Total 0.8 mg/dL 0.2-1.0 Normal (applies to non-numeric results) [facility] ([facility]) Alkaline Phosphatase 75 U/L 45-117 Normal (applies to non-num jenni results) [facility] ([facility]) Albumin/Globulin Ratio 1.3 1.2-2.2 Normal (applies to non-n umeric results) [facility] ([facility]) Albumin 4.1 GM/DL 3.2-5.2 Normal (applies to non-numeric resul ts) [facility] ([facility]) ID Date Data Source [id number] 11/16/2019 11:02:00 AM EDT [facility] ([facility]) Name Value Range Interpretation Code Description Data Cynthia rce(s) Supporting Document(s) Cobalamin (Vitamin B12) [Mass/volume] in Serum or Plasma 348 pg/ mL 247-911 Normal (applies to non-numeric results) [facility] ([facility]) VITAMIN B12 NORMAL RANGE NORMAL 247 - 911 PG/ML INDETERMINATE 211 - 246 PG/ML DEFICIENT LESS THAN 211 PG/ML Thyrotropin [Units/volume] in Serum or Plasma 1.530 uIU/ML 0. 358-3.740 Normal (applies to non-numeric results) [facility] ([facility]) ID Date Data Source [id number] 11/16/2019 11:02:00 AM EDT [facility] ([facility]) Name Value Range Interpretation Code Description Data Cynthia rce(s) Supporting Document(s) Thyroxine (T4) free [Mass/volume] in Serum or Plasma 0.76 ng/dL 0.76-1.46 Normal (applies to non-numeric results) [facility] ([facility]) ID Date Data Source [id number] 11/16/2019 11:02:00 AM EDT [facility] ([facility]) Name Value Range Interpretation Code Description Data Cynthia rce(s) Supporting Document(s) Appearance, Urine Laboratory test result Normal (applies to non-numeric results) [facility] ([facility]) Color, Urine Laboratory test result Normal (applies to non -numeric results) [facility] ([facility]) Specific Luther Urine Auto 1.017 1.002-1.035 Norm al (applies to non-numeric results) [facility] ([facility]) PH,Urine 6.0 units 5.0-9.0 Normal (applies to non-numeric resul ts) [facility] ([facility]) Protein, Urine Auto Laboratory test result Alka l (applies to non-numeric results) [facility] ([facility]) Ketone, Urine Auto Laboratory test result Normal (applies to non-numeric results) [facility] ([facility]) Urobilinogen, Urine Auto 0.2 mg/dL 0.0-2.0 Normal (applies to non-numeric results) [facility] ([facility]) Glucose, Urine (Ua) Auto Laboratory test result Normal (applies to non-numeric results) [facility] ([facility]) Bilirubin, Urine Auto Laboratory test result Nor mal (applies to non-numeric results) [facility] ([facility]) Nitrite, Urine Auto Laboratory test result Alka l (applies to non-numeric results) [facility] ([facility]) Leukocyte Esterase, Urine Auto Laboratory test result Normal (applies to non- numeric results) [facility] ([facility]) WBC, Urine Auto 2 /HPF 0-3 Normal (applies to non-numeric results) [facility] ([facility]) Blood, Urine Blood Laboratory test result Normal (applies to non-numeric results) [facility] ([facility]) Bacteria, Urine Auto Laboratory test result Norm al (applies to non-numeric results) [facility] ([facility]) Squamous Epithelial Cell Ur AU 1 /HPF 0-6 N ormal (applies to non-numeric results) [facility] ([facility]) RBC, Urine Auto 4 /HPF 0-3 Above high normal [facility] [place] ([facility]) Hyaline Cast, Urine Auto 11 /LPF 0-1 Normal (applies to non -numeric results) [facility] ([facility]) Mucus, Urine Laboratory test result Normal (applies to non -numeric results) [facility]) ID Date Data Source [id number] 11/16/2019 11:02:00 AM EDT [facility] ([facility]) Name Value Range Interpretation Code Description Data Cynthia rce(s) Supporting Document(s) Calcidiol [Mass/volume] in Serum or Plasma 56.5 ng/mL 30.0- 100.0 Normal (applies to non-numeric results) [facility] ([facility]) ID Date Data Source [id number] 11/16/2019 11:02:00 AM EDT [facility] ([facility]) Name Value Range Interpretation Code Description Data Cynthia rce(s) Supporting Document(s) Cholesterol Level 191 mg/dL Normal (applies to non-numeri c results) [facility] ([facility]) Triglycerides Level 228 mg/dL Above high normal [facility] ([facility]) LDL Cholesterol 62 mg/dL Normal (applies to non-numeric results) [facility] ([facility]) Non-HDL-C 108 mg/dL Normal (applies to non-numeric resul ts) [facility] ([facility]) HDL Cholesterol 83 mg/dL Normal (applies to non-numeric results) [facility]) Cholesterol Risk Ratio 2.301 Normal (applies to non-n umeric results) [facility] ([facility]) ID Date Data Source [id number] 11/16/2019 11:02:00 AM EDT [facility] ([facility]) Name Value Range Interpretation Code Description Data Cynthia rce(s) Supporting Document(s) Urate [Mass/volume] in Serum or Plasma 4.9 mg/dL 2.6-6.0 Normal (applies to non- numeric results) [facility] ([facility]) ID Date Data Source [id number] 11/16/2019 11:02:00 AM EDT [facility] ([facility]) Name Value Range Interpretation Code Description Data Cynthia rce(s) Supporting Document(s) White Blood Count 8.1 10 4.0-10.0 Normal (applies to non-numeri c results) [facility] ([facility]) Hematocrit 40.9 % 36.0-47.0 Normal (applies to non-numeric resul ts) [facility] ([facility]) Red Blood Count 4.07 10 4.00-5.40 Normal (applies to non-numeric results) [facility] ([facility]) Hemoglobin 13.7 g/dL 12.0-15.5 Normal (applies to non-numeric resul ts) [facility] ([facility]) Mean Corpuscular Hemoglobin 33.7 pg 27.0-33.0 Above high normal [facility] Mean Corpuscular HGB Conc 33.5 g/dL 32.0-36.5 Normal (applies to non-numeric results) [facility] ([facility]) Red Cell Distribution Width 13.2 % 11.5-14.5 Norm al (applies to non-numeric results) [facility] ([facility]) Mean Corpuscular Volume 100.5 fl 80.0-96.0 Above high normal [facility] ([facility]) Neutrophils % 70.8 % 36.0-66.0 Above high normal [facility] ([facility]) Lymph % 20.8 % 24.0-44.0 Below low normal [facility] ( [facility]) Platelet Count, Automated 355 10 150-450 Normal (applies to non-numeric results) [facility] ([facility]) Baso % 0.9 % 0.0-1.0 Normal (applies to non-numeric resul ts) [facility] ([facility]) [place] % 6.4 % 0.0-5.0 Above high normal [facility] ([facility]) Eos % 0.7 % 0.0-3.0 Normal (applies to non-numeric resul ts) [facility] ([facility]) Immature Granulocyte % 0.4 % 0-3.0 Normal (applies to non-n umeric results) [facility] ([facility]) Neutrophils # 5.8 10 1.5-8.5 Normal (applies to non-numeric re sults) [facility] ([facility]) Nucleated Red Blood Cell % 0.0 % 0-0 Normal (applies to n on-numeric results) [facility] ([facility]) [place] # 0.5 10 0.0-0.8 Normal (applies to non-numeric resul ts) [facility] ([facility]) Lymph # 1.7 10 1.5-5.0 Normal (applies to non-numeric resul ts) [facility] ([facility]) Eos # 0.1 10 0.0-0.5 Normal (applies to non-numeric resul ts) [facility] ([facility]) Baso # 0.1 10 0.0-0.2 Normal (applies to non-numeric resul ts) [facility] ([facility]) ID Date Data Source [id number] 11/12/2019 12:00:00 AM EDT [facility] Nelli Burton MD Patient Name: VOLODYMYR [id number] [facility] Date of : 1950[place] [address] Date of Exam: 11/12/2019PH#: Fax: [phone] EXAM: MRI ANKLE RIGHT WITHOUT CONTRASTCLINICAL INFORMATION: Persistent pain and swelling.3T multiplanar MRI imaging of the right ankle was obtained using varioussequences.Comparison right ankle MRI 08/25/2019 which showed high-grade partial tearof the tibialis anterior tendon and other findings.Once again, there is marked enlargement of the anterior tibial tendon whichhas increased from the prior exam and seen in conjunction with extensive [id number] within the enlarged tendon. On today's examination, thereappears to be an abrupt cut-off of the anterior tibial tendon representinga change from the prior exam. There is no change in the appearance of theextensor hallucis and extensor digitorum tendons. They are intact and ofnormal appearing low signal throughout. There is no change in theremainder of the imaged flexor and extensor tendons. They too are intactand of normal appearing low signal throughout. There is no change in theinternal stabilizing ligaments. There is no significant change in theamount of ankle joint fluid. No new chondral abnormalities or osseousabnormalities have developed. 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 There are otherchronic changes which are stable from the 08/25/2019 exam. All interestedparties should review that report for additional unchanged find ings.Accredited by the [employer] in MR.MAYLIN Gilbert/Rosmery you for referring VOLODYMYR CLAIRE to our office. Electronically Signed - RAMESH BAJWA DO 11/12/19 16:04 Name Value Range Interpretation Code Description Data Cynthia rce(s) Supporting Document(s) ID Date Data Source [id number] 08/25/2019 12:00:00 AM EDT [facility] Imaging Nelli Burton MD Patient Name: KAITLIN CLAIRE [facility] Date of : 1950[place] [address] Date of Exam: 08/25/2019#: Fax: [phone] EXAM: MRI ANKLE RIGHT WITHOUT CONTRASTCLINICAL INFORMATION: Chronic pain.3T multiplanar MRI imaging of the right ankle was obtained using varioussequences.There are no prior right ankle MRI's for comparison.There is enlargement and abnormal T1 and T2 prolongation seen in thetibialis anterior tendon with increased peritendinous T2 hypersignal in theadjacent soft tissues. The extensor hallucis and extensor digitorumtendons are intact and of normal appearing low signal throughout. Thetendons of the tibialis posterior, flexor digitorum and flexor hallucistendons are intact and of normal appearing low signal throughout. TheAchilles tendon is intact and of normal appearing low signal throughout.The peroneal tendons are intact and of normal appearing low signalthroughout. The anterior and posterior/inferior tibiofibular ligaments ar eintact. The anterior and posterior talofibular ligaments are intact. Thecalcaneofibular ligament is intact. The ligaments within the sinus tarsiare within normal limits and the sinus tarsi fat signal is preserved. Thedeltoid ligament complex is intact. There is a slight heel valgusdeformity. The subtalar joints are within normal limits. There is noevidence of a joint effusion. The marrow signal is within normal limits.The chondral surfaces of the talar dome and tibial plafond are smooth andwithout abnormal signal. There are some degenerative changes seeninvolving the mid-foot, particularly the 1st tarsometatarsal jointlaterally.IMPRESSION:1. High-grade partial tear of the tibialis anterior tendon which begins atthe level of the navicular while the cuneiform attachment of the tendonappears maintained.2. Other findings as described above.Accredited by the [employer] in MR.MAYLIN Gilbert/Rosmery olsen for referring VOLODYMYR CLAIRE to our office. Electronically Signed - RAMESH BAJWA DO 08/26/19 15:34 Name Value Range Interpretation Code Description Data Cynthia rce(s) Supporting Document(s) ID Date Data Source [id number] 07/19/2019 01:13:00 PM EDT [facility] Name Value Range Interpretation Code Description Data Cynthia rce(s) Supporting Document(s) Magnesium [Mass/volume] in Serum or Plasma 1.4 MG/DL 1.7 - 2.2 L [facility] ID Date Data Source [id number] 07/19/2019 12:53:00 PM EDT [facility] Name Value Range Interpretation Code Description Data Cynthia rce(s) Supporting Document(s) Potassium [Moles/volume] in Serum or Plasma 3.7 mEq/L 3.6 - 5.0 [facility] ID Date Data Source [id number] 07/19/2019 10:19:00 AM EDT [facility] ([facility]) Name Value Range Interpretation Code Description Data Cynthia rce(s) Supporting Document(s) Magnesium [Mass/volume] in Serum or Plasma 1.4 mg/dL 1.7-2.2 [place] w low normal [facility] ([facility]) Potassium [Moles/volume] in Serum or Plasma 3.7 meq/L 3.6-5.0 [facility] ([facility]) ID Date Data Source [id number] 07/06/2019 10:26:00 AM EDT [facility] ([facility]) Name Value Range Interpretation Code Description Data Cynthia rce(s) Supporting Document(s) Thyrotropin [Units/volume] in Serum or Plasma 1.37 uIU/mL 0.47-5.01 [facility] ([facility]) Is patient fasting? N ID Date Data Source [id number] 07/06/2019 10:26:00 AM EDT [facility] ([facility]) Name Value Range Interpretation Code Description Data Cynthia rce(s) Supporting Document(s) Sodium 139 meq/L 134-153 [facility] ([facility]) Is patient fasting? N Comprehensive Metabo Laboratory test result [facility] ([facility]) COMPREHENSIVE METABOLIC PANEL Potassium 3.1 meq/L 3.6-5.0 Below low normal [facility] ( [facility]) Is patient fasting? N Chloride 95 meq/L 98-107 Below low normal [facility] ( [facility]) Is patient fasting? N Co2 33 meq/L 22-30 Above high normal [facility] ([facility]) Is patient fasting? N BUN 10 mg/dL 7-21 [facility] ([facility]) Is patient fasting? N Glucose 109 mg/dL 65-110 [facility] ([facility]) Is patient fasting? N Creatinine 0.5 mg/dL 0.7-1.5 Below low normal [facility] ( [facility]) Is patient fasting? N BUN/Creat 20 8-27 [facility] ([facility]) Is patient fasting? N Total Protein 7.1 g/dL 6.3-8.2 [facility] Is patient fasting? N Albumin 4.6 g/dL 3.9-5.0 [facility] ([facility]) Is patient fasting? N Globulin 2.5 GM/DL 2.4-3.2 [facility] ([facility]) Is patient fasting? N Calcium 9.4 mg/dL 8.4-10.2 [facility] ([facility]) Is patient fasting? N A/G Ratio 1.8 0.8-2.0 [facility] ([facility]) Is patient fasting? N Alkaline Phos 71 U/L 38-126 [facility] ([facility]) Is patient fasting? N Total Bili 2.0 mg/dL 0.2-1.3 Above high normal [facility] ([facility]) Is patient fasting? N Sgot/Ast 42 U/L 5-40 Above high normal [facility] ([facility]) Is patient fasting? N SGPT/Alt 24 U/L 7-56 [facility] ([facility]) Is patient fasting? N Anion Gap 11.0 mmol/L 8.0-16.0 [facility] ([facility]) Is patient fasting? N Non-Aa GFR Laboratory test result [facility] ([facility]) Is patient fasting? N Age 68 yrs [facility] ([facility]) Is patient fasting? N Afr Amer GFR Laboratory test result [facility] ([facility]) Male GFR Interprentation 20-49 yrs >60 mL/min Normal 50-59 yrs >56 mL/min Normal 60-69 yrs >49 mL/min Normal 70-79yrs >42 mL/min Normal 80 and above >35 mL/min Normal Female GFR Interpretation 20-39 yrs >60 mL/min Normal 40-49 yrs >58 mL/min Normal 50-59 yrs >51 mL/min Normal 60-69 yrs >45 mL/min Normal 70-79 yrs >39 mL/min Normal 80 and above >32 mL/min Normal ID Date Data Source [id number] 07/06/2019 10:26:00 AM EDT [facility] ([facility]) Name Value Range Interpretation Code Description Data Cynthia rce(s) Supporting Document(s) Thyroxine (T4) free [Mass/volume] in Serum or Plasma 1.10 ng/dL 0.93- 1.70 [facility] ([facility]) Is patient fasting? N ID Date Data Source [id number] 07/06/2019 10:26:00 AM EDT [facility] ([facility]) Name Value Range Interpretation Code Description Data Cynthia rce(s) Supporting Document(s) Sed Rate 3 mm/hr 0-30 [facility] ([facility]) Is patient fasting? N Sed Rate Reenter 3 [facility] ([facility]) Is patient fasting? N ID Date Data Source [id number] 07/06/2019 10:26:00 AM EDT [facility] ([facility]) Name Value Range Interpretation Code Description Data Cynthia rce(s) Supporting Document(s) Calcidiol [Mass/volume] in Serum or Plasma 42 ng/mL [facility] ([facility]) <content>VITAMIN-D(25HYDROXY)</content>< br/><content>Deficiency: <=20 ng/ml</content>
<content>Insufficiency: 21-29 ng/ml</content>
<content>Preferred level: => 30 ng/ml</content>
<conten t></content> ID Date Data Source [id number] 07/06/2019 10:26:00 AM EDT [facility] ([facility]) Name Value Range Interpretation Code Description Data Cynthia rce(s) Supporting Document(s) Cholesterol 201 mg/dL 131-200 Above high normal [facility] ([facility]) Is patient fasting? N Cve Panel Laboratory test result [facility] ([facility]) LIPID PANEL Triglycerides 133 mg/dL 35-160 [facility] ([facility]) Is patient fasting? N LDL 85 mg/dL 65-175 [facility] ([facility]) Is patient fasting? N HDL 104 mg/dL 29-86 Above high normal [facility] ([facility]) Is patient fasting? N LDL/HDL 0.82 1.47-3.22 Below low normal [facility] ( [facility]) CVE RISK CHOL/HDL LDL/HDL MEN: 1/2 AVERAGE 3.43 1.00 AVERAGE 4.97 3.55 2X AVERAGE 9.55 6.25 3X AVERAGE 23.99 7.99 WOMEN: 1/2 AVERAGE 3.27 1.47 AVERAGE 4.44 3.22 2X AVERAGE 7.05 5.03 3X AVERAGE 11.04 6.14 Risk Factor 1.9 3.2-4.4 Below low normal [facility] ([facility]) Is patient fasting? N ID Date Data Source [id number] 07/06/2019 10:26:00 AM EDT [facility] ([facility]) Name Value Range Interpretation Code Description Data Cynthia rce(s) Supporting Document(s) Urate [Mass/volume] in Serum or Plasma 4.7 mg/dL 2.5-8.5 [facility] ([facility]) Is patient fasting? N ID Date Data Source [id number] 07/06/2019 10:26:00 AM EDT [facility] ([facility]) Name Value Range Interpretation Code Description Data Cynthia rce(s) Supporting Document(s) CBC W/Automated Diff Laboratory test result [facility] ([facility]) COMPLETE BLOOD COUNT WBC 6.8 10^3/uL 4.2-11.0 [facility] ([facility]) Is patient fasting? N Hemoglobin 13.5 g/dL 12.0-16.0 [facility] ([facility]) Is patient fasting? N RBC 4.20 10^6/uL 4.20-5.40 [facility] ([facility]) Is patient fasting? N Hematocrit 40.1 % 37.0-47.0 [facility] ([facility]) Is patient fasting? N MCH 32.1 pg 27.0-34.0 [facility] ([facility]) Is patient fasting? N MCV 95.5 fL 81.0-101 [facility] ([facility]) Is patient fasting? N RDW 13.5 % 11.5-14.5 [facility] ([facility]) Is patient fasting? N MCHC 33.7 g/dL 31.0-36.0 [facility] ([facility]) Is patient fasting? N Platelets 230 10^3/uL 150-450 [facility] ([facility]) Is patient fasting? N MPV 10.7 fL 7.4-10.4 Above high normal [facility] ([facility]) Is patient fasting? N Neut 61.8 % 37.0-80.0 [facility] ([facility]) Is patient fasting? N Lymph 26.7 % 25.0-40.0 [facility] ([facility]) Is patient fasting? N [place] 8.8 % 3.0-8.0 Above high normal [facility] ([facility]) Is patient fasting? N Baso 0.6 % 0.0-2.5 [facility] ([facility]) Is patient fasting? N Eos 1.8 % 0.0-7.0 [facility] ([facility]) Is patient fasting? N %Ig 0.3 % 0.0-0.0 Above high normal [facility] ([facility]) Is patient fasting? N %NRBC 0.0 % 0.0-0.0 [facility] ([facility]) Is patient fasting? N #Neut 4.20 10^3/uL 2.00-6.90 [facility] ([facility]) Is patient fasting? N #[place] 0.60 10^3/uL 0.00-0.90 [facility] ([facility]) Is patient fasting? N #Lymph 1.81 10^3/uL 0.60-3.40 [facility] ([facility]) Is patient fasting? N #Eos 0.12 10^3/uL 0.00-0.70 [facility] ([facility]) Is patient fasting? N #Baso 0.04 10^3/uL 0.00-0.20 [facility] ([facility]) Is patient fasting? N #Ig 0.02 10^3/uL 0.00-0.10 [facility] ([facility]) Is patient fasting? N Manual Diff Laboratory test result [facility] ([facility]) Is patient fasting? N #NRBC 0.00 10^3/uL 0.00-0.00 [facility] ([facility]) Is patient fasting? N RBC Morph Laboratory test result [facility] ([facility]) Is patient fasting? N ID Date Data Source [id number] 07/06/2019 04:38:00 PM EDT [facility] Value Range Interpretation Code Description Data Cynthia rce(s) Supporting Document(s) Thyroxine (T4) free index in Serum or Plasma by calculation 1.10 NG/DL 0.93 - 1.70 [facility] ID Date Data Source [id number] 07/06/2019 04:38:00 PM EDT [facility] Value Range Interpretation Code Description Data Cynthia rce(s) Supporting Document(s) Thyrotropin [Units/volume] in Serum or Plasma by Detec tion limit <= 0.05 mIU/L 1.37 uIU/mL 0.47 - 5.01 [facility] ID Date Data Source [id number] 07/06/2019 04:38:00 PM EDT [facility] Name Value Range Interpretation Code Description Data Cynthia rce(s) Supporting Document(s) Calcidiol [Moles/volume] in Serum or Plasma 42 NG/ML [facility] VITAMIN-D(2 5HYDROXY) Deficiency: <=20 ng/ml Insufficiency: 21-29 ng/ml Preferred level: => 30 ng/ml ID Date Data Source [id number] 07/06/2019 04:26:00 PM EDT [facility] Name Value Range Interpretation Code Description Data Cynthia rce(s) Supporting Document(s) COMPREHENSIVE METABOLIC PANEL [facility] COMPREHENSIVE METABOLIC PANEL Sodium [Moles/volume] in Serum or Plasma 139 mEq/L 134 - 153 [facility] Potassium [Moles/volume] in Serum or Plasma 3.1 mEq/L 3.6 - 5.0 L [facility] Chloride [Moles/volume] in Serum or Plasma 95 mEq/L 98 - 107 L [facility] Carbon dioxide, total [Moles/volume] in Serum or Plasma 33 MEQ/L 22 - 30 H [facility] Glucose [Mass/volume] in Serum or Plasma 109 MG/DL 65 - 110 [facility] BUN 10 MG/DL 7 - 21 [facility] Creatinine [Mass/volume] in Serum or Plasma 0.5 MG/DL 0.7 - 1.5 L [facility] BUN/CREAT 20 8 - 27 [facility] al Protein [Mass/volume] in Serum or Plasma 7.1 G/DL 6.3 - 8.2 [facility] Albumin [Mass/volume] in Serum or Plasma 4.6 G/DL 3.9 - 5.0 [facility] Globulin [Mass/volume] in Serum by calculation 2.5 GM/DL 2.4 - 3.2 [facility] A/G RATIO 1.8 0.8 - 2.0 [facility] Calcium [Mass/volume] in Serum or Plasma 9.4 MG/DL 8.4 - 10.2 [facility] Bilirubin.total [Mass/volume] in Serum or Plasma 2.0 MG/DL 0.2 - 1.3 H [facility] Alkaline phosphatase [Enzymatic activity/volume] in Serum or Plasma 71 U/L 38 - 126 [facility] Aspartate aminotransferase [Enzymatic activity/volume] in Serum or Plasma 42 U/L 5 - 40 H [facility] Alanine aminotransferase [Enzymatic activity/volume] in Seru m or Plasma 24 U/L 7 - 56 [facility] Anion gap 3 in Serum or Plasma 11.0 mmol/L 8.0 - 16.0 [facility] AGE 68 yrs [facility] al NON-AA GFR >60 mL/min [facility] ital AFR AMER GFR >60 [facility] pital Male GFR In terprentation 20-49 yrs >60 mL/min Normal 50-59 yrs >56 mL/min Normal 60-69 yrs >49 mL/min Normal 70-79yrs >42 mL/min Normal 80 and above >35 mL/min Normal Female GFR Interpretation 20-39 yrs >60 mL/min Normal 40-49 yrs >58 mL/min Normal 50-59 yrs >51 mL/min Normal 60-69 yrs >45 mL/min Normal 70-79 yrs >39 mL/min Normal 80 and above >32 mL/min Normal ID Date Data Source [id number] 07/06/2019 04:26:00 PM EDT [facility] Name Value Range Interpretation Code Description Data Cynthia rce(s) Supporting Document(s) CVE PANEL [facility] al LIPID PANEL Cholesterol [Mass/volume] in Serum or Plasma 201 MG/DL 131 - 200 H [facility] Deprecated Triglyceride [Mass/volume] in Serum or Plasma 133 MG/DL 3 5 - 160 [facility] HDL 104 MG/DL 29 - 86 H [facility] Cholesterol in LDL/Cholesterol in HDL [Mass Ratio] in Serum or Plasma 85 mg/dL 65 - 175 [facility] Cholesterol.total/Cholesterol in HDL [Mass Ratio] in Serum o r Plasma 1.9 3.2 - 4.4 L [facility] LDL/HDL 0.82 1.47 - 3.22 L [facility] ital CVE RISK CHOL/HDL LDL/HDLMEN: 1/2 AVERAGE 3.43 1.00 AVERAGE 4.97 3.55 2X AVERAGE 9.55 6.25 3X AVERAGE 23.99 7.99WOMEN: 1/2 AVERAGE 3.27 1.47 AVERAGE 4.44 3.22 2X AVERAGE 7.05 5.03 3X AVERAGE 11.04 6.14 ID Date Data Source [id number] 07/06/2019 04:19:00 PM EDT [facility] Name Value Range Interpretation Code Description Data Cynthia rce(s) Supporting Document(s) Urate [Mass/volume] in Serum or Plasma 4.7 MG/DL 2.5 - 8.5 [facility] ID Date Data Source [id number] 07/06/2019 04:11:00 PM EDT [facility] Name Value Range Interpretation Code Description Data Cynthia rce(s) Supporting Document(s) Erythrocyte sedimentation rate by Westergren method 3 mm/hr 0 - 30 [facility] SED RATE REENTER 3 [facility] ID Date Data Source [id number] 07/06/2019 04:05:00 PM EDT [facility] Name Value Range Interpretation Code Description Data Cynthia rce(s) Supporting Document(s) CBC W/AUTOMATED DIFF [facility] COMPLETE BLOOD COUNT Leukocytes [#/volume] in Blood by Automated count 6.8 10^3/uL 4.2 - 1 1.0 [facility] Erythrocytes [#/volume] in Blood by Automated count 4.20 10^6/uL 4. 20 - 5.40 [facility] Hemoglobin [Mass/volume] in Blood 13.5 g/dL 12.0 - 16.0 [facility] Hematocrit [Volume Fraction] of Blood by Automated count 40.1 % 3 7.0 - 47.0 [facility] Erythrocyte mean corpuscular volume [Entitic volume] by Auto mated count 95.5 fL 81.0 - 101 [facility] Erythrocyte mean corpuscular hemoglobin [Entitic mass] by Automated count 32.1 pg 27.0 - 34.0 [facility] Erythrocyte mean corpuscular hemoglobin concentration [Mass/volume] by Automated count 33.7 g/dL 31.0 - 36.0 [facility] Erythrocyte distribution width [Ratio] by Automated count 13.5 % 11.5 - 14.5 [facility] Platelets [#/volume] in Blood by Automated count 230 10^3/uL 150 - 45 0 [facility] Platelet mean volume [Entitic volume] in Blood by Automated count 10.7 fL 7.4 - 10.4 H [facility] Neutrophils/100 leukocytes in Blood by Automated count 61.8 % 37. 0 - 80.0 [facility] Lymphocytes/100 leukocytes in Blood by Manual count 26.7 % 25.0 - 40.0 [facility] Monocytes/100 leukocytes in Blood by Automated count 8.8 % 3.0 - 8.0 H [facility] Eosinophils/100 leukocytes in Blood by Automated count 1.8 % 0.0 - 7.0 [facility] Basophils/100 leukocytes in Blood by Automated count 0.6 % 0.0 - 2.5 [facility] %IG 0.3 % 0.0 - 0.0 [facility] 0.0 % 0.0 - 0.0 [facility] al Neutrophils [#/volume] in Blood by Automated count 4.20 10^3/uL 2.00 - 6.90 [facility] Lymphocytes [#/volume] in Blood by Automated count 1.81 10^3/uL 0.60 - 3.40 [facility] Monocytes [#/volume] in Blood by Automated count 0.60 10^3/uL 0.00 - 0.90 [facility] Eosinophils [#/volume] in Blood by Automated count 0.12 10^3/uL 0.00 - 0.70 [facility] Basophils [#/volume] in Blood by Automated count 0.04 10^3/uL 0.00 - 0.20 [facility] #IG 0.02 10^3/uL 0.00 - 0.10 [facility] ospital #NRBC 0.00 10^3/uL 0.00 - 0.00 [facility] ospital MANUAL DIFF NOT INDICATED [facility] RBC MORPH NOT INDICATED [facility] ID Date Data Source [id number] 07/06/2019 10:26:00 AM EDT [facility] ([facility]) Name Value Range Interpretation Code Description Data Cynthia rce(s) Supporting Document(s) Thyrotropin [Units/volume] in Serum or Plasma Laboratory test result [facility] ([facility]) Erythrocyte sedimentation rate by Westergren method Laboratory test result [facility] ([facility]) Thyroxine (T4) free [Mass/volume] in Serum or Plasma Laboratory cb t result [facility] ([facility]) ID Date Data Source [id number] 03/17/2019 12:00:00 AM EST [facility] Chapis Mcgovern [employer] Patient Name:VOLODYMYR CLAIRE[address] [facility] Date of : 1950[place] [address] Date of Exam: 03/17/2019#: Fax: [phone] EXAM: MAMMO DIAG INC CAD BILATERAL AND ULTRASOUND BREAST UNI LIMITEDCLINICAL INFORMATION: Diagnostic.Diagnostic mammogram with 3D tomosynthesis, diagnostic mammogram rightbreast and right breast ultrasound.Palpable lump near right axilla.The Volpara volumetric breast density category is C, the breasts areheterogeneously dense which may obscure small masses.Comparison mammogram is 03/06/18 as well as other prior exams.Family history of aunt with breast cancer at age 80.Based on the personal and family history information your patient suppliedat the time of imaging, her lifetime risk of breast cancer estimated by theTyrer-Cuzick model is 3.1%. Given that this patient has less than 20% TCrisk score, no further medical management is currently recommended at thistime.Moderate heterogeneous fibroglandular tissue is seen bilaterally. Nodiscrete mass is seen. There is no architectural distortion or clusteredmicrocalcifications. There are small axillary lymph nodes present.Realtime sonographic evaluation of the palpable lump near the right axillais performed. Normal appearing lymph nodes are seen in the right axillaryregion demonstrating fatty liz in a normal morphologic appearance. Thelargest lymph node identified is 1.8 x 0.6 x 0.6 cm.IMPRESSION:BI-RADS Category 2 - Benign Finding(s). No suspicious mass or clusteredmicrocalcifications. At the site of the palpable lump near the rightaxilla, normal appearing underlying lymph nodes are present bothmammographically and sonographically with no suspicious abnormality. Thefindings are ACR 2 benign, and followup mammogram is recommended in oneyear.This mammogram was read with the assistance of [employer], an FDAapproved computer aided detection system for mammography.Negative x-ray reports should not delay surgical consultation if a dominantor clinically suspicious mass is present.Not all breast cancers can be identified by mammography. Therefore, werecommend that you continue to perform regular breast self-examination andphysical examination and then promptly contact your physician of anyconcerns or changes.Adenosis and dense breasts may obscure an underlying neoplasm.The patient states that the last clinical breast exam was on 03/16/19. DAVID Bonds/Rosmery you for referring VOLODYMYR CLAIRE to our office. Electronically Signed - ADEEL PATEL MD 03/17/19 17:49 Name Value Range Interpretation Code Description Data Cynthia rce(s) Supporting Document(s) ID Date Data Source [id number] 03/17/2019 12:00:00 AM EST [facility] Chapis Martini Patient Name:VOLODYMYR CLAIRE[address] [facility] Date of : 1950[place] [address] Date of Exam: 03/17/2019#: Fax: [phone] EXAM: MAMMO DIAG INC CAD BILATERAL AND ULTRASOUND BREAST UNI LIMITEDCLINICAL INFORMATION: Diagnostic.Diagnostic mammogram with 3D tomosynthesis, diagnostic mammogram rightbreast and right breast ultrasound.Palpable lump near right axilla.The Volpara volumetric breast density category is C, the breasts areheterogeneously dense which may obscure small masses.Comparison mammogram is 03/06/18 as well as other prior exams.Family history of aunt with breast cancer at age 80.Based on the personal and family history information your patient suppliedat the time of imaging, her lifetime risk of breast cancer estimated by theTyrer-Cuzick model is 3.1%. Given that this patient has less than 20% TCrisk score, no further medical management is currently recommended at thistime.Moderate heterogeneous fibroglandular tissue is seen bilaterally. Nodiscrete mass is seen. There is no architectural distortion or clusteredmicrocalcifications. There are small axillary lymph nodes present.Realtime sonographic evaluation of the palpable lump near the right axillais performed. Normal appearing lymph nodes are seen in the right axillaryregion demonstrating fatty liz in a normal morphologic appearance. Thelargest lymph node identified is 1.8 x 0.6 x 0.6 cm.IMPRESSION:BI-RADS Category 2 - Benign Finding(s). No suspicious mass or clusteredmicrocalcifications. At the site of the palpable lump near the rightaxilla, normal appearing underlying lymph nodes are present bothmammographically and sonographically with no suspicious abnormality. Thefindings are ACR 2 benign, and followup mammogram is recommended in oneyear.This mammogram was read with the assistance of [employer], an FDAapproved computer aided detection system for mammography.Negative x-ray reports should not delay surgical consultation if a dominantor clinically suspicious mass is present.Not all breast cancers can be identified by mammography. Therefore, werecommend that you continue to perform regular breast self-examination andphysical examination and then promptly contact your physician of anyconcerns or changes.Adenosis and dense breasts may obscure an underlying neoplasm.The patient states that the last clinical breast exam was on 03/16/19. DAVID Bonds/Rosmery you for referring VOLODYMYR CLAIRE to our office. Electronically Signed - ADEEL PATEL MD 03/17/19 17:49 Name Value Range Interpretation Code Description Data Cynthia rce(s) Supporting Document(s) ID Date Data Source [id number] 02/07/2019 10:25:00 AM EST MED[facility] ([facility]) Name Value Range Interpretation Code Description Data Cynthia rce(s) Supporting Document(s) Cholesterol Level 184 mg/dL Normal (applies to non-numeri c results) [facility] ([facility]) Triglycerides Level 210 mg/dL Above high normal [facility] ([facility]) HDL Cholesterol 73 mg/dL Normal (applies to non-numeric results) [facility] ([facility]) Cholesterol Risk Ratio 2.520 Normal (applies to non-n umeric results) [facility] ([facility]) LDL Cholesterol 69 mg/dL Normal (applies to non-numeric results) [facility] ([facility]) Non-HDL-C 111 mg/dL Normal (applies to non-numeric resul ts) [facility] ([facility]) ID Date Data Source [id number] 02/07/2019 10:25:00 AM EST [facility] ([facility]) Name Value Range Interpretation Code Description Data Cynthia rce(s) Supporting Document(s) Calcidiol [Mass/volume] in Serum or Plasma 71.4 ng/mL 30.0- 100.0 Normal (applies to non-numeric results) [facility] ([facility]) ID Date Data Source [id number] 02/07/2019 10:25:00 AM EST [facility] ([facility]) Name Value Range Interpretation Code Description Data Cynthia rce(s) Supporting Document(s) Color, Urine Laboratory test result Normal (applies to non -numeric results) [facility]) Appearance, Urine Laboratory test result Normal (applies to non-numeric results) [facility] ([facility]) PH,Urine 7.0 units 5.0-9.0 Normal (applies to non-numeric resul ts) [facility] ([facility]) Specific Luther Urine Auto 1.024 1.002-1.035 Norm al (applies to non-numeric results) [facility] ([facility]) Protein, Urine Auto Laboratory test result Alka l (applies to non-numeric results) [facility] ([facility]) Ketone, Urine Auto Laboratory test result Normal (applies to non-numeric results) [facility] ([facility]) Urobilinogen, Urine Auto 0.2 mg/dL 0.0-2.0 Normal (applies to non-numeric results) [facility] ([facility]) Glucose, Urine (Ua) Auto Laboratory test result Normal (applies to non-numeric results) [facility] ([facility]) Bilirubin, Urine Auto Laboratory test result Nor mal (applies to non-numeric results) [facility] ([facility]) Nitrite, Urine Auto Laboratory test result Alka l (applies to non-numeric results) [facility] ([facility]) Leukocyte Esterase, Urine Auto Laboratory test result Normal (applies to non- numeric results) [facility] ([facility]) Blood, Urine Blood Laboratory test result Normal (applies to non-numeric results) [facility] ([facility]) RBC, Urine Auto 1 /HPF 0-3 Normal (applies to non-numeric results) [facility] ([facility]) WBC, Urine Auto 1 /HPF 0-3 Normal (applies to non-numeric results) [facility] ([facility]) Mucus, Urine Laboratory test result Normal (applies to non -numeric results) [facility] ([facility]) Hyaline Cast, Urine Auto 0 /LPF 0-1 Normal (applies to non -numeric results) [facility] ([facility]) Bacteria, Urine Auto Laboratory test result Norm al (applies to non-numeric results) [facility] ([facility]) Squamous Epithelial Cell Ur AU 1 /HPF 0-6 N ormal (applies to non-numeric results) [facility] ([facility]) ID Date Data Source [id number] 02/07/2019 10:25:00 AM EST [facility] ([facility]) Name Value Range Interpretation Code Description Data Cynthia rce(s) Supporting Document(s) Blood Urea Nitrogen 15 mg/dL 7-18 Normal (applies to non-nume keli results) [facility] ([facility]) Glucose, Fasting 86 mg/dL 70-100 Normal (applies to non-numeric results) [facility] ([facility]) Creatinine For GFR 0.59 mg/dL 0.55-1.30 Normal (applies to non -numeric results) [facility] ([facility]) Glomerular Filtration Rate Laboratory test result Normal (applies to non- numeric results) [facility] ([facility]) <content>Units are mL/min/1.73 m2</content>
<content></content>
<content>Chronic Kidney Disease Staging per NKF:</content>
<content></content>
<content>Stage I & II GFR >=60 Normal to Mildly Decreased</content>
<content>Stage III GFR 30- 59 Moderately Decreased</content>
<content>Stage IV GFR 15-29 Severely Decreased</content>
<content>Stage V GFR <15 Very Little GFR Left</content>
<content>ESRD GFR <15 on [employer]</content>
<content></content> Sodium Level 139 meq/L 136-145 Normal (applies to non-numeric res ults) [facility] ([facility]) Potassium Serum 4.0 meq/L 3.5-5.1 Normal (applies to non-numeric results) [facility] ([facility]) Carbon Dioxide Level 33 meq/L 21-32 Above high normal [facility] ([facility]) Anion Gap 6 meq/L 8-16 Below low normal [facility] ( [facility]) Chloride Level 100 meq/L 98-107 Normal (applies to non-numeric r esults) [facility] ([facility]) Ast/Sgot 27 U/L 7-37 Normal (applies to non-numeric resul ts) [facility] ([facility]) Calcium Level 8.9 mg/dL 8.8-10.2 Normal (applies to non-numeric re sults) [facility] ([facility]) Alt/SGPT 27 U/L 12-78 Normal (applies to non-numeric resul ts) [facility] ([facility]) Total Protein 6.9 GM/DL 6.4-8.2 Normal (applies to non-numeric re sults) [facility] ([facility]) Alkaline Phosphatase 71 U/L 45-117 Normal (applies to non-num jenni results) [facility] ([facility]) Bilirubin,Total 0.7 mg/dL 0.2-1.0 Normal (applies to non-numeric results) [facility] ([facility]) Albumin 4.1 GM/DL 3.2-5.2 Normal (applies to non-numeric resul ts) [facility] ([facility]) Albumin/Globulin Ratio 1.46 1.00-1.93 Normal (applies to non-numeric results) [facility] ([facility]) ID Date Data Source [id number] 02/07/2019 10:25:00 AM EST [facility] ([facility]) Name Value Range Interpretation Code Description Data Cynthia rce(s) Supporting Document(s) Thyroxine (T4) free [Mass/volume] in Serum or Plasma 0.86 ng/dL 0.76-1.46 Normal (applies to non-numeric results) [facility] ([facility]) Erythrocyte sedimentation rate by Westergren method 5 mm/hr 0-30 Normal (applies to non-numeric results) [facility] ([facility]) Thyrotropin [Units/volume] in Serum or Plasma 1.260 uIU/ML 0. 358-3.740 Normal (applies to non-numeric results) [facility] ([facility]) ID Date Data Source [id number] 02/07/2019 10:25:00 AM EST [facility] ([facility]) Name Value Range Interpretation Code Description Data Cynthia rce(s) Supporting Document(s) Red Blood Count 3.90 10 4.00-5.40 Below low normal [facility] ([facility]) White Blood Count 5.6 10 4.0-10.0 Normal (applies to non-numeri c results) [facility] ([facility]) Hemoglobin 12.9 g/dL 12.0-15.5 Normal (applies to non-numeric resul ts) [facility] ([facility]) Hematocrit 39.2 % 36.0-47.0 Normal (applies to non-numeric resul ts) [facility] ([facility]) Mean Corpuscular Volume 100.5 fl 80.0-96.0 Above high normal [facility] ([facility]) Mean Corpuscular HGB Conc 32.9 g/dL 32.0-36.5 Normal (applies to non-numeric results) [facility] ([facility]) Red Cell Distribution Width 12.9 % 11.5-14.5 Norm al (applies to non-numeric results) [facility] ([facility]) Mean Corpuscular Hemoglobin 33.1 pg 27.0-33.0 Above high normal [facility] ([facility]) Nucleated Red Blood Cell % 0.0 % 0-0 Normal (applies to n on-numeric results) [facility] ([facility]) Platelet Count, Automated 286 10 150-450 Normal (applies to non-numeric results) [facility] ([facility]) ID Date Data Source [id number] 02/07/2019 10:25:00 AM EST [facility] ([facility]) Name Value Range Interpretation Code Description Data Cynthia rce(s) Supporting Document(s) Lymph % 31.8 % 24.0-44.0 Normal (applies to non-numeric resul ts) [facility] ([facility]) Neutrophils % 54.4 % 36.0-66.0 Normal (applies to non-numeric re sults) [facility] ([facility]) Baso % 1.1 % 0.0-1.0 Above high normal [facility] ([facility]) Immature Granulocyte % 0.2 % 0-3.0 Normal (applies to non-n umeric results) [facility] ([facility]) Eos % 2.0 % 0.0-3.0 Normal (applies to non-numeric resul ts) [facility] ([facility]) [place] % 10.5 % 0.0-5.0 Above high normal [facility] ([facility]) [place] # 0.6 10 0.0-0.8 Normal (applies to non-numeric resul ts) [facility] ([facility]) Lymph # 1.8 10 1.5-5.0 Normal (applies to non-numeric resul ts) [facility] ([facility]) Neutrophils # 3.1 10 1.5-8.5 Normal (applies to non-numeric re sults) [facility] ([facility]) Eos # 0.1 10 0.0-0.5 Normal (applies to non-numeric resul ts) [facility] ([facility]) Baso # 0.1 10 0.0-0.2 Normal (applies to non-numeric resul ts) [facility] ([facility]) ID Date Data Source [id number] 02/07/2019 10:25:00 AM EST [facility] ([facility]) Name Value Range Interpretation Code Description Data Cynthia rce(s) Supporting Document(s) Urate [Mass/volume] in Serum or Plasma 4.8 mg/dL 2.6-6.0 Normal (applies to non- numeric results) [facility] ([facility]) Procedure Social History Code Duration Value Status Description Data Source(s ) Smoking 12/09/2019 12:00:00 AM EDT Never Smoker completed Never S moker eCW1 ([facility]) Smoking 03/08/2019 09:39:35 AM EST Never smoked tobacco (findi ng) completed Never smoked tobacco (finding) [place] (Luis Ryan MD [facility]) Vital Signs ID Date Data Source UNK Name Value Range Interpretation Code Description Data Source(s) Body surface area Derived from formula 1.83 m2 1.83 m2 [facility] ([facility]) Body mass index (BMI) [Ratio] 27.6 kg/m2 27.6 k g/m2 [facility] ([facility]) Body height 65 [in_i] 65 [in_i] [facility] ([facility]) 5'5" Body weight 75.298 kg 75.298 kg [facility] ([facility]) Body weight 166.00 [lb_av] 166.00 [lb_av] [facility] T ([facility]) Oxygen saturation in Arterial blood by Pulse oximetry 98 % 98 % [facility] ([facility]) Respiratory rate 20 /min 20 /min [facility] ( [facility]) Body temperature 97.7 [degF] 97.7 [degF] [facility] ([facility]) Heart rate 71 /min 71 /min [facility] ([facility]) Diastolic blood pressure 58 mm[Hg] 58 mm[Hg] [facility] ([facility]) Systolic blood pressure 102 mm[Hg] 102 mm[Hg] M EDENT ([facility]) Body temperature 96.7 [degF] 96.7 [degF] [facility] ([facility]) Body surface area Derived from formula 1.82 m2 1.82 m2 [facility] ([facility]) Body mass index (BMI) [Ratio] 27.3 kg/m2 27.3 k g/m2 [facility] ([facility]) Body height 65 [in_i] 65 [in_i] [facility] ([facility]) 5'5" Body weight 74.504 kg 74.504 kg [facility] ([facility]) Body weight 164.25 [lb_av] 164.25 [lb_av] MEDEN T ([facility]) Oxygen saturation in Arterial blood by Pulse oximetry 97 % 97 % [facility] ([facility]) Respiratory rate 16 /min 16 /min [facility] ( [facility]) Body temperature 97.4 [degF] 97.4 [degF] [facility] ([facility]) Heart rate 66 /min 66 /min [facility] ([facility]) Diastolic blood pressure 70 mm[Hg] 70 mm[Hg] [facility] ([facility]) Systolic blood pressure 122 mm[Hg] 122 mm[Hg] M [facility] ([facility]) Diastolic blood pressure 70 mm[Hg] 70 mm[Hg] eCW1 ([facility]) Systolic blood pressure 132 mm[Hg] 132 mm[Hg] e CW1 ([facility]) Body temperature 97.6 [degF] 97.6 [degF] eCW1 ( [facility]) Respiratory rate 18 /min 18 /min eCW1 ([facility]) Heart rate 72 /min 72 /min eCW1 ([facility]) Body mass index (BMI) [Ratio] 27.96 kg/m2 27.96 kg/m2 eCW1 ([facility]) Body height 64.25 [in_i] 64.25 [in_i] eCW1 [facility] Body weight 164.2 [lb_av] 164.2 [lb_av] eCW1 ([facility]) Body surface area Derived from formula 1.81 m2 1.81 m2 [facility] ([facility]) Body mass index (BMI) [Ratio] 27.0 kg/m2 27.0 k g/m2 [facility] ([facility]) Body height 65 [in_i] 65 [in_i] [facility] ([facility]) 5'5" Body weight 73.483 kg 73.483 kg [facility] ([facility]) Body weight 162.00 [lb_av] 162.00 [lb_av] MEDEN T ([facility]) Oxygen saturation in Arterial blood by Pulse oximetry 97 % 97 % [facility] ([facility]) Respiratory rate 16 /min 16 /min [facility] ( [facility]) Body temperature 97.5 [degF] 97.5 [degF] [facility] ([facility]) Heart rate 82 /min 82 /min [facility] ([facility]) Diastolic blood pressure 74 mm[Hg] 74 mm[Hg] [facility] ([facility]) Systolic blood pressure 138 mm[Hg] 138 mm[Hg] M EDENT ([facility]) Body surface area 1.81 m2 1.81 m2 [facility] ([facility]) Body mass index (BMI) [Ratio] 27.6 kg/m2 27.6 k g/m2 [facility] ([facility] ) Body weight 163.31 [lb_av] 163.31 [lb_av] MEDEN T ([facility]) Body height 64.5 [in_i] 64.5 [in_i] [facility] ([facility]) 5'4.50" Body temperature 99.0 [degF] 99.0 [degF] [facility] ([facility] ) Diastolic blood pressure 78 mm[Hg] 78 mm[Hg] eCW1 ([facility]) Systolic blood pressure 122 mm[Hg] 122 mm[Hg] e CW1 ([facility]) Respiratory rate 20 /min 20 /min eCW1 ([facility]) Heart rate 82 /min 82 /min eCW1 ([facility]) Body mass index (BMI) [Ratio] 29.8 kg/m2 29.8 k g/m2 eCW1 ([facility]) Body height 64.25 [in_us] 64.25 [in_us] eCW1 ([facility]) Body weight Measured 175 [lb_av] 175 [lb_av] eC W1 ([facility]) Systolic blood pressure 114 mm[Hg] 114 mm[Hg] A THENA ([facility]) Body height 65 [in_i] 65 [in_i] MAKAYLA ([facility]) Diastolic blood pressure 75 mm[Hg] 75 mm[Hg] MAKAYLA ([facility]) Body surface area 1.85 m2 1.85 m2 [facility] ([facility]) Body mass index (BMI) [Ratio] 28.3 kg/m2 28.3 k g/m2 [facility] ([facility]) Body height 65 [in_i] 65 [in_i] [facility] ([facility]) 5'5" Body weight 77.112 kg 77.112 kg [facility] ([facility]) Body weight 170.00 [lb_av] 170.00 [lb_av] MEDEN T ([facility]) Oxygen saturation in Arterial blood by Pulse oximetry 97 % 97 % [facility] ([facility]) Respiratory rate 18 /min 18 /min [facility] ( [facility]) Body temperature 97.3 [degF] 97.3 [degF] [facility] ([facility]) Heart rate 69 /min 69 /min [facility] ([facility]) Diastolic blood pressure 72 mm[Hg] 72 mm[Hg] [facility] ([facility]) Systolic blood pressure 126 mm[Hg] 126 mm[Hg] M EDENT ([facility]) ID Date Data Source [id number] 04/05/2020 10:18:29 AM [facility] Name Value Range Interpretation Code Description Data Source(s) TRANSFER FROM [facility] ID Date Data Source [id number] 04/06/2020 10:04:21 PM [facility] Name Value Range Interpretation Code Description Data Source(s) WEIGHT RECORDED 161.00 pounds 161.00 pounds [facility] Height 65 Inches 065 Inches [facility] WEIGHT RECORDED 161.00 pounds 161.00 pounds [facility] Height 65 Inches 065 Inches [facility] Patient Treatment Plan of Care Planned Activity Planned Date Details Description Data Source (s) Escitalopram 10 MG Oral Tablet MAKAYLA ([facility])
--- OUTSIDE RECORDS SUMMARY | 2020-04-07 06:25 | CCD ---
Author Author [facility] Organization [facility] Address Unknown Phone Unavailable Care Team Providers Care Oil Tester Name Role Phone Jorge LOMAX Unavailable Unavailable Froilan, Chapis DATA POWER CONSULTANT Unavailable Unavailable Froilan, Chapis DATA POWER CONSULTANT Unavailable Unavailable Froilan, Chapis DATA POWER CONSULTANT Unavailable Unavailable Froilan, Chapis DATA POWER CONSULTANT Unavailable Unavailable Froilan, Chapis DATA POWER CONSULTANT Unavailable Unavailable Froilan, Chapis DATA POWER CONSULTANT Unavailable Unavailable Froilan, Chapis DATA POWER CONSULTANT Unavailable Unavailable Froilan, Chapis DATA POWER CONSULTANT Unavailable Unavailable Froilan, Chapis DATA POWER CONSULTANT Unavailable Unavailable Froilan, Chapis DATA POWER CONSULTANT Unavailable Unavailable Froilan, Chapis DATA POWER CONSULTANT Unavailable Unavailable Froilan, Chapis DATA POWER CONSULTANT Unavailable Unavailable Froilan, Chapis DATA POWER CONSULTANT Unavailable Unavailable Froilan, Chapis DATA POWER CONSULTANT Unavailable Unavailable Froilan, Chapis DATA POWER CONSULTANT Unavailable Unavailable Froilan, Chapis DATA POWER CONSULTANT Unavailable Unavailable Froilan, Chapis DATA POWER CONSULTANT Unavailable Unavailable Froilan, Chapis DATA POWER CONSULTANT Unavailable Unavailable Froilan, Chapis DATA POWER CONSULTANT Unavailable Unavailable Froilan, Chapis DATA POWER CONSULTANT Unavailable Unavailable Froilan, Chapis DATA POWER CONSULTANT Unavailable Unavailable Froilan, Chapis DATA POWER CONSULTANT Unavailable Unavailable Froilan, Chapis DATA POWER CONSULTANT Unavailable Unavailable Froilan, Chapis DATA POWER CONSULTANT Unavailable Unavailable Froilan, Chapis DATA POWER CONSULTANT Unavailable Unavailable Froilan, Chapis DATA POWER CONSULTANT Unavailable Unavailable Froilan, Chapis DATA POWER CONSULTANT Unavailable Unavailable Froilan, Chapis DATA POWER CONSULTANT Unavailable Unavailable Froilan, Chapis DATA POWER CONSULTANT Unavailable Unavailable Froilan, Chapis DATA POWER CONSULTANT Unavailable Unavailable Froilan, Chapis DATA POWER CONSULTANT Unavailable Unavailable Froilan, Chapis DATA POWER CONSULTANT Unavailable Unavailable Froilan, Chapis DATA POWER CONSULTANT Unavailable Unavailable Froilan, Chapis DATA POWER CONSULTANT Unavailable Unavailable Froilan, Chapis DATA POWER CONSULTANT Unavailable Unavailable Froilan, Chapis DATA POWER CONSULTANT Unavailable Unavailable Froilan, Chapis DATA POWER CONSULTANT Unavailable Unavailable Froilan, Chapis DATA POWER CONSULTANT Unavailable Unavailable Froilan, Chapis DATA POWER CONSULTANT Unavailable Unavailable Froilan, Chapis DATA POWER CONSULTANT Unavailable Unavailable Gavin Falanga, A Janneth LONG TERM ACUTE CARE REGISTERED NURSE Unavailable Unavailable Gipsy Falanga, A Janneth LONG TERM ACUTE CARE REGISTERED NURSE Unavailable Unavailable Gipsy Falanga, A Janneth LONG TERM ACUTE CARE REGISTERED NURSE Unavailable Unavailable Gavin Falanga, A Janneth LONG TERM ACUTE CARE REGISTERED NURSE Unavailable Unavailable Gavin Falanga, A Janneth LONG TERM ACUTE CARE REGISTERED NURSE Unavailable Unavailable Gavin Falanga, A Janneth LONG TERM ACUTE CARE REGISTERED NURSE Unavailable Unavailable Gipsy Falanga, A Janneth LONG TERM ACUTE CARE REGISTERED NURSE Unavailable Unavailable Gavin Falanga, A Janneth LONG TERM ACUTE CARE REGISTERED NURSE Unavailable Unavailable Gavin Falanga, A Janneth LONG TERM ACUTE CARE REGISTERED NURSE Unavailable Unavailable Gavin Falanga, A Janneth LONG TERM ACUTE CARE REGISTERED NURSE Unavailable Unavailable Gipsy Falanga, A Janneth LONG TERM ACUTE CARE REGISTERED NURSE Unavailable Unavailable Gavin Falanga, A Janneth LONG TERM ACUTE CARE REGISTERED NURSE Unavailable Unavailable Gavin Falanga, A Janneth LONG TERM ACUTE CARE REGISTERED NURSE Unavailable Unavailable Gipsy Falanga, A Janneth LONG TERM ACUTE CARE REGISTERED NURSE Unavailable Unavailable Gavin Falanga, A Janneth LONG TERM ACUTE CARE REGISTERED NURSE Unavailable Unavailable Gavin Falanga, A Janneth LONG TERM ACUTE CARE REGISTERED NURSE Unavailable Unavailable Gavin Falanga, A Janneth LONG TERM ACUTE CARE REGISTERED NURSE Unavailable Unavailable Gipsy Falanga, A Janneth LONG TERM ACUTE CARE REGISTERED NURSE Unavailable Unavailable Gavin Falanga, A Janneth LONG TERM ACUTE CARE REGISTERED NURSE Unavailable Unavailable Gipsy Falanga, A Janneth LONG TERM ACUTE CARE REGISTERED NURSE Unavailable Unavailable Gipsy Falanga, A Janneth LONG TERM ACUTE CARE REGISTERED NURSE Unavailable Unavailable Gavin Falanga, A Janneth LONG TERM ACUTE CARE REGISTERED NURSE Unavailable Unavailable Gipsy Falanga, A Janneth LONG TERM ACUTE CARE REGISTERED NURSE Unavailable Unavailable Gipsy Falanga, A Janneth LONG TERM ACUTE CARE REGISTERED NURSE Unavailable Unavailable Gavin Falanga, A Janneth LONG TERM ACUTE CARE REGISTERED NURSE Unavailable Unavailable Gipsy Falanga, A Janneth LONG TERM ACUTE CARE REGISTERED NURSE Unavailable Unavailable Gipsy Falanga, A Janneth LONG TERM ACUTE CARE REGISTERED NURSE Unavailable Unavailable Gavin Falanga, A Janneth LONG TERM ACUTE CARE REGISTERED NURSE Unavailable Unavailable Gipsy Falanga, A Janneth LONG TERM ACUTE CARE REGISTERED NURSE Unavailable Unavailable Gipsy Falanga, A Janneth LONG TERM ACUTE CARE REGISTERED NURSE Unavailable Unavailable Joyce Arevalo ANP-BC Unavailable Unavailable [...] Smith MD, FACS Unavailable Unavailable Medina Ryan, aJcquie Smith MD, FACS Unavailable Unavailable Medina Ryan, [...] BURTONNELLI MD Unavailable Unavailable Jumalon, M Leslye LONG TERM ACUTE CARE REGISTERED NURSE Unavailable Unavailable Jumalon, M Leslye LONG TERM ACUTE CARE REGISTERED NURSE Unavailable Unavailable Jumalon, M Leslye LONG TERM ACUTE CARE REGISTERED NURSE Unavailable Unavailable Jumalon, M Leslye LONG TERM ACUTE CARE REGISTERED NURSE Unavailable Unavailable Jumalon, M Leslye LONG TERM ACUTE CARE REGISTERED NURSE Unavailable Unavailable Jumalon, M Leslye LONG TERM ACUTE CARE REGISTERED NURSE Unavailable Unavailable Jumalon, M Leslye LONG TERM ACUTE CARE REGISTERED NURSE Unavailable Unavailable Jumalon, M Leslye LONG TERM ACUTE CARE REGISTERED NURSE Unavailable Unavailable Jumalon, M Leslye LONG TERM ACUTE CARE REGISTERED NURSE Unavailable Unavailable Jumalon, M Leslye LONG TERM ACUTE CARE REGISTERED NURSE Unavailable Unavailable Jumalon, M Leslye LONG TERM ACUTE CARE REGISTERED NURSE Unavailable Unavailable Jumalon, M Leslye LONG TERM ACUTE CARE REGISTERED NURSE Unavailable Unavailable Jumalon, M Leslye LONG TERM ACUTE CARE REGISTERED NURSE Unavailable Unavailable Jumalon, M Leslye LONG TERM ACUTE CARE REGISTERED NURSE Unavailable Unavailable Jumalon, M Leslye LONG TERM ACUTE CARE REGISTERED NURSE Unavailable Unavailable Tania, M Leslye LONG TERM ACUTE CARE REGISTERED NURSE Unavailable Unavailable Jumalon, M Leslye LONG TERM ACUTE CARE REGISTERED NURSE Unavailable Unavailable Jumalon, M Leslye LONG TERM ACUTE CARE REGISTERED NURSE Unavailable Unavailable Claudettemalon, M Leslye LONG TERM ACUTE CARE REGISTERED NURSE Unavailable Unavailable Jumalxin, M Leslye LONG TERM ACUTE CARE REGISTERED NURSE Unavailable Unavailable Claudettemalxin, M Leslye LONG TERM ACUTE CARE REGISTERED NURSE Unavailable Unavailable Claudettemalxin, M Leslye LONG TERM ACUTE CARE REGISTERED NURSE Unavailable Unavailable Jumalon, M Leslye LONG TERM ACUTE CARE REGISTERED NURSE Unavailable Unavailable Claudettemalon, M Leslye LONG TERM ACUTE CARE REGISTERED NURSE Unavailable Unavailable Jumalon, M Leslye LONG TERM ACUTE CARE REGISTERED NURSE Unavailable Unavailable Tania, M Leslye LONG TERM ACUTE CARE REGISTERED NURSE Unavailable Unavailable Tania, M Leslye LONG TERM ACUTE CARE REGISTERED NURSE Unavailable Unavailable Tania, M Leslye LONG TERM ACUTE CARE REGISTERED NURSE Unavailable Unavailable Fish, [facility], PA-C Unavailable Unavailabl e Fish, [facility], PA-C Unavailable Unavailabl e Fish, [facility], PA-C Unavailable Unavailabl e Fish, [facility], PA-C Unavailable Unavailabl e Fish, [facility], PA-C Unavailable Unavailabl e Fish, [facility], PA-C Unavailable Unavailabl e Fish, [facility], PA-C Unavailable Unavailabl e Fish, [facility], PA-C Unavailable Unavailabl e Fish, [facility], PA-C Unavailable Unavailabl e Fish, [facility], PA-C Unavailable Unavailabl e Fish, [facility], PA-C Unavailable Unavailabl e Fish, [facility], PA-C Unavailable Unavailabl e Fish, [facility], PA-C Unavailable Unavailabl e Fish, [facility], PA-C Unavailable Unavailabl e Fish, [facility], PA-C Unavailable Unavailabl e Fish, [facility], PA-C Unavailable Unavailabl e Fish, [facility], PA-C Unavailable Unavailabl e Fish, [facility], PA-C Unavailable Unavailabl e Fish, [facility], PA-C Unavailable Unavailabl e Fish, [facility], PA-C Unavailable Unavailabl e Fish, Rupal Юлия MPAS, PA-C Unavailable Unavailabl e Fish, Rupal Redman [facility], PA-C Unavailable Unavailabl e Fish, [facility] Unavailable Unavailabl e Fish, [facility] Unavailable Unavailabl e Fish, [facility], [facility] Unavailable Unavailabl e Fish, [facility], [facility]C Unavailable Unavailabl e Fish, [facility], [facility]C Unavailable Unavailabl e Fish, [facility], [facility]C Unavailable Unavailabl e Fish, [facility], [facility]C Unavailable Unavailabl e Fish, Rupal Redman [facility], PA-C Unavailable Unavailabl e Fish, Rupal Redman [facility], PA-C Unavailable Unavailabl e Fish, Rupal Redman [facility], PA-C Unavailable Unavailabl e Fish, Rupal Redman [facility], PA-C Unavailable Unavailabl NELLI Still MD Unavailable [...] Gemma PA-C Unavailable Unavailable Jumalon, M Leslye LONG TERM ACUTE CARE REGISTERED NURSE Unavailable Unavailable Jumalon, M Leslye LONG TERM ACUTE CARE REGISTERED NURSE Unavailable Unavailable Jumalon, M Leslye LONG TERM ACUTE CARE REGISTERED NURSE Unavailable Unavailable Jumalon, M Leslye LONG TERM ACUTE CARE REGISTERED NURSE Unavailable Unavailable Jumalon, M Leslye LONG TERM ACUTE CARE REGISTERED NURSE Unavailable Unavailable Jumalon, M Leslye LONG TERM ACUTE CARE REGISTERED NURSE Unavailable Unavailable Jumalon, M Leslye LONG TERM ACUTE CARE REGISTERED NURSE Unavailable Unavailable Jumalon, M Leslye LONG TERM ACUTE CARE REGISTERED NURSE Unavailable Unavailable Jumalon, M Leslye LONG TERM ACUTE CARE REGISTERED NURSE Unavailable Unavailable Jumalon, M Leslye LONG TERM ACUTE CARE REGISTERED NURSE Unavailable Unavailable Jumalon, M Leslye LONG TERM ACUTE CARE REGISTERED NURSE Unavailable Unavailable Jumalon, M Leslye LONG TERM ACUTE CARE REGISTERED NURSE Unavailable Unavailable Jumalon, M Leslye LONG TERM ACUTE CARE REGISTERED NURSE Unavailable Unavailable Jumalon, M Leslye LONG TERM ACUTE CARE REGISTERED NURSE Unavailable Unavailable Jumalon, M Leslye LONG TERM ACUTE CARE REGISTERED NURSE Unavailable Unavailable Jumalon, M Leslye LONG TERM ACUTE CARE REGISTERED NURSE Unavailable Unavailable Jumalon, M Leslye LONG TERM ACUTE CARE REGISTERED NURSE Unavailable Unavailable Jumalon, M Leslye LONG TERM ACUTE CARE REGISTERED NURSE Unavailable Unavailable Jumalon, M Leslye LONG TERM ACUTE CARE REGISTERED NURSE Unavailable Unavailable Jumalon, M Leslye LONG TERM ACUTE CARE REGISTERED NURSE Unavailable Unavailable Jumalon, M Leslye LONG TERM ACUTE CARE REGISTERED NURSE Unavailable Unavailable Jumalon, M Leslye LONG TERM ACUTE CARE REGISTERED NURSE Unavailable Unavailable Jumalon, M Leslye LONG TERM ACUTE CARE REGISTERED NURSE Unavailable Unavailable Jumalon, M Leslye LONG TERM ACUTE CARE REGISTERED NURSE Unavailable Unavailable Jumalon, M Leslye LONG TERM ACUTE CARE REGISTERED NURSE Unavailable Unavailable Jumalon, M Leslye LONG TERM ACUTE CARE REGISTERED NURSE Unavailable Unavailable Jumalon, M Leslye LONG TERM ACUTE CARE REGISTERED NURSE Unavailable Unavailable VENTURA, MORRO MD Unavailable Unavailable [...] Unavailable Unavailable VENTURA, MORRO MD Unavailable Unavailable VENUTRA MORRO MD Unavailable Unavailable VENTURA MORRO MD [...] is protected by Article 27-F of the [facility] Public Health law. If you continue you may have access to information: Regarding HIV / AIDS; Provided by facilities licensed or operated by the [facility] Office of Mental Health; or Provided by the [facility] Office for People With Developmental Disabilities. If such information is present, then the following [facility] mandated warning applies: This information has been [...] law may result in a fine or long term sentence or both. A general authorization for the release of medical or other information is NOT sufficient authorization for further disc losure. Allergies and Adverse Reactions Type Description Substance Reaction Status Data Source(s ) CLASS PENICILLINS (CLASS) PENICILLINS (CLASS) SWELLING [facility] Drug allergy Penicillin (For Allergies Use Only) Drug allergy facia l swelling Active eCW1 ([facility]) Family History Family Member Name Family Member Gender Family Member Status Date o f Status Description Data Source(s) Unknown Male Problem MEDENT ([facility]) Unknown Female Problem [facility]ENT ([facility]) Unknown Female Problem [facility]ENT ([facility]) Unknown Female Problem MEDENT ([facility]) Unknown Female Problem [facility]ENT ([facility]) Unknown Female Problem MEDENT ([facility]) Encounters Encounter Providers Location Date Indications Data Source(s ) Outpatient Referrer: [place] 04/05/2020 1 0:18:00 AM EST visual and auditory hallucinations, r/o dementia [facility] visual and auditory hallucinations, r/o dementia Inpatient Attender: Janneth amos FNPAttender: SOSA RIOSCOConsultant: MORRO VENTURA MD 04/04/2020 11:00 :00 AM EST - 04/06/2020 09:40:00 PM EST [facility] Patient discharged. OFFICE OUTPATIENT VISIT 15 MINUTES Attender: Юлия DIALLO PA-C Physical Therapy 03/24/2020 10:00:00 AM EST MEDENT ([facility]) Outpatient Attender: MORRO VENTURA MD 2020 10:16:00 AM EST - 03/15/2020 10:16:[address] [facility] Outpatient Att[facility] Tammy Arevalo ANP-BCConsultant: MORRO VENTURA MD 02/15/2020 10:35:00 AM EST - 02/15/2020 10:35:[address] [facility] Outpatient Attender: NELLI BURTON MDConsultant: MORRO SANTIAGO MD 02/14/2020 11:13:[address] [facility] Office Visit Attender: NELLI BURTON MD Physical Therapy 08:15:00 AM EDT MEDENT ([facility] Outpatient Attender: Gemma OLVERA eferrer: Gemma ALVARADOCConsultant: MORRO VENTURA MD 12/27/2019 01:17:00 PM EDT - 12/27/2019 01:27:00 PM EDT [facility] Outpatient Attender: Gemma FERRAROonsultant: MORRO NUNN MD 12/14/2019 09:00:00 AM EDT - 12/14/2019 09:00:00 AM EDT [facility] Outpatient Attender: Gemma Lamas PA-C Family Practice 10/2019 02:20:00 PM EDT MED[facility] ([facility] Outpatient Attender: Gemma FERRAROonsultant: MORRO NUNN MD 12/09/2019 02:08:00 PM EDT - 12/09/2019 02:08:00 PM EDT [facility] Outpatient [address] [facility] [address] 12/09/2019 12:00:00 AM EDT eCW1 ([facility]) Outpatient Attender: MORRO VENTURA MD Family Practice 11/11/2019 0 1:20:00 PM EDT MEDENT ([facility]) Outpatient Attender: MORRO VENTURA MDConsultant: MORRO Parry MD 11/11/2019 01:19:00 PM EDT - 11/11/2019 01:19:00 PM EDT [facility] Outpatient Attender: NLELI BURTON MDConsultant: MORRO SANTIAGO MD 09/23/2019 09:50:00 AM EDT [facility] Outpatient Attender: NELLI BURTON MD Physical Therapy 08:30:00 AM EDT MEDENT ([facility]) Outpatient Referrer: NELLI [...] Chapis Mcgovern NP 08/10/2019 02:18:00 PM EDT [facility] Outpatient Attender: MORRO VENTURA MDConsultant: MORRO Parry MD 07/19/2019 10:36:00 AM EDT - 07/19/2019 10:36:00 AM EDT [facility] Outpatient Attender: MORRO VENTURA MDConsultant: MORRO Parry MD 07/14/2019 11:00:00 AM EDT - 07/14/2019 11:00:00 AM EDT [facility] Outpatient Attender: MORRO VENTURA MDConsultant: MORRO Parry MD 07/06/2019 10:31:00 AM EDT - 07/06/2019 10:31:00 AM T [facility] Outpatient Attender: MORRO VENTURA MD 2019 03:22:00 PM EDT - 06/16/2019 03:22:00 PM EDT [facility] [address] [place] [phone] 06/10/2019 12:00:00 AM EDT eCW1 ([facility]) Outpatient Referrer: Chapis Mcgovern NP 04/27/2019 07:34:00 AM EST [facility] [address] [place] [phone] 04/16/2019 12:00:00 AM EST eCW1 ([facility]) Outpatient Referrer: Chapis Mcgovern NP 04/15/2019 12:35:00 PM EST [facility] [address] [place] [address] 04/14/2019 12:00:00 AM EST eCW1 ([facility]) [facility] Breast Care [address] [place] [phone] 04/13/2019 12:00:00 AM EST eCW1 ([facility]) [facility] [address] [place] [phone] 04/08/2019 12:00:00 AM EST eCW1 ([facility]) [facility] [address] [place] [phone] 03/26/2019 12:00:00 AM EST eCW1 ([facility]) Outpatient Referrer: Chapis Mcgovern NP 03/17/2019 10:06:00 AM EST [facility] Outpatient Referrer: Chapis Mcgovern NP 03/17/2019 09:56:00 AM EST [facility] Outpatient Referrer: Chapis Mcgovern NP 03/17/2019 09:50:00 AM EST [facility] Outpatient Referrer: Chapis Mcgovern NP 03/16/2019 10:21:00 AM EST [facility] Outpatient Referrer: Leslye Marin LONG TERM ACUTE CARE REGISTERED NURSE 03/16/2019 10:17:0 0 AM EST [facility] Outpatient Referrer: Leslye Marin LONG TERM ACUTE CARE REGISTERED NURSE 03/16/2019 10:16:0 0 AM EST [facility] [address] [place] [address] 03/16/2019 12:00:00 AM EST eCW1 ([facility]) [facility] Care [address] [place] [phone] 03/16/2019 12:00:00 AM EST eCW1 ([facility]) Leslye Marin, DATA POWER CONSULTANT: [address], [address], [place] [address], Ph. Attender: Leslye Marin [facility] - Main Office 03/16/2019 12:00:00 AM EST ATHE NA ([facility]) Outpatient<td ID="encounterTypeDescripti onID0">1 Year Follow-Up</td><td>Luis Menezes MD, FACS</td><td>Luis Menezes MD [facility]</td><td>03/08/2019</td><td> <content ID="encounterDiagnosisID0-0">Cataract Senile Nuclear</content>, <content ID="encounterDiagnosisID0-1">Conjunctivitis Chronic Allergic</content>, <content ID="encounterDiagnosisID0-2">Dry Eye Syndrome Both Eyes</content>, <content ID="encounterDiagnosisID0-3">Refractive Error - Hypermetropia</content></td> Attender: Luis Ryan MD, FACS Luis Ryan MD [facility] 03/08/2019 08:55:00 AM EST - 03/08/2019 09:36:00 AM ES T Refractive Error - HypermetropiaCataract Senile NuclearDry Eye Syndrome Both EyesConjunctivitis Chronic Allergic NICOLE (Luis Ryan MD [facility]) 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) Immunizations Vaccine Date Status Description Data Source(s) pneumococcal polysaccharide PPV23 02/09/2019 12:47:00 PM EST comple yan MEDENT ([facility]) Medications Medication Brand Name Start Date Product Form Dose Route Admi nistrative Instructions Pharmacy Instructions Status Indications Reaction Description Data Source(s) Ciprofloxacin 250 MG Oral Tablet [Cipro] Cipro 02/16/2020 12:00: 00 AM EST ORAL completed MEDENT ([facility]) atorvastatin 40 MG Oral Tablet Atorvastatin Calcium 01/30/2020 1 2:00:00 AM EST active MEDENT ( [facility]) tramadol hydrochloride 50 MG Oral Tablet Tramadol HCL 01/03/2020 12:00:00 AM EST active [facility] ([facility]) Oxycodone Hydrochloride 5 MG Oral Tablet Oxycodone HCL 12/30/2019 12:00:00 AM EDT ORAL active [facility] ([facility]) Acetaminophen 325 MG / Oxycodone Hydrochloride 5 MG Or al Tablet Oxycodone-Acetaminophen 12/24/2019 12:00:00 AM EDT completed MEDENT ([facility]) Oxycodone Hydrochloride 5 MG Oral Tablet Oxycodone HCL 2019 12:00:00 AM EDT ORAL completed MEDENT ([facility]) Oxycodone Hydrochloride 5 MG Oral Tablet Oxycodone HCL 12/06/2019 12:00:00 AM EDT ORAL completed MEDENT ([facility]) buspirone hydrochloride 10 MG Oral Tablet Buspirone HCL 11/11/2019 12:00:00 AM EDT ORAL active MEDENT ([facility]) meloxicam 15 MG Oral Tablet Meloxicam 08/02/2019 12:00:00 AM EDT ORAL completed [facility]ENT ([facility]) Zithromax Z-Afdy Zithromax Z-Fady 06/16/2019 12:00:00 AM EDT ORAL completed MEDENT ([facility]) Escitalopram 20 MG Oral Tablet Escitalopram Oxalate 05/29/2019 1 2:00:00 AM EDT ORAL active MEDENT ( [facility]) Ergocalciferol 19094 UNT Oral Capsule Vitamin D (Ergocalcife rol) 02/09/2019 12:00:00 AM EST active M EDENT ([facility]) Escitalopram 10 MG Oral Tablet Escitalopram Oxalate 12/31/2018 1 2:00:00 AM EDT completed MEDENT ([facility]) Escitalopram 10 MG Oral Tablet escitalopram 10 mg tabl et escitalopram 10 mg tablet completed Escitalopram 10 MG Oral Tablet MAKAYLA ([facility]) Insurance Providers Payer name Policy type / Coverage type Policy ID Covered constitution party ID Covered constitution party's relationship to dias Policy Dias Plan Information [facility] [id number] SP [id number] MEDICARE [id number] SP [id number] [facility] [id number] SP [id number] MEDICARE PART A -I/P [id number] 18 [id number] [employer] BL[employer]IELD -I/P [id number] 18 [id number] MEDICARE PART A -O/P [id number] 18 [id number] [employer] BL[employer]OSS BLUE SHIELD -O/P [id number] 18 [id number] [facility] U [id number] Self [id number] MEDICARE PART A [facility] [id number] 18 [id number] [facility] EMPIRE PLAN [id number] 18 [id number] MANAGED PHYSICAL NETWORK -R [id number] 18 [id number] BLUE CROSS BLUE SHIELD -RECURRING [id number] 18 [id number] MEDICARE PART A -RECURRING [id number] 18 [id number] [employer] BLUE SHIELD -RECURRING [id number] 18 [id number] MEDICARE -RECURRING [id number] 18 [id number] MANAGED PHYSICAL NETWORK -RCR [id number] 18 [id number] BCBS E[place]IRE JEY DIV [id number] MEDICARE C [id number] S [id number] [place] (STATE EMP) O [id number] S [id number] [employer] BL[employer] BLUE SHIELD -RECURRING [id number] 18 [id number] MEDICARE -RECURRING [id number] UNITED HEALTHCARE O [id number] S [id number] [place] BLUE CROSS BLUE SHIELD -O/P [id number] 18 [id number] BCBS [place] JEY DIV [id number] SP [id number] MEDICARE [id number] SP [id number] [facility] [id number] SP [id number] UNITED HEALTHCARE O [id number] S [id number] [place] ([facility]) O [id number] S [id number] [facility] Employees ([place]) - [facility] Other 0 Self 0 Medicare Part B [facility] Other 0 Se lf 0 MEDICARE PART A -O/P [id number] 18 [id number] [facility] [place] Plan Medigap Part B [id number] Self [id number] Medicare Part A [place] Primary [id number] Self [id number] BS EMPIRE JEY DIV [id number] SP [id number] MEDICARE [id number] SP [id number] ANSI-Medicare Part B [id number] ANSI-Commercial [id number] BS EMPIRE JEY DIV [id number] SP [id number] [place] United Healthcare Medigap Part B [id number] Self [id number] Medicare Dme Supplies Medigap Part B [id number] Self [id number] [place] Primary [id number] Self [id number] [place] United Healthcare Medigap Part B [id number] Self [id number] Medicare Dme Supplies Medigap Part B [id number] Self [id number] [place] Primary [id number] Self [id number] MEDICARE [id number] SP [id number] MEDICARE PART A [facility] [id number] 18 [id number] [facility] [place] Plan Medigap Part B [id number] Self [id number] Medicare Part A [place] Medicare Primary [id number] Self [id number] MEDICARE [id number] SP [id number] United Healthcare [place] Commercial [id number] Self [id number] [facility]) O [id number] S [id number] MEDICARE C [id number] S [id number] MEDICARE [id number] SP [id number] A [facility] [place] Plan Medigap Part B [id number] Self [id number] Medicare Part A [place] Primary [id number] Self [id number] UNHC COMMUNITY PLAN XIX [id number] 18 [id number] [facility] [place] Plan Medigap Part B [id number] Self [id number] Medicare Part A [place] Primary [id number] Self [id number] [facility] [place] Plan Medigap Part B [id number] Self [id number] Medicare Part A [place] Primary [id number] Self [id number] [facility] [place] Plan Medigap Part B [id number] Self [id number] Medicare Part A [place] Medicare Primary [id number] Self [id number] [facility] [place] Plan Medigap Part B [id number] Self [id number] Medicare Part A [place] Medicare Primary [id number] Self [id number] [place] United Healthcare Medigap Part B [id number] Self [id number] Medicare Dme Supplies Medigap Part B [id number] Self [id number] Medicare [facility] Medicare Primary [id number] Self [id number] [place] United Healthcare Medigap Part B [id number] Self [id number] Medicare Dme Supplies Medigap Part B [id number] Self [id number] Medicare [facility] Medicare Primary [id number] Self [id number] UNITED HEALTHCARE O [id number] S [id number] MEDICARE C [id number] S [id number] A [facility] [place] Plan Medigap Part B [id number] Self [id number] Medicare Part A [place] Medicare Primary [id number] Self [id number] [place] United Healthcare Medigap Part B [id number] Self [id number] Medicare Dme Supplies Medigap Part B [id number] Self [id number] Medicare [facility] Medicare Primary [id number] Self [id number] [place] United Healthcare Medigap Part B [id number] Self [id number] Medicare Dme Supplies Medigap Part B [id number] Self [id number] Medicare [place] Medicare Primary [id number] Self [id number] [facility] [id number] 18 [id number] [facility] [place] Plan Medigap Part B [id number] Self [id number] Medicare Part A [place] Medicare Primary [id number] Self [id number] [place] United Healthcare Medigap Part B [id number] Self [id number] Medicare Dme Supplies Medigap Part B [id number] Self [id number] Medicare [place] Medicare Primary [id number] Self [id number] [facility] Medigap Part B [id number] Self [id number] Medicare Part A [place] Medicare Primary [id number] Self [id number] [facility] Medigap Part B [id number] Self [id number] Medicare Part A [place] Medicare Primary [id number] Self [id number] [facility] Health Maintenance Organization (HMO) [id number] Self [id number] [facility] Health Maintenance Organization (HMO) [id number] Self [id number] [facility] Health Maintenance Organization (HMO) [id number] Self [id number] [facility] Community Plan Medicaid [id number] Self [id number] [facility] COMMUNITY PLAN [id number] 18 [id number] [facility] Community Plan Medicaid [id number] Self [id number] [facility] Community Plan Medicaid [id number] Self [id number] [facility] Community Plan Medicaid [id number] Self [id number] [facility] Community Plan Medicaid [id number] Self [id number] [facility] HMO [id number] 18 [id number] [facility] Community Plan Medicaid [id number] Self [id number] [facility] Community Plan Medicaid [id number] Self [id number] [facility] [place] Commercial Self BCBS EMPIRE BC [id number] S [id number] [facility] Community Plan Medicaid Self [facility] [id number] 18 [id number] [place] UNITEDHEALTHCARE-O/P [id number] 18 [id number] UNITED HEALTHCARE-O/P [id number] 18 [id number] Problems, Conditions, and Diagnoses Code Display Name Description Problem Type Effective Dates Data Source(s) 726300334 Pure hypercholesterolemia Pure hypercholesterolemia Pr oblem 08/03/2019 12:00:00 AM EDT [facility] ([facility]) 367.0 Refractive Error - Hypermetropia Refractive Error - Hy permetropia Problem 03/08/2019 12:00:00 AM EST HAMEL (Luis Ryan MD [facility]) visual and auditory hallucinations, r/o dementia visual and auditory hallucinations, r/o dementia Diagnosis 04/05/2020 10:18:00 AM [facility] N390 Urinary tract infection, site not specif ied Urinary tract infection, site not specified Diagnosis 03/15/2020 10:16:[address] [facility] F419 Anxiety disorder, unspecified Anxiety disorder, unspec ified Diagnosis 03/15/2020 10:16:[address] [facility] G4733 Obstructive sleep apnea (adult) (pediatr ic) Obstructive sleep apnea (adult) (pediatric) Diagnosis 03/15/2020 10:16:[address] [facility] M109 Gout, unspecified Gout, unspecified Diagnosis 03/15/2020 10:16:[address] [facility] E559 Vitamin D deficiency, unspecified Vitamin D defi ciency, unspecified Diagnosis 03/15/2020 10:16:[address] [facility] E785 Hyperlipidemia, unspecified Hyperlipidemia, unspecifie d Diagnosis 03/15/2020 10:16:[address] [facility] I10 Essential (primary) hypertension Essential (primary) h ypertension Diagnosis 03/15/2020 10:16:[address] [facility] E782 Mixed hyperlipidemia Mixed hyperlipidemia Diagnosis 02/15/2020 10:35:[address] [facility] Z4789 Encounter for other orthopedic aftercare Encounter for other orthopedic aftercare Diagnosis 02/15/2020 09:41:[address] [facility] E876 Hypokalemia Hypokalemia Diagnosis 12/27/2019 01:17:00 PM T [facility] C80324 Encounter for other preprocedural examin ation Encounter for other preprocedural examination Diagnosis 12/09/2019 02:08:00 PM [facility] [id number] Strain of muscle(s) and tend on(s) of anterior muscle group at lower leg level, right leg, subsequent encounter Strain of muscle(s) and tendon(s) of anterior muscle group at lower leg level, right leg, subsequent encounter Diagnosis 09/23/2019 09:50:00 AM [facility] W02892 Pain in right foot Pain in right foot Diagnosis 07/2019 10:31:00 AM EDT [facility] J029 Acute pharyngitis, unspecified Acute pharyngitis, unsp ecified Diagnosis 06/16/2019 03:22:00 PM EDT [facility] Surgeries/Procedures Procedure Description Date Indications Data Source(s) APPLICATION SHORT LEG CAST BELOW KNEE-TOE 01/20/2020 1 2:00:00 AM EST [facility] ([facility] ) APPLICATION SHORT LEG CAST BELOW KNEE-TOE 01/06/2020 1 2:00:00 AM EST [facility] ([facility] ) APPLICATION SHORT LEG CAST BELOW KNEE-TOE 12/30/2019 1 2:00:00 AM EDT [facility] ([facility] ) APPLICATION SHORT LEG CAST BELOW KNEE-TOE 12/23/2019 1 2:00:00 AM EDT [facility] ([facility] ) Transfer Tendon Ant/Post Tibial Deep 2019 12:00: 00 AM EDT [facility] ([facility] ) Transfer Tendon Ant/Post Tibial Deep 2019 12:00: 00 AM EDT [facility] ([facility] ) Electrocardiogram Complete 12/09/2019 12:00:00 AM EDT [facility] ([facility]) Brief Emotional/Behav Assessment W/ Scoring Doc Per Standard Inst 11/11/2019 12:00:00 AM EDT [facility] ([facility]) Admin Patient Focused Health Risk Assessment Instrument 11/11/2019 12:00:00 AM EDT [facility] ([facility]) RADEX FOOT COMPLETE MINIMUM 3 VIEWS 08/02/2019 12:00:0 0 AM EDT [facility] ([facility] ) NO CHARGE VISIT 06/10/2019 12:00:00 AM EDT eCW1 ([facility]) Cervical or vaginal cancer screening; pelvic and clinical br east examination 03/16/2019 12:00:00 AM EST eCW1 ([facility]) Comprehensive eye exam established patient (25) Compre hensive eye exam established patient (25) 03/08/2019 12:00:00 AM EST NICOLE (Luis Ryan MD [facility]) Refraction (GA) Refraction (GA) 03/08/2019 12:00:00 AM EST NICOLE (Luis Ryan MD [facility]) Results ID Date Data Source [id number] 04/06/2020 11:45:[address] [facility] NOT DETECTEDNOT DETECTED{ PROC EDURAL CONTROL VALID [...] rce(s) Supporting Document(s) ID Date Data Source [id number] 04/06/2020 07:32:[address] [facility] Name Value Range Interpretation Code Description Data [facility] rce(s) Supporting Document(s) BASIC METABOLIC PANEL [facility] BASIC METABOLIC PANEL Sodium [Moles/volume] in Serum or Plasma 139 mEq/L 134 - 153 [facility] Potassium [Moles/volume] in Serum or Plasma 3.1 mEq/L 3.6 - 5.0 L [facility] Chloride [Moles/volume] in Serum or Plasma 103 mEq/L 98 - 107 [facility] Carbon dioxide, total [Moles/volume] in Serum or Plasma 28 MEQ/L 22 - 30 [facility] Glucose [Mass/volume] in Serum or Plasma 92 MG/DL 70 - 99 [facility] BUN 9 MG/DL 7 - 21 [facility] Creatinine [Mass/volume] in Serum or Plasma 0.4 MG/DL 0.7 - 1.5 L [facility] BUN/CREAT 23 8 - 27 [facility] Calcium [Mass/volume] in Serum or Plasma 8.9 MG/DL 8.4 - 10.2 [facility] Anion gap 3 in Serum or Plasma 8.0 mmol/L 8.0 - 16.0 [facility]GE 69 [facility] AFR AMER GFR >60 [facility] NON-AA GFR >60 mL/min [facility] Male GFR Inter [...] >32 mL/min Normal ID Date Data Source [id number] 04/06/2020 06:47:00 AM EST [facility] Name Value Range Interpretation Code Description Data Cynthia rce(s) Supporting Document(s) CBC W/AUTOMATED DIFF [facility] COMPLETE BLOOD COUNT Leukocytes [#/volume] in Blood by Automated count 5.6 10^3/uL 4.2 - 1 1.0 [facility] Erythrocytes [#/volume] in Blood by Automated count 3.83 10^6/uL 4. 20 - 5.40 L [facility] Hemoglobin [Mass/volume] in Blood 11.9 g/dL 12.0 - 16.0 L [facility] Hematocrit [Volume Fraction] of Blood by Automated count 35.3 % 3 7.0 - 47.0 L [facility] Erythrocyte mean corpuscular volume [Entitic volume] by Auto mated count 92.2 fL 81.0 - 101 [facility] Erythrocyte mean corpuscular hemoglobin [Entitic mass] by Automated count 31.1 pg 27.0 - 34.0 [facility] Erythrocyte mean corpuscular hemoglobin concentration [Mass/volume] by Automated count 33.7 g/dL 31.0 - 36.0 [facility] Erythrocyte distribution width [Ratio] by Automated count 14.4 % 11.5 - 14.5 [facility] Platelets [#/volume] in Blood by Automated count 181 10^3/uL 150 - 45 0 [facility] Platelet mean volume [Entitic volume] in Blood by Automated count 10.3 fL 7.4 - 10.4 [facility] Neutrophils/100 leukocytes in Blood by Automated count 48.9 % 37. 0 - 80.0 [facility] Lymphocytes/100 leukocytes in Blood by Manual count 37.2 % 25.0 - 40.0 [facility] Monocytes/100 leukocytes in Blood by Automated count 10.3 % 3.0 - 8.0 H [facility] Eosinophils/100 leukocytes in Blood by Automated count 2.7 % 0.0 - 7.0 [facility] Basophils/100 leukocytes in Blood by Automated count 0.5 % 0.0 - 2.5 [facility] %IG 0.4 % 0.0 - 0.0 H [facility] %NRBC 0.0 % 0.0 - 0.0 [facility] Neutrophils [#/volume] in Blood by Automated count 2.75 10^3/uL 2.00 - 6.90 [facility] Lymphocytes [#/volume] in Blood by Automated count 2.09 10^3/uL 0.60 - 3.40 [facility] Monocytes [#/volume] in Blood by Automated count 0.58 10^3/uL 0.00 - 0.90 [facility] Eosinophils [#/volume] in Blood by Automated count 0.15 10^3/uL 0.00 - 0.70 [facility] Basophils [#/volume] in Blood by Automated count 0.03 10^3/uL 0.00 - 0.20 [facility] #IG 0.02 10^3/uL 0.00 - 0.10 [facility] ospital #NRBC 0.00 10^3/uL 0.00 - 0.00 [facility] MANUAL DIFF NOT INDICATED [facility] RBC MORPH NOT INDICATED [facility] spital ID Date Data Source [id number] 04/05/2020 09:15:00 AM EST [facility] [address] [place] [address] PHONE: [phone] FAX: [phone] Name .................. : DAKOTAH Parry Acct Number.................. : [id number] ROOM. ................. : 105-1 MR Number ................... : [id number] Stay type ............. : O/P Discharge Date......... ... : Admit Date ......... : 04/04/20 Admit Phys .................... : GAVIN-FALAN Date of ....... : 1950 Family Phys ................... : [employer] HARD Phone .................. : [phone] Age ................................ : 69 Film# .................. .:[id number] Sex ................................. : F Unsigned transcriptions are preliminary reports and do not represent a medical or legal document CHEST 1 VIEW 87189 COMPLETE:04/04/20 12:51 3495 Reason(s): altered mental status [...] EMERGENCY DEPT via mode Copy for: [address] [facility] REC Page 1 of 1 Name Value Range Interpretation Code Description Data Cynthia rce(s) Supporting Document(s) ID Date Data Source [id number] 04/05/2020 09:11:00 AM EST [facility] [address] [place] [address] PHONE: [phone] FAX: [phone] Name .................. : DAKOTAH Parry Acct Number.................. : [id number] ROOM. ................. : TR-08 MR Number ................... : [id number] Stay type ............. : E/R Discharge Date......... ... : Admit Date ......... : 04/04/20 [facility] ....... : 1950 Family Phys ................... : VENTURA HARD Phone .................. : [phone] Age ................................ : 69 Film# .................. .:[id number] Sex ................................. : F Unsigned transcriptions are preliminary reports and do not represent a medical or legal document CT HEAD W/O CONTRAST [id number] COMPLETE:04/04/20 11:08 3479 Reason(s): headache, alterd mental [...] rce(s) Supporting Document(s) ID Date Data Source [id number] 04/05/2020 09:34:[address] [facility] Name Value Range Interpretation Code Description Data Cynthia rce(s) Supporting Document(s) pH of Arterial blood 7.49 7.34 - 7.44 H [facility] Carbon dioxide [Partial pressure] in Blood 29.0 mm/HG 32.0 - 42.0 L [facility] Oxygen [Partial pressure] in Blood 99.9 mm/HG 75.0 - 100 [facility] Bicarbonate [Moles/volume] in Blood 21.4 meq/L 20.0 - 24.0 [facility] TCO2 22.3 meq/L 21.0 - 25.0 [facility] Base excess in Blood by calculation -1.0 -2.0 - 2.0 [facility] O2 SAT 98.2 % 95.0 - 98.0 H [facility] ID Date Data Source [id number] 04/05/2020 09:45:[address] [facility] Name Value Range Interpretation Code Description Data Cynthia rce(s) Supporting Document(s) Ammonia [Mass/volume] in Plasma 42.0 UG/DL 18.7 - 86.9 [facility] ID Date Data Source [id number] 04/05/2020 08:40:00 AM EST [facility] [address] [place] [address] PHONE: [phone] FAX: [phone] Name .................. : DAKOTAH Parry Acct Number.................. : [id number] ROOM. ................. : 105-1 MR Number ................... : [id number] Stay type ............. : O/P Discharge Date......... ... : Admit Date ......... : 04/04/20 Admit Phys .................... : GAVIN-ARTI Date of ....... : 1950 Family Phys ................... : VENTURA HARD Phone .................. : [phone] Age ................................ : 69 Film# .................. .:[id number] Sex ................................. : F Unsigned transcriptions are preliminary reports and do not represent a medical or legal document CAROTID [id number] COMPLETE:04/04/20 17:30 ADB 3511 (REASON FOR PROCEDURE :ALTERED MENTAL STATUS HCO TID DUPLEX ULTRASOUND: CLINICAL HISTORY: Altered mental [...] rce(s) Supporting Document(s) ID Date Data Source [id number] 04/05/2020 08:40:00 AM EST [facility] [address] [place] [address] PHONE: [phone] FAX: [phone] Name .................. : DAKOTAH Parry Acct Number.................. : [id number] ROOM. ................. : 105-1 MR Number ................... : [id number] Stay type ............. : O/P Discharge Date......... ... : Admit Date ......... : 04/04/20 Admit Phys .................... : TANIA Date of ....... : 1950 Family Phys ................... : VENTURA HARD Phone .................. : [phone] Age ................................ : 69 Film# .................. .:[id number] Sex ................................. : F Unsigned transcriptions are preliminary reports and do not represent a medical or legal document MRA HEAD W/O CONTRAST [id number] COMPLETE:04/04/20 15:29 [facility] 3512 (REASON FOR PROCEDURE :ALTERED [...] for: EMERGENCY DEPT via modem Copy for: [address] [place] [address] REC Page 1 of 1 Name Value Range Interpretation Code Description Data Cynthia rce(s) Supporting Document(s) ID Date Data Source [id number] 04/05/2020 08:39:00 [place] [address] PHONE: [phone] FAX: [phone] Name .................. : DAKOTAH Parry Acct Number.................. : [id number] ROOM. ................. : 105-1 MR Number ................... : [id number] Stay type ............. : O/P Discharge Date......... ... : Admit Date ......... : 04/04/20 Admit Phys .................... : TANIA Date of ....... : 1950 Family Phys ................... : VENTURA HARD Phone .................. : [phone] Age ................................ : 69 Film# .................. .:[id number] Sex ................................. : F Unsigned transcriptions are preliminary reports and do not represent a medical or legal document MRI BRAIN W/O CONTRAST [id number] COMPLETE:04/04/20 15:49 [facility] 3515 (REASON FOR PROCEDURE :ALTERED [...] rce(s) Supporting Document(s) ID Date Data Source [id number] 04/05/2020 01:12:00 PM EST [facility] Name Value Range Interpretation Code Description Data [facility] rce(s) Supporting Document(s) CVE PANEL [facility] LIPID PANEL Cholesterol [Mass/volume] in Serum or Plasma 170 MG/DL 131 - 200 [facility] Deprecated Triglyceride [Mass/volume] in Serum or Plasma 169 MG/DL 3 5 - 160 H [facility] HDL 78 MG/DL 29 - 86 [facility] Cholesterol in LDL [Mass/volume] in Serum or Plasma by Direc t assay 71 mg/dL 65 - 175 [facility] Cholesterol.total/Cholesterol in HDL [Mass Ratio] in Serum o r Plasma 2.2 3.2 - 4.4 L [facility] LDL/HDL 0.91 1.47 - 3.22 L [facility] ital CVE RISK CHOL/HDL LDL/HDLMEN: 1/2 AVERAGE 3.43 1.00 AVERAGE 4.97 3.55 2X AVERAGE 9.55 6.25 3X AVERAGE 23.99 7.99WOMEN: 1/2 AVERAGE 3.27 1.47 AVERAGE 4.44 3.22 2X AVERAGE 7.05 5.03 3X AVERAGE 11.04 6.14 ID Date Data Source [id number] 04/05/2020 07:14:00 AM EST [facility] Name Value Range Interpretation Code Description [facility] Supporting Document(s) CBC W/AUTOMATED DIFF [facility] COMPLETE BLOOD COUNT Leukocytes [#/volume] in Blood by Automated count 8.9 10^3/uL 4.2 - 1 1.0 [facility] Erythrocytes [#/volume] in Blood by Automated count 4.23 10^6/uL 4. 20 - 5.40 [facility] Hemoglobin [Mass/volume] in Blood 13.2 g/dL 12.0 - 16.0 [facility] Hematocrit [Volume Fraction] of Blood by Automated count 38.6 % 3 7.0 - 47.0 [facility] Erythrocyte mean corpuscular volume [Entitic volume] by Auto mated count 91.3 fL 81.0 - 101 [facility] Erythrocyte mean corpuscular hemoglobin [Entitic mass] by Automated count 31.2 pg 27.0 - 34.0 [facility] Erythrocyte mean corpuscular hemoglobin concentration [Mass/volume] by Automated count 34.2 g/dL 31.0 - 36.0 [facility] Erythrocyte distribution width [Ratio] by Automated count 14.0 % 11.5 - 14.5 [facility] Platelets [#/volume] in Blood by Automated count 231 10^3/uL 150 - 45 0 [facility] Platelet mean volume [Entitic volume] in Blood by Automated count 10.3 fL 7.4 - 10.4 [facility] Neutrophils/100 leukocytes in Blood by Automated count 62.4 % 37. 0 - 80.0 [facility] Lymphocytes/100 leukocytes in Blood by Manual count 27.6 % 25.0 - 40.0 [facility] Monocytes/100 leukocytes in Blood by Automated count 7.8 % 3.0 - 8.0 [facility] Eosinophils/100 leukocytes in Blood by Automated count 1.4 % 0.0 - 7.0 [facility] Basophils/100 leukocytes in Blood by Automated count 0.3 % 0.0 - 2.5 [facility] %IG 0.5 % 0.0 - 0.0 [facility] %NRBC 0.0 % 0.0 - 0.0 [facility] al Neutrophils [#/volume] in Blood by Automated count 5.53 10^3/uL 2.00 - 6.90 [facility] Lymphocytes [#/volume] in Blood by Automated count 2.44 10^3/uL 0.60 - 3.40 [facility] Monocytes [#/volume] in Blood by Automated count 0.69 10^3/uL 0.00 - 0.90 [facility] Eosinophils [#/volume] in Blood by Automated count 0.12 10^3/uL 0.00 - 0.70 [facility] Basophils [#/volume] in Blood by Automated count 0.03 10^3/uL 0.00 - 0.20 [facility] #IG 0.04 10^3/uL 0.00 - 0.10 [facility] ospital #NRBC 0.00 10^3/uL 0.00 - 0.00 [facility] ospital MANUAL DIFF NOT INDICATED [facility] RBC MORPH NOT INDICATED [facility] spital ID Date Data Source [id number] 04/05/2020 07:04:00 AM EST [facility] Name Value Range Interpretation Code Description Data Cynthia rce(s) Supporting Document(s) COMPREHENSIVE METABOLIC PANEL [facility] COMPREHENSIVE METABOLIC PANEL Sodium [Moles/volume] in Serum or Plasma 139 mEq/L 134 - 153 [facility] Potassium [Moles/volume] in Serum or Plasma 3.4 mEq/L 3.6 - 5.0 L [facility] Chloride [Moles/volume] in Serum or Plasma 102 mEq/L 98 - 107 [facility] Carbon dioxide, total [Moles/volume] in Serum or Plasma 24 MEQ/L 22 - 30 [facility] Glucose [Mass/volume] in Serum or Plasma 126 MG/DL 70 - 99 H [facility] BUN 8 MG/DL 7 - [facility] Creat[facility] [Mass/volume] in Serum or Plasma 0.5 MG/DL 0.7 - 1.5 L [facility] BUN/CREAT 16 8 - 27 [facility] al Protein [Mass/volume] in Serum or Plasma 6.8 G/DL 6.3 - 8.2 [facility] Albumin [Mass/volume] in Serum or Plasma 4.6 G/DL 3.9 - 5.0 [facility] Globulin [Mass/volume] in Serum by calculation 2.2 GM/DL 2.4 - 3.2 L [facility] A/G RATIO 2.1 0.8 - 2.0 H [facility] al Calcium [Mass/volume] in Serum or Plasma 9.2 MG/DL 8.4 - 10.2 [facility] Bilirubin.total [Mass/volume] in Serum or Plasma 1.7 MG/DL 0.2 - 1.3 H [facility] Alkaline phosphatase [Enzymatic activity/volume] in Serum or Plasma 79 U/L 38 - 126 [facility] Aspartate aminotransferase [Enzymatic activity/volume] in Serum or Plasma 31 U/L 5 - 40 [facility] Alanine aminotransferase [Enzymatic activity/volume] in Seru m or Plasma 28 U/L 7 - 56 [facility] Anion gap 3 in Serum or Plasma 13.0 mmol/L 8.0 - 16.0 [facility] AGE 69 yrs [facility] NON-AA GFR >60 mL/min [facility] ital AFR AMER GFR >60 [facility] Male GFR In [...] >32 mL/min Normal ID Date Data Source [id number] 04/05/2020 07:04:[address] [facility] Name Value Range Interpretation Code Description Data Cynthia rce(s) Supporting Document(s) Magnesium [Mass/volume] in Serum or Plasma 1.5 MG/DL 1.7 - 2.2 L [facility] ID Date Data Source [id number] 04/04/2020 11:00:[address] [facility] 1 OrderSheet [facility] Emergency Department [address] [place] [address] Phone #: [phone]- [phone] 04/04/2020 10:49 Patient: VOLODYMYR CLAIER Sex: F : 1950 Age: 69yWEIGHT:73.0 kg [...] RNDefined by CDC) ;(04/03/2020) (First 2 OrderSheet [facility] Emergency Department [address] [place] [address] Phone #: ext- [phone] 04/04/2020 10:49 Patient: [...] Head W/O Cont STAT 11:08 04/04/2020 11:26 [place](Oxygen?(No)) Ssoa Lomax RN ; Reason for Study: headache, [...] 12:54 Sosa Salamanca RN ; 3 OrderSheet [facility] Emergency Department [address] [place] [address] Phone #: ext- [phone] 04/04/2020 10:49 Patient: VOLODYMYR CLAIRE Sex: F : 1950 Age: 69yConsult - 13:01 04/04/2020 13:13 ClaytonHospitalist Sosa Lomax RN ;[Electronically signed by Clayton Mercado RN (16:20 04/04/2020)][Electronically signed by Sosa Lomax (21:36 04/04/2020)][Electronically locked by Clayton Mercado RN (16:20 04/04/2020)] Name Value Range Interpretation Code Description Data Cynthia rce(s) Supporting Document(s) ID Date Data Source [id number] 04/04/2020 11:00:00 AM EST [facility] 1 Medication Reconciliation Report [facility] Emergency Department [address] [place] [address] Phone #: ext- [phone] 04/04/2020 10:49 Patient: [...] a day, prn 2 Medication Reconciliation Report [facility] Emergency Department [address] [place] [address] Phone #: ext- [phone] 04/04/2020 10:49 [id number] Sex[facility] F : 1950 Age: 69y Vitamin [...] rce(s) Supporting Document(s) ID Date Data Source [id number] 04/04/2020 11:00:00 AM [place] [address] Medication Administration Record [facility] Emergency Department [address] [place] [address] Phone #: ext- [phone] 04/04/2020 10:49 Patient: VOLODYMYR CLAIRE Sex: F : 1950 Age: 69yWeight: 73.0 kgHeight/Length: 65 inBMI: 26.8ALLERGIES: Penicillins Date/Time Medication Administered Medication OrderedGiven POTASSIUM CHLORIDE LIQUID PO Potassium Chloride Liquid PO 4013:00 04/04/2020 Dose: 40 meq Syrup/Liquid PO meq (NOW)Clayton Mercado RN Name Value Range Interpretation Code Description Data Cynthia rce(s) Supporting Document(s) ID Date Data Source [id number] 04/04/2020 11:00:[address] [facility] 1 General Instructions [facility] Emergency Department [address] [place] [address] Phone #: ext- [phone] 04/04/2020 10:49 Patient: VOLODYMYR CLAIRE Sex: F : 1950 Age: 69yChronic tension headache. No poorly controlled headache or migraine headache.Metabolic encephalopathy.(Electronically signed by Sosa Lomax 04/04/2020 21:36) Name Value Range Interpretation Code Description Data Cynthia rce(s) Supporting Document(s) ID Date Data Source [id number] 04/04/2020 11:00:00 AM EST [facility] 1 Clinical Report - Nurses [facility] Emergency Department [address] [place] [address] Phone #: ckr- [phone] 04/04/2020 10:49 Patient: VOLODYMYR CLAIRE Sex: F [...] confused. Has not been feeling agitated. 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 SEPSIS SCREEN: SIRS SCREEN NEGATIVE. [...] Oral 20 mg, daily. --11:42 04/04/20 Clayton eMrcado RN Vitamin D Oral (Capsule 125 MCG [...] Mercado RN 2 Clinical Report - Nurses [facility] Emergency Department [address] [place] [address] Phone #: ext- [phone] 04/04/2020 10:49 Patient: [id number] Sex: F : 1950 Age: 69yNaproxen Oral (Tablet 500 mg) 2 tablets, daily. --11:47 04/04/20 Clayton Mercado RNvalACYclovir HCl Oral (Tablet 1 gm) 1 tablet, 2x a day as needed. --11:47 04/04/20 PERNELL Mustafalikiara Prebiotic-Probiotic Oral (Tablet Chewable 5-1.25 mg-gm) 1 tablet, daily. --11:48 04/04/20 ANNE-MARIE MedinaCipro Oral (Tablet 250 mg) 1 tablet, 2x a day. --11:48 04/04/20 Clayton Mercado RN.AllergiesPenicillins. Definite Severe(angioedema) --11:09 04/04/20 Clayton Mercado RN.ADDITIONAL SURGERIES:Bilateral eye lid lift. --11:10 04/04/20 Clayton Mercado RNRight foot. --11:10 04/04/20 Clayton Mercado RN.Dsgbnsb80:13 04/04/20.PAST MEDICAL HX: Hypertension. No history of [...] skin integrity riskidentified. --11:13 04/04/20 Clayton Mercado RN.Oupbbprslnunc84:13 04/04/20. Identification and allergy band on patient. To room. --11:04/04/20 Clayton Mercado RN. 3 Clinical Report - Nurses [facility] Emergency Department [address] [place] [address] Phone #: ext- [phone] 04/04/2020 10:49 Patient: [...] to CT by wheelchair with mask and explosive ordnance disposal technician. (1120). --11:34 04/04/20 Clayton Mercado RN Patient returned from CT by wheelchair with mask and explosive ordnance disposal technician. (1150). --11:52 04/04/20 Clayton Mercado RN 11:58 04/04/20. BP: 121/82. MAP: 95. HR: 72. RR: 16. O2 saturation: 100%. --11:58 04/04/20 Mackenzie cellophane bath mixer, Genet, ER Tech1 Portable chest x-ray ordered and shown to the ED physician (2637). --12:54 04/04/20 Clayton Mercado RN Droplet isolation precautions initiated. Mask, gowns and gloves in use. --12:55 04/04/20 Clayton Mercado RN 13:06 04/04/20. BP: 113/99. MAP: 103. HR: 70. RR: 16. O2 saturation: 100%. --13:06 04/04/20 [facility] Tech1 13:00 04/04/2020 POTASSIUM CHLORIDE LIQUID PO PO Syrup/Liquid 40 meq given. Allergies verified 4 Clinical Report - Nurses [facility] Emergency Department [address] [place] [address] Phone #: ext- [phone] 04/04/2020 10:49 Patient: VOLODYMYR CLAIRE Sex: F [...] RR: 16. O2 saturation: 100%. --13:59 04/04/20 [facility] Tech1.DISPOSITION / DISCHARGE 13:58 [...] rce(s) Supporting Document(s) ID Date Data Source [id number] 04/04/2020 11:00:00 AM EST [facility] 1 Clinical Report - Physicians/Mid Levels [facility] Emergency Department [address] [place] [address] Phone #: ext- [phone] 04/04/2020 10:49 Patient: [...] Tubal Ligation. Allergies: 2 Clinical Report - Physicians/[facility] Emergency Department [address] [place] [address] Phone #: ext- [phone] 04/04/2020 10:49 Patient: [...] Laboratory Tests: ETOH: (STEPHANIE: 04/04/2020 11:20) ( [facility] 04/04/[facility] 13:14) Final results Test Result Flag Units (Reference) ALCOHOL <10.0 MG/DL ALCOHOL % 0.01 % (0.00 - 0.01) *FOR MEDICAL PURPOSES ONLY* Lactic Acid: (STEPHANIE: 04/04/2020 12:51) ( [facility] 04/04/2020 12:58) Canceled CMP: (STEPHANIE: 04/04/2020 11:20) ( [place] [facility] [place] 04/04/2020 12:07) Final results Test Result Flag Units (Reference) COMPREHENSIVE METABOLIC PANEL COMPREHENSIVE METABOLIC PANEL 3 Clinical Report - Physicians/Mid Levels [facility] Emergency Department [address] [place] [address] Phone #: ext- [phone] 04/04/2020 10:49 Patient: [...] Male GFR Interprentation 20-49 yrs >60 mL/min Axqmuy51-21 yrs >56 mL/min Normal 60- 69 yrs >49 mL/min Normal 70-79yrs>42 mL/min Normal 80 and above >35 mL/min Normal Female GFRInterpretation 20-39 yrs >60 mL/min Normal 40-49 yrs >58 mL/minNormal 50-59 yrs >51 mL/min Normal 60-69 yrs >45 mL/min Radgli11-28 yrs >39 mL/min Normal 80 and above [...] Exam 4 Clinical Report - Physicians/Mid Levels [facility] Emergency Department [address] [place] [address] Phone #: ext- [phone] 04/04/2020 10:49 Patient: VOLODYMYR CLAIRE Sex: F : 1950 Age: 69y [place] HEAD [place] [address] PHONE: [phone] FAX: [phone] Name .................. : DAKOTAH Parry Acct Number.................. : [id number] ROOM. ................. : TR-08 MR Number ................... : [id number] Stay type ............. : E/R Discharge Date......... ... : Admit Date ......... : 04/04/20 Admit Phys .................... : HAILEE Date of ....... : 1950 Family Phys ................... : VENTURA HARD Phone .................. : [phone] Age ................................ : 69 Film# .................. .:[id number] Sex ................................. : F Unsigned transcriptions are preliminary reports and do not represent a medical or legal document CT HEAD W/O CONTRAST 28097 COMPLETE:04/04/20 11:08 3479 Reason(s): headache, alterd mental [...] results 5 Clinical Report - Physicians/Mid Levels [facility] Emergency Department [address] [place] [address] Phone #: ext- [phone] 04/04/2020 10:49 Patient: [...] INDICATED Sed. Rate: (STEPHANIE: 04/04/2020 11:20) ( [facility] 04/04/2020 12:17) Final results Test Result Flag Units (Reference) SED RATE 2 mm/hr (0 - 30) SED RATE REENTER 2 CRP: (STEPHANIE: 04/04/2020 11:20) ( [facility] 04/04/2020 12:06) Final results Test Result Flag [...] status 6 Clinical Report - Physicians/Mid Levels [facility] Emergency D epartment [address] [place] [address] Phone #: ext- [phone] 04/04/2020 10:49 Patient: [...] rce(s) Supporting Document(s) ID Date Data Source [id number] 04/04/2020 04:08:00 [place] [address] RESPIRATORY CARE REPORT ==== ---------NAME------- NUMBER SEX AGE ADMIT DISC. COLVIN# F/C TYPEDAKOTAH Parry [id number] F 69 04/04/20 [id number] MB4 O/P DATE OF : 1950 M/R# [id number] #: [phone] LOCATION: EMERGENCY DEPT EKG [id number] COMPLE TE:04/04/20 15:02 [place] [address] PHYSICIAN: TANIA LOMAX Name Value Range Interpretation Code Description Data Cynthia rce(s) Supporting Document(s) ID Date Data Source [id number] 04/04/2020 03:47:00 PM EST [facility] Name Value Range Interpretation Code Description Data Cynthia rce(s) Supporting Document(s) Hemoglobin A1c/Hemoglobin.total in Blood 5.6 % 4.4 - 6.1 [facility] {A1]{HB] ID Date Data Source [id number] 04/04/2020 03:39:00 PM EST [facility] Name Value Range Interpretation Code Description Data Cynthia rce(s) Supporting Document(s) Ammonia [Mass/volume] in Plasma 37.0 UG/DL 18.7 - 86.9 [facility] ID Date Data Source [id number] 04/04/2020 01:11:00 PM EST [facility] Name Value Range Interpretation Code Description Data Cynthia rce(s) Supporting Document(s) COVID19 Case rprt NOT DETECTED [facility] This lab was ordered by [facility] and reported by [facility]. ID Date Data Source [id number] 04/04/2020 02:02:00 PM EST [facility] NOT DETECTEDNOT DETECTED{ PROC EDURAL CONTROL [...] rce(s) Supporting Document(s) ID Date Data Source [id number] 04/04/2020 11:45:00 AM EST [facility] ([facility]) Name Value Range Interpretation Code Description Data Cynthia rce(s) Supporting Document(s) Drug Screen Urine Laboratory test result [facility] ([facility]) SOURCE: Clean Catch Barbiturates Laboratory test result [facility] ([facility]) SOURCE: Clean Catch Amphetamines Laboratory test result [facility] ([facility]) SOURCE: Clean Catch Benzo Laboratory test result [facility] ([facility]) SOURCE: Clean Catch Cocaine Laboratory test result [facility] ([facility]) SOURCE: Clean Catch THC Laboratory test result [facility] ([facility]) SOURCE: Clean Catch Opiates Laboratory test result [facility] ([facility]) SOURCE: Clean Catch PCP Laboratory test result [facility] ([facility]) SOURCE: Clean Catch ID Date Data Source [id number] 04/04/2020 11:45:00 AM EST [facility] ([facility]) Name Value Range Interpretation Code Description Data [facility] rce(s) Supporting Document(s) Urinalysis Laboratory test result [facility] ([facility]) SOURCE: Clean Catch Color Laboratory test result [facility] ([facility]) SOURCE: Clean Catch Source Laboratory test result [facility] ([facility]) SOURCE: Clean Catch Spec [place] 1.020 1.001-1.030 [facility] ([facility]) SOURCE: Clean Catch Clarity Laboratory test result [facility] ([facility]) SOURCE: Clean Catch Bilirubin 1 [facility] ([facility]) SOURCE: Clean Catch pH 5 5-9 [facility] ([facility]) SOURCE: Clean Catch Glucose Laboratory test result [facility] ([facility]) SOURCE: Clean Catch Protein 30 [facility] ([facility]) SOURCE: Clean Catch Ketone 5 Abnormal (applies to non-numeric res ults) [facility] ([facility]) SOURCE: Clean Catch Blood 25 Abnormal (applies to non-numeric res ults) [facility] ([facility]) SOURCE: Clean Catch Leuk Est 25 [facility] ([facility]) SOURCE: Clean Catch Nitrite Laboratory test result [facility] ([facility]) SOURCE: Clean Catch Microscopic Laboratory test result [facility] ([facility]) SOURCE: Clean Catch Urobilinogen 1 [facility] ([facility]) SOURCE: Clean Catch WBC Laboratory test result [facility] ([facility]) SOURCE: Clean Catch Epithelial Laboratory test result Abnormal (applies to non -numeric results) [facility] ([facility]) SOURCE: Clean Catch RBC Laboratory test result [facility] ([facility]) SOURCE: Clean Catch Casts Laboratory test result [facility] ([facility]) SOURCE: Clean Catch Bacteria Laboratory test result [facility] ([facility]) SOURCE: Clean Catch Coarse Gran Laboratory test result Abnormal (applies to non-numeric results) [facility] ([facility]) SOURCE: Clean Catch WBC Cast Laboratory test result Abnormal (applies to non -numeric results) [facility] ([facility]) SOURCE: Clean Catch Hyaline Cast Laboratory test result Abnormal (applies to non-numeric results) [facility] ([facility]) SOURCE: Clean Catch ID Date Data Source [id number] 04/04/2020 01:44:[address] [facility] Name Value Range Interpretation Code Description Data Cynthia rce(s) Supporting Document(s) DRUG SCREEN URINE [facility] URINE DRUG SCREEN Amphetamine [Presence] in Urine by Screen method NEGATIVE NORMAL: N EGATIVE [facility] BARBITURATES NEGATIVE NORMAL: NEGATIVE [facility] BENZO NEGATIVE NORMAL: NEGATIVE [facility] COCAINE NEGATIVE NORMAL: NEGATIVE [facility] Tetrahydrocannabinol [Presence] in Urine NEGATIVE NORMAL: NEGATIVE [facility] OPIATES NEGATIVE NORMAL: NEGATIVE [facility] Phencyclidine [Presence] in Urine by Screen method NEGATIVE NOR MAL: NEGATIVE [facility] \\BLDo\\URINE DRUG SCR EEN INTERPRETATION\\BLDx\\ THE CUTOFFF LEVELS FOR DETECTION ARE FOLLOWS: AMPHETAMINES 1000 ng/ml BARBITUARATES 200 ng/ml BENZODIAZEPINES 100 ng/ml THC 50 ng/ml PHENCYCLIDINE 25 ng/ml OPIATES 300 ng/ml COCAINE 300 ng/ml ALL POSITIVES ARE CONSIDERED PRESUMPTIVE POSITIVE CONFIRMATION WILL BE PERFORMED AT PHYSICIAN REQUEST. ID Date Data Source [id number] 04/04/2020 12:21:00 PM EST [facility] Name Value Range Interpretation Code Description Data Cynthia rce(s) Supporting Document(s) [facility] R [facility] COLOR comfort NORMAL: Yellow [facility] CLARITY hazy NORMAL: Clear [facility] Specific gravity of Urine by Test strip 1.020 1.001 - 1.030 [facility] pH 5 5 - 9 [facility] al Glucose [Mass/volume] in Urine by Test strip NORM N[facility]AL: [facility] Bilirubin.total [Presence] in Urine by Test strip 1 NORMAL: Negative [facility] Ketones [Presence] in Urine by Test strip 5 NORMAL: Negative [facility] Protein [Mass/volume] in Urine by Test strip 30 NORMAL: [facility] Nitrite [Presence] in Urine by Test strip NEG NORMAL: Negative [facility] BLOOD 25 NORMAL: Negative [facility] Leukocyte esterase [Presence] in Urine by Test strip 25 ALKA L: Negative [facility] Urobilinogen [Mass/volume] in Urine by Test strip 1 less eleuterio n 1.0 mg/dL [facility] MICROSCOPIC See Below [facility] ital WBC 1 - 3 NORMAL: NONE SEEN [facility] Erythrocytes [#/volume] in Urine by Test strip 1 - 3 NORMAL: NON E SEEN [facility] EPITHELIAL MANY NORMAL: NONE SEEN [facility] Bacteria [Presence] in Urine sediment by Light microscopy Tr valeriano NORMAL: NONE SEEN [facility] Casts [#/area] in Urine sediment by Microscopy low power field See Be low [facility] Hyaline casts [#/area] in Urine sediment by Microscopy low p ower field 1-3 NORMAL: None Seen [facility] Coarse Granular Casts [#/area] in Urine sediment by Mi croscopy low power field 1-3 NORMAL: None Seen A [facility] WBC casts [#/area] in Urine sediment by Microscopy low power field 1-3 NORMAL: None Seen A [facility] ID Date Data Source [id number] 04/04/2020 11:20:00 AM EST [facility] ([facility]) Name Value Range Interpretation Code Description Data Cynthia rce(s) Supporting Document(s) Lactate dehydrogenase [Enzymatic activit y/volume] in Serum or Plasma by Lactate to pyruvate reaction 264 U/L 135-214 Above high normal [facility] ([facility]) Troponin T.cardiac [Mass/volume] in Serum or Plasma Laborato ry test result 0.00-0.10 [facility] ([facility]) TROPONIN T 0.1 ng/ml Recommended as the clinical th reshold value for Troponin T. ID Date Data Source [id number] 04/04/2020 11:20:00 AM EST [facility] ([facility]) Name Value Range Interpretation Code Description Data Cynthia rce(s) Supporting Document(s) Alcohol Laboratory test result [facility] ([facility]) Alcohol % 0.01 % 0.00-0.01 [facility] ([facility]) *FOR MEDICAL PURPOSES ONLY* ID Date Data Source [id number] 04/04/2020 11:20:00 AM EST [facility] ([facility]) Name Value Range Interpretation Code Description Data Cynthia rce(s) Supporting Document(s) Lactate [Mass/volume] in Serum or Plasma 1.6 mmol/L 0.2-2.2 [facility] ([facility]) ID Date Data Source [id number] 04/04/2020 11:20:00 AM EST [facility] ([facility]) Name Value Range Interpretation Code Description Data Cynthia rce(s) Supporting Document(s) Sed Rate 2 mm/hr 0-30 [facility] ([facility]) Sed Rate Reenter 2 [facility] ([facility]) ID Date Data Source [id number] 04/04/2020 11:20:00 AM EST [facility] ([facility]) Name Value Range Interpretation Code Description Data Cynthia rce(s) Supporting Document(s) Comprehensive [employer] Laboratory test result [facility] ([facility]) COMPREHENSIVE METABOLIC PANEL Sodium 137 meq/L 134-153 [facility] ([facility]) Potassium 3.1 meq/L 3.6-5.0 Below low normal [facility] ( [facility]) Chloride 96 meq/L 98-107 Below low normal [facility] ( [facility]) Co2 25 meq/L 22-30 [facility] ([facility]) Glucose 111 mg/dL 70-99 Above high normal [facility] ([facility]) BUN 10 mg/dL 7-21 [facility] ([facility]) Creatinine 0.5 mg/dL 0.7-1.5 Below low normal [facility] ( [facility]) Albumin 4.5 g/dL 3.9-5.0 [facility] ([facility]) BUN/Creat 20 8-27 [facility] ([facility]) Total Protein 6.7 g/dL 6.3-8.2 [facility] ([facility]) Calcium 9.4 mg/dL 8.4-10.2 [facility] ([facility]) A/G Ratio 2.0 0.8-2.0 [facility] ([facility]) Globulin 2.2 GM/DL 2.4-3.2 Below low normal [facility] ( [facility]) Alkaline Phos 76 U/L 38-126 [facility] ([facility]) Sgot/Ast 40 U/L 5-40 [facility] ([facility]) Total Bili 2.4 mg/dL 0.2-1.3 Above high normal [facility] ([facility]) Age 69 yrs [facility] ([facility]) Anion Gap 16.0 mmol/L 8.0-16.0 [facility] ([facility]) SGPT/Alt 32 U/L 7-56 [facility] ([facility]) Afr Amer GFR Laboratory test result [facility] ([facility]) Male GFR Interprentation 20-49 yrs >60 [...] mL/min Normal Non-Aa GFR Laboratory test result [facility] ([facility]) ID Date Data Source [id number] 04/04/2020 11:20:00 AM EST [facility] ([facility]) Name Value Range Interpretation Code Description Data Cynthia rce(s) Supporting Document(s) C reactive protein [Mass/volume] in Serum or Plasma by High sensitivity method 0.85 mg/L 1.00-3.00 Below low normal [facility] ([facility]) <content>CDC/S HS-CRP CUT-OFF: RELATIVE RISK:</content>
<content><1.0 mg/L Low</content>
<content>1.0 - 3.0 mg/L Average</jarett nt>
<content>>3.0 mg/L High</content>
<content>Optimally, the average of HS-CRP results repeated</content>
<content>two weeks apart should be used for risk assessment.</content>
<content></content> ID Date Data Source [id number] 04/04/2020 11:20:00 AM EST [facility] ([facility]) Name Value Range Interpretation Code Description Data Cynthia rce(s) Supporting Document(s) RBC 4.33 10^6/uL 4.20-5.40 [facility] ([facility]) WBC 7.0 10^3/uL 4.2-11.0 [facility] ([facility]) CBC W/Automated Diff Laboratory test result [facility] ([facility]) COMPLETE BLOOD COUNT Hemoglobin 13.6 g/dL 12.0-16.0 [facility] ([facility]) Hematocrit 38.9 % 37.0-47.0 [facility] ([facility]) MCV 89.8 fL 81.0-101 [facility] ([facility]) RDW 13.9 % 11.5-14.5 [facility] ([facility]) MCHC 35.0 g/dL 31.0-36.0 [facility] ([facility]) MCH 31.4 pg 27.0-34.0 [facility] ([facility]) MPV 10.1 fL 7.4-10.4 [facility] ([facility]) Neut 68.8 % 37.0-80.0 [facility] ([facility]) Platelets 246 10^3/uL 150-450 [facility] ([facility]) Lymph 22.0 % 25.0-40.0 Below low normal [facility] ( [facility]) Burke 7.8 % 3.0-8.0 [facility] ([facility]) Eos 0.7 % 0.0-7.0 [facility] ([facility]) %Ig 0.3 % 0.0-0.0 Above high normal [facility] ([facility]) %NRBC 0.0 % 0.0-0.0 [facility] ([facility]) Baso 0.4 % 0.0-2.5 [facility] ([facility]) #Neut 4.82 10^3/uL 2.00-6.90 [facility] ([facility]) #Lymph 1.54 10^3/uL 0.60-3.40 [facility] ([facility]) #Burke 0.55 10^3/uL 0.00-0.90 [facility] ([facility]) #Baso 0.03 10^3/uL 0.00-0.20 [facility] ([facility]) #Eos 0.05 10^3/uL 0.00-0.70 [facility] ([facility]) #Ig 0.02 10^3/uL 0.00-0.10 [facility] ([facility]) Manual Diff Laboratory test result [facility] ([facility]) #NRBC 0.00 10^3/uL 0.00-0.00 [facility] ([facility]) RBC Morph Laboratory test result [facility] ([facility]) ID Date Data Source [id number] 04/04/2020 07:41:00 PM [facility] Value Range Interpretation Code Description Data Cynthia rce(s) Supporting Document(s) Folate [Mass/volume] in Serum or Plasma >20.0 NG/ML 5.6 - 45.8 [facility] ID Date Data Source [id number] 04/04/2020 04:09:00 PM [facility] Value Range Interpretation Code Description Data Cynthia rce(s) Supporting Document(s) Thyrotropin [Units/volume] in Serum or Plasma by Detec tion limit <= 0.05 mIU/L 1.93 uIU/mL 0.47 - 5.01 [facility] ID Date Data Source [id number] 04/04/2020 04:09:00 PM [facility] Value Range Interpretation Code Description Data Cynthia rce(s) Supporting Document(s) Cobalamin (Vitamin B12) [Mass/volume] in Serum or Plasma 592 PG/ML 232 - 1245 [facility] ID Date Data Source [id number] 04/04/2020 01:48:00 PM [facility] Value Range Interpretation Code Description Data Cynthia rce(s) Supporting Document(s) TROPONIN T <0.01 NG/ML 0.00 - 0.10 [facility] ospital TROPONIN T0.1 ng/ml Recommended as the c linical threshold value forTroponin T. ID Date Data Source [id number] 04/04/2020 01:45:00 PM [facility] Value Range Interpretation Code Description Data Cynthia rce(s) Supporting Document(s) Lactate dehydrogenase [Enzymatic activity/volume] in Serum o r Plasma 264 U/L 135 - 214 H [facility] ID Date Data Source [id number] 04/04/2020 01:14:00 PM [facility] Value Range Interpretation Code Description Data Cynthia rce(s) Supporting Document(s) Ethanol [Moles/volume] in Blood <10.0 MG/DL [facility] ALCOHOL % 0.01 % 0.00 - 0.01 [facility] ital *FOR MEDICAL PURPOSES ONLY * ID Date Data Source [id number] 04/04/2020 12:17:[address] [facility] Name Value Range Interpretation Code Description Data Cynthia rce(s) Supporting Document(s) Lactate [Moles/volume] in Serum or Plasma 1.6 MMOL/L 0.2 - 2.2 [facility] ID Date Data Source [id number] 04/04/2020 12:17:00 PM EST [facility] Name Value Range Interpretation Code Description Data Cynthia rce(s) Supporting Document(s) Erythrocyte sedimentation rate by Westergren method 2 mm/hr 0 - 30 [facility] SED RATE REENTER 2 [facility] ID Date Data Source [id number] 04/04/2020 12:06:[address] [facility] Name Value Range Interpretation Code Description Data Cynthia rce(s) Supporting Document(s) COMPREHENSIVE METABOLIC PANEL [facility] COMPREHENSIVE METABOLIC PANEL Sodium [Moles/volume] in Serum or Plasma 137 mEq/L 134 - 153 [facility] Potassium [Moles/volume] in Serum or Plasma 3.1 mEq/L 3.6 - 5.0 L [facility] Chloride [Moles/volume] in Serum or Plasma 96 mEq/L 98 - 107 L [facility] Carbon dioxide, total [Moles/volume] in Serum or Plasma 25 MEQ/L 22 - 30 [facility] Glucose [Mass/volume] in Serum or Plasma 111 MG/DL 70 - 99 H [facility] BUN 10 MG/DL 7 - 21 [facility] al Creatinine [Mass/volume] in Serum or Plasma 0.5 MG/DL 0.7 - 1.5 L [facility] BUN/CREAT 20 8 - 27 [facility] al Protein [Mass/volume] in Serum or Plasma 6.7 G/DL 6.3 - 8.2 [facility] Albumin [Mass/volume] in Serum or Plasma 4.5 G/DL 3.9 - 5.0 [facility] Globulin [Mass/volume] in Serum by calculation 2.2 GM/DL 2.4 - 3.2 L [facility] A/G RATIO 2.0 0.8 - 2.0 [facility] al Calcium [Mass/volume] in Serum or Plasma 9.4 MG/DL 8.4 - 10.2 [facility] Bilirubin.total [Mass/volume] in Serum or Plasma 2.4 MG/DL 0.2 - 1.3 H [facility] Alkaline phosphatase [Enzymatic activity/volume] in Serum or Plasma 76 U/L 38 - 126 [facility] Aspartate aminotransferase [Enzymatic activity/volume] in Serum or Plasma 40 U/L 5 - 40 [facility] Alanine aminotransferase [Enzymatic activity/volume] in Seru m or Plasma 32 U/L 7 - 56 [facility] Anion gap 3 in Serum or Plasma 16.0 mmol/L 8.0 - 16.0 [facility]GE 69 [facility] >60 mL/min [facility] ital AFR AMER GFR >60 [facility] Male GFR In [...] >32 mL/min Normal ID Date Data Source [id number] 04/04/2020 12:06:00 PM EST [facility] Name Value Range Interpretation Code Description Data Cynthia rce(s) Supporting Document(s) C reactive protein [Mass/volume] in Serum or Plasma by High sensitivity method 0.85 MG/L 1.00 - 3.00 L [facility] CDC/S HS-CRP CUT-OFF: RELATIVE RISK: <1.0 mg/L Low 1.0 - 3.0 mg/L Average >3.0 mg/L High Optimally, the average of HS-CRP results repeated two weeks apart should be used for risk assessment. ID Date Data Source [id number] 04/04/2020 12:01:00 PM EST [facility] Name Value Range Interpretation Code Description Data Cynthia rce(s) Supporting Document(s) CBC W/AUTOMATED DIFF [facility] COMPLETE BLOOD COUNT Leukocytes [#/volume] in Blood by Automated count 7.0 10^3/uL 4.2 - 1 1.0 [facility] Erythrocytes [#/volume] in Blood by Automated count 4.33 10^6/uL 4. 20 - 5.40 [facility] Hemoglobin [Mass/volume] in Blood 13.6 g/dL 12.0 - 16.0 [facility] Hematocrit [Volume Fraction] of Blood by Automated count 38.9 % 3 7.0 - 47.0 [facility] Erythrocyte mean corpuscular volume [Entitic volume] by Auto mated count 89.8 fL 81.0 - 101 [facility] Erythrocyte mean corpuscular hemoglobin [Entitic mass] by Automated count 31.4 pg 27.0 - 34.0 [facility] Erythrocyte mean corpuscular hemoglobin concentration [Mass/volume] by Automated count 35.0 g/dL 31.0 - 36.0 [facility] Erythrocyte distribution width [Ratio] by Automated count 13.9 % 11.5 - 14.5 [facility] Platelets [#/volume] in Blood by Automated count 246 10^3/uL 150 - 45 0 [facility] Platelet mean volume [Entitic volume] in Blood by Automated count 10.1 fL 7.4 - 10.4 [facility] Neutrophils/100 leukocytes in Blood by Automated count 68.8 % 37. 0 - 80.0 [facility] Lymphocytes/100 leukocytes in Blood by Manual count 22.0 % 25.0 - 40.0 L [facility] Monocytes/100 leukocytes in Blood by Automated count 7.8 % 3.0 - 8.0 [facility] Eosinophils/100 leukocytes in Blood by Automated count 0.7 % 0.0 - 7.0 [facility] Basophils/100 leukocytes in Blood by Automated count 0.4 % 0.0 - 2.5 [facility] %IG 0.3 % 0.0 - 0.0 [facility] %NRBC 0.0 % 0.0 - 0.0 [facility] Neutrophils [#/volume] in Blood by Automated count 4.82 10^3/uL 2.00 - 6.90 [facility] Lymphocytes [#/volume] in Blood by Automated count 1.54 10^3/uL 0.60 - 3.40 [facility] Monocytes [#/volume] in Blood by Automated count 0.55 10^3/uL 0.00 - 0.90 [facility] Eosinophils [#/volume] in Blood by Automated count 0.05 10^3/uL 0.00 - 0.70 [facility] Basophils [#/volume] in Blood by Automated count 0.03 10^3/uL 0.00 - 0.20 [facility] #IG 0.02 10^3/uL 0.00 - 0.10 [facility] ospital #NRBC 0.00 10^3/uL 0.00 - 0.00 [facility] MANUAL DIFF NOT INDICATED [facility] RBC MORPH NOT INDICATED [facility] spital ID Date Data Source [id number] 03/15/2020 11:25:00 AM EST [facility] ([facility]) Name Value Range Interpretation Code Description Data Cynthia rce(s) Supporting Document(s) Color of Urine Laboratory test result [facility] ([facility]) Appearance of Urine Laboratory test result [facility] ([facility]) Spec [place] 1.020 [facility] ([facility]) pH of Urine by Test strip 5 [facility] NT ([facility]) Leukocytes Laboratory test result [facility] ([facility]) Nitrate [Presence] in Urine Laboratory test result [facility] ([facility]) Inhouse Glucose Laboratory test result [facility] ([facility]) Protein [Presence] in Urine by Test strip Laboratory test result [facility] ([facility]) Urobilinogen Laboratory test result [facility] ([facility]) Ketones [Presence] in Urine by Test strip Laboratory test result [facility] ([facility]) Blood type and Indirect antibody screen panel - Blood Laboratory test result [facility] ([facility]) Bilirubin.total [Presence] in Urine by Test strip Laboratory test res ult [facility] ([facility]) ID Date Data Source [id number] 03/15/2020 11:25:00 AM EST [facility] ([facility]) Name Value Range Interpretation Code Description Data Cynthia rce(s) Supporting Document(s) Bacteria identified in Urine by Culture Laboratory test result [facility] ([facility]) ID Date Data Source [id number] 03/15/2020 11:19:00 AM EST [facility] ([facility]) Name Value Range Interpretation Code Description Data Cynthia rce(s) Supporting Document(s) Urinalysis Laboratory test result [facility] ([facility]) {SOURCE: Random Void~NURSE COLLECTED? N Color Laboratory test result [facility] ([facility]) {SOURCE: Random Void~NURSE COLLECTED? N Source Laboratory test result [facility] ([facility]) {SOURCE: Random Void~NURSE COLLECTED? N Spec [place] 1.015 1.001-1.030 [facility] ([facility]) {SOURCE: Random Void~NURSE COLLECTED? N Clarity Laboratory test result [facility] ([facility]) {SOURCE: Random Void~NURSE COLLECTED? N pH 6 5-9 [facility] ([facility]) {SOURCE: Random Void~NURSE COLLECTED? N Glucose Laboratory test result [facility] ([facility]) {SOURCE: Random Void~NURSE COLLECTED? N Bilirubin Laboratory test result [facility] ([facility]) {SOURCE: Random Void~NURSE COLLECTED? N Protein 15 [facility] ([facility]) {SOURCE: Random Void~NURSE COLLECTED? N Ketone 5 Abnormal (applies to non-numeric res ults) [facility] ([facility]) {SOURCE: Random Void~NURSE COLLECTED? N Blood Laboratory test result [facility] ([facility]) {SOURCE: Random Void~NURSE COLLECTED? N Nitrite Laboratory test result [facility] ([facility]) {SOURCE: Random Void~NURSE COLLECTED? N Leuk Est 25 [facility] ([facility]) {SOURCE: Random Void~NURSE COLLECTED? N Microscopic Laboratory test result [facility] ([facility]) {SOURCE: Random Void~NURSE COLLECTED? N Urobilinogen 1 [facility] ([facility]) {SOURCE: Random Void~NURSE COLLECTED? N WBC Laboratory test result [facility] ([facility]) {SOURCE: Random Void~NURSE COLLECTED? N RBC Laboratory test result [facility] ([facility]) {SOURCE: Random Void~NURSE COLLECTED? N Bacteria Laboratory test result [facility] ([facility]) {SOURCE: Random Void~NURSE COLLECTED? N Epithelial Laboratory test result [facility] ([facility]) {SOURCE: Random Void~NURSE COLLECTED? N ID Date Data Source [id number] 03/15/2020 11:19:00 AM EST [facility] ([facility]) Name Value Range Interpretation Code Description Data Cynthia rce(s) Supporting Document(s) Culture Urine Laboratory test result [facility] ([facility]) {SOURCE: Random Void~NURSE COLLECTED? N ID Date Data Source [id number] 03/20/2020 07:59:[address] [facility] Name Value Range Interpretation Code Description Data Cynthia rce(s) Supporting Document(s) CULTURE URINE [facility] spital _CULTURE URINE_$$[id number]$$[id number]$$485999$$134513$$156779$$338505$$603810$$617046$$492095$$ 375280$$866509$$756209$$789818$$310515$$884565$$052932$$699907$$465544$$141312$$ 622190$$205836$$855451$$130528$$309226$$711628$$869467$$332858 -- Continued on next page --Patient: DAKOTAH Parry Order: [id number] Page 2Culture: CULTURE URINE Status: Final ==== -- Continued on next page --Patient: DAKOTAH Parry Order: [id number] Page 2Culture: CULTURE URINE Status: Prelim =====$$[id number]$$[id number] DATE/TIME: 03/19/2020 11:05Culture: CULTURE URINE Status: FinalUrine Culture,Comprehensive: [id number] urogenital flora10,000-25,000 colony forming units per mL Previous result entered on 03/18/2020 02:54 ET Specimen has been received and testing has been initiated.P1 Test performed by: [facility] HospitalIA #: [id number] [address] [place] [address] [id number] [facility] [id number] Director : Maykel Marquez MD NPI #:Stamping Operator : 03/[email or web address] REF 03/20/20.0759.XMT.SENT REF ID Date Data Source [id number] 03/15/2020 08:53:00 PM EST [facility] Name Value Range Interpretation Code Description Data Cynthia rce(s) Supporting Document(s) URINALYSIS [facility] mariela URINALYSIS SOURCE Random Void [facility] COLOR comfort NORMAL: Yellow [facility] CLARITY clear NORMAL: Clear [facility] Specific gravity of Urine by Test strip 1.015 1.001 - 1.030 [facility] pH 6 5 - 9 [facility] Glucose [Mass/volume] in Urine by Test strip NORM NORMAL: Negat [facility] Bilirubin.total [Presence] in Urine by Test strip NEG NORMAL: Negative [facility] Ketones [Presence] in Urine by Test strip 5 NORMAL: Negative A [facility] Protein [Mass/volume] in Urine by Test strip 15 NORMAL: Negat christiano [facility] Nitrite [Presence] in Urine by Test strip NEG NORMAL: Negative [facility] BLOOD NEG NORMAL: Negative [facility] Leukocyte esterase [Presence] in Urine by Test strip 25 ALKA L: Negative [facility] Urobilinogen [Mass/volume] in Urine by Test strip 1 less eleuterio n 1.0 mg/dL [facility] MICROSCOPIC See Below [facility] ital WBC 1 - 3 NORMAL: NONE SEEN [facility] Erythrocytes [#/volume] in Urine by Test strip 0 - 1 NORMAL: NON E SEEN [facility] EPITHELIAL FEW NORMAL: NONE SEEN [facility] Bacteria [Presence] in Urine sediment by Light microscopy Tr valeriano NORMAL: NONE SEEN [facility] ID Date Data Source [id number] 02/20/2020 02:11:00 PM EST [facility] Name Value Range Interpretation Code Description Data Cynthia rce(s) Supporting Document(s) CULTURE URINE [facility] spital _CULTURE URINE_$$[id number]$$[id number]$$468521$$741264$$194746$$659109$$206981$$688772$$616778$$ 194201$$134049$$131592$$081619$$911603$$230999$$244234$$029728$$344654$$007668$$ 692502$$782530$$604016$$236528$$109007$$083947$$891133$$582281 -- Continued on next page --Patient: DAKOTAH HELM L Order: [id number] Page 2Culture: CULTURE URINE Status: Final ==== -- Continued on next page --Patient: DAKOTAH HELM L Order: [id number] Page 2Culture: CULTURE URINE Status: Prelim =====$$[id number]$$[id number] DATE/TIME: 02/20/2020 13:05Culture: CULTURE URINE Status: FinalIsolate 1 Enterococcus faecalis Flag: A . . . . . . .710,000-25,000 colony forming units per mL Previous result entered on 02/19/2020 05:44 ET Microbiological testing to rule out the presence of possible pathogensis in progress.Urine Culture,Comprehensive: [id number] faecalis Flag: AIsolate 2 Lactobacillus species Flag: . . . . . . .425,000-50,000 colony forming units per mLSusceptibility not normally performed on this organism.Lactobacillus speciesPatient: DAKOTAH Parry Order: [id number] Page 3Culture: CULTURE URINE Status: Ebony l ISOLATE 1 Enterococcus faecalis Isolate 1Antibiotic [place]TON IntUnits ug/mL ----Ciprofloxacin S S . . . . . .185-9Levofloxacin S S . . . . . .57468-8Wsqmnzajgrqoal S S . . . . . .363-2Penicillin S S . . . . . .6932-8Tetracycline S S . . . . . .496- 0Vancomycin S S . . . . . .524-9P1 Test performed by: Jose De Jesus MATTHEWS #: [id number] [address] [place] [address] [id number] [facility] [id number] Director : Maykel Marquez MD NPI #:Stamping Operator : 02/19/[email or web address].SENT REF 02/20/20.1411.XMT.SENT REF ID Date Data Source [id number] 02/15/2020 09:22:[address] [facility] Name Value Range Interpretation Code Description Data Cynthia rce(s) Supporting Document(s) Thyrotropin [Units/volume] in Serum or Plasma by Detec tion limit <= 0.05 mIU/L 1.87 uIU/mL 0.47 - 5.01 [facility] ID Date Data Source [id number] 02/15/2020 09:22:[address] [facility] Name Value Range Interpretation Code Description Data Cynthia rce(s) Supporting Document(s) Thyroxine (T4) free index in Serum or Plasma by calculation 0.93 NG/DL 0.93 - 1.70 [facility] ID Date Data Source [id number] 02/15/2020 09:22:[address] [facility] Name Value Range Interpretation Code Description Data Cynthia rce(s) Supporting Document(s) Calcidiol [Moles/volume] in Serum or Plasma 42 NG/ML [facility] VITAMIN-D(2 5HYDROXY) Deficiency: <=20 ng/ml Insufficiency: 21-29 ng/ml Preferred level: => 30 ng/ml ID Date Data Source [id number] 02/15/2020 08:52:00 PM [facility] Value Range Interpretation Code Description Data Cynthia rce(s) Supporting Document(s) COMPREHENSIVE METABOLIC PANEL [facility] COMPREHENSIVE METABOLIC PANEL Sodium [Moles/volume] in Serum or Plasma 141 mEq/L 134 - 153 [facility] Potassium [Moles/volume] in Serum or Plasma 3.9 mEq/L 3.6 - 5.0 [facility] Chloride [Moles/volume] in Serum or Plasma 102 mEq/L 98 - 107 [facility] Carbon dioxide, total [Moles/volume] in Serum or Plasma 30 MEQ/L 22 - 30 [facility] Glucose [Mass/volume] in Serum or Plasma 106 MG/DL 65 - 110 [facility] BUN 12 MG/DL 7 - 21 [facility] al Creatinine [Mass/volume] in Serum or Plasma 0.6 MG/DL 0.7 - 1.5 L [facility] BUN/CREAT 20 8 - 27 [facility] Protein [Mass/volume] in Serum or Plasma 7.3 G/DL 6.3 - 8.2 [facility] Albumin [Mass/volume] in Serum or Plasma 4.8 G/DL 3.9 - 5.0 [facility] Globulin [Mass/volume] in Serum by calculation 2.5 GM/DL 2.4 - 3.2 [facility] A/G RATIO 1.9 0.8 - 2.0 [facility] Calcium [Mass/volume] in Serum or Plasma 9.5 MG/DL 8.4 - 10.2 [facility] Bilirubin.total [Mass/volume] in Serum or Plasma 1.0 MG/DL 0.2 - 1.3 [facility] Alkaline phosphatase [Enzymatic activity/volume] in Serum or Plasma 72 U/L 38 - 126 [facility] Aspartate aminotransferase [Enzymatic activity/volume] in Serum or Plasma 22 U/L 5 - 40 [facility] Alanine aminotransferase [Enzymatic activity/volume] in Seru m or Plasma 16 U/L 7 - 56 [facility] Anion gap 3 in Serum or Plasma 9.0 mmol/L 8.0 - 16.0 [facility] AGE 69 yrs [facility] al NON-AA GFR >60 mL/min [facility] ital AFR AMER GFR >60 [facility] Male GFR In [...] >32 mL/min Normal ID Date Data Source [id number] 02/15/2020 08:52:00 PM EST [facility] Name Value Range Interpretation Code Description Data Cynthia rce(s) Supporting Document(s) CVE PANEL [facility] al LIPID PANEL Cholesterol [Mass/volume] in Serum or Plasma 203 MG/DL 131 - 200 H [facility] Deprecated Triglyceride [Mass/volume] in Serum or Plasma 137 MG/DL 3 5 - 160 [facility] HDL 75 MG/DL 29 - 86 [facility] Cholesterol in LDL [Mass/volume] in Serum or Plasma by Direc t assay 113 mg/dL 65 - 175 [facility] Cholesterol.total/Cholesterol in HDL [Mass Ratio] in Serum o r Plasma 2.7 3.2 - 4.4 L [facility] LDL/HDL 1.51 1.47 - 3.22 [facility] ital CVE RISK CHOL/HDL LDL/HDLMEN: 1/2 AVERAGE 3.43 1.00 AVERAGE 4.97 3.55 2X AVERAGE 9.55 6.25 3X AVERAGE 23.99 7.99WOMEN: 1/2 AVERAGE 3.27 1.47 AVERAGE 4.44 3.22 2X AVERAGE 7.05 5.03 3X AVERAGE 11.04 6.14 ID Date Data Source [id number] 02/15/2020 08:52:[address] [facility] Name Value Range Interpretation Code Description Data Cynthia rce(s) Supporting Document(s) Urate [Mass/volume] in Serum or Plasma 6.6 MG/DL 2.5 - 8.5 [facility] ID Date Data Source [id number] 02/15/2020 08:47:[address] [facility] Name Value Range Interpretation Code Description Data Cynthia rce(s) Supporting Document(s) Erythrocyte sedimentation rate by Westergren method 4 mm/hr 0 - 30 [facility] SED RATE REENTER 4 [facility] ID Date Data Source [id number] 02/15/2020 08:29:[address] [facility] Name Value Range Interpretation Code Description Data Cynthia rce(s) Supporting Document(s) CBC W/AUTOMATED DIFF [facility] COMPLETE BLOOD COUNT Leukocytes [#/volume] in Blood by Automated count 9.1 10^3/uL 4.2 - 1 1.0 [facility] Erythrocytes [#/volume] in Blood by Automated count 4.43 10^6/uL 4. 20 - 5.40 [facility] Hemoglobin [Mass/volume] in Blood 13.9 g/dL 12.0 - 16.0 [facility] Hematocrit [Volume Fraction] of Blood by Automated count 41.8 % 3 7.0 - 47.0 [facility] Erythrocyte mean corpuscular volume [Entitic volume] by Auto mated count 94.4 fL 81.0 - 101 [facility] Erythrocyte mean corpuscular hemoglobin [Entitic mass] by Automated count 31.4 pg 27.0 - 34.0 [facility] Erythrocyte mean corpuscular hemoglobin concentration [Mass/volume] by Automated count 33.3 g/dL 31.0 - 36.0 [facility] Erythrocyte distribution width [Ratio] by Automated count 12.7 % 11.5 - 14.5 [facility] Platelets [#/volume] in Blood by Automated count 365 10^3/uL 150 - 45 0 [facility] Platelet mean volume [Entitic volume] in Blood by Automated count 10.6 fL 7.4 - 10.4 H [facility] Neutrophils/100 leukocytes in Blood by Automated count 60.3 % 37. 0 - 80.0 [facility] Lymphocytes/100 leukocytes in Blood by Manual count 29.9 % 25.0 - 40.0 [facility] Monocytes/100 leukocytes in Blood by Automated count 6.8 % 3.0 - 8.0 [facility] Eosinophils/100 leukocytes in Blood by Automated count 2.1 % 0.0 - 7.0 [facility] Basophils/100 leukocytes in Blood by Automated count 0.7 % 0.0 - 2.5 [facility] %IG 0.2 % 0.0 - 0.0 H [facility] %NRBC 0.0 % 0.0 - 0.0 [facility] al Neutrophils [#/volume] in Blood by Automated count 5.46 10^3/uL 2.00 - 6.90 [facility] Lymphocytes [#/volume] in Blood by Automated count 2.71 10^3/uL 0.60 - 3.40 [facility] Monocytes [#/volume] in Blood by Automated count 0.62 10^3/uL 0.00 - 0.90 [facility] Eosinophils [#/volume] in Blood by Automated count 0.19 10^3/uL 0.00 - 0.70 [facility] Basophils [#/volume] in Blood by Automated count 0.06 10^3/uL 0.00 - 0.20 [facility] #IG 0.02 10^3/uL 0.00 - 0.10 [facility] #NRBC 0.00 10^3/uL 0.00 - 0.00 [facility] ospital MANUAL DIFF NOT INDICATED [facility] RBC MORPH NOT INDICATED [facility] ID Date Data Source [id number] 02/15/2020 06:21:00 PM EST [facility] Name Value Range Interpretation Code Description Data Cynthia rce(s) Supporting Document(s) [facility]OURCE R [facility] COLOR comfort NORMAL: Yellow [facility] CLARITY cloudy NORMAL: Clear [facility] Specific gravity of Urine by Test strip 1.025 1.001 - 1.030 [facility] pH 5 5 - 9 [facility] al Glucose [Mass/volume] in Urine by Test strip NORM [facility] Bil[facility].total [Presence] in Urine by Test strip 1 NORMAL: Negative [facility] Ketones [Presence] in Urine by Test strip 15 NORMAL: Negative [facility] Protein [Mass/volume] in Urine by Test strip 30 [facility] Urine by Test strip POS NORMAL: Negative [facility] BLOOD 10 NORMAL: Negative [facility] Leukocyte esterase [Presence] in Urine by Test strip 25 ALKA L: Negative [facility] Urobilinogen [Mass/volume] in Urine by Test strip 1 less eleuterio n 1.0 mg/dL [facility] MICROSCOPIC See Below [facility] ital EPITHELIAL FEW NORMAL: NONE SEEN [facility] Bacteria [Presence] in Urine sediment by Light microscopy 3+ LARGE NORMAL: NONE SEEN A [facility] Amorphous sediment [Presence] in Urine sediment by Light milton roscopy 3+ NORMAL: NONE SEEN [facility] ID Date Data Source [id number] 02/15/2020 10:35:00 AM EST [facility] ([facility]) Name Value Range Interpretation Code Description Data Cynthia rce(s) Supporting Document(s) Urate [Mass/volume] in Serum or Plasma Laboratory test result [facility] ([facility]) ID Date Data Source [id number] 02/15/2020 10:35:00 AM EST [facility] ([facility]) Name Value Range Interpretation Code Description Data Cynthia rce(s) Supporting Document(s) Thyroxine (T4) free [Mass/volume] in Serum or Plasma Laboratory cb t result [facility] ([facility]) Calcidiol [Mass/volume] in Serum or Plasma Laboratory test result [facility] ([facility]) Erythrocyte sedimentation rate by Westergren method Laboratory test result [facility] ([facility]) Thyrotropin [Units/volume] in Serum or Plasma Laboratory test result [facility] ([facility]) ID Date Data Source [id number] 02/15/2020 10:35:00 AM EST [facility] ([facility]) Name Value Range Interpretation Code Description Data Cynthia rce(s) Supporting Document(s) pH of Urine by Test strip Laboratory test result [facility] ([facility]) Specific gravity of Urine Laboratory test result [facility] ([facility]) Leukocytes [#/area] in Urine sediment by Microscopy hi gh power field Laboratory test result [facility] ([facility]) Appearance of Urine Laboratory test result [facility] ([facility]) Color of Urine Laboratory test result [facility] ([facility]) Glucose [Presence] in Urine Laboratory test result [facility] ([facility]) Ketones [Presence] in Urine by Test strip Laboratory test result [facility] ([facility]) Protein [Presence] in Urine by Test strip Laboratory test result [facility] ([facility]) Urobilinogen [Mass/volume] in Urine by Test strip Laboratory test res ult [facility] ([facility]) Bilirubin.total [Presence] in Urine by Test strip Laboratory test res ult [facility] ([facility]) Nitrite [Presence] in Urine by Test strip Laboratory test result [facility] ([facility]) Ua Occult Blood Laboratory test result [facility] ([facility]) Urinalysis Laboratory test result [facility] ([facility]) {SOURCE: Random Void~NURSE COLLECTED? N {SPECIMEN TYPE: RANDOM Source Laboratory test result [facility] ([facility]) {SOURCE: Random Void~NURSE COLLECTED? N {SPECIMEN TYPE: RANDOM Color Laboratory test result [facility] ([facility]) {SOURCE: Random Void~NURSE COLLECTED? N {SPECIMEN TYPE: RANDOM Spec [place] 1.025 1.001-1.030 [facility] ([facility]) {SOURCE: Random Void~NURSE COLLECTED? N {SPECIMEN TYPE: RANDOM Clarity Laboratory test result [facility] ([facility]) {SOURCE: Random Void~NURSE COLLECTED? N {SPECIMEN TYPE: RANDOM Bilirubin 1 [facility] ([facility]) {SOURCE: Random Void~NURSE COLLECTED? N {SPECIMEN TYPE: RANDOM Glucose Laboratory test result [facility] ([facility]) {SOURCE: Random Void~NURSE COLLECTED? N {SPECIMEN TYPE: RANDOM pH 5 5-9 [facility] ([facility]) {SOURCE: Random Void~NURSE COLLECTED? N {SPECIMEN TYPE: RANDOM Nitrite Laboratory test result [facility] ([facility]) {SOURCE: Random Void~NURSE COLLECTED? N {SPECIMEN TYPE: RANDOM Protein 30 [facility] ([facility]) {SOURCE: Random Void~NURSE COLLECTED? N {SPECIMEN TYPE: RANDOM Ketone 15 Abnormal (applies to non-numeric res ults) [facility] ([facility]) {SOURCE: Random Void~NURSE COLLECTED? N {SPECIMEN TYPE: RANDOM Leuk Est 25 [facility] ([facility]) {SOURCE: Random Void~NURSE COLLECTED? N {SPECIMEN TYPE: RANDOM Blood 10 Abnormal (applies to non-numeric res ults) [facility] ([facility]) {SOURCE: Random Void~NURSE COLLECTED? N {SPECIMEN TYPE: RANDOM Epithelial Laboratory test result [facility] ([facility]) {SOURCE: Random Void~NURSE COLLECTED? N {SPECIMEN TYPE: RANDOM Microscopic Laboratory test result [facility] ([facility]) {SOURCE: Random Void~NURSE COLLECTED? N {SPECIMEN TYPE: RANDOM Urobilinogen 1 [facility] ([facility]) {SOURCE: Random Void~NURSE COLLECTED? N {SPECIMEN TYPE: RANDOM Amorph Sed Laboratory test result [facility] ([facility]) {SOURCE: Random Void~NURSE COLLECTED? N {SPECIMEN TYPE: RANDOM Bacteria Laboratory test result Abnormal (applies to non -numeric results) [facility] ([facility]) {SOURCE: Random Void~NURSE COLLECTED? N {SPECIMEN TYPE: RANDOM ID Date Data Source [id number] 02/15/2020 10:35:00 AM EST [facility] ([facility]) Name Value Range Interpretation Code Description Data Cynthia rce(s) Supporting Document(s) Culture Urine Laboratory test result [facility] ([facility]) {SOURCE: Random Void~NURSE COLLECTED? N {SPECIMEN TYPE: RANDOM ID Date Data Source [id number] 02/15/2020 10:35:00 AM EST [facility] ([facility]) Name Value Range Interpretation Code Description Data Cynthia rce(s) Supporting Document(s) WBC 9.1 10^3/uL 4.2-11.0 [facility] ([facility]) {SOURCE: Random Void~NURSE COLLECTED? N {SPECIMEN TYPE: RANDOM RBC 4.43 10^6/uL 4.20-5.40 [facility] ([facility]) {SOURCE: Random Void~NURSE COLLECTED? N {SPECIMEN TYPE: RANDOM CBC W/Automated Diff Laboratory test result [facility] ([facility]) {SOURCE: Random Void~NURSE COLLECTED? N {SPECIMEN TYPE: RANDOM Hemoglobin 13.9 g/dL 12.0-16.0 [facility] ([facility]) {SOURCE: Random Void~NURSE COLLECTED? N {SPECIMEN TYPE: RANDOM Hematocrit 41.8 % 37.0-47.0 [facility] ([facility]) {SOURCE: Random Void~NURSE COLLECTED? N {SPECIMEN TYPE: RANDOM MCH 31.4 pg 27.0-34.0 [facility] ([facility]) {SOURCE: Random Void~NURSE COLLECTED? N {SPECIMEN TYPE: RANDOM MCHC 33.3 g/dL 31.0-36.0 [facility] ([facility]) {SOURCE: Random Void~NURSE COLLECTED? N {SPECIMEN TYPE: RANDOM MCV 94.4 fL 81.0-101 [facility] ([facility]) {SOURCE: Random Void~NURSE COLLECTED? N {SPECIMEN TYPE: RANDOM RDW 12.7 % 11.5-14.5 [facility] ([facility]) {SOURCE: Random Void~NURSE COLLECTED? N {SPECIMEN TYPE: RANDOM Platelets 365 10^3/uL 150-450 [facility] ([facility]) {SOURCE: Random Void~NURSE COLLECTED? N {SPECIMEN TYPE: RANDOM Lymph 29.9 % 25.0-40.0 [facility] ([facility]) {SOURCE: Random Void~NURSE COLLECTED? N {SPECIMEN TYPE: RANDOM Neut 60.3 % 37.0-80.0 [facility] ([facility]) {SOURCE: Random Void~NURSE COLLECTED? N {SPECIMEN TYPE: RANDOM MPV 10.6 fL 7.4-10.4 Above high normal [facility] ([facility]) {SOURCE: Random Void~NURSE COLLECTED? N {SPECIMEN TYPE: RANDOM Eos 2.1 % 0.0-7.0 [facility] ([facility]) {SOURCE: Random Void~NURSE COLLECTED? N {SPECIMEN TYPE: RANDOM Burke 6.8 % 3.0-8.0 [facility] ([facility]) {SOURCE: Random Void~NURSE COLLECTED? N {SPECIMEN TYPE: RANDOM %NRBC 0.0 % 0.0-0.0 [facility] ([facility]) {SOURCE: Random Void~NURSE COLLECTED? N {SPECIMEN TYPE: RANDOM %Ig 0.2 % 0.0-0.0 Above high normal [facility] ([facility]) {SOURCE: Random Void~NURSE COLLECTED? N {SPECIMEN TYPE: RANDOM Baso 0.7 % 0.0-2.5 [facility] ([facility]) {SOURCE: Random Void~NURSE COLLECTED? N {SPECIMEN TYPE: RANDOM #Lymph 2.71 10^3/uL 0.60-3.40 [facility] ([facility]) {SOURCE: Random Void~NURSE COLLECTED? N {SPECIMEN TYPE: RANDOM #Neut 5.46 10^3/uL 2.00-6.90 [facility] ([facility]) {SOURCE: Random Void~NURSE COLLECTED? N {SPECIMEN TYPE: RANDOM #Burke 0.62 10^3/uL 0.00-0.90 [facility] ([facility]) {SOURCE: Random Void~NURSE COLLECTED? N {SPECIMEN TYPE: RANDOM #Eos 0.19 10^3/uL 0.00-0.70 [facility] ([facility]) {SOURCE: Random Void~NURSE COLLECTED? N {SPECIMEN TYPE: RANDOM #NRBC 0.00 10^3/uL 0.00-0.00 [facility] ([facility]) {SOURCE: Random Void~NURSE COLLECTED? N {SPECIMEN TYPE: RANDOM #Ig 0.02 10^3/uL 0.00-0.10 [facility] ([facility]) {SOURCE: Random Void~NURSE COLLECTED? N {SPECIMEN TYPE: RANDOM #Baso 0.06 10^3/uL 0.00-0.20 [facility] ([facility]) {SOURCE: Random Void~NURSE COLLECTED? N {SPECIMEN TYPE: RANDOM Manual Diff Laboratory test result [facility] ([facility]) {SOURCE: Random Void~NURSE COLLECTED? N {SPECIMEN TYPE: RANDOM RBC Morph Laboratory test result [facility] ([facility]) {SOURCE: Random Void~NURSE COLLECTED? N {SPECIMEN TYPE: RANDOM ID Date Data Source [id number] 02/15/2020 10:35:00 AM EST [facility] ([facility]) Name Value Range Interpretation Code Description Data Cynthia rce(s) Supporting Document(s) Sed Rate 4 mm/hr 0-30 [facility] ([facility]) {SOURCE: Random Void~NURSE COLLECTED? N {SPECIMEN TYPE: RANDOM Sed Rate Reenter 4 [facility] ([facility]) {SOURCE: Random Void~NURSE COLLECTED? N {SPECIMEN TYPE: RANDOM ID Date Data Source [id number] 02/15/2020 10:35:00 AM EST [facility] ([facility]) Name Value Range Interpretation Code Description Data Cynthia rce(s) Supporting Document(s) Cve Panel Laboratory test result [facility] ([facility]) {SOURCE: Random Void~NURSE COLLECTED? N {SPECIMEN TYPE: RANDOM Cholesterol 203 mg/dL 131-200 Above high normal [facility] ([facility]) {SOURCE: Random Void~NURSE COLLECTED? N {SPECIMEN TYPE: RANDOM Triglycerides 137 mg/dL 35-160 [facility] ([facility]) {SOURCE: Random Void~NURSE COLLECTED? N {SPECIMEN TYPE: RANDOM HDL 75 mg/dL 29-86 [facility] ([facility]) {SOURCE: Random Void~NURSE COLLECTED? N {SPECIMEN TYPE: RANDOM Risk Factor 2.7 3.2-4.4 Below low normal [facility] ([facility]) {SOURCE: Random Void~NURSE COLLECTED? N {SPECIMEN TYPE: RANDOM LDL/HDL 1.51 1.47-3.22 [facility] ([facility]) {SOURCE: Random Void~NURSE COLLECTED? N {SPECIMEN TYPE: RANDOM LDL 113 mg/dL 65-175 [facility] ([facility]) {SOURCE: Random Void~NURSE COLLECTED? N {SPECIMEN TYPE: RANDOM ID Date Data Source [id number] 02/15/2020 10:35:00 AM EST [facility] ([facility]) Name Value Range Interpretation Code Description Data Cynthia rce(s) Supporting Document(s) Urate [Mass/volume] in Serum or Plasma 6.6 mg/dL 2.5-8.5 [facility] ([facility]) {SOURCE: Random Void~NURSE COLLECTED? N {SPECIMEN TYPE: RANDOM ID Date Data Source [id number] 02/15/2020 10:35:00 AM EST [facility] ([facility]) Name Value Range Interpretation Code Description Data Cynthia rce(s) Supporting Document(s) Comprehensive Metabo Laboratory test result [facility] ([facility]) {SOURCE: Random Void~NURSE COLLECTED? N {SPECIMEN TYPE: RANDOM Chloride 102 meq/L 98-107 [facility] ([facility]) {SOURCE: Random Void~NURSE COLLECTED? N {SPECIMEN TYPE: RANDOM Sodium 141 meq/L 134-153 [facility] ([facility]) {SOURCE: Random Void~NURSE COLLECTED? N {SPECIMEN TYPE: RANDOM Potassium 3.9 meq/L 3.6-5.0 [facility] ([facility]) {SOURCE: Random Void~NURSE COLLECTED? N {SPECIMEN TYPE: RANDOM Co2 30 meq/L 22-30 [facility] ([facility]) {SOURCE: Random Void~NURSE COLLECTED? N {SPECIMEN TYPE: RANDOM Glucose 106 mg/dL 65-110 [facility] ([facility]) {SOURCE: Random Void~NURSE COLLECTED? N {SPECIMEN TYPE: RANDOM Creatinine 0.6 mg/dL 0.7-1.5 Below low normal [facility] ( [facility]) {SOURCE: Random Void~NURSE COLLECTED? N {SPECIMEN TYPE: RANDOM BUN/Creat 20 8-27 [facility] ([facility]) {SOURCE: Random Void~NURSE COLLECTED? N {SPECIMEN TYPE: RANDOM BUN 12 mg/dL 7-21 [facility] ([facility]) {SOURCE: Random Void~NURSE COLLECTED? N {SPECIMEN TYPE: RANDOM Total Protein 7.3 g/dL 6.3-8.2 [facility] ([facility]) {SOURCE: Random Void~NURSE COLLECTED? N {SPECIMEN TYPE: RANDOM Albumin 4.8 g/dL 3.9-5.0 [facility] ([facility]) {SOURCE: Random Void~NURSE COLLECTED? N {SPECIMEN TYPE: RANDOM Globulin 2.5 GM/DL 2.4-3.2 [facility] ([facility]) {SOURCE: Random Void~NURSE COLLECTED? N {SPECIMEN TYPE: RANDOM Calcium 9.5 mg/dL 8.4-10.2 [facility] ([facility]) {SOURCE: Random Void~NURSE COLLECTED? N {SPECIMEN TYPE: RANDOM A/G Ratio 1.9 0.8-2.0 [facility] ([facility]) {SOURCE: Random Void~NURSE COLLECTED? N {SPECIMEN TYPE: RANDOM Alkaline Phos 72 U/L 38-126 [facility] ([facility]) {SOURCE: Random Void~NURSE COLLECTED? N {SPECIMEN TYPE: RANDOM Sgot/Ast 22 U/L 5-40 [facility] ([facility]) {SOURCE: Random Void~NURSE COLLECTED? N {SPECIMEN TYPE: RANDOM Total Bili 1.0 mg/dL 0.2-1.3 [facility] ([facility]) {SOURCE: Random Void~NURSE COLLECTED? N {SPECIMEN TYPE: RANDOM SGPT/Alt 16 U/L 7-56 [facility] ([facility]) {SOURCE: Random Void~NURSE COLLECTED? N {SPECIMEN TYPE: RANDOM Anion Gap 9.0 mmol/L 8.0-16.0 [facility] ([facility]) {SOURCE: Random Void~NURSE COLLECTED? N {SPECIMEN TYPE: RANDOM Non-Aa GFR Laboratory test result [facility] ([facility]) {SOURCE: Random Void~NURSE COLLECTED? N {SPECIMEN TYPE: RANDOM Age 69 yrs [facility] ([facility]) {SOURCE: Random Void~NURSE COLLECTED? N {SPECIMEN TYPE: RANDOM Afr Amer GFR Laboratory test result [facility] ([facility]) {SOURCE: Random Void~NURSE COLLECTED? N {SPECIMEN TYPE: RANDOM ID Date Data Source [id number] 02/15/2020 10:35:00 AM EST [facility] ([facility]) Name Value Range Interpretation Code Description Data Cynthia rce(s) Supporting Document(s) Calcidiol [Mass/volume] in Serum or Plasma 42 ng/mL [facility] ([facility]) {SOURCE: Random Void~NURSE COLLECTED? N {SPECIMEN TYPE: RANDOM Thyroxine (T4) free [Mass/volume] in Serum or Plasma 0.93 ng/dL 0.93- 1.70 [facility] ([facility]) {SOURCE: Random Void~NURSE COLLECTED? N {SPECIMEN TYPE: RANDOM Thyrotropin [Units/volume] in Serum or Plasma 1.87 uIU/mL 0.47-5.01 [facility] ([facility]) {SOURCE: Random Void~NURSE COLLECTED? N {SPECIMEN TYPE: RANDOM ID Date Data Source [id number] 01/06/2020 12:00:00 AM EST [facility] Name Value Range Interpretation Code Description Data Cynthia rce(s) Supporting Document(s) 2019-nCoV RNA XXX [facility] This lab was ordered by [facility] and reported by [employer] ID Date Data Source [id number] 12/27/2019 03:07:00 PM EDT [facility] Name Value Range Interpretation Code Description Data Cynthia rce(s) Supporting Document(s) Potassium [Moles/volume] in Serum or Plasma 3.7 mEq/L 3.6 - 5.0 [facility] ID Date Data Source [id number] 12/27/2019 11:07:00 AM EDT [facility] ([facility]) Name Value Range Interpretation Code Description Data Cynthia rce(s) Supporting Document(s) Potassium [Moles/volume] in Serum or Plasma 3.7 meq/L 3.6-5.0 [facility] ([facility]) ID Date Data Source [id number] 07:15:00 PM EDT [facility] ([facility]) Name Value Range Interpretation Code Description Data Cynthia rce(s) Supporting Document(s) Surgical pathology study Laboratory test result [facility] ([facility]) FINAL DIAGNOSIS Tendon, right anterior tibialis, repair: [...] reveals fibrous connective tissue with hemorrhagic areas. Station Repairer section in one block. -SV 12/17/2019 - 1414 Signed MARCUS FRANKLIN MD 12/21/2019 0847 ID Date Data Source [id number] 12/14/2019 04:22:00 PM EDT [facility] Name Value Range Interpretation Code Description Data Cynthia rce(s) Supporting Document(s) Potassium [Moles/volume] in Serum or Plasma 3.6 mEq/L 3.6 - 5.0 [facility] ID Date Data Source [id number] 12/14/2019 08:44:00 AM EDT [facility] ([facility]) Name Value Range Interpretation Code Description Data Cynthia rce(s) Supporting Document(s) Potassium [Moles/volume] in Serum or Plasma 3.6 meq/L 3.6-5.0 [facility] ([facility]) ID Date Data Source [id number] 12/11/2019 10:00:00 AM EDT [facility] Name Value Range Interpretation Code Description Data Cynthia rce(s) Supporting Document(s) SARS coronavirus 2 RNA [facility] This lab was ordered by [facility] and reported by [facility]. ID Date Data Source [id number] 12/09/2019 03:19:00 PM EDT [facility] ([facility]) Name Value Range Interpretation Code Description Data Cynthia rce(s) Supporting Document(s) Inhouse EKG Laboratory test result [facility] ([facility]) ID Date Data Source [id number] 12/09/2019 02:54:00 PM EDT [facility] ([facility]) Name Value Range Interpretation Code Description Data Cynthia rce(s) Supporting Document(s) Comprehensive [employer] Laboratory test result [facility] ([facility]) Is patient fasting? N Sodium 139 meq/L 134-153 [facility] ([facility]) Is patient fasting? N Potassium 3.1 meq/L 3.6-5.0 Below low normal [facility] ( [facility]) Is patient fasting? N Glucose 101 mg/dL 65-110 [facility] ([facility]) Is patient fasting? N Chloride 98 meq/L 98-107 [facility] ([facility]) Is patient fasting? N Co2 29 meq/L 22-30 [facility] ([facility]) Is patient fasting? N BUN 12 mg/dL 7-21 [facility] ([facility]) Is patient fasting? N Creatinine 0.5 mg/dL 0.7-1.5 Below low normal [facility] ( [facility]) Is patient fasting? N BUN/Creat 24 8-27 [facility] ([facility]) Is patient fasting? N Globulin 2.5 GM/DL 2.4-3.2 [facility] ([facility]) Is patient fasting? N Albumin 4.5 g/dL 3.9-5.0 [facility] ([facility]) Is patient fasting? N Total Protein 7.0 g/dL 6.3-8.2 [facility] ([facility]) Is patient fasting? N A/G Ratio 1.8 0.8-2.0 [facility] ([facility]) Is patient fasting? N Total Bili 1.7 mg/dL 0.2-1.3 Above high normal [facility] ([facility]) Is patient fasting? N Calcium 9.3 mg/dL 8.4-10.2 [facility] ([facility]) Is patient fasting? N SGPT/Alt 18 U/L 7-56 [facility] ([facility]) Is patient fasting? N Sgot/Ast 28 U/L 5-40 [facility] ([facility]) Is patient fasting? N Alkaline Phos 78 U/L 38-126 [facility] ([facility]) Is patient fasting? N Anion Gap 12.0 mmol/L 8.0-16.0 [facility] ([facility]) Is patient fasting? N Non-Aa GFR Laboratory test result [facility] ([facility]) Is patient fasting? N Age 68 yrs [facility] ([facility]) Is patient fasting? N Afr Amer GFR Laboratory test result [facility] ([facility]) Is patient fasting? N ID Date Data Source [id number] 12/09/2019 02:54:00 PM EDT [facility] ([facility]) Name Value Range Interpretation Code Description Data Cynthia rce(s) Supporting Document(s) Protime 13.4 s 11.0-15.5 [facility] ([facility]) Is patient fasting? N Inr 1.01 0.93-1.23 [facility] ([facility]) Is patient fasting? N ID Date Data Source [id number] 12/09/2019 07:17:00 PM EDT [facility] Name Value Range Interpretation Code Description Data Cynthia rce(s) Supporting Document(s) COMPREHENSIVE METABOLIC PANEL [facility] COMPREHENSIVE METABOLIC PANEL Sodium [Moles/volume] in Serum or Plasma 139 mEq/L 134 - 153 [facility] Potassium [Moles/volume] in Serum or Plasma 3.1 mEq/L 3.6 - 5.0 L [facility] Chloride [Moles/volume] in Serum or Plasma 98 mEq/L 98 - 107 [facility] Carbon dioxide, total [Moles/volume] in Serum or Plasma 29 MEQ/L 22 - 30 [facility] Glucose [Mass/volume] in Serum or Plasma 101 MG/DL 65 - 110 [facility] BUN 12 MG/DL 7 - 21 [facility] Creatinine [Mass/volume] in Serum or Plasma 0.5 MG/DL 0.7 - 1.5 L [facility] BUN/CREAT 24 8 - 27 [facility] Protein [Mass/volume] in Serum or Plasma 7.0 G/DL 6.3 - 8.2 [facility] Albumin [Mass/volume] in Serum or Plasma 4.5 G/DL 3.9 - 5.0 [facility] Globulin [Mass/volume] in Serum by calculation 2.5 GM/DL 2.4 - 3.2 [facility] A/G RATIO 1.8 0.8 - 2.0 [facility] Calcium [Mass/volume] in Serum or Plasma 9.3 MG/DL 8.4 - 10.2 [facility] Bilirubin.total [Mass/volume] in Serum or Plasma 1.7 MG/DL 0.2 - 1.3 H [facility] Alkaline phosphatase [Enzymatic activity/volume] in Serum or Plasma 78 U/L 38 - 126 [facility] Aspartate aminotransferase [Enzymatic activity/volume] in Serum or Plasma 28 U/L 5 - 40 [facility] Alanine aminotransferase [Enzymatic activity/volume] in Seru m or Plasma 18 U/L 7 - 56 [facility] Anion gap 3 in Serum or Plasma 12.0 mmol/L 8.0 - 16.0 [facility] AGE 68 yrs [facility] NON-AA GFR >60 mL/min [facility] ital AFR AMER GFR >60 [facility] Male GFR In [...] >32 mL/min Normal ID Date Data Source [id number] 12/09/2019 06:56:00 PM EDT [facility] Name Value Range Interpretation Code Description Data Cynthia rce(s) Supporting Document(s) Prothrombin time (PT) 13.4 SECONDS 11.0 - 15.5 [facility] INR in Platelet poor plasma by Coagulation assay 1.01 0.93 - 1. 23 [facility] \\BLDo\\INR INTERPRETATION\\BLDx\\ Therapeutic range for Coumadin and related oral anticoagulants. - International Normalized Ratio (INR): 2.0 - 3.0 for Venous Thrombosis, Pulmonary Embolus, Tissue heart valves, Acute MN, Atrial Fibrillation, Valvular heart disease and recurrent Systemic Embolism. -International Normalized Ratio (INR): 2.5 - 3.5 for Mechanical Prosthetic valve. ID Date Data Source [id number] 11/16/2019 11:02:00 AM EDT [facility] ([facility]) Name Value Range Interpretation Code Description Data Cynthia e(s) Supporting Document(s) Creatinine For GFR 0.66 mg/dL 0.55-1.30 Normal (applies to non -numeric results) [facility] ([facility]) Glucose, Fasting 102 mg/dL 70-100 Above high normal [facility]) Blood Urea Nitrogen 10 mg/dL 7-18 Normal (applies to non-nume keli results) [facility]) Glomerular Filtration Rate Laboratory test result Normal (applies to non- numeric results) [facility]) <content>Units are mL/min/1.73 m2</content>
<content></content>
<content>Chronic Kidney Disease Staging per NKF:</content>
<content></content>
<content>Stage I & II GFR >=60 Normal to Mildly Decreased</content>
<content>Stage III GFR 30-59 Moderately Decreased</content>
<content>Stage IV GFR 15-29 Severely Decreased</content>
<content>Stage V GFR <15 Very Little GFR Left</content>
<content>ESRD GFR <15 on SELVAGE MACHINE OPERATOR</content>
<content></content> Sodium Level 140 meq/L 136-145 Normal (applies to non-numeric res ults) [facility] ([facility]) Potassium Serum 3.3 meq/L 3.5-5.1 Below low normal [facility] ([facility]) Chloride Level 100 meq/L 98-107 Normal (applies to non-numeric r esults) [facility] ([facility]) Carbon Dioxide Level 32 meq/L 21-32 Normal (applies to non-num jenni results) [facility] ([facility]) Calcium Level 8.8 mg/dL 8.8-10.2 Normal (applies to non-numeric re sults) [facility] ([facility]) Anion Gap 8 meq/L 8-16 Normal (applies to non-numeric resul ts) [facility] ([facility]) Ast/Sgot 79 U/L 7-37 Above high normal [facility] ([facility]) Alt/SGPT 49 U/L 12-78 Normal (applies to non-numeric resul ts) [facility] ([facility]) Total Protein 7.3 GM/DL 6.4-8.2 Normal (applies to non-numeric re sults) [facility] ([facility]) Bilirubin,Total 0.8 mg/dL 0.2-1.0 Normal (applies to non-numeric results) [facility] ([facility]) Alkaline Phosphatase 75 U/L 45-117 Normal (applies to non-num jenni results) [facility] ([facility]) Albumin/Globulin Ratio 1.3 1.2-2.2 Normal (applies to non-n umeric results) [facility] ([facility]) Albumin 4.1 GM/DL 3.2-5.2 Normal (applies to non-numeric resul ts) [facility] ([facility]) ID Date Data Source [id number] 11/16/2019 11:02:00 AM EDT [facility] ([facility]) Name Value Range Interpretation Code Description Data Cynthia rce(s) Supporting Document(s) Cobalamin (Vitamin B12) [Mass/volume] in Serum or Plasma 348 pg/ mL 247-911 Normal (applies to non-numeric results) [facility] ([facility]) VITAMIN B12 NORMAL RANGE NORMAL 247 - 911 PG/ML INDETERMINATE 211 - 246 PG/ML DEFICIENT LESS THAN 211 PG/ML Thyrotropin [Units/volume] in Serum or Plasma 1.530 uIU/ML 0. 358-3.740 Normal (applies to non-numeric results) [facility] ([facility]) ID Date Data Source [id number] 11/16/2019 11:02:00 AM EDT [facility] ([facility]) Name Value Range Interpretation Code Description Data Cynthia rce(s) Supporting Document(s) Thyroxine (T4) free [Mass/volume] in Serum or Plasma 0.76 ng/dL 0.76-1.46 Normal (applies to non-numeric results) [facility] ([facility]) ID Date Data Source [id number] 11/16/2019 11:02:00 AM EDT [facility] ([facility]) Name Value Range Interpretation Code Description Data Cynthia rce(s) Supporting Document(s) Appearance, Urine Laboratory test result Normal (applies to non-numeric results) [facility] ([facility]) Color, Urine Laboratory test result Normal (applies to non -numeric results) [facility] ([facility]) Specific [place] Urine Auto 1.017 1.002-1.035 Norm al (applies to non-numeric results) [facility] ([facility]) PH,Urine 6.0 units 5.0-9.0 Normal (applies to non-numeric resul ts) [facility] ([facility]) Protein, Urine Auto Laboratory test result Alka l (applies to non-numeric results) [facility] ([facility]) Ketone, Urine Auto Laboratory test result Normal (applies to non-numeric results) [facility] ([facility]) Urobilinogen, Urine Auto 0.2 mg/dL 0.0-2.0 Normal (applies to non-numeric results) [facility] ([facility]) Glucose, Urine (Ua) Auto Laboratory test result Normal (applies to non-numeric results) [facility] ([facility]) Bilirubin, Urine Auto Laboratory test result Nor mal (applies to non-numeric results) [facility] ([facility]) Nitrite, Urine Auto Laboratory test result Alka l (applies to non-numeric results) [facility] ([facility]) Leukocyte Esterase, Urine Auto Laboratory test result Normal (applies to non- numeric results) [facility] ([facility]) WBC, Urine Auto 2 /HPF 0-3 Normal (applies to non-numeric results) [facility] ([facility]) Blood, Urine Blood Laboratory test result Normal (applies to non-numeric results) [facility] ([facility]) Bacteria, Urine Auto Laboratory test result Norm al (applies to non-numeric results) [facility] ([facility]) Squamous Epithelial Cell Ur AU 1 /HPF 0-6 N ormal (applies to non-numeric results) [facility] ([facility]) RBC, Urine Auto 4 /HPF 0-3 Above high normal [facility] ([facility]) Hyaline Cast, Urine Auto 11 /LPF 0-1 Normal (applies to non -numeric results) [facility] ([facility]) Mucus, Urine Laboratory test result Normal (applies to non -numeric results) [facility]) ID Date Data Source [id number] 11/16/2019 11:02:00 AM EDT [facility] ([facility]) Name Value Range Interpretation Code Description Data Cynthia rce(s) Supporting Document(s) Calcidiol [Mass/volume] in Serum or Plasma 56.5 ng/mL 30.0- 100.0 Normal (applies to non-numeric results) [facility] ([facility]) ID Date Data Source [id number] 11/16/2019 11:02:00 AM EDT [facility] ([facility]) Name Value Range Interpretation Code Description Data Cynthia rce(s) Supporting Document(s) Cholesterol Level 191 mg/dL Normal (applies to non-numeri c results) [facility] ([facility]) Triglycerides Level 228 mg/dL Above high normal [facility] ([facility]) LDL Cholesterol 62 mg/dL Normal (applies to non-numeric results) [facility] ([facility]) Non-HDL-C 108 mg/dL Normal (applies to non-numeric resul ts) [facility] ([facility]) HDL Cholesterol 83 mg/dL Normal (applies to non-numeric results) [facility]) Cholesterol Risk Ratio 2.301 Normal (applies to non-n umeric results) [facility] ([facility]) ID Date Data Source [id number] 11/16/2019 11:02:00 AM EDT [facility] ([facility]) Name Value Range Interpretation Code Description Data Cynthia rce(s) Supporting Document(s) Urate [Mass/volume] in Serum or Plasma 4.9 mg/dL 2.6-6.0 Normal (applies to non- numeric results) [facility] ([facility]) ID Date Data Source [id number] 11/16/2019 11:02:00 AM EDT [facility] ([facility]) Name Value Range Interpretation Code Description Data Cynthia rce(s) Supporting Document(s) White Blood Count 8.1 10 4.0-10.0 Normal (applies to non-numeri c results) [facility] ([facility]) Hematocrit 40.9 % 36.0-47.0 Normal (applies to non-numeric resul ts) [facility] ([facility]) Red Blood Count 4.07 10 4.00-5.40 Normal (applies to non-numeric results) [facility] ([facility]) Hemoglobin 13.7 g/dL 12.0-15.5 Normal (applies to non-numeric resul ts) [facility] ([facility]) Mean Corpuscular Hemoglobin 33.7 pg 27.0-33.0 Above high normal [facility] ([facility]) Mean Corpuscular HGB Conc 33.5 g/dL 32.0-36.5 Normal (applies to non-numeric results) [facility] ([facility]) Red Cell Distribution Width 13.2 % 11.5-14.5 Norm al (applies to non-numeric results) [facility] ([facility]) Mean Corpuscular Volume 100.5 fl 80.0-96.0 Above high normal [facility] ([facility]) Neutrophils % 70.8 % 36.0-66.0 Above high normal [facility] ([facility]) Lymph % 20.8 % 24.0-44.0 Below low normal [facility] ( [facility]) Platelet Count, Automated 355 10 150-450 Normal (applies to non-numeric results) [facility] ([facility]) Baso % 0.9 % 0.0-1.0 Normal (applies to non-numeric resul ts) [facility] ([facility]) Burke % 6.4 % 0.0-5.0 Above high normal [facility] ([facility]) Eos % 0.7 % 0.0-3.0 Normal (applies to non-numeric resul ts) [facility] ([facility]) Immature Granulocyte % 0.4 % 0-3.0 Normal (applies to non-n umeric results) [facility] ([facility]) Neutrophils # 5.8 10 1.5-8.5 Normal (applies to non-numeric re sults) [facility] ([facility]) Nucleated Red Blood Cell % 0.0 % 0-0 Normal (applies to n on-numeric results) [facility] ([facility]) Burke # 0.5 10 0.0-0.8 Normal (applies to non-numeric resul ts) [facility] ([facility]) Lymph # 1.7 10 1.5-5.0 Normal (applies to non-numeric resul ts) [facility] ([facility]) Eos # 0.1 10 0.0-0.5 Normal (applies to non-numeric resul ts) [facility] ([facility]) Baso # 0.1 10 0.0-0.2 Normal (applies to non-numeric resul ts) [facility] ([facility]) ID Date Data Source [id number] 11/12/2019 12:00:00 AM EDT [facility] Nelli Burton MD Patient Name: VOLODYMYR CLAIRE[address] [facility] Date of : 1950[place] [address] Date of Exam: 11/12/2019PH#: Fax: [phone] EXAM: [...] exam and seen in conjunction with extensive [id number] within the enlarged tendon. On today's examination, [...] for additional unchanged find ings.Accredited by the [employer] in [place].MAYLIN Gilbert/Rosmery you for referring VOLODYMYR CLAIRE to our office. Electronically Signed - RAMESH BAJWA DO 11/12/19 16:04 Name Value Range Interpretation Code Description Data Cynthia rce(s) Supporting Document(s) ID Date Data Source [id number] 08/25/2019 12:00:00 AM EDT [facility] Nelli Burton MD Patient Name: KAITLIN CLAIRE [facility] Date of : 1950[place] [address] Date of Exam: 08/25/2019#: Fax: [phone] EXAM: [...] Other findings as described above.Accredited by the [employer] in MR.MAYLIN Gilbert/Rosmery olsen for referring VOLODYMYR CLAIRE to our office. Electronically Signed - RAMESH BAJWA DO 08/26/19 15:34 Name Value Range Interpretation Code Description Data Cynthia rce(s) Supporting Document(s) ID Date Data Source [id number] 07/19/2019 01:13:00 PM EDT [facility] Name Value Range Interpretation Code Description Data Cynthia rce(s) Supporting Document(s) Magnesium [Mass/volume] in Serum or Plasma 1.4 MG/DL 1.7 - 2.2 L [facility] ID Date Data Source [id number] 07/19/2019 12:53:00 PM EDT [facility] Name Value Range Interpretation Code Description Data Cynthia rce(s) Supporting Document(s) Potassium [Moles/volume] in Serum or Plasma 3.7 mEq/L 3.6 - 5.0 [facility] ID Date Data Source [id number] 07/19/2019 10:19:00 AM EDT [facility] ([facility]) Name Value Range Interpretation Code Description Data Cynthia rce(s) Supporting Document(s) Magnesium [Mass/volume] in Serum or Plasma 1.4 mg/dL 1.7-2.2 [place] w low normal [facility] ([facility]) Potassium [Moles/volume] in Serum or Plasma 3.7 meq/L 3.6-5.0 [facility] ([facility]) ID Date Data Source [id number] 07/06/2019 10:26:00 AM EDT [facility] ([facility]) Name Value Range Interpretation Code Description Data Cynthia rce(s) Supporting Document(s) Thyrotropin [Units/volume] in Serum or Plasma 1.37 uIU/mL 0.47-5.01 [facility] ([facility]) Is patient fasting? N ID Date Data Source [id number] 07/06/2019 10:26:00 AM EDT [facility] ([facility]) Name Value Range Interpretation Code Description Data Cynthia rce(s) Supporting Document(s) Sodium 139 meq/L 134-153 [facility] ([facility]) Is patient fasting? N Comprehensive Metabo Laboratory test result [facility] ([facility]) COMPREHENSIVE METABOLIC PANEL Potassium 3.1 meq/L 3.6-5.0 Below low normal [facility] ( [facility]) Is patient fasting? N Chloride 95 meq/L 98-107 Below low normal [facility] ( [facility]) Is patient fasting? N Co2 33 meq/L 22-30 Above high normal [facility] ([facility]) Is patient fasting? N BUN 10 mg/dL 7-21 [facility] ([facility]) Is patient fasting? N Glucose 109 mg/dL 65-110 [facility] ([facility]) Is patient fasting? N Creatinine 0.5 mg/dL 0.7-1.5 Below low normal [facility] ( [facility]) Is patient fasting? N BUN/Creat 20 8-27 [facility] ([facility]) Is patient fasting? N Total Protein 7.1 g/dL 6.3-8.2 [facility] ([facility]) Is patient fasting? N Albumin 4.6 g/dL 3.9-5.0 [facility] ([facility]) Is patient fasting? N Globulin 2.5 GM/DL 2.4-3.2 [facility] ([facility]) Is patient fasting? N Calcium 9.4 mg/dL 8.4-10.2 [facility] ([facility]) Is patient fasting? N A/G Ratio 1.8 0.8-2.0 [facility] ([facility]) Is patient fasting? N Alkaline Phos 71 U/L 38-126 [facility] ([facility]) Is patient fasting? N Total Bili 2.0 mg/dL 0.2-1.3 Above high normal [facility] ([facility]) Is patient fasting? N Sgot/Ast 42 U/L 5-40 Above high normal [facility] ([facility]) Is patient fasting? N SGPT/Alt 24 U/L 7-56 [facility] ([facility]) Is patient fasting? N Anion Gap 11.0 mmol/L 8.0-16.0 [facility] ([facility]) Is patient fasting? N Non-Aa GFR Laboratory test result [facility] ([facility]) Is patient fasting? N Age 68 yrs [facility] ([facility]) Is patient fasting? N Afr Amer GFR Laboratory test result [facility] ([facility]) Male GFR Interprentation 20-49 yrs >60 [...] >32 mL/min Normal ID Date Data Source [id number] 07/06/2019 10:26:00 AM EDT [facility] ([facility]) Name Value Range Interpretation Code Description Data Cynthia rce(s) Supporting Document(s) Thyroxine (T4) free [Mass/volume] in Serum or Plasma 1.10 ng/dL 0.93- 1.70 [facility] ([facility]) Is patient fasting? N ID Date Data Source [id number] 07/06/2019 10:26:00 AM EDT [facility] ([facility]) Name Value Range Interpretation Code Description Data Cynthia rce(s) Supporting Document(s) Sed Rate 3 mm/hr 0-30 [facility] ([facility]) Is patient fasting? N Sed Rate Reenter 3 [facility] ([facility]) Is patient fasting? N ID Date Data Source [id number] 07/06/2019 10:26:00 AM EDT [facility] ([facility]) Name Value Range Interpretation Code Description Data Cynthia rce(s) Supporting Document(s) Calcidiol [Mass/volume] in Serum or Plasma 42 ng/mL [facility] ([facility]) <content>VITAMIN-D(25HYDROXY)</content>< br/><content>Deficiency: <=20 ng/ml</content>
<content>Insufficiency: 21-29 ng/ml</content>
<content>Preferred level: => 30 ng/ml</content>
<conten t></content> ID Date Data Source [id number] 07/06/2019 10:26:00 AM EDT [facility] ([facility]) Name Value Range Interpretation Code Description Data Cynthia rce(s) Supporting Document(s) Cholesterol 201 mg/dL 131-200 Above high normal [facility] ([facility]) Is patient fasting? N Cve Panel Laboratory test result [facility] ([facility]) LIPID PANEL Triglycerides 133 mg/dL 35-160 [facility] ([facility]) Is patient fasting? N LDL 85 mg/dL 65-175 [facility] ([facility]) Is patient fasting? N HDL 104 mg/dL 29-86 Above high normal [facility] ([facility]) Is patient fasting? N LDL/HDL 0.82 1.47-3.22 Below low normal [facility] ( [facility]) CVE RISK CHOL/HDL LDL/HDL MEN: 1/2 AVERAGE 3.43 1.00 AVERAGE 4.97 3.55 2X AVERAGE 9.55 6.25 3X AVERAGE 23.99 7.99 WOMEN: 1/2 AVERAGE 3.27 1.47 AVERAGE 4.44 3.22 2X AVERAGE 7.05 5.03 3X AVERAGE 11.04 6.14 Risk Factor 1.9 3.2-4.4 Below low normal [facility] ([facility]) Is patient fasting? N ID Date Data Source [id number] 07/06/2019 10:26:00 AM EDT [facility] ([facility]) Name Value Range Interpretation Code Description Data Cynthia rce(s) Supporting Document(s) Urate [Mass/volume] in Serum or Plasma 4.7 mg/dL 2.5-8.5 [facility] ([facility]) Is patient fasting? N ID Date Data Source [id number] 07/06/2019 10:26:00 AM EDT [facility] ([facility]) Name Value Range Interpretation Code Description Data Cynthia rce(s) Supporting Document(s) CBC W/Automated Diff Laboratory test result [facility] ([facility]) COMPLETE BLOOD COUNT WBC 6.8 10^3/uL 4.2-11.0 [facility] ([facility]) Is patient fasting? N Hemoglobin 13.5 g/dL 12.0-16.0 [facility] ([facility]) Is patient fasting? N RBC 4.20 10^6/uL 4.20-5.40 [facility] ([facility]) Is patient fasting? N Hematocrit 40.1 % 37.0-47.0 [facility] ([facility]) Is patient fasting? N MCH 32.1 pg 27.0-34.0 [facility] ([facility]) Is patient fasting? N MCV 95.5 fL 81.0-101 [facility] ([facility]) Is patient fasting? N RDW 13.5 % 11.5-14.5 [facility] ([facility]) Is patient fasting? N MCHC 33.7 g/dL 31.0-36.0 [facility] ([facility]) Is patient fasting? N Platelets 230 10^3/uL 150-450 [facility] ([facility]) Is patient fasting? N MPV 10.7 fL 7.4-10.4 Above high normal [facility] ([facility]) Is patient fasting? N Neut 61.8 % 37.0-80.0 [facility] ([facility]) Is patient fasting? N Lymph 26.7 % 25.0-40.0 [facility] ([facility]) Is patient fasting? N Burke 8.8 % 3.0-8.0 Above high normal [facility] ([facility]) Is patient fasting? N Baso 0.6 % 0.0-2.5 [facility] ([facility]) Is patient fasting? N Eos 1.8 % 0.0-7.0 [facility] ([facility]) Is patient fasting? N %Ig 0.3 % 0.0-0.0 Above high normal [facility] ([facility]) Is patient fasting? N %NRBC 0.0 % 0.0-0.0 [facility] ([facility]) Is patient fasting? N #Neut 4.20 10^3/uL 2.00-6.90 [facility] ([facility]) Is patient fasting? N #Burke 0.60 10^3/uL 0.00-0.90 [facility] ([facility]) Is patient fasting? N #Lymph 1.81 10^3/uL 0.60-3.40 [facility] ([facility]) Is patient fasting? N #Eos 0.12 10^3/uL 0.00-0.70 [facility] ([facility]) Is patient fasting? N #Baso 0.04 10^3/uL 0.00-0.20 [facility] ([facility]) Is patient fasting? N #Ig 0.02 10^3/uL 0.00-0.10 [facility] ([facility]) Is patient fasting? N Manual Diff Laboratory test result [facility] ([facility]) Is patient fasting? N #NRBC 0.00 10^3/uL 0.00-0.00 [facility] ([facility]) Is patient fasting? N RBC Morph Laboratory test result [facility] ([facility]) Is patient fasting? N ID Date Data Source [id number] 07/06/2019 04:38:00 PM EDT [facility] Value Range Interpretation Code Description Data Cynthia rce(s) Supporting Document(s) Thyroxine (T4) free index in Serum or Plasma by calculation 1.10 NG/DL 0.93 - 1.70 [facility] ID Date Data Source [id number] 07/06/2019 04:38:00 PM EDT [facility] Value Range Interpretation Code Description Data Cynthia rce(s) Supporting Document(s) Thyrotropin [Units/volume] in Serum or Plasma by Detec tion limit <= 0.05 mIU/L 1.37 uIU/mL 0.47 - 5.01 [facility] ID Date Data Source [id number] 07/06/2019 04:38:00 PM EDT [facility] Name Value Range Interpretation Code Description Data Cynthia rce(s) Supporting Document(s) Calcidiol [Moles/volume] in Serum or Plasma 42 NG/ML [facility] VITAMIN-D(2 5HYDROXY) Deficiency: <=20 ng/ml Insufficiency: 21-29 ng/ml Preferred level: => 30 ng/ml ID Date Data Source [id number] 07/06/2019 04:26:00 PM EDT [facility] Name Value Range Interpretation Code Description Data Cynthia rce(s) Supporting Document(s) COMPREHENSIVE METABOLIC PANEL [facility] COMPREHENSIVE METABOLIC PANEL Sodium [Moles/volume] in Serum or Plasma 139 mEq/L 134 - 153 [facility] Potassium [Moles/volume] in Serum or Plasma 3.1 mEq/L 3.6 - 5.0 L [facility] Chloride [Moles/volume] in Serum or Plasma 95 mEq/L 98 - 107 L [facility] Carbon dioxide, total [Moles/volume] in Serum or Plasma 33 MEQ/L 22 - 30 H [facility] Glucose [Mass/volume] in Serum or Plasma 109 MG/DL 65 - 110 [facility] BUN 10 MG/DL 7 - 21 [facility] Creatinine [Mass/volume] in Serum or Plasma 0.5 MG/DL 0.7 - 1.5 L [facility] BUN/CREAT 20 8 - 27 [facility] al Protein [Mass/volume] in Serum or Plasma 7.1 G/DL 6.3 - 8.2 [facility] Albumin [Mass/volume] in Serum or Plasma 4.6 G/DL 3.9 - 5.0 [facility] Globulin [Mass/volume] in Serum by calculation 2.5 GM/DL 2.4 - 3.2 [facility] A/G RATIO 1.8 0.8 - 2.0 [facility] Calcium [Mass/volume] in Serum or Plasma 9.4 MG/DL 8.4 - 10.2 [facility] Bilirubin.total [Mass/volume] in Serum or Plasma 2.0 MG/DL 0.2 - 1.3 H [facility] Alkaline phosphatase [Enzymatic activity/volume] in Serum or Plasma 71 U/L 38 - 126 [facility] Aspartate aminotransferase [Enzymatic activity/volume] in Serum or Plasma 42 U/L 5 - 40 H [facility] Alanine aminotransferase [Enzymatic activity/volume] in Seru m or Plasma 24 U/L 7 - 56 [facility] Anion gap 3 in Serum or Plasma 11.0 mmol/L 8.0 - 16.0 [facility] AGE 68 yrs [facility] al NON-AA GFR >60 mL/min [facility] ital AFR AMER GFR >60 [facility] pital Male GFR In terprentation 20-49 [...] >32 mL/min Normal ID Date Data Source [id number] 07/06/2019 04:26:00 PM EDT [facility] Name Value Range Interpretation Code Description Data Cynthia rce(s) Supporting Document(s) CVE PANEL [facility] al LIPID PANEL Cholesterol [Mass/volume] in Serum or Plasma 201 MG/DL 131 - 200 H [facility] Deprecated Triglyceride [Mass/volume] in Serum or Plasma 133 MG/DL 3 5 - 160 [facility] HDL 104 MG/DL 29 - 86 H [facility] al Cholesterol in LDL/Cholesterol in HDL [Mass Ratio] in Serum or Plasma 85 mg/dL 65 - 175 [facility] Cholesterol.total/Cholesterol in HDL [Mass Ratio] in Serum o r Plasma 1.9 3.2 - 4.4 L [facility] LDL/HDL 0.82 1.47 - 3.22 L [facility] ital CVE RISK CHOL/HDL LDL/HDLMEN: 1/2 AVERAGE 3.43 1.00 AVERAGE 4.97 3.55 2X AVERAGE 9.55 6.25 3X AVERAGE 23.99 7.99WOMEN: 1/2 AVERAGE 3.27 1.47 AVERAGE 4.44 3.22 2X AVERAGE 7.05 5.03 3X AVERAGE 11.04 6.14 ID Date Data Source [id number] 07/06/2019 04:19:00 PM EDT [facility] Name Value Range Interpretation Code Description Data Cynthia rce(s) Supporting Document(s) Urate [Mass/volume] in Serum or Plasma 4.7 MG/DL 2.5 - 8.5 [facility] ID Date Data Source [id number] 07/06/2019 04:11:00 PM EDT [facility] Name Value Range Interpretation Code Description Data Cynthia rce(s) Supporting Document(s) Erythrocyte sedimentation rate by Westergren method 3 mm/hr 0 - 30 [facility] SED RATE REENTER 3 [facility] ID Date Data Source [id number] 07/06/2019 04:05:00 PM EDT [facility] Name Value Range Interpretation Code Description Data Cynthia rce(s) Supporting Document(s) CBC W/AUTOMATED DIFF [facility] COMPLETE BLOOD COUNT Leukocytes [#/volume] in Blood by Automated count 6.8 10^3/uL 4.2 - 1 1.0 [facility] Erythrocytes [#/volume] in Blood by Automated count 4.20 10^6/uL 4. 20 - 5.40 [facility] Hemoglobin [Mass/volume] in Blood 13.5 g/dL 12.0 - 16.0 [facility] Hematocrit [Volume Fraction] of Blood by Automated count 40.1 % 3 7.0 - 47.0 [facility] Erythrocyte mean corpuscular volume [Entitic volume] by Auto mated count 95.5 fL 81.0 - 101 [facility] Erythrocyte mean corpuscular hemoglobin [Entitic mass] by Automated count 32.1 pg 27.0 - 34.0 [facility] Erythrocyte mean corpuscular hemoglobin concentration [Mass/volume] by Automated count 33.7 g/dL 31.0 - 36.0 [facility] Erythrocyte distribution width [Ratio] by Automated count 13.5 % 11.5 - 14.5 [facility] Platelets [#/volume] in Blood by Automated count 230 10^3/uL 150 - 45 0 [facility] Platelet mean volume [Entitic volume] in Blood by Automated count 10.7 fL 7.4 - 10.4 H [facility] Neutrophils/100 leukocytes in Blood by Automated count 61.8 % 37. 0 - 80.0 [facility] Lymphocytes/100 leukocytes in Blood by Manual count 26.7 % 25.0 - 40.0 [facility] Monocytes/100 leukocytes in Blood by Automated count 8.8 % 3.0 - 8.0 H [facility] Eosinophils/100 leukocytes in Blood by Automated count 1.8 % 0.0 - 7.0 [facility] Basophils/100 leukocytes in Blood by Automated count 0.6 % 0.0 - 2.5 [facility] %IG 0.3 % 0.0 - 0.0 [facility] %NRBC 0.0 % 0.0 - 0.0 [facility] al Neutrophils [#/volume] in Blood by Automated count 4.20 10^3/uL 2.00 - 6.90 [facility] Lymphocytes [#/volume] in Blood by Automated count 1.81 10^3/uL 0.60 - 3.40 [facility] Monocytes [#/volume] in Blood by Automated count 0.60 10^3/uL 0.00 - 0.90 [facility] Eosinophils [#/volume] in Blood by Automated count 0.12 10^3/uL 0.00 - 0.70 [facility] Basophils [#/volume] in Blood by Automated count 0.04 10^3/uL 0.00 - 0.20 [facility] #IG 0.02 10^3/uL 0.00 - 0.10 [facility] ospital #NRBC 0.00 10^3/uL 0.00 - 0.00 [facility] MANUAL DIFF NOT INDICATED [facility] RBC MORPH NOT INDICATED [facility] Ho spital ID Date Data Source [id number] 07/06/2019 10:26:00 AM EDT [facility] ([facility]) Name Value Range Interpretation Code Description Data Cynthia rce(s) Supporting Document(s) Thyrotropin [Units/volume] in Serum or Plasma Laboratory test result [facility] ([facility]) Erythrocyte sedimentation rate by Westergren method Laboratory test result [facility] ([facility]) Thyroxine (T4) free [Mass/volume] in Serum or Plasma Laboratory cb t result [facility] ([facility]) ID Date Data Source [id number] 03/17/2019 12:00:00 AM EST [facility] Chapis Mcgovern Poured Wall Foreman Rnnp Patient Name:VOLODYMYR [id number] [facility] Date of : 1950[place] [address] Date of Exam: 03/17/2019#: Fax: [phone] EXAM: [...] mammogram was read with the assistance of [employer], an FDAapproved computer aided detection system for [...] rce(s) Supporting Document(s) ID Date Data Source [id number] 03/17/2019 12:00:00 AM EST [facility] Chapis Martini Patient Name:VOLODYMYR [id number] [facility] Date of : 1950[place] [address] Date of Exam: 03/17/2019#: Fax: [phone] EXAM: [...] was read with the assistance of [employer], an FDAapproved computer aided detection system for [...] rce(s) Supporting Document(s) ID Date Data Source [id number] 02/07/2019 10:25:00 AM EST [facility] ([facility]) Name Value Range Interpretation Code Description Data Cynthia rce(s) Supporting Document(s) Cholesterol Level 184 mg/dL Normal (applies to non-numeri c results) [facility] ([facility]) Triglycerides Level 210 mg/dL Above high normal [facility] ([facility]) HDL Cholesterol 73 mg/dL Normal (applies to non-numeric results) [facility] ([facility]) Cholesterol Risk Ratio 2.520 Normal (applies to non-n umeric results) [facility] ([facility]) LDL Cholesterol 69 mg/dL Normal (applies to non-numeric results) [facility] ([facility]) Non-HDL-C 111 mg/dL Normal (applies to non-numeric resul ts) [facility] ([facility]) ID Date Data Source [id number] 02/07/2019 10:25:00 AM EST [facility] ([facility]) Name Value Range Interpretation Code Description Data Cynthia rce(s) Supporting Document(s) Calcidiol [Mass/volume] in Serum or Plasma 71.4 ng/mL 30.0- 100.0 Normal (applies to non-numeric results) [facility] ([facility]) ID Date Data Source [id number] 02/07/2019 10:25:00 AM EST [facility] ([facility]) Name Value Range Interpretation Code Description Data Cynthia rce(s) Supporting Document(s) Color, Urine Laboratory test result Normal (applies to non -numeric results) [facility] ([facility]) Appearance, Urine Laboratory test result Normal (applies to non-numeric results) [facility] ([facility]) PH,Urine 7.0 units 5.0-9.0 Normal (applies to non-numeric resul ts) [facility] ([facility]) Specific [place] Urine Auto 1.024 1.002-1.035 Norm al (applies to non-numeric results) [facility] ([facility]) Protein, Urine Auto Laboratory test result Alka l (applies to non-numeric results) [facility] ([facility]) Ketone, Urine Auto Laboratory test result Normal (applies to non-numeric results) [facility] ([facility]) Urobilinogen, Urine Auto 0.2 mg/dL 0.0-2.0 Normal (applies to non-numeric results) [facility] ([facility]) Glucose, Urine (Ua) Auto Laboratory test result Normal (applies to non-numeric results) [facility] ([facility]) Bilirubin, Urine Auto Laboratory test result Nor mal (applies to non-numeric results) [facility] ([facility]) Nitrite, Urine Auto Laboratory test result Alka l (applies to non-numeric results) [facility] ([facility]) Leukocyte Esterase, Urine Auto Laboratory test result Normal (applies to non- numeric results) [facility] ([facility]) Blood, Urine Blood Laboratory test result Normal (applies to non-numeric results) [facility] ([facility]) RBC, Urine Auto 1 /HPF 0-3 Normal (applies to non-numeric results) [facility] ([facility]) WBC, Urine Auto 1 /HPF 0-3 Normal (applies to non-numeric results) [facility] ([facility]) Mucus, Urine Laboratory test result Normal (applies to non -numeric results) [facility] ([facility]) Hyaline Cast, Urine Auto 0 /LPF 0-1 Normal (applies to non -numeric results) [facility] ([facility]) Bacteria, Urine Auto Laboratory test result Norm al (applies to non-numeric results) [facility] ([facility]) Squamous Epithelial Cell Ur AU 1 /HPF 0-6 N ormal (applies to non-numeric results) [facility] ([facility]) ID Date Data Source [id number] 02/07/2019 10:25:00 AM EST [facility] ([facility]) Name Value Range Interpretation Code Description Data Cynthia rce(s) Supporting Document(s) Blood Urea Nitrogen 15 mg/dL 7-18 Normal (applies to non-nume keli results) [facility] ([facility]) Glucose, Fasting 86 mg/dL 70-100 Normal (applies to non-numeric results) [facility] ([facility]) Creatinine For GFR 0.59 mg/dL 0.55-1.30 Normal (applies to non -numeric results) [facility] ([facility]) Glomerular Filtration Rate Laboratory test result Normal (applies to non- numeric results) [facility] ([facility]) <content>Units are mL/min/1.73 m2</content>
<content></content>
<content>Chronic Kidney Disease Staging per NKF:</content>
<content></content>
<content>Stage I & II GFR >=60 Normal to Mildly Decreased</content>
<content>Stage III GFR 30- 59 Moderately Decreased</content>
<content>Stage IV GFR 15-29 Severely Decreased</content>
<content>Stage V GFR <15 Very Little GFR Left</content>
<content>ESRD GFR <15 on SELVAGE MACHINE OPERATOR</content>
<content></content> Sodium Level 139 meq/L 136-145 Normal (applies to non-numeric res ults) [facility] ([facility]) Potassium Serum 4.0 meq/L 3.5-5.1 Normal (applies to non-numeric results) [facility] ([facility]) Carbon Dioxide Level 33 meq/L 21-32 Above high normal [facility] ([facility]) Anion Gap 6 meq/L 8-16 Below low normal [facility] ( [facility]) Chloride Level 100 meq/L 98-107 Normal (applies to non-numeric r esults) [facility] ([facility]) Ast/Sgot 27 U/L 7-37 Normal (applies to non-numeric resul ts) [facility] ([facility]) Calcium Level 8.9 mg/dL 8.8-10.2 Normal (applies to non-numeric re sults) [facility] ([facility]) Alt/SGPT 27 U/L 12-78 Normal (applies to non-numeric resul ts) [facility] ([facility]) Total Protein 6.9 GM/DL 6.4-8.2 Normal (applies to non-numeric re sults) [facility] ([facility]) Alkaline Phosphatase 71 U/L 45-117 Normal (applies to non-num jenni results) [facility] ([facility]) Bilirubin,Total 0.7 mg/dL 0.2-1.0 Normal (applies to non-numeric results) [facility] ([facility]) Albumin 4.1 GM/DL 3.2-5.2 Normal (applies to non-numeric resul ts) [facility] ([facility]) Albumin/Globulin Ratio 1.46 1.00-1.93 Normal (applies to non-numeric results) [facility] ([facility]) ID Date Data Source [id number] 02/07/2019 10:25:00 AM EST [facility] ([facility]) Name Value Range Interpretation Code Description Data Cynthia rce(s) Supporting Document(s) Thyroxine (T4) free [Mass/volume] in Serum or Plasma 0.86 ng/dL 0.76-1.46 Normal (applies to non-numeric results) [facility] ([facility]) Erythrocyte sedimentation rate by Westergren method 5 mm/hr 0-30 Normal (applies to non-numeric results) [facility] ([facility]) Thyrotropin [Units/volume] in Serum or Plasma 1.260 uIU/ML 0. 358-3.740 Normal (applies to non-numeric results) [facility] ([facility]) ID Date Data Source [id number] 02/07/2019 10:25:00 AM EST [facility] ([facility]) Name Value Range Interpretation Code Description Data Cynthia rce(s) Supporting Document(s) Red Blood Count 3.90 10 4.00-5.40 Below low normal [facility] ([facility]) White Blood Count 5.6 10 4.0-10.0 Normal (applies to non-numeri c results) [facility] ([facility]) Hemoglobin 12.9 g/dL 12.0-15.5 Normal (applies to non-numeric resul ts) [facility] ([facility]) Hematocrit 39.2 % 36.0-47.0 Normal (applies to non-numeric resul ts) [facility] ([facility]) Mean Corpuscular Volume 100.5 fl 80.0-96.0 Above high normal [facility] ([facility]) Mean Corpuscular HGB Conc 32.9 g/dL 32.0-36.5 Normal (applies to non-numeric results) [facility] ([facility]) Red Cell Distribution Width 12.9 % 11.5-14.5 Norm al (applies to non-numeric results) [facility] ([facility]) Mean Corpuscular Hemoglobin 33.1 pg 27.0-33.0 Above high normal [facility] ([facility]) Nucleated Red Blood Cell % 0.0 % 0-0 Normal (applies to n on-numeric results) [facility] ([facility]) Platelet Count, Automated 286 10 150-450 Normal (applies to non-numeric results) [facility] ([facility]) ID Date Data Source [id number] 02/07/2019 10:25:00 AM EST [facility] ([facility]) Name Value Range Interpretation Code Description Data Cynthia rce(s) Supporting Document(s) Lymph % 31.8 % 24.0-44.0 Normal (applies to non-numeric resul ts) [facility] ([facility]) Neutrophils % 54.4 % 36.0-66.0 Normal (applies to non-numeric re sults) [facility] ([facility]) Baso % 1.1 % 0.0-1.0 Above high normal [facility] ([facility]) Immature Granulocyte % 0.2 % 0-3.0 Normal (applies to non-n umeric results) [facility] ([facility]) Eos % 2.0 % 0.0-3.0 Normal (applies to non-numeric resul ts) [facility] ([facility]) Burke % 10.5 % 0.0-5.0 Above high normal [facility] ([facility]) Burke # 0.6 10 0.0-0.8 Normal (applies to non-numeric resul ts) [facility] ([facility]) Lymph # 1.8 10 1.5-5.0 Normal (applies to non-numeric resul ts) [facility] ([facility]) Neutrophils # 3.1 10 1.5-8.5 Normal (applies to non-numeric re sults) [facility] ([facility]) Eos # 0.1 10 0.0-0.5 Normal (applies to non-numeric resul ts) [facility] ([facility]) Baso # 0.1 10 0.0-0.2 Normal (applies to non-numeric resul ts) [facility] ([facility]) ID Date Data Source [id number] 02/07/2019 10:25:00 AM EST [facility] ([facility]) Name Value Range Interpretation Code Description Data Cynthia rce(s) Supporting Document(s) Urate [Mass/volume] in Serum or Plasma 4.8 mg/dL 2.6-6.0 Normal (applies to non- numeric results) [facility] ([facility]) Procedure Social History Code Duration Value Status Description Data Source(s ) Smoking 12/09/2019 12:00:00 AM EDT Never Smoker completed Never S moker eCW1 (Former[facility]) Smoking 03/08/2019 09:39:35 AM EST Never smoked tobacco (findi ng) completed Never smoked tobacco (finding) HAMEL (Luis Ryan MD [facility]) Vital Signs ID Date Data Source [id number] Name Value Range Interpretation Code Description Data Source(s) Body surface area Derived from formula 1.83 m2 1.83 m2 [facility] ([facility]) Body mass index (BMI) [Ratio] 27.6 kg/m2 27.6 k g/m2 [facility] ([facility]) Body height 65 [in_i] 65 [in_i] [facility] ([facility]) 5'5" Body weight 75.298 kg 75.298 kg [facility] ([facility]) Body weight 166.00 [lb_av] 166.00 [lb_av] [facility] T ([facility]) Oxygen saturation in Arterial blood by Pulse oximetry 98 % 98 % [facility] ([facility]) Respiratory rate 20 /min 20 /min [facility] ( [facility]) Body temperature 97.7 [degF] 97.7 [degF] [facility] ([facility]) Heart rate 71 /min 71 /min [facility] ([facility]) Diastolic blood pressure 58 mm[Hg] 58 mm[Hg] [facility] ([facility]) Systolic blood pressure 102 mm[Hg] 102 mm[Hg] M [facility] ([facility]) Body temperature 96.7 [degF] 96.7 [degF] [facility] ([facility]) Body surface area Derived from formula 1.82 m2 1.82 m2 [facility] ([facility]) Body mass index (BMI) [Ratio] 27.3 kg/m2 27.3 k g/m2 [facility] ([facility]) Body height 65 [in_i] 65 [in_i] [facility] ([facility]) 5'5" Body weight 74.504 kg 74.504 kg [facility] ([facility]) Body weight 164.25 [lb_av] 164.25 [lb_av] MED[facility] T ([facility]) Oxygen saturation in Arterial blood by Pulse oximetry 97 % 97 % [facility] ([facility]) Respiratory rate 16 /min 16 /min [facility] ( [facility]) Body temperature 97.4 [degF] 97.4 [degF] [facility] ([facility]) Heart rate 66 /min 66 /min [facility] ([facility]) Diastolic blood pressure 70 mm[Hg] 70 mm[Hg] [facility] ([facility]) Systolic blood pressure 122 mm[Hg] 122 mm[Hg] M [facility] ([facility]) Diastolic blood pressure 70 mm[Hg] 70 mm[Hg] eCW1 ([facility]) Systolic blood pressure 132 mm[Hg] 132 mm[Hg] e CW1 ([facility]) Body temperature 97.6 [degF] 97.6 [degF] eCW1 ( [facility]) Respiratory rate 18 /min 18 /min eCW1 ([facility]) Heart rate 72 /min 72 /min eCW1 ([facility]) Body mass index (BMI) [Ratio] 27.96 kg/m2 27.96 kg/m2 eCW1 ([facility]) Body height 64.25 [in_i] 64.25 [in_i] eCW1 ([facility]) Body weight 164.2 [lb_av] 164.2 [lb_av] eCW1 ([facility]) Body surface area Derived from formula 1.81 m2 1.81 m2 [facility] ([facility]) Body mass index (BMI) [Ratio] 27.0 kg/m2 27.0 k g/m2 [facility] ([facility]) Body height 65 [in_i] 65 [in_i] [facility] ([facility]) 5'5" Body weight 73.483 kg 73.483 kg [facility] ([facility]) Body weight 162.00 [lb_av] 162.00 [lb_av] MED[facility] T ([facility]) Oxygen saturation in Arterial blood by Pulse oximetry 97 % 97 % [facility] ([facility]) Respiratory rate 16 /min 16 /min [facility] ( [facility]) Body temperature 97.5 [degF] 97.5 [degF] [facility] ([facility]) Heart rate 82 /min 82 /min [facility] ([facility]) Diastolic blood pressure 74 mm[Hg] 74 mm[Hg] [facility] ([facility]) Systolic blood pressure 138 mm[Hg] 138 mm[Hg] M [facility]ENT ([facility]) Body surface area 1.81 m2 1.81 m2 [facility] ([facility]) Body mass index (BMI) [Ratio] 27.6 kg/m2 27.6 k g/m2 [facility] ([facility] ) Body weight 163.31 [lb_av] 163.31 [lb_av] MED[facility] T ([facility]) Body height 64.5 [in_i] 64.5 [in_i] [facility] ([facility]) 5'4.50" Body temperature 99.0 [degF] 99.0 [degF] [facility] ([facility] ) Diastolic blood pressure 78 mm[Hg] 78 mm[Hg] eCW1 ([facility]) Systolic blood pressure 122 mm[Hg] 122 mm[Hg] e CW1 ([facility]) Respiratory rate 20 /min 20 /min eCW1 ([facility]) Heart rate 82 /min 82 /min eCW1 ([facility]) Body mass index (BMI) [Ratio] 29.8 kg/m2 29.8 k g/m2 eCW1 ([facility]) Body height 64.25 [in_us] 64.25 [in_us] eCW1 ([facility]) Body weight Measured 175 [lb_av] 175 [lb_av] eC W1 ([facility]) Systolic blood pressure 114 mm[Hg] 114 mm[Hg] A THENA ([facility]) Body height 65 [in_i] 65 [in_i] MAKAYLA ([facility]) Diastolic blood pressure 75 mm[Hg] 75 mm[Hg] MAKAYLA ([facility]) Body surface area 1.85 m2 1.85 m2 [facility] ([facility]) Body mass index (BMI) [Ratio] 28.3 kg/m2 28.3 k g/m2 [facility] ([facility]) Body height 65 [in_i] 65 [in_i] [facility] ([facility]) 5'5" Body weight 77.112 kg 77.112 kg [facility] ([facility]) Body weight 170.00 [lb_av] 170.00 [lb_av] MEDEN T ([facility]) Oxygen saturation in Arterial blood by Pulse oximetry 97 % 97 % [facility] ([facility]) Respiratory rate 18 /min 18 /min [facility] ( [facility]) Body temperature 97.3 [degF] 97.3 [degF] [facility] ([facility]) Heart rate 69 /min 69 /min [facility] ([facility]) Diastolic blood pressure 72 mm[Hg] 72 mm[Hg] [facility] ([facility]) Systolic blood pressure 126 mm[Hg] 126 mm[Hg] M [facility] ([facility]) ID Date Data Source [id number] 04/05/2020 10:18:29 AM [facility] Name Value Range Interpretation Code Description Data Source(s) TRANSFER FROM [facility] ID Date Data Source [id number] 04/06/2020 10:04:[address] [facility] Name Value Range Interpretation Code Description Data Source(s) WEIGHT RECORDED 161.00 pounds 161.00 pounds [facility] Height 65 Inches 065 Inches [facility] WEIGHT RECORDED 161.00 pounds 161.00 pounds [facility] Height 65 Inches 065 Inches [facility] Patient Treatment Plan of Care Planned Activity Planned Date Details Description Data Source (s) Escitalopram 10 MG Oral Tablet MAKAYLA ([facility])
[2020-04-07] MEDS ORDERED: ARIPiprazole 2 MG TAB PO ONE (15:45)
[2020-04-07] MEDS ORDERED: ACETAMINOPHEN TAB 650MG DOSE (2X325MG) PO PRN (16:15)
--- NOTE | 2020-04-07 16:22 | HPEPDOC ---
General Date of Admission 04/07/20 Date of Service: Apr 07, 2020 Chief Complaint The patient is a 69-year-old female admitted with a reason for visit of MHE. Source: Patient Exam Limitations: No limitations Timing/Duration: Week(s) Severity: Mild History of Present Illness Patient is 69 years old female with past medical history of hypertension, hyperlipidemia presented hospital with history of visual hallucinations. Patient stated that for past 3 years she has been having visual hallucination before she falls a sleep. Usually she sees some objects on the ceiling like animals, cars, insects. For past 2 weeks she has been having intensive hallucinations, she saw strangers in her room, pets. Also patient complains of declining of her short memory. She stated that she started forgetting switch off water in the kitchen, forgetting keys. In the [facility] CT head was done and showed mild-to moderate low attenuation in periventricular white matter. MRI was done and showed small vessel ischemic change. MRA unremarkable. Psych team and repeated patient in ER. Patient was found to have no psychiatric issues. Home Medications Scheduled Allopurinol (Allopurinol) 100 Mg Tablet, 100 MG PO DAILY, (Reported) Amlodipine Besylate (Amlodipine Besylate) 5 Mg Tablet, 5 MG PO DAILY, (Reported) Atorvastatin Calcium (Atorvastatin Calcium) 40 Mg Tab, 40 MG PO DAILY, (Reported) Buspirone HCl (Buspirone HCl) 10 Mg Tablet, 10 MG PO BID, (Reported) Cholecalciferol (Vitamin D3) (Vitamin D3) 1,000 Unit Tablet, 1,000 UNITS PO DAILY, (Reported) Escitalopram Oxalate (Escitalopram Oxalate) 20 Mg Tablet, 10 DAILY, (Reported) Hydrochlorothiazide (Hydrochlorothiazide) 50 Mg Tablet, DAILY, (Reported) Magnesium Oxide (Magnesium Oxide) 400 Mg Tab, 400 MG PO BID Metoprolol Tartrate (Metoprolol Tartrate) 25 Mg Tablet, 25 MG PO BID, (Reported) Niacin (Niacin) 500 Mg Tablet.er, 500 MG PO DAILY, (Reported) Potassium Chloride (K-Tab ER) 20 Meq Tab, 20 MEQ PO DAILY Scheduled PRN Oxycodone HCl (Oxycodone HCl) 5 Mg Tablet, 1-2 TABS PO Q4H PRN for PAIN Miscellaneous Medications Ergocalciferol (Vitamin D2) (Vitamin D2) 50,000 Units Cap, (Reported) Naproxen (Naproxen) 500 Mg Tablet, (Reported) Allergies Coded Allergies: Penicillins (Verified Allergy, Mild, FACIAL SWELLING, 12/15/19) amoxicillin (Verified Allergy, Unknown, FACIAL SWELLING, 12/15/19) Past Medical History Medical History Hypertension, hyperlipidemia Family History I personally reviewed family history and found not pertinent Social History * Smoker: Denies Alcohol: occationally Drugs: denies A-FIB/CHADSVASC A-FIB History Current/History of A-Fib/PAF?: No Current PO Anticoag Therapy: No Review of Systems Constitutional: Denies: Chills, Fever Eyes: Denies: Pain ENT: Denies: Head Aches Skin: Denies: Rash, Lesions Pulmonary: Denies: Dyspnea Cardiovascular: Denies: Chest Pain Gastrointestinal: Denies: Nausea, Vomiting Genitourinary: Denies: Dysuria Hematologic: Denies: Bruising, Bleeding Excessively Musculoskeletal: Denies: Neck Pain Neurological: Reports: Other Symptoms (hallucinations); Denies: Weakness Physical Examination General Exam: Positive: Alert, Cooperative Eye Exam: Positive: PERRLA ENT Exam: Positive: Atraumatic Neck Exam: Positive: Supple; Negative: JVD Chest Exam: Positive: Clear to auscultation Heart Exam: Positive: Rate Normal Telemetry: Positive: No significant arrhythmia Abdomen Exam: Positive: Normal bowel sounds Extremity Exam: Negative: Clubbing Skin Exam: Positive: Nl turgor and temperature Neuro Exam: Positive: Strength at 5/5 X4 ext Psych Exam: Positive: Mental status NL Vital Signs Vital Signs Date Time Temp Pulse Resp B/P (MAP) Pulse Ox O2 Delivery O2 Flow Rate FiO2 04/07/20 06:47 96.5 78 16 128/75 (92) 98 Room Air Assessment/Plan Patient is 69 years old female with past medical history of hypertension, hyperlipidemia presented hospital with history of visual hallucinations. Patient stated that for past 3 years she has been having visual hallucination before she falls a sleep. Usually she sees some objects on the ceiling like animals, cars, insects. For past 2 weeks she has been having intensive hallucinations, she saw strangers in her room, pets. Also patient complains of declining of her short memory. She stated that she started forgetting switch off water in the kitchen, forgetting keys. In the [facility] CT head was done and showed mild-to moderate low attenuation in periventricular white matter. MRI was done and showed small vessel ischemic change. MRA unremarkable. Psych team and repeated patient in ER. Patient was found to have no psychiatric issues. Problems (1) Hallucinations Status: Acute Problem Text: There is concern for Lewy bodies dementia Patient has short-term memory issues associated with hallucinations Appreciate/agree with neurologist consult Started Abilify (2) Hypokalemia Status: Acute Problem Text: Continue potassium supplements (3) Hypertension Status: Chronic Problem Text: Continue home meds (4) Hyperlipidemia Status: Chronic Problem Text: Continue statin Plan / VTE VTE Prophylaxis Ordered?: Yes GERRY LOPEZ DO Apr 07, 2020 16:22
[2020-04-07 16:42] LABS: BASO % 0.5 % (0.0-1.0); EOS # 0.1 10^3/uL (0.0-0.5); EOS % 1.5 % (0.0-3.0); HEMOGLOBIN 12.8 g/dl (12.0-15.5); LYMPH # 1.9 10^3/uL (1.5-5.0); LYMPH % 28.7 % (24.0-44.0); MEAN CORPUSCULAR HEMOGLOBIN 31.4 pg (27.0-33.0); MEAN CORPUSCULAR HGB CONC 33.7 g/dl (32.0-36.5); MEAN CORPUSCULAR VOLUME 93.4 fl (80.0-96.0); MONO # 0.7 10^3/uL (0.0-0.8); MONO % 11.4 % (0.0-5.0); NEUTROPHILS # 3.7 10^3/uL (1.5-8.5); NEUTROPHILS % 57.6 % (36.0-66.0); PLATELET COUNT, AUTOMATED 219 10^3/uL (150-450); RED BLOOD COUNT 4.07 10^6/uL (4.00-5.40); WHITE BLOOD COUNT 6.5 10^3/uL (4.0-10.0)
[2020-04-07] MEDS ORDERED: MAGN400T2 PO (16:49)
[2020-04-07] MEDS ORDERED: POTA10TA67 PO (16:49)
[2020-04-07 16:53] LABS: ALBUMIN 4.1 GM/DL (3.2-5.2); ALT/SGPT 37 U/L (12-78); BILIRUBIN,TOTAL 0.5 MG/DL (0.2-1.0); BLOOD UREA NITROGEN 11 MG/DL (7-18); CALCIUM LEVEL 9.9 MG/DL (8.8-10.2); CARBON DIOXIDE LEVEL 29 MEQ/L (21-32); CHLORIDE LEVEL 103 MEQ/L (98-107); CREATININE FOR GFR 0.53 MG/DL (0.55-1.30); GLOMERULAR FILTRATION RATE > 60.0 (>45); GLUCOSE, FASTING 114 MG/DL (70-100); POTASSIUM SERUM 3.9 MEQ/L (3.5-5.1); SODIUM LEVEL 139 MEQ/L (136-145); TOTAL PROTEIN 7.1 GM/DL (6.4-8.2)
[2020-04-07 20:33] LABS: RSV AMPLIFICATION NEGATIVE (NEGATIVE)
[2020-04-07 22:18] VITALS: BP 123/84
[2020-04-07] MEDS: METOPROLOL TART 25 MG TABLET PO SCH (22:20)
[2020-04-07] MEDS: MAGNESIUM OXIDE 400MG TAB (MAG-OX) PO SCH (22:20)
[2020-04-07] MEDS: busPIRone 10 MG TAB PO SCH (22:21)
[2020-04-08 06:36] LABS: HEMATOCRIT 37.4 % (36.0-47.0); HEMOGLOBIN 11.9 g/dl (12.0-15.5); MEAN CORPUSCULAR HEMOGLOBIN 30.1 pg (27.0-33.0); MEAN CORPUSCULAR HGB CONC 31.8 g/dl (32.0-36.5); MEAN CORPUSCULAR VOLUME 94.7 fl (80.0-96.0); PLATELET COUNT, AUTOMATED 215 10^3/uL (150-450); RED BLOOD COUNT 3.95 10^6/uL (4.00-5.40); WHITE BLOOD COUNT 5.1 10^3/uL (4.0-10.0)
[2020-04-08 06:55] LABS: ALBUMIN 3.5 GM/DL (3.2-5.2); ALT/SGPT 34 U/L (12-78); BILIRUBIN,TOTAL 0.4 MG/DL (0.2-1.0); BLOOD UREA NITROGEN 9 MG/DL (7-18); CALCIUM LEVEL 9.3 MG/DL (8.8-10.2); CARBON DIOXIDE LEVEL 32 MEQ/L (21-32); CHLORIDE LEVEL 105 MEQ/L (98-107); CREATININE FOR GFR 0.51 MG/DL (0.55-1.30); GLOMERULAR FILTRATION RATE > 60.0 (>45); GLUCOSE, FASTING 101 MG/DL (70-100); MAGNESIUM LEVEL 1.6 MG/DL (1.8-2.4); POTASSIUM SERUM 3.9 MEQ/L (3.5-5.1); SODIUM LEVEL 143 MEQ/L (136-145); TOTAL PROTEIN 6.3 GM/DL (6.4-8.2)
[2020-04-08] MEDS ORDERED: amLODIPine 5 MG TAB PO SCH (09:00)
[2020-04-08] MEDS ORDERED: ATORVASTATIN 20 MG TAB PO SCH (09:00)
[2020-04-08] MEDS ORDERED: VITAMIN D 1,000 INTERNATIONAL UNITS TABLET PO SCH (09:00)
[2020-04-08] MEDS ORDERED: ENOXAPARIN 40MG/0.4ML SYRINGE (J1650 PER 10MG) SC SCH (09:00)
[2020-04-08] MEDS ORDERED: allopurinoL 100 MG TAB PO SCH (09:00)
[2020-04-08] MEDS ORDERED: ARIPiprazole 2 MG TAB PO SCH (09:00)
[2020-04-08] MEDS ORDERED: NIACIN SR (NIASPAN) 500 MG TAB PO SCH (09:00)
[2020-04-08] MEDS ORDERED: ESCITALOPRAM OXALATE 10 MG TAB (LEXAPRO) PO SCH (09:00)
[2020-04-08] MEDS ORDERED: POTASSIUM CHLORIDE 10 MEQ SR TABLET PO SCH (09:00)
[2020-04-08 09:20] VITALS: BP 122/75
[2020-04-08] MEDS: METOPROLOL TART 25 MG TABLET PO SCH (09:20)
[2020-04-08] MEDS: busPIRone 10 MG TAB PO SCH (09:21)
[2020-04-08] MEDS: MAGNESIUM OXIDE 400MG TAB (MAG-OX) PO SCH (09:21)
[2020-04-08] MEDS ORDERED: ABIL1TAB13 PO (11:50)
--- NOTE | 2020-04-08 16:38 | DS.PDOC ---
Discharge Summary General Date of Admission Apr 07, 2020 at 06:48 Date of Discharge 04/08/20 Discharge Summary PROCEDURES PERFORMED DURING STAY: [None]. ADMITTING DIAGNOSES: Hypokalemia Hallucinations DISCHARGE DIAGNOSES: Hypokalemia Hallucinations COMPLICATIONS/CHIEF COMPLAINT: Hallucinations. HISTORY OF PRESENT ILLNESS:Patient is 69 years old female with past medical history of hypertension, hyperlipidemia presented hospital with history of visual hallucinations. Patient stated that for past 3 years she has been having visual hallucination before she falls a sleep. Usually she sees some objects on the ceiling like animals, cars, insects. For past 2 weeks she has been having intensive hallucinations, she saw strangers in her room, pets. Also patient complains of declining of her short memory. She stated that she started forgetting switch off water in the kitchen, forgetting keys. In the [facility] CT head was done and showed mild-to moderate low attenuation in periventricular white matter. MRI was done and showed small vessel ischemic change. MRA unremarkable. Psych team and repeated patient in ER. Patient was found to have no psychiatric issues. HOSPITAL COURSE: During the hospital course following issue addressed (1) Hallucinations There is concern for Lewy bodies dementia Patient has short-term memory issues associated with hallucinations Follow-up with neurologist in the outpatient settings Started Abilify DISCHARGE MEDICATIONS: Please see below. ALLERGIES: Please see below. PHYSICAL EXAMINATION ON DISCHARGE: VITAL SIGNS: Please see below. General Exam: Positive: Alert, Cooperative Eye Exam: Positive: PERRLA ENT Exam: Positive: Atraumatic Neck Exam: Positive: Supple; Negative: JVD Chest Exam: Positive: Clear to auscultation Heart Exam: Positive: Rate Normal Telemetry: Positive: No significant arrhythmia Abdomen Exam: Positive: Normal bowel sounds Extremity Exam: Negative: Clubbing Skin Exam: Positive: Nl turgor and temperature Neuro Exam: Positive: Strength at 5/5 X4 ext Psych Exam: Positive: Mental status NL LABORATORY DATA: Please see below. IMAGING: See above PROGNOSIS: Fair ACTIVITY: [As tolerated]. DIET: Cardiac DISPOSITION: 01 Home, Self-Care. ITEMS TO FOLLOWUP ON ON OUTPATIENT: Follow-up with neurologist in the outpatient settings DISCHARGE CONDITION: [Stable]. TIME SPENT ON DISCHARGE: Greater than30 minutes. Vital Signs/I&Os Vital Signs Date Time Temp Pulse Resp B/P (MAP) Pulse Ox O2 Delivery O2 Flow Rate FiO2 04/08/20 09:20 82 122/75 04/07/20 22:18 97.5 18 95 Room Air I&O- Last 24 Hours up to 6 AM 04/08/20 06:00 Intake Total 150 ml Output Total 1400 ml Balance -1250 ml Laboratory Data Labs 24H Laboratory Tests 2 04/07/20 19:40: Coronavirus (COVID-19)(PCR) NEGATIVE, Influenza Type A (RT-PCR) NEGATIVE, Influenza Type B (RT-PCR) NEGATIVE, Respiratory Syncytial Virus (PCR) NEGATIVE 04/08/20 05:36: Nucleated Red Blood Cells % (auto) 0.0, Anion Gap 6L, Glomerular Filtration Rate > 60.0, Calcium Level 9.3, Magnesium Level 1.6L, Total Bilirubin 0.4, Aspartate Amino Transf (AST/SGOT) 34, Alanine Aminotransferase (ALT/SGPT) 34, Alkaline Phosphatase 68, Total Protein 6.3L, Albumin 3.5, Albumin/Globulin Ratio 1.3 CBC/BMP Laboratory Tests 04/08/20 05:36 Discharge Medications Scheduled Allopurinol (Allopurinol) 100 Mg Tablet, 100 MG PO DAILY, (Reported) Amlodipine Besylate (Amlodipine Besylate) 5 Mg Tablet, 5 MG PO DAILY, (Reported) Aripiprazole (Abilify) 2 Mg Tablet, 2 MG PO DAILY before sleep Atorvastatin Calcium (Atorvastatin Calcium) 40 Mg Tab, 40 MG PO DAILY, (Reported) Buspirone HCl (Buspirone HCl) 10 Mg Tablet, 10 MG PO BID, (Reported) Cholecalciferol (Vitamin D3) (Vitamin D3) 1,000 Unit Tablet, 1,000 UNITS PO DAILY, (Reported) Escitalopram Oxalate (Escitalopram Oxalate) 20 Mg Tablet, 20 MG PO DAILY, (Reported) Hydrochlorothiazide (Hydrochlorothiazide) 50 Mg Tablet, 50 MG PO DAILY, (Reported) Magnesium Oxide (Magnesium Oxide) 400 Mg Tablet, 400 MG PO BID, (Reported) Metoprolol Tartrate (Metoprolol Tartrate) 25 Mg Tablet, 25 MG PO BID, (Reported) Niacin (Niacin) 500 Mg Tablet.er, 500 MG PO DAILY, (Reported) Potassium Chloride (Potassium Chloride) 10 Meq Tab.er.prt, 10 MEQ PO DAILY, (Reported) Scheduled PRN Naproxen (Naproxen) 500 Mg Tablet, 1,000 MG PO DAILY PRN for PAIN, (Reported) Allergies Coded Allergies: Penicillins (Verified Allergy, Mild, FACIAL SWELLING, 12/15/19) amoxicillin (Verified Allergy, Unknown, FACIAL SWELLING, 12/15/19) GERRY LOPEZ DO Apr 08, 2020 16:38
--- NOTE | 2020-04-08 21:26 | CR ---
CONSULTATION DATE: 04/08/2020 REFERRING PHYSICIAN: Rojelio Olson DO REASON FOR CONSULTATION: Altered mental status. HISTORY OF PRESENT ILLNESS: Rosemarie Baird is a 69-year-old woman who has been having dream enactment and she hollers in sleep and has vivid dreams for more than a year. The patient states that she has on and off visual hallucinations and she saw shadows on the ceiling sometimes. Her symptoms got worse in the last couple of weeks when she started having more intense visual hallucinations. She used to talk to strangers in the room and saw pets. One day she was sitting in her house and she thought that she saw her son playing with her grandson and some other children from their neighborhood but her corrected that there was nobody there. She started forgetting to turn off water in the kitchen and started forgetting keys. She has tremor of her hand which is intermittent for the last year or two. She denies any difficulty walking. She denies any difficulty swallowing, constipation, headaches, neck pain, back pain, dysphagia, dysarthria, diplopia, urinary incontinence, falls or loss of consciousness. PAST MEDICAL HISTORY: 1. Hypertension. 2. Gout. 3. Dyslipidemia. 4. Anxiety. 5. Depression. 6. Hypertension. HOME MEDICATIONS: 1. Allopurinol 100 mg p.o. daily. 2. Amlodipine 5 mg. p.o. daily. 3. Lipitor 40 mg p.o. daily. 4. BuSpar 10 mg p.o. b.i.d. 5. Vitamin D3 1000 units p.o. daily. 6. Lexapro 20 mg, 1/2 tablet p.o. daily. 7. Hydrochlorothiazide 50 mg p.o. daily. 8. Metoprolol 25 mg p.o. b.i.d. 9. Niacin 5 mg p.o. daily. 10. Potassium chloride 20 mEq p.o. daily. ALLERGIES: PENICILLIN. SOCIAL HISTORY: She denies smoking, alcohol or illicit drugs. FAMILY HISTORY: Unremarkable and noncontributory. REVIEW OF SYSTEMS: All systems were reviewed and found to be noncontributory except as mentioned in the history of present illness. PHYSICAL EXAMINATION: VITAL SIGNS: Blood pressure 122/75, pulse 82, respiratory rate 18, pulse 82. HEART: Regular rate and rhythm. LUNGS: Clear to auscultation. ABDOMEN: Soft, nontender, nondistended. EXTREMITIES: No pedal edema. MUSCULOSKELETAL: No abnormalities. SKIN: No rash. NEUROLOGICAL: The patient is awake, alert, oriented to place, month, year, date of month, day of week, name of president, city, state, county. Her recall was 1/3 in five minutes. She is unable to do serial sevens. She is able to spell "world" backwards. Her MMSE score is 25/20. Extraocular muscles are intact. No facial weakness. Tongue and uvula are midline. Visual valverde are full to confrontation. No nystagmus., dysmetria or areflexia. 5/5 strength in all four extremities. Deep tendon reflexes are 2+ throughout. Normal sensation. Gait is normal. DIAGNOSTIC STUDIES: CT scan of head in 2018 at [facility] showed small vessel ischemic disease of brain and mild volume loss. MRA, brain in 2014 was unremarkable. She had MRI and MRA, brain at [facility] which per notes showed small vessel ischemic disease of brainstem. I have no films or reports for review. CBC, metabolic profile, urinalysis, COVID-19, flu testing were normal. MRA, brain in 2015 only showed mild atherosclerosis. She had repeat MRA, brain in [place] recently. ASSESSMENT: 1. Suspected Lewy body dementia. 2. Visual hallucinations and REM sleep behavior disorder. 3. Mild intermittent tremor. PLAN: 1. Abilify 2 mg p.o. q.h.s. 2. Seroquel or Nuplazid as contingency plan. 3. Consider Donepezil on outpatient basis. 4. Follow with our office in 1-2 weeks after hospital discharge. MTDD
[2020-04-09] MEDS ORDERED: FLUBLOK(EGG FREE)(QUAD)INFLUENZA VACC 0.5ML SYRINGE 18YRS & OLDER IM ONE (09:00)
--- NOTE | 2020-04-10 16:12 | MHIPN ---
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 I was called by Delicia Ochoa, the public health social worker in the emergency room, who presented me with the assessment that she had made of the patient, details in the emergency room summary, recent onset of visual hallucinations and possible paranoia. After the presentation and my further discussion with the emergency room (ER) physician, Dr. De Leon, the patient is unlikely to have primary psychosis given the age and the presentation. Visual hallucinations with this presentation may well be secondary to metabolic or infectious reasons. She is not suitable, in my opinion, at this point for admission to inpatient psychiatry. The onset of these symptoms at her age and the presentation are considered. Dr. De Leon is aware of this. [facility]
== END 2020-04-08 14:11 | disposition home or self-care (01) ==
LOC: M ED 22:13 → M ED INP 22:14 → UNDOADMOB 04-07 06:48 → M ED INP 04-07 06:48 → M ED 04-07 22:39 → M ED INP 04-07 22:45 → M MSPAV 04-07 22:45 → UNDODISOB 04-08 14:11
PROVIDERS: ADMIT Internal Medicine; ATTEND Internal Medicine
DX: E87.6 Hypokalemia (principal); R44.3 Hallucinations, unspecified; I10 Essential (primary) hypertension; E78.49 Other hyperlipidemia; M10.9 Gout, unspecified; Z79.899 Other long term (current) drug therapy; Z88.0 Allergy status to penicillin
CPT/HCPCS: 36415; 80053; 81001; 83735; 85025; 85027; 87631; 96372; 99285; G0378; J1650

== ENCOUNTER → 2020-08-09 | Outpatient (CLI) | payer MEDICARE, BC, OTHER ==
[~2020-08-09] MED LIST changes: +ABIL1TAB13 PO; +ERGO500029; +MAGN400T2 PO; +POTA10TA67 PO; -VITA50005
--- NOTE | 2020-08-09 10:58 | REPMRS ---
Patient History The patient states she had a clinical breast exam in 08/2020. Family history of breast cancer under age 50 in maternal aunt. Benign US guided breast biopsy of the right breast, April 14, 2019. Took progesterone for 1 year. Tomosynthesis is performed. Volpara breast density is b. [facility] lifetime risk of breast cancer 4.2%. Patient states no breast complaints today. Patient has signed MRS History Sheet. Digital Woman Screen Mammo: August 09, 2020 - Exam #: [id number] Bilateral CC and MLO view(s) were taken. Technologist: Nelsy Aguilar, Technologist Prior study comparison: April 14, 2019, right breast diagnostic unilateral mammo performed at [facility]. March 06, 2018, bilateral digital woman screen mammo performed at [facility]. FINDINGS: The breast tissue is heterogeneously dense. This may lower the sensitivity of mammography. There has been no change in the appearance of the mammogram from the prior studies. There is a moderate amount of residual fibroglandular tissue which is fairly symmetric. There is no interval development of dominant mass, areas of architectural distortion, or clustered microcalcification typical of malignancy. Assessment: BI-RADS/ACR category 1 mammogram. Negative Mammogram. Recommendation Routine screening mammogram in 1 year (for women over age 40). This mammogram was interpreted with the aid of an FDA-approved computer-aided dectection system. Electronically Signed By: Steven Ramesh MD 08/09/20 [id number]
== END ==
LOC: M WHC 09:14
PROVIDERS: ATTEND Nurse Practitioner Women's Health
DX: Z01.419 Encounter for gynecological examination (general) (routine) without abnormal findings (principal); Z12.31 Encounter for screening mammogram for malignant neoplasm of breast; Z86.018 Personal history of other benign neoplasm; Z92.29 Personal history of other drug therapy
CPT/HCPCS: 77063; 77067; G0101

== ENCOUNTER → 2021-01-04 | Outpatient (CLI) | payer MEDICARE, BC, OTHER ==
[~2021-01-04] MED LIST changes: +CLIN-250 PO; -CLIN300C6 PO
--- NOTE | 2021-01-04 16:15 | REP ---
INDICATION: BREAST PAIN LEFT. COMPARISON: 08/09/2020 as well as multiple other prior exams. TECHNIQUE: Diagnostic mammogram left breast with tomosynthesis, left breast ultrasound. FINDINGS: Moderate heterogeneous fibroglandular tissue in the left breast is stable. There is no new mass or architectural distortion. There are no clustered microcalcifications. Focused left breast ultrasound performed in the region of 2 o'clock left breast and in the axillary tail. There are few small morphologically normal appearing lymph nodes in the axillary tail. They demonstrate an echogenic fatty hilum. The largest measures 6 x 3 x 8 mm. IMPRESSION: BIRADS/ACR category 2, benign. The mammogram is unchanged in appearance with no new mass, architectural distortion or clustered microcalcifications. The focused left breast ultrasound shows morphologically normal appearing lymph nodes in the left axillary tail. This mammogram was interpreted with the aid of an FDA-approved computer-aided detection system. The patient letter being requested is M2. RECOMMENDATION: Recommend follow-up bilateral mammogram August 2021. <Electronically signed by Steven Ramesh > 01/04/21 [id number]
== END ==
LOC: M WHC 14:47
PROVIDERS: ATTEND Surgery
DX: N64.4 Mastodynia (principal)
CPT/HCPCS: 76642; 77065; G0279

== ENCOUNTER → 2021-02-12 | Outpatient (CLI) | payer MEDICARE, BC, OTHER ==
--- NOTE | 2021-02-13 15:46 | ECHO ---
ECHOCARDIOGRAM DATE OF PROCEDURE: 02/12/2021 Age: 70 Gender: Female Height: 65 inches Weight: 179 pounds Body surface area: 1.89 m2 PATIENT LOCATION: Outpatient. REFERRING PHYSICIAN: Qamar Chen M.D. INDICATION: Localized edema. MEASUREMENTS: 2D Measurements: RV - 3.5 cm LV - 4.7 cm Septum 1.2 cm Posterior wall 1.2 cm Aortic root 3.0 cm LA - 4.4 cm LVEF 70% Doppler Measurements: AV - 1.55 m/sec LVOT - 0.8 m/sec LVOT diameter 1.8 cm MV-E 83, A 86, EA ratio 1 Early mitral deceleration time 158 msec E prime medial 6.1 A prime medial 9 E prime lateral 7.9 Average E/E prime ratio 11.9/PCWP 16.6 mmHg PV - 0.74 m/sec Pulmonary artery acceleration time 121 msec RVSP - 35 mmHg IVC - 1.5 cm COMMENTS: Normal sinus rhythm without intraventricular conduction disturbance. Somewhat technically challenging study in light of the patient's body habitus, but diagnostically useful information was still obtained. M-mode and 2-dimensional cardiography was performed with pulse, continuous wave, color flow and tissue Doppler studies. Borderline symmetrical left ventricular hypertrophy with hyperkinetic wall motion. Mildly dilated left atrium with evidence of grade 1 left ventricular (LV) diastolic dysfunction and current estimated mean left atrial pressure upper limits of normal. Normal right heart chamber sizes and motion with Doppler evidence of moderate pulmonary hypertension. Normal inferior vena cava (IVC) size against an elevated central venous pressure. Normal aortic diameters. Subtle aortic valvular sclerosis without functional abnormality. Mild thickening of the mitral valvular apparatus with normal leaflet excursion and no posterior systolic buckling. No inflow tract obstruction and only very mild to moderate insufficiency. Normal appearing tricuspid valve with very mild insufficiency. No apparent intracardiac mass or pericardial effusion.
== END ==
LOC: M CARPUL 08:16
PROVIDERS: ATTEND Internal Medicine Cardiovascular Disease
DX: R60.0 Localized edema (principal)

== ENCOUNTER → 2021-08-09 | Outpatient (CLI) | payer MEDICARE, BC, OTHER ==
[~2021-08-09] MED LIST changes: -D31000TA2 PO; -LISI20TA20 PO; +LISI20TA37 PO; +VITA100093 PO
[2021-08-09 11:14] LABS: BASO % 0.1 % (0.0-1.0); HEMATOCRIT 40.2 % (36.0-47.0); HEMOGLOBIN 13.5 g/dl (12.0-15.5); LYMPH # 1.6 10^3/uL (1.5-5.0); LYMPH % 16.5 % (24.0-44.0); MEAN CORPUSCULAR HEMOGLOBIN 32.8 pg (27.0-33.0); MEAN CORPUSCULAR HGB CONC 33.6 g/dl (32.0-36.5); MEAN CORPUSCULAR VOLUME 97.6 fl (80.0-96.0); MONO # 0.8 10^3/uL (0.0-0.8); NEUTROPHILS # 7.4 10^3/uL (1.5-8.5); NEUTROPHILS % 74.8 % (36.0-66.0); PLATELET COUNT, AUTOMATED 291 10^3/uL (150-450); RED BLOOD COUNT 4.12 10^6/uL (4.00-5.40); WHITE BLOOD COUNT 9.9 10^3/uL (4.0-10.0)
[2021-08-09 11:37] LABS: ERYTHROCYTE SEDIMENTATION RATE 2 mm/hr (0-30)
[2021-08-09 11:45] LABS: ALBUMIN 3.8 GM/DL (3.2-5.2); ALT/SGPT 40 U/L (12-78); BILIRUBIN,TOTAL 1.7 MG/DL (0.2-1.0); BLOOD UREA NITROGEN 13 MG/DL (7-18); CALCIUM LEVEL 8.6 MG/DL (8.8-10.2); CARBON DIOXIDE LEVEL 30 MEQ/L (21-32); CHLORIDE LEVEL 103 MEQ/L (98-107); CHOLESTEROL LEVEL 183 MG/DL (<200); CHOLESTEROL RISK RATIO 2.033 (<5); CREATININE FOR GFR 0.86 MG/DL (0.55-1.30); FREE T4 0.72 NG/DL (0.76-1.46); GLOMERULAR FILTRATION RATE > 60.0 (>45); GLUCOSE, FASTING 124 MG/DL (70-100); HDL CHOLESTEROL 90 MG/DL (>40); LDL CHOLESTEROL 71 MG/DL (<100); NON-HDL-C 93 MG/DL; NT-PRO BNP 339 PG/ML (<125); POTASSIUM SERUM 3.7 MEQ/L (3.5-5.1); SODIUM LEVEL 137 MEQ/L (136-145); THYROID STIMULATING HORMONE 0.423 uIU/ML (0.358-3.740); TOTAL 25(OH) VITAMIN D 48.4 NG/ML (30.0-100.0); TOTAL PROTEIN 7.5 GM/DL (6.4-8.2); TRIGLYCERIDES LEVEL 108 MG/DL (<150); URIC ACID 3.9 MG/DL (2.6-6.0)
== END ==
LOC: M WUC 09:39
PROVIDERS: ATTEND Family Medicine
DX: I10 Essential (primary) hypertension (principal); M79.671 Pain in right foot; E78.5 Hyperlipidemia, unspecified; E55.9 Vitamin D deficiency, unspecified; M10.9 Gout, unspecified; G47.33 Obstructive sleep apnea (adult) (pediatric); R60.0 Localized edema; R63.5 Abnormal weight gain

== ENCOUNTER → 2022-01-22 | Outpatient (CLI) | payer MEDICARE, BC, OTHER | LOC: M WHC 12:36 | PROVIDERS: ATTEND Family Medicine | DX: Z12.31 Encounter for screening mammogram for malignant neoplasm of breast (principal) ==

== ENCOUNTER → 2025-02-14 | Outpatient (CLI) | payer MEDICARE ==
[~2025-02-14] MED LIST changes: -AMBI5TAB PO; +DICL100G10; -DICL1GEL3; +NIAC500T26 PO; -NIAC500T93 PO; +POTA-232 PO; -POTA10TA67 PO; +ZOLP-532 PO
== END ==
LOC: M RAD 08:08
PROVIDERS: ATTEND Family Medicine
DX: M54.2 Cervicalgia (principal)